=== PATIENT | male | born 1965 ===

== ENCOUNTER → 2020-06-21 09:56 | Outpatient (BNVA) | payer MEDICAID, SELFPAY | PROVIDERS: PCP Internal Medicine; Visit Provider Internal Medicine ==

== ENCOUNTER 2020-12-31 16:45 | Emergency (ER) | payer MEDICAID, SELFPAY ==
--- NOTE | ~2020-12-31 | XR_ITS ---
EXAMINATION: XR CHEST CLINICAL INFORMATION: Left-sided chest pain COMPARISON: Chest x-ray July 06, 2017 TECHNIQUE: Frontal view of the chest was obtained. FINDINGS: Cardiac silhouette is normal in size. The lungs are adequately aerated. There is no lobar consolidation. Similar diffuse coarsening of the interstitial markings consistent with chronic changes. No pleural effusion or pneumothorax. Degenerative changes of the spine. XR/XR chest 1V IMPRESSION: No acute pulmonary pathology.
[2020-12-31 16:54] VITALS: BP 131/86; PULSE 80; RESP 18; TEMP 36.9; O2SAT 96; BMI 42.5
--- NOTE | 2020-12-31 16:55 | ECG_ITS ---
Test Reason : CHEST PAIN Blood Pressure : / mmHG Vent. Rate : 080 BPM Atrial Rate : 080 BPM P-R Int : 156 ms QRS Dur : 078 ms QT Int : 380 ms P-R-T Axes : 016 032 037 degrees QTc Int : 438 ms Normal sinus rhythm Nonspecific ST and T wave abnormality Abnormal ECG When compared with ECG of 04-OCT-2015 15:17, No significant change was found Referred By: Yon José Electronically Signed By:MEGHAN ENRIQUE MD
--- NOTE | 2020-12-31 16:56 | ED.CHESTPAIN ---
HPI - Chest Pain General Chief Complaint: Chest Pain Stated Complaint: chest pain Time Seen by Provider: 12/31/20 16:55 Related Data Home Medications Medication Instructions Recorded Confirmed acetaminophen 650 mg 650 mg PO Q12H 06/21/20 tablet,extended release (Mapap Arthritis Pain) albuterol sulfate 90 mcg/actuation 2 puff INHALATION Q4-6H PRN 06/21/20 aerosol inhaler (ProAir HFA) albuterol sulfate 90 mcg/actuation 2 puff INHALATION Q4-6H PRN 06/21/20 aerosol inhaler (Ventolin HFA) atorvastatin 40 mg tablet 40 mg PO DAILY 06/21/20 blood sugar diagnostic (FreeStyle #10 ea 06/21/20 Lite Strips) blood-glucose meter (FreeStyle #1 ea 06/21/20 Lite Meter) cholecalciferol (vitamin D3) 1,250 1,250 mcg PO QWEEK 06/21/20 mcg (50,000 unit) capsule diclofenac sodium 1.5 % topical pkg TOPICAL PRN 06/21/20 drops-menthol 10 % roll-on combo pack doxycycline monohydrate 100 mg 100 mg PO DAILY 06/21/20 capsule furosemide 20 mg tablet 20 mg PO DAILY 06/21/20 gabapentin 100 mg capsule 100 mg PO TID 06/21/20 glipizide 10 mg tablet 10 mg PO DAILY 06/21/20 hydralazine 25 mg tablet 25 mg PO TID 06/21/20 lisinopril 20 mg tablet 20 mg PO DAILY 06/21/20 pioglitazone 30 mg tablet 30 mg PO DAILY 06/21/20 quetiapine 50 mg tablet 50 mg PO DAILY 06/21/20 sertraline 100 mg tablet 100 mg PO DAILY 06/21/20 sitagliptin 50 mg-metformin 1,000 1 tab PO BID 06/21/20 mg tablet (Janumet) tramadol 50 mg tablet 50 mg PO DAILY 06/21/20 Allergies Allergy/AdvReac Type Severity Reaction Status Date / Time lactose [LACTOSE] Allergy Intermediate GI UPSET Verified 06/21/20 10:15 Vicodin Allergy Unknown GI upset Uncoded 06/21/20 10:15 vicodin Allergy Unknown hives, SOB Uncoded 02/09/19 00:00 From VICODIN AdvReac Intermediate HIVES, SOB Uncoded 02/09/20 17:51 PMFSH Past Medical History Medical History Diabetes HTN (hypertension) Surgical History Hx of colonoscopy S/P arthroscopic surgery of right knee S/P hernia surgery Status post right knee replacement Family History Family History Father Prostate cancer Throat cancer Mother Arthritis Dementia Hypertension Hyperlipidemia Social History Social History Alcohol intake: unknown Patient Tobacco Use Status: Tobacco use Unknown Use of substances other than those prescribed or required for medical reasons: Unknown Advance Directives: No Advance Directives Information Provided: No Physical Exam Vital Signs: Vital Signs: Last Vital Signs Temp 97.7 F 12/31/20 22:00 Pulse 78 01/01/21 00:00 Resp 15 01/01/21 02:06 BP 142/97 H 01/01/21 02:06 Pulse Ox 97 01/01/21 02:06 Body Mass Index 42.5 Course Course Course Narrative: Patient presents to the ED for left sided chest pain for 3 days. Patient vaccinated against covid virus. EKG, labs, and chest xray ordered. This is a rapid medical Screening. MDM - Chest Pain Lab Data Result diagrams: 12/31/20 17:48 12/31/20 17:48 Labs: Lab Results 12/31/20 12/31/20 12/31/20 Range/Units 17:48 17:48 17:48 WBC 5.0 (4.8-10.8) X10*3/uL RBC 4.91 (4.60-5.80) X10*6/uL Hgb 14.3 (14.0-18.0) g/dl Hct 43.7 (42-52) % MCV 89.0 (80-98) fL MCH 29.1 (27.0-33.0) pg MCHC 32.7 (31.0-36.0) g/dl RDW 13.4 (11.0-16.0) % Plt Count 175 (160-400) X10*3/uL MPV 10.8 (9.4-12.4) fL Immature Gran % (Auto) 0.4 (0.0-0.4) % Neut % (Auto) 61.5 (45-73) % Lymph % (Auto) 25.7 (20-40) % [place] % (Auto) 7.0 (2-11) % Eos % (Auto) 4.4 H (0-4) % Baso % (Auto) 1.0 (0-2) % Lymph # (Auto) 1.3 (1.2-4.9) X10*3/uL [place] # (Auto) 0.4 (0.1-1.2) X10*3/uL Eos # (Auto) 0.2 (0.0-0.4) X10*3/uL Baso # (Auto) 0.1 (0.0-0.2) X10*3/uL Abs Immat Gran (auto) 0.02 (0.00-0.03) X10*3/uL Absolute Neuts (auto) 3.1 (2.0-8.3) X10*3/uL Absolute Nucleated RBC 0.000 (0.0-0.012) X10*3/uL Nucleated RBC % (auto) 0.0 (0.0-0.2) /100WBC PT (9.9-13.0) SEC INR (0.9-1.1) APTT (24.1-38.0) SEC Sodium 134 L (135-145) mmol/L Potassium 4.1 (3.3-5.1) mmol/L Chloride 99 (96-108) mmol/L Carbon Dioxide 24 (22-29) mmol/L Anion Gap 15 (12-20) BUN 16 (9-16) mg/dL Creatinine 1.25 (0.5-1.4) mg/dL Estim Creat Clear Calc 85.0 Estimated GFR > 60 POC Glucose (60-115) mg/dL Random Glucose 372 H* (60-115) mg/dL Calcium 9.4 (8.4-10.2) mg/dL Total Bilirubin 0.5 (0.0-1.0) mg/dL AST 24 (5-37) U/L ALT 34 (0-40) U/L Alkaline Phosphatase 117 (39-117) U/L Troponin I High Sens < 3.5 (<3.5-35.0) ng/L B-Natriuretic Peptide (<100) pg/mL Total Protein 7.4 (6.5-8.0) g/dL Albumin 4.4 (3.5-5.0) g/dL 12/31/20 01/01/21 01/01/21 Range/Units 17:48 00:10 01:17 WBC (4.8-10.8) X10*3/uL RBC (4.60-5.80) X10*6/uL Hgb (14.0-18.0) g/dl Hct (42-52) % MCV (80-98) fL MCH (27.0-33.0) pg MCHC (31.0-36.0) g/dl RDW (11.0-16.0) % Plt Count (160-400) X10*3/uL MPV (9.4-12.4) fL Immature Gran % (Auto) (0.0-0.4) % Neut % (Auto) (45-73) % Lymph % (Auto) (20-40) % [place] % (Auto) (2-11) % Eos % (Auto) (0-4) % Baso % (Auto) (0-2) % Lymph # (Auto) (1.2-4.9) X10*3/uL [place] # (Auto) (0.1-1.2) X10*3/uL Eos # (Auto) (0.0-0.4) X10*3/uL Baso # (Auto) (0.0-0.2) X10*3/uL Abs Immat Gran (auto) (0.00-0.03) X10*3/uL Absolute Neuts (auto) (2.0-8.3) X10*3/uL Absolute Nucleated RBC (0.0-0.012) X10*3/uL Nucleated RBC % (auto) (0.0-0.2) /100WBC PT 11.1 (9.9-13.0) SEC INR 1.0 (0.9-1.1) APTT 33.4 (24.1-38.0) SEC Sodium (135-145) mmol/L Potassium (3.3-5.1) mmol/L Chloride (96-108) mmol/L Carbon Dioxide (22-29) mmol/L Anion Gap (12-20) BUN (9-16) mg/dL Creatinine (0.5-1.4) mg/dL Estim Creat Clear Calc Estimated GFR POC Glucose 394 H* (60-115) mg/dL Random Glucose (60-115) mg/dL Calcium (8.4-10.2) mg/dL Total Bilirubin (0.0-1.0) mg/dL AST (5-37) U/L ALT (0-40) U/L Alkaline Phosphatase (39-117) U/L Troponin I High Sens (<3.5-35.0) ng/L B-Natriuretic Peptide 24 (<100) pg/mL Total Protein (6.5-8.0) g/dL Albumin (3.5-5.0) g/dL 01/01/21 Range/Units 02:39 WBC (4.8-10.8) X10*3/uL RBC (4.60-5.80) X10*6/uL Hgb (14.0-18.0) g/dl Hct (42-52) % MCV (80-98) fL MCH (27.0-33.0) pg MCHC (31.0-36.0) g/dl RDW (11.0-16.0) % Plt Count (160-400) X10*3/uL MPV (9.4-12.4) fL Immature Gran % (Auto) (0.0-0.4) % Neut % (Auto) (45-73) % Lymph % (Auto) (20-40) % [place] % (Auto) (2-11) % Eos % (Auto) (0-4) % Baso % (Auto) (0-2) % Lymph # (Auto) (1.2-4.9) X10*3/uL [place] # (Auto) (0.1-1.2) X10*3/uL Eos # (Auto) (0.0-0.4) X10*3/uL Baso # (Auto) (0.0-0.2) X10*3/uL Abs Immat Gran (auto) (0.00-0.03) X10*3/uL Absolute Neuts (auto) (2.0-8.3) X10*3/uL Absolute Nucleated RBC (0.0-0.012) X10*3/uL Nucleated RBC % (auto) (0.0-0.2) /100WBC PT (9.9-13.0) SEC INR (0.9-1.1) APTT (24.1-38.0) SEC Sodium (135-145) mmol/L Potassium (3.3-5.1) mmol/L Chloride (96-108) mmol/L Carbon Dioxide (22-29) mmol/L Anion Gap (12-20) BUN (9-16) mg/dL Creatinine (0.5-1.4) mg/dL Estim Creat Clear Calc Estimated GFR POC Glucose 321 H (60-115) mg/dL Random Glucose (60-115) mg/dL Calcium (8.4-10.2) mg/dL Total Bilirubin (0.0-1.0) mg/dL AST (5-37) U/L ALT (0-40) U/L Alkaline Phosphatase (39-117) U/L Troponin I High Sens (<3.5-35.0) ng/L B-Natriuretic Peptide (<100) pg/mL Total Protein (6.5-8.0) g/dL Albumin (3.5-5.0) g/dL Discharge Plan Discharge Clinical Impression: Atypical chest pain, Acute hyperglycemia Patient Disposition: Home, Self-Care Instructions: Chest Pain (ED), Diabetic Hyperglycemia (ED) Additional Instructions: Increase fluids, rest Your diabetes is not well controlled. You need to follow-up with primary care doctor to manage this further We are providing referral to follow up with Cardiology due to her complaints of chest pain I was going to refill you other diabetic medication but you have not filled this since June. You should discuss this with your doctor and continue your glipizide daily. Prescriptions: No Action diclofenac sodium-menthol 1.5-10 % combo pack topical PRNRF: 0 Referrals: Capo Stafford MD [Physician] - 2 days Interventions: ED Discharge Assessment Last Done: 01/01/21 03:25 Discharge Date/Time: 01/01/21 03:27
[2020-12-31 17:55] LABS: MANUAL DIFF FLAG NO
[2020-12-31 17:57] LABS: Basophils Absolute Auto 0.1 X10*3/uL (0.0-0.2); Eosinophils Absolute Auto 0.2 X10*3/uL (0.0-0.4); Eosinophils Percent Auto 4.4 % (0-4); Hematocrit 43.7 % (42-52); Hemoglobin 14.3 g/dl (14.0-18.0); Imm Gran Abs Auto 0.02 X10*3/uL (0.00-0.03); Imm Gran Pct Auto 0.4 % (0.0-0.4); Lymphocytes Absolute Auto 1.3 X10*3/uL (1.2-4.9); Lymphocytes Percent Auto 25.7 % (20-40); Mean Corpuscular HGB Conc 32.7 g/dl (31.0-36.0); Mean Corpuscular Hemoglobin 29.1 pg (27.0-33.0); Mean Platelet Volume 10.8 fL (9.4-12.4); Monocytes Absolute Auto 0.4 X10*3/uL (0.1-1.2); Neutrophils Absolute Auto 3.1 X10*3/uL (2.0-8.3); Neutrophils Percent Auto 61.5 % (45-73); Platelet Count 175 X10*3/uL (160-400); Red Blood Count 4.91 X10*6/uL (4.60-5.80); Red Cell Distribution Width 13.4 % (11.0-16.0)
[2020-12-31 18:20] LABS: B Type Natriuretic Peptide 24 pg/mL (<100); Troponin-I High Sensitivity < 3.5 ng/L (<3.5-35.0)
[2020-12-31 18:22] LABS: Alanine Aminotransferase 34 U/L (0-40); Albumin Level 4.4 g/dL (3.5-5.0); Alkaline Phosphatase 117 U/L (39-117); Anion Gap 15 (12-20); Aspartate Amino Transferase 24 U/L (5-37); Bilirubin Total 0.5 mg/dL (0.0-1.0); Blood Urea Nitrogen 16 mg/dL (9-16); Calcium 9.4 mg/dL (8.4-10.2); Carbon Dioxide 24 mmol/L (22-29); Chloride 99 mmol/L (96-108); Estimated Glomerular Filt Rate > 60; Glucose Random 372 mg/dL (60-115); Potassium 4.1 mmol/L (3.3-5.1); Sodium 134 mmol/L (135-145); Total Protein 7.4 g/dL (6.5-8.0)
[2020-12-31 22:00] VITALS: BP 153/87; PULSE 82; RESP 16; TEMP 36.5; O2SAT 96
[2021-01-01] VITALS: BP 152/91; PULSE 78; O2SAT 97
[2021-01-01 00:23] LABS: Prothrombin Time 11.1 SEC (9.9-13.0)
[2021-01-01 00:25] LABS: Partial Thromboplastin Time 33.4 SEC (24.1-38.0)
--- NOTE | 2021-01-01 00:31 | ED.CHESTPAIN ---
HPI - Chest Pain General Chief Complaint: Chest Pain Stated Complaint: chest pain Time Seen by Provider: 12/31/20 16:55 Source: patient Mode of arrival: ambulatory Limitations: no limitations History of Present Illness HPI narrative: 55-year-old male with a past medical history of [id number] diabetes, hypertension, anxiety, depression, diabetic neuropathy here with complaints of intermittent left-sided chest pain with numbness in the left arm for 3 days. No associated diaphoresis, nausea, vomiting, dizziness, headache. Patient tells me these episodes occur at rest and are more frequent nighttime.. Also complaining of high sugars 400 to 500s with intermittent blurry vision, increased thirst, increased urination. Patient tells me that he ran out of 1 of his oral diabetic medications but does not know the name. He did call his primary care doctor for refill but he has not received this yet. Related Data Home Medications Medication Instructions Recorded Confirmed acetaminophen 650 mg 650 mg PO Q12H 06/21/20 tablet,extended release (Mapap Arthritis Pain) albuterol sulfate 90 mcg/actuation 2 puff INHALATION Q4-6H PRN 06/21/20 aerosol inhaler (ProAir HFA) albuterol sulfate 90 mcg/actuation 2 puff INHALATION Q4-6H PRN 06/21/20 aerosol inhaler (Ventolin HFA) atorvastatin 40 mg tablet 40 mg PO DAILY 06/21/20 blood sugar diagnostic (FreeStyle #10 ea 06/21/20 Lite Strips) blood-glucose meter (FreeStyle #1 ea 06/21/20 Lite Meter) cholecalciferol (vitamin D3) 1,250 1,250 mcg PO QWEEK 06/21/20 mcg (50,000 unit) capsule diclofenac sodium 1.5 % topical pkg TOPICAL PRN 06/21/20 drops-menthol 10 % roll-on combo pack doxycycline monohydrate 100 mg 100 mg PO DAILY 06/21/20 capsule furosemide 20 mg tablet 20 mg PO DAILY 06/21/20 gabapentin 100 mg capsule 100 mg PO TID 06/21/20 glipizide 10 mg tablet 10 mg PO DAILY 06/21/20 hydralazine 25 mg tablet 25 mg PO TID 06/21/20 lisinopril 20 mg tablet 20 mg PO DAILY 06/21/20 pioglitazone 30 mg tablet 30 mg PO DAILY 06/21/20 quetiapine 50 mg tablet 50 mg PO DAILY 06/21/20 sertraline 100 mg tablet 100 mg PO DAILY 06/21/20 sitagliptin 50 mg-metformin 1,000 1 tab PO BID 06/21/20 mg tablet (Janumet) tramadol 50 mg tablet 50 mg PO DAILY 06/21/20 Allergies Allergy/AdvReac Type Severity Reaction Status Date / Time lactose [LACTOSE] Allergy Intermediate GI UPSET Verified 06/21/20 10:15 Vicodin Allergy Unknown GI upset Uncoded 06/21/20 10:15 vicodin Allergy Unknown hives, SOB Uncoded 02/09/19 00:00 From VICODIN AdvReac Intermediate HIVES, SOB Uncoded 02/09/20 17:51 Review of Systems Review of Systems: Increased thirst, increased urination Yes all other systems are reviewed and are negative Constitutional: Constitutional: Reports no additional constitutional complaints, Denies body ache(s), Denies chills, Denies fever(s), Denies headache(s) and Denies weakness Eyes: Eyes: Reports no additional eye complaints, Reports blurry vision and Denies change in vision ENT: Reports system reviewed and no additional complaints, except as documented, Denies dizziness, Denies headache(s), Denies nasal congestion, Denies nasal discharge and Denies neck pain Cardiovascular: Cardiovascular: Reports no additional cardiovascular complaints, Reports chest pain, Denies leg edema and Denies dyspnea Respiratory: Respiratory: Reports no additional respiratory complaints, Denies cough and Denies dyspnea Gastrointestinal: Gastrointestinal: Reports no additional gastrointestinal complaints, Denies abdominal pain, Denies diarrhea, Denies nausea and Denies vomiting Genitourinary: Genitourinary: Denies urinary incontinence Musculoskeletal: Musculoskeletal: Reports no additional musculoskeletal complaints, Denies back pain, Denies arthralgias, Denies joint swelling, Denies neck pain, Reports numbness and Denies tingling Integumentary/Breasts: Skin/Breast: Reports system reviewed and no additional complaints, except as docu and Denies rash Neurologic: Reports system reviewed and no additional complaints, except as documented, Denies Abnormal speech present, Denies dizziness, Denies headache(s), Reports numbness, Denies tingling and Denies weakness PMF Past Medical History Attestation statement: The following information was validated with the patient. Source: old records reviewed and nursing notes reviewed Medical History Diabetes HTN (hypertension) Surgical History Hx of colonoscopy S/P arthroscopic surgery of right knee S/P hernia surgery Status post right knee replacement Family History Family History Father Prostate cancer Throat cancer Mother Arthritis Dementia Hypertension Hyperlipidemia Social History Social History Alcohol intake: unknown Patient Tobacco Use Status: Tobacco use Unknown Use of substances other than those prescribed or required for medical reasons: Unknown Advance Directives: No Advance Directives Information Provided: No Physical Exam Vital Signs: Vital Signs: Last Vital Signs Temp 97.7 F 12/31/20 22:00 Pulse 78 01/01/21 00:00 Resp 16 12/31/20 22:00 BP 152/91 H 01/01/21 00:00 Pulse Ox 97 01/01/21 00:00 Body Mass Index 42.5 Const: General: cooperative, healthy appearing, comfortable and no acute distress Orientation/consciousness: patient oriented x3 Limitations: no limitations HENMT: Head: Yes normal to inspection Ears: hearing grossly normal bilaterally General nose exam: Normal external nose present Face and sinus: Yes normal facial exam Mouth: Normal oral and palatal mucosa present Throat: Yes posterior oropharynx normal Eyes: General: appearance normal, both eyes and all related structures Pupils: Equal, round and reactive pupils present Neck: Neck: Yes normal visual inspection Chest: Other: No chest pain during exam Chest palpation & inspection: normal inspection of the chest Resp: Effort & Inspection: normal respiratory effort Auscultation: clear to auscultation bilaterally Cardio: Rate: regular rate Rhythm: regular rhythm Peripheral pulses: Peripheral pulses 2+ throughout GI: Inspection: Yes normal to inspection Palpation (GI): Soft to palpation and nontender Auscultation: normal bowel sounds Back/Spine/Pelvis: Thoracic/Lumbar Spine: thoracic and lumbar spine normal to inspection Skin: General skin exam: no rashes or lesions noted Neuro: General: patient oriented x3, no focal motor deficits and normal sensation to monofilament Cranial nerves: Yes CN's II-XII intact bilaterally, Yes Equal, round and reactive pupils present, Yes Bilaterally intact EOM present, Yes Nystagmus not present, Yes Normal facial strength present and Yes Midline tongue present Cognition (Neuro): normal cognition Speech: No Abnormal speech present Gait exam (Neuro): Normal gait present Motor exam (neuro): 5/5 motor strength present throughout Sensory Exam: Normal double simultaneous stimulation for sensation Coordination: [id number] test normal, [id number] test normal and tandem gait normal Extrem: General: Yes normal to inspection Course Course Course Narrative: 55-year-old male with a past medical history of [id number] diabetes, diabetic neuropathy, hypertension, anxiety and depression with intermittent left-sided chest pain with numbness in the fingers on the left side for 3 days. Worsened at night time when trying to sleep. No other associated symptoms such as diaphoresis, nausea, vomiting, dizziness. Patient also complaining of high blood sugars over the last several months with associated intermittent blurry vision, increased thirst and increased urination. Patient ran out of 1 of his diabetic medications which he thinks is contributing to this. He has a follow-up appointment next week with his primary care doctor. On exam no chest pain or complaints of numbness. Hemodynamically stable. Will check labs, EKG, chest x-ray. 0040-chest x-ray shows no acute finding. EKG and troponin negative. All other labs are unremarkable with the exception of mildly elevated glucose. Patient will receive 1 L of normal saline and then will check a POC. Symptoms atypical for ACS with symptoms greater than 3 days. No symptoms during my assessment. Patient can follow-up outpatient with his primary care doctor. Will provide referral for Cardiology due to multiple risk factors. We discussed better control of his diabetes may improve his multiple symptoms and complaints.. He has a follow-up next week with PCP. MDM - Chest Pain MDM Narrative Medical decision making narrative: ACS-less likely with symptoms greater than 2 days, atypical in nature with a negative troponin and EKG Differential Diagnosis Differential diagnosis: Likely atypical chest pain Medical Records Data Attestation: I reviewed the patient's medical records. Lab Data Attestation: I reviewed the patient's lab results. Result diagrams: 12/31/20 17:48 12/31/20 17:48 Labs: Lab Results 12/31/20 12/31/20 12/31/20 Range/Units 17:48 17:48 17:48 WBC 5.0 (4.8-10.8) X10*3/uL RBC 4.91 (4.60-5.80) X10*6/uL Hgb 14.3 (14.0-18.0) g/dl Hct 43.7 (42-52) % MCV 89.0 (80-98) fL MCH 29.1 (27.0-33.0) pg MCHC 32.7 (31.0-36.0) g/dl RDW 13.4 (11.0-16.0) % Plt Count 175 (160-400) X10*3/uL MPV 10.8 (9.4-12.4) fL Immature Gran % (Auto) 0.4 (0.0-0.4) % Neut % (Auto) 61.5 (45-73) % Lymph % (Auto) 25.7 (20-40) % [place] % (Auto) 7.0 (2-11) % Eos % (Auto) 4.4 H (0-4) % Baso % (Auto) 1.0 (0-2) % Lymph # (Auto) 1.3 (1.2-4.9) X10*3/uL [place] # (Auto) 0.4 (0.1-1.2) X10*3/uL Eos # (Auto) 0.2 (0.0-0.4) X10*3/uL Baso # (Auto) 0.1 (0.0-0.2) X10*3/uL Abs Immat Gran (auto) 0.02 (0.00-0.03) X10*3/uL Absolute Neuts (auto) 3.1 (2.0-8.3) X10*3/uL Absolute Nucleated RBC 0.000 (0.0-0.012) X10*3/uL Nucleated RBC % (auto) 0.0 (0.0-0.2) /100WBC PT (9.9-13.0) SEC INR (0.9-1.1) APTT (24.1-38.0) SEC Sodium 134 L (135-145) mmol/L Potassium 4.1 (3.3-5.1) mmol/L Chloride 99 (96-108) mmol/L Carbon Dioxide 24 (22-29) mmol/L Anion Gap 15 (12-20) BUN 16 (9-16) mg/dL Creatinine 1.25 (0.5-1.4) mg/dL Estim Creat Clear Calc 85.0 Estimated GFR > 60 POC Glucose (60-115) mg/dL Random Glucose 372 H* (60-115) mg/dL Calcium 9.4 (8.4-10.2) mg/dL Total Bilirubin 0.5 (0.0-1.0) mg/dL AST 24 (5-37) U/L ALT 34 (0-40) U/L Alkaline Phosphatase 117 (39-117) U/L Troponin I High Sens < 3.5 (<3.5-35.0) ng/L B-Natriuretic Peptide (<100) pg/mL Total Protein 7.4 (6.5-8.0) g/dL Albumin 4.4 (3.5-5.0) g/dL 12/31/20 01/01/21 01/01/21 Range/Units 17:48 00:10 01:17 WBC (4.8-10.8) X10*3/uL RBC (4.60-5.80) X10*6/uL Hgb (14.0-18.0) g/dl Hct (42-52) % MCV (80-98) fL MCH (27.0-33.0) pg MCHC (31.0-36.0) g/dl RDW (11.0-16.0) % Plt Count (160-400) X10*3/uL MPV (9.4-12.4) fL Immature Gran % (Auto) (0.0-0.4) % Neut % (Auto) (45-73) % Lymph % (Auto) (20-40) % [place] % (Auto) (2-11) % Eos % (Auto) (0-4) % Baso % (Auto) (0-2) % Lymph # (Auto) (1.2-4.9) X10*3/uL [place] # (Auto) (0.1-1.2) X10*3/uL Eos # (Auto) (0.0-0.4) X10*3/uL Baso # (Auto) (0.0-0.2) X10*3/uL Abs Immat Gran (auto) (0.00-0.03) X10*3/uL Absolute Neuts (auto) (2.0-8.3) X10*3/uL Absolute Nucleated RBC (0.0-0.012) X10*3/uL Nucleated RBC % (auto) (0.0-0.2) /100WBC PT 11.1 (9.9-13.0) SEC INR 1.0 (0.9-1.1) APTT 33.4 (24.1-38.0) SEC Sodium (135-145) mmol/L Potassium (3.3-5.1) mmol/L Chloride (96-108) mmol/L Carbon Dioxide (22-29) mmol/L Anion Gap (12-20) BUN (9-16) mg/dL Creatinine (0.5-1.4) mg/dL Estim Creat Clear Calc Estimated GFR POC Glucose 394 H* (60-115) mg/dL Random Glucose (60-115) mg/dL Calcium (8.4-10.2) mg/dL Total Bilirubin (0.0-1.0) mg/dL AST (5-37) U/L ALT (0-40) U/L Alkaline Phosphatase (39-117) U/L Troponin I High Sens (<3.5-35.0) ng/L B-Natriuretic Peptide 24 (<100) pg/mL Total Protein (6.5-8.0) g/dL Albumin (3.5-5.0) g/dL ECG Data ECG #1: Attestation: I personally reviewed and interpreted this ECG as follows: ECG interpretation date: 01/01/21 ECG interpretation time: 17:39 Interpretation: Normal sinus rhythm with a rate of 80, normal ID, normal QRS, normal QT Discharge Plan Discharge Clinical Impression: Atypical chest pain, Acute hyperglycemia Patient Disposition: Home, Self-Care Instructions: Chest Pain (ED), Diabetic Hyperglycemia (ED) Additional Instructions: Increase fluids, rest Your diabetes is not well controlled. You need to follow-up with primary care doctor to manage this further We are providing referral to follow up with Cardiology due to her complaints of chest pain I was going to refill you other diabetic medication but you have not filled this since June. You should discuss this with your doctor and continue your glipizide daily. Prescriptions: No Action diclofenac sodium-menthol 1.5-10 % combo pack topical PRNRF: 0 Referrals: Capo Stafford MD [Physician] - 2 days
[2021-01-01] MEDS: 0.9 % Sodium Chloride 1,000 ML 999 ML IV (00:39)
[2021-01-01 01:21] LABS: Glucose, Whole Blood 394 mg/dL (60-115)
[2021-01-01] MEDS: glipiZIDE 5 MG TABLET PO ×2 (02:05→03:28)
[2021-01-01 02:06] VITALS: BP 142/97; RESP 15; O2SAT 97
[2021-01-01 02:44] LABS: Glucose, Whole Blood 321 mg/dL (60-115)
== END 2021-01-01 03:27 | disposition home or self-care (01) ==
PROVIDERS: Physician Assistant; Emergency Provider Internal Medicine; PCP Internal Medicine
DX: R07.89 Other chest pain (principal); E11.65 Type 2 diabetes mellitus with hyperglycemia; I10 Essential (primary) hypertension
CPT/HCPCS: 36415; 71045; 80053; 82947; 83880; 84484; 85025; 85610; 85730; 93005; 96360; 99284; 99285

== ENCOUNTER → 2021-05-28 13:28 | Outpatient (BNVA) | payer MEDICAID, SELFPAY | PROVIDERS: PCP Internal Medicine; Referring Provider Internal Medicine; Visit Provider Internal Medicine | DX: R07.2 Precordial pain (principal); R94.31 Abnormal electrocardiogram [ECG] [EKG]; I10 Essential (primary) hypertension; E11.8 Type 2 diabetes mellitus with unspecified complications; E78.5 Hyperlipidemia, unspecified; F17.200 Nicotine dependence, unspecified, uncomplicated | CPT/HCPCS: 93005; 99202 ==

== ENCOUNTER 2021-09-05 15:55 | Outpatient (REF) | payer MEDICAID, SELFPAY ==
--- NOTE | ~2021-09-05 | US_ITS ---
EXAMINATION: ULTRASOUND EXTREMITY NONVASCULAR CLINICAL INFORMATION: Soft tissue and lung COMPARISON: None TECHNIQUE: Grayscale and color imaging of the soft tissues of the left upper arm FINDINGS: Palpable abnormality corresponds to an oval-shaped 2.5 x 2 x 0.9 cm solid isoechoic mass with minimal vascularity just deep to the skin. Ultrasound appearance is suggestive of a lipoma. US/US extremity nonvascular IMPRESSION: Oval-shaped 2.5 x 2 x 0.9 cm isoechoic mass probably representing a lipoma.
== END 2021-09-05 15:56 | disposition home or self-care (01) ==
LOC: HO.US 15:55
PROVIDERS: Visit Provider Internal Medicine
DX: R59.0 Localized enlarged lymph nodes (principal)
CPT/HCPCS: 76882

== ENCOUNTER → 2021-12-03 08:55 | Outpatient (BNVA) | payer MEDICAID, SELFPAY | PROVIDERS: PCP Internal Medicine; Visit Provider Surgery | DX: D17.22 Benign lipomatous neoplasm of skin and subcutaneous tissue of left arm (principal); E66.01 Morbid (severe) obesity due to excess calories; Z68.41 Body mass index [BMI] 40.0-44.9, adult; I10 Essential (primary) hypertension; E11.65 Type 2 diabetes mellitus with hyperglycemia | CPT/HCPCS: 99202 ==

== ENCOUNTER 2022-05-09 15:52 | Emergency (ER) | payer MEDICAID, SELFPAY ==
--- NOTE | ~2022-05-09 | CT_ITS ---
EXAMINATION: CT ABDOMEN AND PELVIS WITHOUT CONTRAST CLINICAL INFORMATION: Abdominal pain. COMPARISON: CT scan abdomen pelvis 08/12/2015 TECHNIQUE: Multidetector volumetric imaging was performed from the superior aspect of the liver through the pubic symphysis. Sagittal and coronal reformatted images were obtained on the technologist's workstation. This CT examination was performed using dose optimization techniques as appropriate, variously including the following: *Automated exposure control *Adjustment of mA and/or kV according to patient size (this includes techniques or standardized protocols for targeted exams where dose is matched to indication/reason for exam; i.e. extremities or head) *Use of iterative reconstruction technique DLP: 1092 mGy-cm FINDINGS: LUNG BASES: The visualized lung bases are unremarkable. Calcification of mitral valve annulus. LIVER, GALLBLADDER, AND BILIARY TREE: The liver is normal in size, shape, and attenuation. No focal hepatic lesion or biliary ductal dilatation is present. The gallbladder is unremarkable with no evidence of radiopaque gallstones, gallbladder wall thickening, or obvious pericholecystic inflammatory changes. PANCREAS: Unremarkable. SPLEEN: Unremarkable. ADRENAL GLANDS: Unremarkable. KIDNEYS AND URETERS: The kidneys are normal in size, shape, and attenuation. No hydronephrosis, hydroureter, or calculi seen. No perinephric stranding. BLADDER: Unremarkable. GASTROINTESTINAL TRACT: There are scattered diverticula throughout the colon. There is no diverticulitis. There is no bowel wall thickening /edema. There is no bowel obstruction. There is a moderate volume of stool in the colon. The appendix is normal . The small bowel loops are unremarkable. The stomach is normal. There is no hiatal hernia. ABDOMINAL WALL: Small fat-containing umbilical hernia. LYMPH NODES: Normal. VASCULAR: Unremarkable. PELVIC VISCERA: Unremarkable. OSSEOUS STRUCTURES: Multilevel degenerative spondylosis spine. CT/CT abdomen pelvis wo IV con IMPRESSION: No acute abnormality CT scan abdomen pelvis. Fleischner guidelines were followed.
[2022-05-09 15:59] VITALS: BP 140/90; PULSE 80
[2022-05-09 16:31] VITALS: BP 144/88; PULSE 82; RESP 16; TEMP 36.8; O2SAT 98; BMI 41.6
--- NOTE | 2022-05-09 16:32 | ED_ITS ---
HPI - Abdominal Pain General Chief Complaint: Abdominal Pain <CLAUDINE Win Last Filed: 05/09/22 16:34> Stated Complaint: abdominal pain <CLAUDINE Win Last Filed: 05/09/22 16:34> Time Seen by Provider: 05/09/22 19:33 <CLAUDINE Win - Last Filed: 05/09/22 16:34> Source: patient and EMS <CLAUDINE Madrigal Last Filed: 05/09/22 21:50> Mode of arrival: EMS <CLAUDINE Madrigal Last Filed: 05/09/22 21:50> Limitations: no limitations <CLAUDINE Madrigal Last Filed: 05/09/22 21:50> History of Present Illness HPI narrative: Patient is a 57 year old assigned male at with a history of HTN, DM, and alcohol use presenting to the emergency department today with left sided abdominal pain. Patient states that over the last few days he has had abdominal pain that radiates to the left side. Patient states that it is intermittent and never stays long. Patient denies any dizziness, lightheadedness, nausea, vomiting, fever, chills, blurry vision, double vision, loss of vision, chest pain, difficulty breathing, shortness of breath, back pain, night sweats, pain with urination, increased urinary frequency, increased urinary urgency, blood in his urine or stool, syncope or a near syncopal episode, recent trauma or falls, bowel incontinence, bladder incontinence, bowel retention, bladder retention, or any other complaints at this time. <CLAUDINE Madrigal - Last Filed: 05/09/22 21:50> MD elicited complaint: abdominal pain <CLAUDINE Madrigal - Last Filed: 05/09/22 21:50> Pertinent past history: none <CLAUDINE Madrigal Last Filed: 05/09/22 21:50> Onset (ago): day(s) <CLAUDINE Madrigal Last Filed: 05/09/22 21:50> Pain Consistency: intermittent <CLAUDINE Madrigal Last Filed: 05/09/22 21:50> Location: periumbilical <CLAUDINE Madrigal Last Filed: 05/09/22 21:50> Severity: mild <CLAUDINE Madrigal - Last Filed: 05/09/22 21:50> Pain scale (0-10): 4 <CLAUDINE Madrigal - Last Filed: 05/09/22 21:50> Quality: aching <CLAUDINE Madrigal - Last Filed: 05/09/22 21:50> Radiation: LUQ and LLQ <CLAUDINE Madrigal - Last Filed: 05/09/22 21:50> Exacerbating factors: nothing <CLAUDINE Madrigal - Last Filed: 05/09/22 21:50> Relieving factors: nothing <CLAUDINE Madrigal - Last Filed: 05/09/22 21:50> Associated symptoms: denies other symptoms <CLAUDINE Madrigal - Last Filed: 05/09/22 21:50> Related Data Home Medications: Home Medications Medication Instructions Recorded Confirmed acetaminophen 650 mg 650 mg PO Q12H 06/21/20 12/03/21 tablet,extended release (Mapap Arthritis Pain) albuterol sulfate 90 mcg/actuation 2 puff inhalation Q4-6H PRN 06/21/20 12/03/21 aerosol inhaler (Ventolin HFA) atorvastatin 40 mg tablet 40 mg PO DAILY 06/21/20 12/03/21 blood sugar diagnostic (SheilaStyle #10 ea 06/21/20 12/03/21 Lite Strips) blood-glucose meter (SheilaStyle #1 ea 06/21/20 12/03/21 Lite Meter kit) cholecalciferol (vitamin D3) 1,250 1,250 mcg PO QWEEK 06/21/20 12/03/21 mcg (50,000 unit) capsule diclofenac sodium 1.5 % topical pkg topical PRN 06/21/20 12/03/21 drops-menthol 10 % roll-on combo pack furosemide 20 mg tablet 20 mg PO DAILY 06/21/20 12/03/21 gabapentin 100 mg capsule 100 mg PO TID 06/21/20 12/03/21 glipizide 10 mg tablet 10 mg PO DAILY 06/21/20 12/03/21 hydralazine 25 mg tablet 25 mg PO TID 06/21/20 12/03/21 lisinopril 20 mg tablet 20 mg PO DAILY 06/21/20 12/03/21 pioglitazone 30 mg tablet 30 mg PO DAILY 06/21/20 12/03/21 quetiapine 50 mg tablet 50 mg PO DAILY 06/21/20 12/03/21 sertraline 100 mg tablet 100 mg PO DAILY 06/21/20 12/03/21 sitagliptin phosphate 50 1 tab PO BID 06/21/20 12/03/21 mg-metformin 1,000 mg tablet (Janumet) tramadol 50 mg tablet 50 mg PO DAILY 06/21/20 12/03/21 <CLAUDINE Win Last Filed: 05/09/22 16:34> Allergies/Adverse Reactions: Allergies Allergy/AdvReac Type Severity Reaction Status Date / Time lactose [LACTOSE] Allergy Intermediate GI UPSET Verified 12/03/21 09:11 From VICODIN AdvReac Intermediate HIVES, Uncoded 12/03/21 09:11 SOB, GI UPSET <CALUDINE Win Last Filed: 05/09/22 16:34> Review of Systems Constitutional: Reports no additional constitutional complaints, Denies chills, Denies fever(s) and Denies night sweats <CLAUDINE Madrigal Last Filed: 05/09/22 21:50> Eyes: Reports no additional eye complaints, Denies blurry vision, Denies change in vision, Denies diplopia, Denies eye discharge, Denies loss of vision and Denies eye pain <CLAUDINE Madrigal Last Filed: 05/09/22 21:50> Denies dizziness <CLAUDINE Madrigal Last Filed: 05/09/22 21:50> Cardiovascular: Reports no additional cardiovascular complaints, Denies chest pain, Denies lightheadedness, Denies Loss of Consciousness and Denies dyspnea <CLAUDINE Madrigal Last Filed: 05/09/22 21:50> Respiratory: Reports no additional respiratory complaints and Denies dyspnea <CLAUDINE Madrigal Last Filed: 05/09/22 21:50> Gastrointestinal: Reports no additional gastrointestinal complaints, Reports abdominal pain, Denies melena, Denies hematochezia, Denies change in bowel habits and Denies change in stool character <CLAUDINE Madrigal Last Filed: 05/09/22 21:50> Genitourinary: Reports no additional male genitourinary complaints, Denies hematuria, Denies oliguria, Denies difficulty urinating, Denies dysuria, Denies urinary frequency, Denies urinary hesitancy, Denies urinary incontinence and Denies urin jhony urgency <CLAUDINE Madrigal - Last Filed: 05/09/22 21:50> Musculoskeletal: Reports no additional musculoskeletal complaints, Denies numbness and Denies tingling <CLAUDINE Madrigal - Last Filed: 05/09/22 21:50> Denies dizziness, Denies loss of vision, Denies numbness and Denies ti ngling <CLAUDINE Madrigal - Last Filed: 05/09/22 21:50> Psychiatric: Reports no additional psychiatric complaints <CLAUDINE Madrigal - Last Filed: 05/09/22 21:50> Endocrine: Reports no additional endocrine complaints <CLAUDINE Madrigal - Last Filed: 05/09/22 21:50> Hematologic/Lymphatic: Reports no additional hematologic/lymphatic complaints <CLAUDINE Madrigal - Last Filed: 05/09/22 21:50> Allergic/Immunologic: Reports no additional allergic/immunologic complaints <CLAUDINE Madrigal - Last Filed: 05/09/22 21:50> PMFSH Past Medical History Attestation statement: The following information was validated with the patient. <CLAUDINE Madrigal - Last Filed: 05/09/22 21:50> Source: old records reviewed and nursing notes reviewed <CLAUDINE Madrigal - Last Filed: 05/09/22 21:50> Medical History: Medical History Diabetes HTN (hypertension) <CLAUDINE Win - Last Filed: 05/09/22 16:34> Surgical History: Surgical History Hx of colonoscopy S/P arthroscopic surgery of right knee S/P hernia surgery Status post right knee replacement <CLAUDINE Win - Last Filed: 05/09/22 16:34> Family History Family History: Family History Father Prostate cancer Throat cancer Mother Arthritis Dementia Hypertension Hyperlipidemia <CLAUDINE Win - Last Filed: 05/09/22 16:34> Social History Social History: Social History Alcohol intake: unknown Patient Tobacco Use Status: Current someday Tobacco user Advance Directives: No Advance Directives Information Provided: No <CLAUDINE Win - Last Filed: 05/09/22 16:34> Physical Exam ED Vital Signs: Vital Signs - 24 hr 05/09/22 16:31 Temperature 98.2 F Pulse Rate 82 Respiratory Rate 16 Blood Pressure 144/88 H Pulse Oximetry 98 Oxygen Delivery Method Room Air BMI result Body Mass Index 41.6 <CLAUDINE Win - Last Filed: 05/09/22 16:34> Vital Signs - 24 hr 05/09/22 16:31 Temperature 98.2 F Pulse Rate 82 Respiratory Rate 16 Blood Pressure 144/88 H Pulse Oximetry 98 Oxygen Delivery Method Room Air BMI result Body Mass Index 41.6 <CLAUDINE Madrigal - Last Filed: 05/09/22 21:50> Const General: cooperative, no acute distress, alert and awake <CLAUDINE Madrigal - Last Filed: 05/09/22 21:50> Nutritional Appearance: well nourished <CLAUDINE Madrigal - Last Filed: 05/09/22 21:50> Orientation/consciousness: patient oriented x3 <CLAUDINE Madrigal - Last Filed: 05/09/22 21:50> Limitations: no limitations <CLAUDINE Madrigal - Last Filed: 05/09/22 21:50> HENMT Head: Yes normal to inspection and Yes atraumatic <CLAUDINE Madrigal - Last Filed: 05/09/22 21:50> Ears: hearing grossly normal bilaterally and external ears normal <CLAUDINE Madrigal - Last Filed: 05/09/22 21:50> General nose exam: Normal external nose present, no nasal discharge noted and no epistaxis <CLAUDINE Madrigal - Last Filed: 05/09/22 21:50> Face and sinus: Yes normal facial exam, No abrasion and No laceration <CLAUDINE Madrigal - Last Filed: 05/09/22 21:50> Mouth: Normal oral and palatal mucosa present, no drooling and no muffled voice <Britney Eagle ID - Last Filed: 05/09/22 21:50> Eyes General: appearance normal, both eyes and all related structures <Britney Eagle ID - Last Filed: 05/09/22 21:50> Periorbital: periorbital findings normal <Britney Eagle [facility] Last Filed: 05/09/22 21:50> Eyelids: Yes eyelids normal <Britney Eagle ID - Last Filed: 05/09/22 21:50> Conjunctivae: conjunctivae normal <Britney Eagle ID - Last Filed: 05/09/22 21:50> Pupils: Equal, round and reactive pupils present <Britney Eagle ID - Last Filed: 05/09/22 21:50> EOM: EOMs intact bilaterally <Britney Eagle ID - Last Filed: 05/09/22 21:50> Neck Neck: Yes normal visual inspection, Yes full ROM and Yes no lymphadenopathy <Britney Eagle ID - Last Filed: 05/09/22 21:50> Chest Chest palpation & inspection: normal inspection of the chest <Britney Eagle [facility] Last Filed: 05/09/22 21:50> Resp Effort & Inspection: normal respiratory effort and able to speak in complete sentences <Britney Eagle ID - Last Filed: 05/09/22 21:50> Auscultation: clear to auscultation bilaterally <Britney Eagle [facility] Last Filed: 05/09/22 21:50> Cardio Rate: regular rate <Britney Eagle ID - Last Filed: 05/09/22 21:50> Rhythm: regular rhythm <Britney Eagle [facility] Last Filed: 05/09/22 21:50> GI Inspection: Yes normal to inspection <Britney Eagle [facility] Last Filed: 05/09/22 21:50> Palpation (GI): Soft to palpation, not firm, nontender, no guarding and not rigid <Britney Eagle ID - Last Filed: 05/09/22 21:50> Neuro General: patient oriented x3 and moves all extremities <Britney Wheatestrellita ID - Last Filed: 05/09/22 21:50> Cranial nerves: Yes Equal, round and reactive pupils present <Britney WheatCLAUDINE haro - Last Filed: 05/09/22 21:50> Cognition (Neuro): normal cognition <Britneymaximilian WheatCLAUDINE haro - Last Filed: 05/09/22 21:50> Motor exam (neuro): 5/5 motor strength present throughout <Britney WheatCLAUDINE haro - Last Filed: 05/09/22 21:50> Sensory Exam: Normal double simultaneous stimulation for sensation <CLAUDINE Madrigal - Last Filed: 05/09/22 21:50> Coordination: [id number] test normal <Britney EagleCLAUDINE haro - Last Filed: 05/09/22 21:50> Extrem General: Yes normal to inspection, Yes full ROM and Yes capillary refill normal <CLAUDINE Madrigal - Last Filed: 05/09/22 21:50> Psych Appearance: grossly normal <CLAUDINE Madrigal - Last Filed: 05/09/22 21:50> Mental Status: mental status grossly normal <CLAUDINE Madrigal - Last Filed: 05/09/22 21:50> Affect: normal affect <CLAUDINE Madrigal - Last Filed: 05/09/22 21:50> Attitude: cooperative <CLAUDINE Madrigal - Last Filed: 05/09/22 21:50> Thought process: Normal thought process present <CLAUDINE Madrigal - Last Filed: 05/09/22 21:50> Thought content: Normal thought content present <CLAUDINE Madrigal - Last Filed: 05/09/22 21:50> Insight: Good insight present (Psych) <CLAUDINE Madrigal - Last Filed: 05/09/22 21:50> Course Course Course Narrative: RME-16:35PM 57-year-old male presenting with abdominal pain that started in the umbilical area is now radiating to the left upper quadrant for the past 2 weeks it was initially intermittent now it is constant. Denies any other symptoms related to this. Plan: Labs, UA, CT scan abdomen pelvis without IV contrast. Patient is stable and will be sent back to the waiting room for further evaluation treatment to the main ER. <CLAUDINE Win - Last Filed: 05/09/22 16:34> Medical Decision Making Medical Decision Making MDM Narrative: Patient is a 57 year old assigned male at with a history of HTN, DM, and alcohol use presenting to the emergency department today with abdominal pain. Patient's physical exam was unremarkable. Patient's blood work was unremarkable. Patient's urine showed no acute process. Patient's abdominal CT showed no acute process. I explained my physical exam findings as well as all test results to the patient. I answered all questions asked by the patient. Patient received PO Omeprazole and Maalox which he stated helped his pain significantly. I stressed the importance of the patient taking his medication as prescribed. I stressed the importance of the patient following up with his primary care provider and a GI specialist. I stressed the importance of the patient returning to the emergency department immediately if his symptoms were to worsen or if he were to develop any dizziness, shortness of breath, difficulty breathing, chest pain, blurry vision, loss of vision, nausea, vomiting, abdominal pain, fever, chills, back pain, or any other complaints. Patient verbalized agreement and understanding with this treatment plan and discharge. <CLAUDINE Madrigal - Last Filed: 05/09/22 21:50> Differential Diagnosis Differential Diagnoses: The differential diagnosis associated with the presentation includes <CLAUDINE Madrigal - Last Filed: 05/09/22 21:50> abdominal pain, GERD <CLAUDINE Madrigal - Last Filed: 05/09/22 21:50> Lab Data MDM Lab Attestation statement: I reviewed the patient's lab results. <CLAUDINE Madrigal - Last Filed: 05/09/22 21:50> Result Diagrams: : 05/09/22 17:51 05/09/22 17:51 <CLAUDINE Win - Last Filed: 05/09/22 16:34> Labs: Lab Results 05/09/22 05/09/22 05/09/22 Range/Units 17:51 17:51 17:51 WBC 5.9 (4.8-10.8) X10*3/uL RBC 5.72 (4.60-5.80) X10*6/uL Hgb 16.4 (14.0-18.0) g/dl Hct 51.0 (42.0-52.0) % MCV 89.2 (80.0-98.0) fL MCH 28.7 (27.0-33.0) pg MCHC 32.2 (31.0-36.0) g/dl RDW 14.3 (11.0-16.0) % Plt Count 210 (160-400) X10*3/uL MPV 9.7 (9.4-12.4) fL Immature Gran % (Auto) 0.2 (0.0-0.4) % Neut % (Auto) 60.8 (45-73) % Lymph % (Auto) 28.4 (20-40) % [place] % (Auto) 6.5 (2-11) % Eos % (Auto) 3.6 (0-4) % Baso % (Auto) 0.5 (0-2) % Lymph # (Auto) 1.7 (1.2-4.9) X10*3/uL [place] # (Auto) 0.4 (0.1-1.2) X10*3/uL Eos # (Auto) 0.2 (0.0-0.4) X10*3/uL Baso # (Auto) 0.0 (0.0-0.2) X10*3/uL Abs Immat Gran (auto) 0.01 (0.00-0.03) X10*3/uL Absolute Neuts (auto) 3.6 (2.0-8.3) x10*3/uL Absolute Nucleated RBC 0.000 (0.0-0.012) X10*3/uL Nucleated RBC % (auto) 0.0 (0.0-0.2) /100WBC PT 10.9 (10.0-13.1) SEC INR 1.0 (0.9-1.1) Sodium 137 (135-145) mmol/L Potassium 4.1 (3.3-5.1) mmol/L Chloride 101 (96-108) mmol/L Carbon Dioxide 25 (22-29) mmol/L Anion Gap 15 (12-20) BUN 11 (9-16) mg/dL Creatinine 0.95 (0.5-1.4) mg/dL Estim Creat Clear Calc 107.9 Estimated GFR > 60 Random Glucose 137 H (60-115) mg/dL Calcium 9.8 (8.4-10.2) mg/dL Magnesium 2.2 (1.6-2.6) mg/dL Total Bilirubin 0.6 (0.0-1.0) mg/dL AST 30 (5-37) U/L ALT 30 (0-40) U/L Alkaline Phosphatase 129 H (39-117) U/L Total Protein 7.5 (6.5-8.0) g/dL Albumin 4.4 (3.5-5.0) g/dL Lipase 30 (8-78) U/L Urine Color Urine Appearance Urine pH (5.0-9.0) Ur Specific Fischer (1.005-1.025) Urine Protein (Neg-Trace) mg/dL Urine Glucose (UA) (Negative) mg/dL Urine Ketones (Negative) mg/dL Urine Blood (Negative) Urine Nitrite (Negative) Ur Leukocyte Esterase (Negative) Urine RBC (0-2) /HPF Urine WBC (0-5) /HPF Ur Squamous Epith Cells (0-2) /HPF Urine Bacteria (None Seen) Hyaline Casts (0-2) /LPF Ethyl Alcohol mg/dL Influenza Type A (PCR) (Negative) Influenza Type B (PCR) (Negative) RSV RNA Qual (PCR) (Negative) SARS-CoV-2 RNA (RT-PCR) (Negative) 05/09/22 05/09/22 05/09/22 Range/Units 17:51 17:51 17:59 WBC (4.8-10.8) X10*3/uL RBC (4.60-5.80) X10*6/uL Hgb (14.0-18.0) g/dl Hct (42.0-52.0) % MCV (80.0-98.0) fL MCH (27.0-33.0) pg MCHC (31.0-36.0) g/dl RDW (11.0-16.0) % Plt Count (160-400) X10*3/uL MPV (9.4-12.4) fL Immature Gran % (Auto) (0.0-0.4) % Neut % (Auto) (45-73) % Lymph % (Auto) (20-40) % [place] % (Auto) (2-11) % Eos % (Auto) (0-4) % Baso % (Auto) (0-2) % Lymph # (Auto) (1.2-4.9) X10*3/uL [place] # (Auto) (0.1-1.2) X10*3/uL Eos # (Auto) (0.0-0.4) X10*3/uL Baso # (Auto) (0.0-0.2) X10*3/uL Abs Immat Gran (auto) (0.00-0.03) X10*3/uL Absolute Neuts (auto) (2.0-8.3) x10*3/uL Absolute Nucleated RBC (0.0-0.012) X10*3/uL Nucleated RBC % (auto) (0.0-0.2) /100WBC PT (10.0-13.1) SEC INR (0.9-1.1) Sodium (135-145) mmol/L Potassium (3.3-5.1) mmol/L Chloride (96-108) mmol/L Carbon Dioxide (22-29) mmol/L Anion Gap (12-20) BUN (9-16) mg/dL Creatinine (0.5-1.4) mg/dL Estim Creat Clear Calc Estimated GFR Random Glucose (60-115) mg/dL Calcium (8.4-10.2) mg/dL Magnesium (1.6-2.6) mg/dL Total Bilirubin (0.0-1.0) mg/dL AST (5-37) U/L ALT (0-40) U/L Alkaline Phosphatase (39-117) U/L Total Protein (6.5-8.0) g/dL Albumin (3.5-5.0) g/dL Lipase (8-78) U/L Urine Color Yellow Urine Appearance Clear Urine pH 7.0 (5.0-9.0) Ur Specific Fischer >= 1.030 H (1.005-1.025) Urine Protein Negative (Neg-Trace) mg/dL Urine Glucose (UA) >=1000 H (Negative) mg/dL Urine Ketones Negative (Negative) mg/dL Urine Blood Negative (Negative) Urine Nitrite Negative (Negative) Ur Leukocyte Esterase Negative (Negative) Urine RBC 0-2 (0-2) /HPF Urine WBC 0-5 (0-5) /HPF Ur Squamous Epith Cells 0-2 (0-2) /HPF Urine Bacteria None Seen (None Seen) Hyaline Casts 0-2 (0-2) /LPF Ethyl Alcohol < 10 mg/dL Influenza Type A (PCR) NEGATIVE (Negative) Influenza Type B (PCR) NEGATIVE (Negative) RSV RNA Qual (PCR) NEGATIVE (Negative) SARS-CoV-2 RNA (RT-PCR) NEGATIVE (Negative) <CLAUDINE Win - Last Filed: 05/09/22 16:34> Lab Results 05/09/22 05/09/22 05/09/22 Range/Units 17:51 17:51 17:51 WBC 5.9 (4.8-10.8) X10*3/uL RBC 5.72 (4.60-5.80) X10*6/uL Hgb 16.4 (14.0-18.0) g/dl Hct 51.0 (42.0-52.0) % MCV 89.2 (80.0-98.0) fL MCH 28.7 (27.0-33.0) pg MCHC 32.2 (31.0-36.0) g/dl RDW 14.3 (11.0-16.0) % Plt Count 210 (160-400) X10*3/uL MPV 9.7 (9.4-12.4) fL Immature Gran % (Auto) 0.2 (0.0-0.4) % Neut % (Auto) 60.8 (45-73) % Lymph % (Auto) 28.4 (20-40) % [place] % (Auto) 6.5 (2-11) % Eos % (Auto) 3.6 (0-4) % Baso % (Auto) 0.5 (0-2) % Lymph # (Auto) 1.7 (1.2-4.9) X10*3/uL [place] # (Auto) 0.4 (0.1-1.2) X10*3/uL Eos # (Auto) 0.2 (0.0-0.4) X10*3/uL Baso # (Auto) 0.0 (0.0-0.2) X10*3/uL Abs Immat Gran (auto) 0.01 (0.00-0.03) X10*3/uL Absolute Neuts (auto) 3.6 (2.0-8.3) x10*3/uL Absolute Nucleated RBC 0.000 (0.0-0.012) X10*3/uL Nucleated RBC % (auto) 0.0 (0.0-0.2) /100WBC PT 10.9 (10.0-13.1) SEC INR 1.0 (0.9-1.1) Sodium 137 (135-145) mmol/L Potassium 4.1 (3.3-5.1) mmol/L Chloride 101 (96-108) mmol/L Carbon Dioxide 25 (22-29) mmol/L Anion Gap 15 (12-20) BUN 11 (9-16) mg/dL Creatinine 0.95 (0.5-1.4) mg/dL Estim Creat Clear Calc 107.9 Estimated GFR > 60 Random Glucose 137 H (60-115) mg/dL Calcium 9.8 (8.4-10.2) mg/dL Magnesium 2.2 (1.6-2.6) mg/dL Total Bilirubin 0.6 (0.0-1.0) mg/dL AST 30 (5-37) U/L ALT 30 (0-40) U/L Alkaline Phosphatase 129 H (39-117) U/L Total Protein 7.5 (6.5-8.0) g/dL Albumin 4.4 (3.5-5.0) g/dL Lipase 30 (8-78) U/L Urine Color Urine Appearance Urine pH (5.0-9.0) Ur Specific Fischer (1.005-1.025) Urine Protein (Neg-Trace) mg/dL Urine Glucose (UA) (Negative) mg/dL Urine Ketones (Negative) mg/dL Urine Blood (Negative) Urine Nitrite (Negative) Ur Leukocyte Esterase (Negative) Urine RBC (0-2) /HPF Urine WBC (0-5) /HPF Ur Squamous Epith Cells (0-2) /HPF Urine Bacteria (None Seen) Hyaline Casts (0-2) /LPF Ethyl Alcohol mg/dL Influenza Type A (PCR) (Negative) Influenza Type B (PCR) (Negative) RSV RNA Qual (PCR) (Negative) SARS-CoV-2 RNA (RT-PCR) (Negative) 05/09/22 05/09/22 05/09/22 Range/Units 17:51 17:51 17:59 WBC (4.8-10.8) X10*3/uL RBC (4.60-5.80) X10*6/uL Hgb (14.0-18.0) g/dl Hct (42.0-52.0) % MCV (80.0-98.0) fL MCH (27.0-33.0) pg MCHC (31.0-36.0) g/dl RDW (11.0-16.0) % Plt Count (160-400) X10*3/uL MPV (9.4-12.4) fL Immature Gran % (Auto) (0.0-0.4) % Neut % (Auto) (45-73) % Lymph % (Auto) (20-40) % [place] % (Auto) (2-11) % Eos % (Auto) (0-4) % Baso % (Auto) (0-2) % Lymph # (Auto) (1.2-4.9) X10*3/uL [place] # (Auto) (0.1-1.2) X10*3/uL Eos # (Auto) (0.0-0.4) X10*3/uL Baso # (Auto) (0.0-0.2) X10*3/uL Abs Immat Gran (auto) (0.00-0.03) X10*3/uL Absolute Neuts (auto) (2.0-8.3) x10*3/uL Absolute Nucleated RBC (0.0-0.012) X10*3/uL Nucleated RBC % (auto) (0.0-0.2) /100WBC PT (10.0-13.1) SEC INR (0.9-1.1) Sodium (135-145) mmol/L Potassium (3.3-5.1) mmol/L Chloride (96-108) mmol/L Carbon Dioxide (22-29) mmol/L Anion Gap (12-20) BUN (9-16) mg/dL Creatinine (0.5-1.4) mg/dL Estim Creat Clear Calc Estimated GFR Random Glucose (60-115) mg/dL Calcium (8.4-10.2) mg/dL Magnesium (1.6-2.6) mg/dL Total Bilirubin (0.0-1.0) mg/dL AST (5-37) U/L ALT (0-40) U/L Alkaline Phosphatase (39-117) U/L Total Protein (6.5-8.0) g/dL Albumin (3.5-5.0) g/dL Lipase (8-78) U/L Urine Color Yellow Urine Appearance Clear Urine pH 7.0 (5.0-9.0) Ur Specific Fischer >= 1.030 H (1.005-1.025) Urine Protein Negative (Neg-Trace) mg/dL Urine Glucose (UA) >=1000 H (Negative) mg/dL Urine Ketones Negative (Negative) mg/dL Urine Blood Negative (Negative) Urine Nitrite Negative (Negative) Ur Leukocyte Esterase Negative (Negative) Urine RBC 0-2 (0-2) /HPF Urine WBC 0-5 (0-5) /HPF Ur Squamous Epith Cells 0-2 (0-2) /HPF Urine Bacteria None Seen (None Seen) Hyaline Casts 0-2 (0-2) /LPF Ethyl Alcohol < 10 mg/dL Influenza Type A (PCR) NEGATIVE (Negative) Influenza Type B (PCR) NEGATIVE (Negative) RSV RNA Qual (PCR) NEGATIVE (Negative) SARS-CoV-2 RNA (RT-PCR) NEGATIVE (Negative) <CLAUDINE Madrigal - Last Filed: 05/09/22 21:50> Radiology Impression Discussion of test interpretation with radiology: I have reviewed the radiologist's reading. <CLAUDINE Madrigal - Last Filed: 05/09/22 21:50> Radiologist Impression: EXAMINATION: CT ABDOMEN AND PELVIS WITHOUT CONTRAST? CLINICAL INFORMATION: Abdominal pain.? COMPARISON: CT scan abdomen pelvis 08/12/2015? TECHNIQUE: Multidetector volumetric imaging was performed from the superior aspect of the liver through the pubic symphysis. Sagittal and coronal reformatted images were obtained on the technologist's workstation.? This CT examination was performed using dose optimization techniques as appropriate, variously including the following: *Automated exposure control *Adjustment of mA and/or kV according to patient size (this includes techniques or standardized protocols for targeted exams where dose is matched to indication/reason for exam; i.e. extremities or head) *Use of iterative reconstruction technique DLP: 1092 mGy-cm FINDINGS: LUNG BASES: The visualized lung bases are unremarkable. Calcification of mitral valve annulus. LIVER, GALLBLADDER, AND BILIARY TREE: The liver is normal in size, shape, and attenuation. No focal hepatic lesion or biliary ductal dilatation is present. The gallbladder is unremarkable with no evidence of radiopaque gallstones, gallbladder wall thickening, or obvious pericholecystic inflammatory changes.? PANCREAS: Unremarkable.? SPLEEN: Unremarkable.? ADRENAL GLANDS: Unremarkable.? KIDNEYS AND URETERS: The kidneys are normal in size, shape, and attenuation. No hydronephrosis, hydroureter, or calculi seen. No perinephric stranding. ? BLADDER: Unremarkable.? GASTROINTESTINAL TRACT: There are scattered diverticula throughout the colon. There is no diverticulitis. There is no bowel wall thickening /edema. There is no bowel obstruction. There is a moderate volume of stool in the colon. The appendix is normal . The small bowel loops are unremarkable. The stomach is normal. There is no hiatal hernia.? ABDOMINAL WALL: Small fat-containing umbilical hernia.? LYMPH NODES: Normal. VASCULAR: Unremarkable. PELVIC VISCERA: Unremarkable.? OSSEOUS STRUCTURES: Multilevel degenerative spondylosis spine.? CT/CT abdomen pelvis wo IV con IMPRESSION: No acute abnormality CT scan abdomen pelvis. ? Yessi guidelines were followed. Dictated By: Gonsalo Hamilton MD Signed By: Electronically signed by Gonsalo Hamilton MD 05/09/22 [id number] <CLAUDINE Madrigal - Last Filed: 05/09/22 21:50> Medications Administered Discontinued Medications Generic Name Dose Route Start Last Admin Trade Name Freq PRN Reason Stop Dose Admin Al Hydroxide/Mg Hydroxide 15 ml 05/09/22 20:21 05/09/22 20:59 Magnesium Hydrox/Alum Hydrox 30 Ml Oral.Susp PO 05/09/22 20:22 15 ml ONCE ONE Administration Omeprazole 20 mg 05/09/22 20:21 05/09/22 20:59 Omeprazole 20 Mg Capsule.Dr PO 05/09/22 20:22 20 mg ONCE ONE Administration <CLAUDINE Win - Last Filed: 05/09/22 16:34> Medications Administered Discontinued Medications Generic Name Dose Route Start Last Admin Trade Name Freq PRN Reason Stop Dose Admin Al Hydroxide/Mg Hydroxide 15 ml 05/09/22 20:21 05/09/22 20:59 Magnesium Hydrox/Alum Hydrox 30 Ml Oral.Susp PO 05/09/22 20:22 15 ml ONCE ONE Administration Omeprazole 20 mg 05/09/22 20:21 05/09/22 20:59 Omeprazole 20 Mg Capsule.Dr PO 05/09/22 20:22 20 mg ONCE ONE Administration <LCAUDINE Madrigal - Last Filed: 05/09/22 21:50> Discharge Plan Discharge Clinical Impression: Abdominal pain <CLAUDINE Win - Last Filed: 05/09/22 16:34> Patient Disposition: Home, Self-Care <CLAUDINE Win - Last Filed: 05/09/22 16:34> Instructions: Abdominal Pain (ED) <CLAUDINE Win - Last Filed: 05/09/22 16:34> Additional Instructions: Follow up with your primary care provider and a GI specialist. Return to the emergency department immediately if your symptoms worsen or if you develop any dizziness, shortness of breath, difficulty breathing, chest pain, blurry vision, loss of vision, nausea, vomiting, abdominal pain, fever, chills, back pain, or any other complaints. <CLAUDINE Win - Last Filed: 05/09/22 16:34> Prescriptions: No Action furosemide 20 mg tablet 20 mg PO DAILY diclofenac sodium-menthol 1.5-10 % combo pack topical PRN lisinopril 20 mg tablet 20 mg PO DAILY hydralazine 25 mg tablet 25 mg PO TID glipizide 10 mg tablet 10 mg PO DAILY Janumet 50-1,000 mg tablet 1 tab PO BID tramadol 50 mg tablet 50 mg PO DAILY acetaminophen [Mapap Arthritis Pain] 650 mg tablet extended release 650 mg PO Q12H gabapentin 100 mg capsule 100 mg PO TID sertraline 100 mg tablet 100 mg PO DAILY pioglitazone 30 mg tablet 30 mg PO DAILY atorvastatin 40 mg tablet 40 mg PO DAILY (DME) FreeStyle Lite Strips Strip See Rx Instructions .ROUTE .MEDSUPPLY Qty: 10 Rx Instructions: As directed (DME) blood-glucose meter [FreeStyle Lite Meter] Kit See Rx Instructions .ROUTE .MEDSUPPLY Qty: 1 Rx Instructions: As directed albuterol sulfate [Ventolin HFA] 90 mcg/actuation HFA aerosol inhaler 2 puff inhalation Q4-6H PRN quetiapine 50 mg tablet 50 mg PO DAILY cholecalciferol (vitamin D3) 1,250 mcg (50,000 unit) capsule 1,250 mcg PO QWEEK <CLAUDINE Win - Last Filed: 05/09/22 16:34> Referrals: [facility] [Provider Group] (Call to establish and follow up with a GI specialist. ) Laury Washington MD [Primary Care Provider] - <CLAUDINE Win - Last Filed: 05/09/22 16:34> Interventions: ED Discharge Assessment Last Done: 05/09/22 20:59 <CLAUDINE Win - Last Filed: 05/09/22 16:34> Discharge Date/Time: 05/09/22 21:00 <CLAUDINE Win - Last Filed: 05/09/22 16:34> Print Language: Kenyan <CLAUDINE Win - Last Filed: 05/09/22 16:34>
[2022-05-09 17:58] LABS: MANUAL DIFF FLAG NO
[2022-05-09 18:00] LABS: Basophils Percent Auto 0.5 % (0-2); Eosinophils Absolute Auto 0.2 X10*3/uL (0.0-0.4); Eosinophils Percent Auto 3.6 % (0-4); Hemoglobin 16.4 g/dl (14.0-18.0); Imm Gran Abs Auto 0.01 X10*3/uL (0.00-0.03); Imm Gran Pct Auto 0.2 % (0.0-0.4); Lymphocytes Absolute Auto 1.7 X10*3/uL (1.2-4.9); Lymphocytes Percent Auto 28.4 % (20-40); Mean Corpuscular HGB Conc 32.2 g/dl (31.0-36.0); Mean Corpuscular Hemoglobin 28.7 pg (27.0-33.0); Mean Corpuscular Volume 89.2 fL (80.0-98.0); Mean Platelet Volume 9.7 fL (9.4-12.4); Monocytes Absolute Auto 0.4 X10*3/uL (0.1-1.2); Monocytes Percent Auto 6.5 % (2-11); Neutrophils Absolute Auto 3.6 x10*3/uL (2.0-8.3); Neutrophils Percent Auto 60.8 % (45-73); Platelet Count 210 X10*3/uL (160-400); Red Blood Count 5.72 X10*6/uL (4.60-5.80); Red Cell Distribution Width 14.3 % (11.0-16.0); White Blood Count 5.9 X10*3/uL (4.8-10.8)
[2022-05-09 18:11] LABS: Appearance Urine Clear; Color Urine Yellow; Glucose Urine UA >=1000 mg/dL (Negative); Leukocyte Esterase Urine Negative (Negative); Nitrite Urine Negative (Negative); Specific Gravity - Urine >= 1.030 (1.005-1.025); UMIC TRIGGER UACC YES; Urine Blood Negative (Negative); Urine Ketones Negative (Negative); Urine Protein Negative (Neg-Trace)
[2022-05-09 18:11] LABS: Prothrombin Time 10.9 SEC (10.0-13.1)
[2022-05-09 18:34] LABS: Bacteria Urine None Seen (None Seen); RBC Urine 0-2 /HPF (0-2); Squamous Epithelial Cell Urine 0-2 /HPF (0-2); WBC Urine 0-5 /HPF (0-5)
[2022-05-09 18:35] LABS: Hyaline Casts Urine 0-2 /LPF (0-2)
[2022-05-09 18:38] LABS: Alanine Aminotransferase 30 U/L (0-40); Albumin Level 4.4 g/dL (3.5-5.0); Alkaline Phosphatase 129 U/L (39-117); Anion Gap 15 (12-20); Aspartate Amino Transferase 30 U/L (5-37); Bilirubin Total 0.6 mg/dL (0.0-1.0); Blood Urea Nitrogen 11 mg/dL (9-16); Calcium 9.8 mg/dL (8.4-10.2); Carbon Dioxide 25 mmol/L (22-29); Chloride 101 mmol/L (96-108); Creatinine Clr Calc Pharmacy 107.9; Estimated Glomerular Filt Rate > 60; Glucose Random 137 mg/dL (60-115); Lipase 30 U/L (8-78); Magnesium 2.2 mg/dL (1.6-2.6); Potassium 4.1 mmol/L (3.3-5.1); Sodium 137 mmol/L (135-145); Total Protein 7.5 g/dL (6.5-8.0)
[2022-05-09 18:43] LABS: Ethanol < 10 mg/dL
[2022-05-09 18:50] LABS: Influenza A PCR NEGATIVE (Negative); Influenza B PCR NEGATIVE (Negative); Resp Syncy Virus RNA Qual PCR NEGATIVE (Negative); SARS COV2 PCR INHOUSE NEGATIVE (Negative)
[2022-05-09] MEDS: Magnesium Hydrox/Alum Hydrox 30 ML ORAL.SUSP 15 ML PO (20:59)
[2022-05-09] MEDS: Omeprazole 20 MG CAPSULE.DR PO (20:59)
== END 2022-05-09 21:00 | disposition home or self-care (01) ==
PROVIDERS: Physician Assistant Medical; Emergency Provider Student in an Organized Health Care Education/Training Program; PCP Internal Medicine
DX: R10.9 Unspecified abdominal pain (principal); Z20.822 Contact with and (suspected) exposure to COVID-19; E11.9 Type 2 diabetes mellitus without complications; I10 Essential (primary) hypertension; E78.5 Hyperlipidemia, unspecified; F17.200 Nicotine dependence, unspecified, uncomplicated; E66.01 Morbid (severe) obesity due to excess calories; Z68.41 Body mass index [BMI] 40.0-44.9, adult; Z79.02 Long term (current) use of antithrombotics/antiplatelets; Z79.899 Other long term (current) drug therapy
CPT/HCPCS: 0241U; 36415; 74176; 80053; 81001; 82077; 83690; 83735; 85025; 85610; 99282; 99284

== ENCOUNTER 2022-08-18 12:46 | Outpatient (REF) | payer MEDICAID, SELFPAY ==
[2022-08-18 13:58] LABS: MANUAL DIFF FLAG NO
[2022-08-18 14:15] LABS: Basophils Absolute Auto 0.1 X10*3/uL (0.0-0.2); Basophils Percent Auto 0.8 % (0-2); Eosinophils Absolute Auto 0.3 X10*3/uL (0.0-0.4); Eosinophils Percent Auto 3.8 % (0-4); Hematocrit 48.5 % (42.0-52.0); Imm Gran Abs Auto 0.02 X10*3/uL (0.00-0.03); Imm Gran Pct Auto 0.3 % (0.0-0.4); Lymphocytes Absolute Auto 2.2 X10*3/uL (1.2-4.9); Lymphocytes Percent Auto 32.5 % (20-40); Mean Corpuscular Hemoglobin 29.5 pg (27.0-33.0); Mean Corpuscular Volume 89.3 fL (80.0-98.0); Mean Platelet Volume 10.5 fL (9.4-12.4); Monocytes Absolute Auto 0.5 X10*3/uL (0.1-1.2); Monocytes Percent Auto 7.4 % (2-11); Neutrophils Absolute Auto 3.7 x10*3/uL (2.0-8.3); Neutrophils Percent Auto 55.2 % (45-73); Platelet Count 242 X10*3/uL (160-400); Red Blood Count 5.43 X10*6/uL (4.60-5.80); Red Cell Distribution Width 13.8 % (11.0-16.0); White Blood Count 6.6 X10*3/uL (4.8-10.8)
== END 2022-08-18 12:47 | disposition home or self-care (01) ==
LOC: HO.LAB 12:46
PROVIDERS: PCP Internal Medicine; Referring Provider Internal Medicine; Visit Provider Physician Assistant
DX: K59.09 Other constipation (principal); K52.9 Noninfective gastroenteritis and colitis, unspecified; K57.30 Diverticulosis of large intestine without perforation or abscess without bleeding; Z79.899 Other long term (current) drug therapy
CPT/HCPCS: 36415; 85025; 99202

== ENCOUNTER 2022-12-11 09:58 | Outpatient (REF) | payer MEDICAID, SELFPAY ==
[2022-12-11 11:26] LABS: MANUAL DIFF FLAG NO
[2022-12-11 12:27] LABS: Basophils Percent Auto 0.4 % (0-2); Eosinophils Absolute Auto 0.2 X10*3/uL (0.0-0.4); Eosinophils Percent Auto 4.4 % (0-4); Hematocrit 45.7 % (42.0-52.0); Hemoglobin 14.7 g/dl (14.0-18.0); Imm Gran Abs Auto 0.02 X10*3/uL (0.00-0.03); Imm Gran Pct Auto 0.4 % (0.0-0.4); Lymphocytes Absolute Auto 1.5 X10*3/uL (1.2-4.9); Lymphocytes Percent Auto 32.4 % (20-40); Mean Corpuscular HGB Conc 32.2 g/dl (31.0-36.0); Mean Corpuscular Hemoglobin 29.2 pg (27.0-33.0); Mean Corpuscular Volume 90.7 fL (80.0-98.0); Mean Platelet Volume 11.1 fL (9.4-12.4); Monocytes Absolute Auto 0.3 X10*3/uL (0.1-1.2); Neutrophils Absolute Auto 2.6 x10*3/uL (2.0-8.3); Neutrophils Percent Auto 55.4 % (45-73); Platelet Count 215 X10*3/uL (160-400); Red Blood Count 5.04 X10*6/uL (4.60-5.80); Red Cell Distribution Width 14.3 % (11.0-16.0); White Blood Count 4.7 X10*3/uL (4.8-10.8)
[2022-12-11 14:16] LABS: Alanine Aminotransferase 31 U/L (0-40); Alkaline Phosphatase 107 U/L (39-117); Anion Gap 15 (12-20); Aspartate Amino Transferase 25 U/L (5-37); Bilirubin Total 0.5 mg/dL (0.0-1.0); Blood Urea Nitrogen 10 mg/dL (9-16); Calcium 9.5 mg/dL (8.4-10.2); Carbon Dioxide 26 mmol/L (22-29); Chloride 99 mmol/L (96-108); Estimated Glomerular Filt Rate > 60; Glucose Random 224 mg/dL (60-115); Potassium 4.2 mmol/L (3.3-5.1); Sodium 136 mmol/L (135-145); Total Protein 7.3 g/dL (6.5-8.0)
== END 2022-12-11 09:59 | disposition home or self-care (01) ==
LOC: HO.LAB 09:58
PROVIDERS: PCP Internal Medicine; Visit Provider Physician Assistant
DX: R10.9 Unspecified abdominal pain (principal); K57.30 Diverticulosis of large intestine without perforation or abscess without bleeding; G89.29 Other chronic pain
CPT/HCPCS: 36415; 80053; 85025; 99213

== ENCOUNTER 2022-12-11 09:58 | Outpatient (AMB) | payer MEDICAID, SELFPAY ==
[2022-12-11 10:24] VITALS: BP 157/81; PULSE 79; BMI 43.8
--- NOTE | 2022-12-11 10:24 | A.OFFVIS_ITS ---
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 Accompanied by: Self / Same As Patient Allergies lactose [LACTOSE] Allergy (Intermediate, Verified 12/11/22 10:25) GI UPSET From VICODIN Adverse Reaction (Intermediate, Uncoded 12/11/22 10:25) HIVES, SOB, GI UPSET Medication List - Last Reconciled 12/11/22 by Mary Kate Macias PA-C acetaminophen ER (Mapap Arthritis Pain) 650 mg PO Q12H albuterol sulfate 90 mcg/actuation (Ventolin HFA) 2 puffs inhalation Q4-6H PRN bisacodyl (Dulcolax (bisacodyl)) 10 mg [place] DAILY PRN blood sugar diagnostic (FreeStyle Lite Strips) As directed blood-glucose meter (FreeStyle Lite Meter kit) As directed bupropion HCl 150 mg PO QAM canagliflozin (Invokana) 100 mg PO QAM cholecalciferol (vitamin D3) 1,250 mcg PO QWEEK docusate sodium (Colace) 200 mg (2 x 100 mg) PO BEDTIME dulaglutide (Trulicity) mg subcut QWEEK ergocalciferol (vitamin D2) 1,250 mcg PO QWEEK furosemide 20 mg PO DAILY glipizide 10 mg PO DAILY lisinopril 20 mg PO DAILY lorazepam 0.5 mg PO BID PRN methylcellulose (laxative) (Citrucel) 500 mg PO TID pioglitazone 30 mg PO DAILY polyethylene glycol 3350 (Miralax) 17 grams PO DAILY quetiapine 50 mg PO DAILY sennosides (senna) 8.6 mg PO BEDTIME PRN sertraline 100 mg PO DAILY tramadol 50 mg PO DAILY PFSH Medical History Diabetes HTN (hypertension) Surgical History Hx of colonoscopy S/P arthroscopic surgery of right knee S/P hernia surgery Status post right knee replacement Family History Father Prostate cancer Throat cancer Mother Arthritis Dementia Hypertension Hyperlipidemia Maternal Grandmother Colon cancer Social History Household Members Other:: single-foster 3 nephews Alcohol intake: unknown Patient Tobacco Use Status: Current someday Tobacco user Physical Exam Vital Signs: Last Vital Signs Pulse 79 12/11/22 10:24 BP 157/81 H 12/11/22 10:24 BMI result Body Mass Index 43.8 Assessment & Plan Assessment & Plan (1) Chronic abdominal pain: Comment: CBC CMP ultrasound Code(s): R10.9 - Unspecified abdominal pain; G89.29 - Other chronic pain Orders: Orders US abdomen comp w elastography Today G89.29 - Other chronic pain, R10.9 - Unspecified abdominal pain Comprehensive Met. Panel Today G89.29 - Other chronic pain, R10.9 - Unspecified abdominal pain Complete Blood Count Auto Diff Today G89.29 - Other chronic pain, R10.9 - Unspecified abdominal pain Coding Diagnoses Chronic abdominal pain R10.9; G89.29
--- NOTE | 2022-12-11 10:54 | MHC.OFFVIS ---
Intake Vital Signs 12/11/22 10:24 12/11/22 10:59 Height 5 ft 7 in Weight 279 lb 8.738 oz BMI 43.8 43.8 BP 157/81 H Blood Pressure Location Lt brachial Position Sitting Pulse 79 Intake Visit Reasons: Follow up LUQ abd pain Allergies lactose [LACTOSE] Allergy (Intermediate, Verified 12/11/22 10:25) GI UPSET From VICODIN Adverse Reaction (Intermediate, Uncoded 12/11/22 10:25) HIVES, SOB, GI UPSET Medication List - Last Reconciled 12/11/22 by Mary Kate Macias PA-C acetaminophen ER (Mapap Arthritis Pain) 650 mg PO Q12H albuterol sulfate 90 mcg/actuation (Ventolin HFA) 2 puffs inhalation Q4-6H PRN bisacodyl (Dulcolax (bisacodyl)) 10 mg [place] DAILY PRN blood sugar diagnostic (FreeStyle Lite Strips) As directed blood-glucose meter (FreeStyle Lite Meter kit) As directed bupropion HCl 150 mg PO QAM canagliflozin (Invokana) 100 mg PO QAM cholecalciferol (vitamin D3) 1,250 mcg PO QWEEK docusate sodium (Colace) 200 mg (2 x 100 mg) PO BEDTIME dulaglutide (Trulicity) mg subcut QWEEK ergocalciferol (vitamin D2) 1,250 mcg PO QWEEK furosemide 20 mg PO DAILY glipizide 10 mg PO DAILY lisinopril 20 mg PO DAILY lorazepam 0.5 mg PO BID PRN methylcellulose (laxative) (Citrucel) 500 mg PO TID pioglitazone 30 mg PO DAILY polyethylene glycol 3350 (Miralax) 17 grams PO DAILY quetiapine 50 mg PO DAILY sennosides (senna) 8.6 mg PO BEDTIME PRN sertraline 100 mg PO DAILY tramadol 50 mg PO DAILY HPI HPI Comments History of Present Illness Details A 57 y/o follows up with same wandering abdominal pain- started to be worse 3-4 weeks ago- same pain I have for years but changes place comes and goes,- no known aggravating factors- bowels are normal with bowel regimen-has not had constipation since taking fiber He does not work, not much excercise- smokes- etoh sometimes Appetite is regular he has gained weight- He has not had nausea, vomiting, hematemesis, hematochezia, fever or chills PFSH Medical History (Updated 12/11/22 @ 11:35 by Mary Kate Macias PA-C) Diabetes HTN (hypertension) Surgical History Hx of colonoscopy S/P arthroscopic surgery of right knee S/P hernia surgery Status post right knee replacement Family History Father Prostate cancer Throat cancer Mother Arthritis Dementia Hypertension Hyperlipidemia Maternal Grandmother Colon cancer Social History Household Members Other:: single-foster 3 nephews Alcohol intake: unknown Patient Tobacco Use Status: Current someday Tobacco user Review of Systems Const All systems reviewed & are unremarkable except as noted in HPI and below Card Denies chest pain and Denies dyspnea Resp Denies dyspnea GI Reports abdominal pain, Denies hematochezia, Denies change in bowel habits, Denies nausea and Denies vomiting Psych Reports depression, Denies homicidal ideation and Denies suicidal ideation Physical Exam Vital Signs: Last Vital Signs Pulse 79 12/11/22 10:24 BP 157/81 H 12/11/22 10:24 BMI result Body Mass Index 43.8 Const General: cooperative, comfortable and no acute distress Orientation/consciousness: patient oriented x3 Limitations: no limitations Eyes Sclerae: sclerae normal Resp Effort & Inspection: normal respiratory effort and able to speak in complete sentences Auscultation: rhonchi Cardio Rate: regular rate Rhythm: regular rhythm Heart sounds: S1 normal heart sound present and S2 normal heart sound present GI Inspection: Yes obesity and Yes scar Palpation (GI): Soft to palpation and nontender Percussion: Yes normal to percussion Auscultation: normal bowel sounds Skin General skin exam: no rashes or lesions noted Neuro General: patient oriented x3 Extrem General: Yes full ROM Psych Speech and movement: Clear speech present Affect: Labile affect present Attitude: cooperative Thought content: Normal thought content present Results Reviewed Results Reviewed: Colonoscopy 11/2018 Dr. Huitron-lymphoid aggregate-no dysplasia repeat colonoscopy 10 yr 05/09/22-CT GASTROINTESTINAL TRACT: There are scattered diverticula throughout the colon. There is no diverticulitis. There is no bowel wall thickening /edema. There is no bowel obstruction. There is a moderate volume of stool in the colon. The appendix is normal . The small bowel loops are unremarkable. The stomach is normal. There is no hiatal hernia.? ABDOMINAL WALL: Small fat-containing umbilical hernia.? CT/CT abdomen pelvis wo IV con IMPRESSION: No acute abnormality CT scan abdomen pelvis. ? Fleischner guidelines were followed. 07/2022- labs ok Assessment & Plan Assessment & Plan (1) Chronic abdominal pain: Comment: CBC CMP ultrasound Code(s): R10.9 - Unspecified abdominal pain; G89.29 - Other chronic pain (2) Diverticulosis of colon: Code(s): K57.30 - Diverticulosis of large intestine without perforation or abscess without bleeding Plan: Reviewed diverticulosis/diverticulitis ER protocol Plan CBC, CMP Ultrasound r/o gallbladder Orders: Orders US abdomen comp w elastography Today G89.29 - Other chronic pain, R10.9 - Unspecified abdominal pain Comprehensive Met. Panel Today G89.29 - Other chronic pain, R10.9 - Unspecified abdominal pain Complete Blood Count Auto Diff Today G89.29 - Other chronic pain, R10.9 - Unspecified abdominal pain Patient Instructions: labs today CBC, CMP Ultrasound r/o gallbladder Continue usual meds U/S - call for F/u for resulyts Diverticulosis/diverticulitis ER protocol review Coding Level of Care Code Est Pt Level 3 (04361) Diagnoses Chronic abdominal pain R10.9; G89.29 Diverticulosis of colon K57.30 Time Spent (min) 30
[2022-12-11 10:59] VITALS: BMI 43.8
== END 2022-12-11 11:39 | disposition home or self-care (01) ==
PROVIDERS: PCP Internal Medicine; Visit Provider Physician Assistant
DX: R10.9 Unspecified abdominal pain (principal); G89.29 Other chronic pain; K57.30 Diverticulosis of large intestine without perforation or abscess without bleeding
CPT/HCPCS: 99213

== ENCOUNTER 2023-01-08 09:53 | Outpatient (REF) | payer MEDICAID, SELFPAY ==
--- NOTE | ~2023-01-08 | US_ITS ---
EXAMINATION: US COMPLETE ABDOMEN WITH LIVER ELASTOGRAPHY CLINICAL INFORMATION: Abdominal pain. COMPARISON: CT abdomen and pelvis dated 05/09/2022. TECHNIQUE: Real-time imaging of the abdominal viscera. Noninvasive ultrasound liver fibrosis assessment is performed using Agustin ElastPQ point quantification shear wave elastography (2D-SWE) with a C5-2 MHz transducer. Multiple elastography samples are obtained. FINDINGS: PANCREAS: Largely obscured by overlapping bowel gas. ABDOMINAL AORTA: Limited. The proximal, middle, and distal aortic segments are normal in caliber. INFERIOR VENA CAVA: Limited. Visualized portions are normal. LIVER: There is borderline hepatomegaly. The liver demonstrates a nodular contour and increased echogenicity. No focal lesion or intrahepatic biliary duct dilatation. The right lobe measures 17.1 cm in length. The left lobe measures 13.7 cm in length. Portal flow is towards the liver (hepatopetal). Shear wave liver elastography median stiffness is 1.30 m/s (reference: normal median stiffness is 1.3 m/s or less). IQR/median stiffness to assess sampling precision is 0.06 (reference: good quality data set is IQR/median stiffness of 0.15 or less). GALLBLADDER: Normal. The gallbladder is physiologically distended without evidence of stones, sludge, polyps, wall thickening or pericholecystic fluid. COMMON BILE DUCT: Normal in caliber measuring 0.3 cm in diameter. RIGHT KIDNEY: Normal. No hydronephrosis. No renal calculi or focal parenchymal lesions. The kidney measures 11.0 cm in maximum dimension. LEFT KIDNEY: Normal. No hydronephrosis. No renal calculi or focal parenchymal lesions. The kidney measures 11.0 cm in maximum dimension. SPLEEN: Normal. The spleen measures 10.1 cm in maximum dimension. FREE FLUID: None. US/US abdomen comp w elastography IMPRESSION: 1. There is generalized increase in hepatic echotexture, consistent with fatty infiltration or hepatocellular disease. Please correlate clinically. No focal hepatic mass or intrahepatic biliary dilatation is seen. 2. There is borderline hepatomegaly. 3. Liver elastography: Measurements are consistent with a high probability of normal liver stiffness. 4. Imaging limited by overlapping bowel gas, and particular of the pancreas and abdominal great vessels. REFERENCE: Society of Radiologists in Ultrasound Liver Stiffness Thresholds (2020): LIVER STIFFNESS THRESHOLDS: *Liver Stiffness equal or less than 1.3 m/s: High probability of being normal. *Liver Stiffness less than 1.7 m/s: In the absence of other known clinical signs, rules out compensated advanced chronic liver disease. *Liver Stiffness 1.7-2.1 m/s: Suggestive of compensated advanced chronic liver disease but need further test for confirmation. *Liver Stiffness over 2.1 m/s: Rules in compensated advanced chronic liver disease. *Liver Stiffness over 2.4 m/s: Suggestive of clinically significant portal hypertension. QUALITY OF DATA SET: *IQR/Median value equal or less than 0.15 implies a quality data set. *IQR/Median value over 0.15 implies a poor quality data set. SIGNIFICANT CHANGE FROM PRIOR EXAM: Significant change if liver stiffness measurement is 10% or greater from prior exam. OTHER CONSIDERATIONS: The stage of liver fibrosis may be overestimated in the setting of acute hepatitis, liver inflammation, elevated liver function tests, hepatic vascular congestion, obstructive cholestasis, non-fasting state, and infiltrative diseases such as amyloidosis and lymphoma. In some patients with NAFLD, the liver stiffness thresholds for compensated advanced chronic liver disease may be lower. In causes other than viral hepatitis and NAFLD, liver stiffness thresholds are not well established.
== END 2023-01-08 09:54 | disposition home or self-care (01) ==
LOC: HO.US 09:53
PROVIDERS: PCP Internal Medicine; Visit Provider Physician Assistant
DX: R10.9 Unspecified abdominal pain (principal); G89.29 Other chronic pain
CPT/HCPCS: 76705; 76981

== ENCOUNTER 2023-05-04 12:12 | Outpatient (REF) | payer MEDICAID, SELFPAY | END 2023-05-04 12:13 | disposition home or self-care (01) | LOC: HO.HOSX 12:12 | PROVIDERS: Visit Provider Orthopaedic Surgery | DX: Z13.89 Encounter for screening for other disorder (principal) ==

== ENCOUNTER 2023-06-05 12:10 | Outpatient (AMB) | payer MEDICAID, SELFPAY ==
--- NOTE | 2023-06-05 12:15 | MHC.OFFVIS ---
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 DOI-04/17/23 Intake Note: Edgar is a 58 year old right hand dominant male who presents today as a new patient with complaints of right shoulder injury. While in [place] on 04/18/23 his left knee locked causing him to fall. He landed on outstretched arms causing his shoulder to dislocate, he was seen at the ED in [place] where the shoulder was reduced. He states still having pain and his ROM is very limited. Allergies lactose [LACTOSE] Allergy (Intermediate, Verified 06/05/23 12:19) GI UPSET From VICODIN Adverse Reaction (Intermediate, Uncoded 12/11/22 10:25) HIVES, SOB, GI UPSET HPI FIELD CASE MANAGER-right shoulder pain-dislocation? DOI-04/17/23 HPI Details Edgar is a 58 year old man who presents with complaints of right shoulder pain. He complains of pain with daily activity, and severely limited ROM which affect his ADLs. He says while vacationing in [place] on 04/18/23, his left knee locked and caused him to fall. He fell onto his outstretched right arm and dislocated his shoulder. This was reduced in the ED before he returned home. He cannot lift his right arm [facility] Medical History Diabetes HTN (hypertension) Surgical History Hx of colonoscopy S/P arthroscopic surgery of right knee S/P hernia surgery Status post right knee replacement Family History Father Prostate cancer Throat cancer Mother Arthritis Dementia Hypertension Hyperlipidemia Maternal Grandmother Colon cancer Social History Household Members Other:: single-foster 3 nephews Alcohol intake: unknown Patient Tobacco Use Status: Current someday Tobacco user Review of Systems Const All systems reviewed & are unremarkable except as noted in HPI and below Physical Exam Vital Signs: BMI result Body Mass Index 43.7 Const General: no acute distress, alert and awake Orientation/consciousness: patient oriented x3 HEENT Head: Yes normocephalic and Yes atraumatic Eyes EOM: EOMs intact bilaterally Resp Effort & Inspection: normal respiratory effort and able to speak in complete sentences Cardio Jugular venous distension: no JVD Skin General skin exam: turgor normal Rashes: no rashes Neuro General: patient oriented x3 Extrem Other: SILT lateral deltoid right +drop arm 3/5 empty can + lag ER to 40 deg Passive ROM intact Psych Appearance: grossly normal Affect: normal affect Attitude: cooperative Assessment & Plan Assessment & Plan (1) Dislocation of right shoulder joint: Code(s): S43.004A - Unspecified dislocation of right shoulder joint, initial encounter Plan: ~one month s/p right shoulder dislocation with inability to abduct arm and + drop arm test. MRI to assess cuff PT (2) Dysfunction of right rotator cuff: Code(s): M67.911 - Unspecified disorder of synovium and tendon, right shoulder Plan Scribed for Jono Barker MD by Marvel Pollard, medical education specialist, on 06/05/23 at 12:25 PM, EST. Orders: Orders PT Evaluation and Treatment Today M67.911 - Unspecified disorder of synovium and tendon, right shoulder, S43.004A - Unspecified dislocation of right shoulder joint, initial encounter MR shoulder RT wo con 06/05/23 S43.004A - Unspecified dislocation of right shoulder joint, initial encounter XR shoulder RT min 2V 06/08/23 M25.519 - Pain in unspecified shoulder Coding Level of Care Code New Pt Level 4 (17701) Diagnoses Dislocation of right shoulder joint S43.004A Dysfunction of right rotator cuff M67.911
[2023-06-05 12:19] VITALS: BMI 43.7
== END 2023-06-05 12:48 | disposition home or self-care (01) ==
PROVIDERS: PCP Internal Medicine; Visit Provider Orthopaedic Surgery
DX: S43.004A Unspecified dislocation of right shoulder joint, initial encounter (principal); M67.911 Unspecified disorder of synovium and tendon, right shoulder
CPT/HCPCS: 99204

== ENCOUNTER → 2023-06-05 12:10 | Outpatient (BNVA) | payer MEDICAID, SELFPAY | PROVIDERS: PCP Internal Medicine; Visit Provider Orthopaedic Surgery | DX: S43.004D Unspecified dislocation of right shoulder joint, subsequent encounter (principal); M67.911 Unspecified disorder of synovium and tendon, right shoulder | CPT/HCPCS: 99202 ==

== ENCOUNTER 2023-06-08 09:35 | Outpatient (REF) | payer MEDICAID, SELFPAY | END 2023-06-08 09:36 | disposition home or self-care (01) | LOC: HO.HOSX 09:35 | PROVIDERS: Visit Provider Orthopaedic Surgery | DX: Z13.89 Encounter for screening for other disorder (principal) ==

== ENCOUNTER 2023-07-14 15:00 | Outpatient (RCR) | payer MEDICAID, SELFPAY ==
--- NOTE | 2023-06-25 13:01 | MHC.PT.PR ---
[facility] [place] Office [place] Office [place] Office [address] Merary Magallanes [address] [phone] F: [phone] F: [phone] F: [phone] F: [phone] Physical Therapy Progress Note Diagnosis: RIGHT shoulder dislocation RIGHT shoulder RTC dysfunction. Date of Surgery: Date of Evaluation: 06/24/23 Treatments to Date: 1 Cancellations to Date: No Shows to Date: Subjective: Please see initial evaluation on 06/24/23 for details. Pain Score and Location: 9 RIGHT shoulder Objective Measures: Please see initial evaluation on 06/24/23 for details. Assessment: Patient is a pleasant 58 y.o. male who is referred to PT by Dr. Jono Barker MD with Dx of RIGHT shoulder dislocation and RIGHT shoulder RTC dysfunction. With testing, I concur with MD suspicions of probably RTC tear, most suspicious is supraspinatus. Further imaging is indicated to confirm or refute RTC injury. Patient impairments include pain, poor posture, limited ROM, weakness. Patient current functional limitations are using R shoulder to lift arm, reaching back pocket, shower, cook, clean, care for elderly mother. Patient will benefit from skilled PT to address aforementioned impairments and functional limitations to meet established goals. Prognosis is fair due to likelihood of RTC tear and patient possibly being a good sirigical candidate. PT Plan: Frequency and Duration: The patient will be seen 2x/week for 4 weeks Treatment Plan: Therapeutic Exercise Dynamic Therapeutic Activities Neuromuscular Re-ed Manual Therapies Joint Mobilization Taping Gait Home Exercise Program Patient Education Electrical Stimulation Iontophoresis Ultrasound Mechanical Traction Hot or Cold Pack Reviewed/ Agreed with Student Documentation: Therapist: Thank you once again for your referral.
--- NOTE | 2023-08-24 10:39 | MHC.PT.DC ---
[facility] [place] Office [place] Office [place] Office [address] Merary Magallanes [address] [phone] F: [phone] F: [phone] F: [phone] F: [phone] Physical Therapy Discharge Report Diagnosis: RIGHT shoulder dislocation RIGHT shoulder RTC dysfunction. Date of Surgery: Date of Evaluation: 06/24/23 Date of Discharge: 08/24/23 Treatments to Date: 3 Cancellations to Date: 3 No Shows to Date: 3 Discharge Status: Visit Non-compliance Discharge Summary: Edgar ceased attending PT on his own accord, he canceled or did not show to his last scheduled visits. His PT evaluation reads, With testing, I concur with MD suspicions of probably RTC tear, most suspicious is supraspinatus. Further imaging is indicated to confirm or refute RTC injury. Prognosis is fair due to likelihood of RTC tear and patient possibly being a good sirigical candidate. He is discharged from PT at this time. Electronically signed by: Alfa Robles, PT, DPT Please sign and return to therapist. Thank you for your referral.
== END 2023-08-24 10:39 | disposition home or self-care (01) ==
LOC: HO.PT 15:00
PROVIDERS: PCP Internal Medicine; Visit Provider Orthopaedic Surgery
DX: S43.004A Unspecified dislocation of right shoulder joint, initial encounter (principal); M67.911 Unspecified disorder of synovium and tendon, right shoulder
CPT/HCPCS: 97110; 97161

== ENCOUNTER 2023-07-22 11:37 | Outpatient (REF) | payer MEDICAID, SELFPAY ==
[2023-07-22 13:42] LABS: MANUAL DIFF FLAG NO
[2023-07-22 13:55] LABS: Basophils Percent Auto 0.7 % (0-2); Eosinophils Absolute Auto 0.2 X10*3/uL (0.0-0.4); Eosinophils Percent Auto 2.8 % (0-4); Hematocrit 48.4 % (42.0-52.0); Hemoglobin 15.7 g/dl (14.0-18.0); Imm Gran Abs Auto 0.02 X10*3/uL (0.00-0.03); Imm Gran Pct Auto 0.3 % (0.0-0.4); Lymphocytes Absolute Auto 1.5 X10*3/uL (1.2-4.9); Lymphocytes Percent Auto 26.6 % (20-40); Mean Corpuscular HGB Conc 32.4 g/dl (31.0-36.0); Mean Corpuscular Hemoglobin 29.5 pg (27.0-33.0); Mean Platelet Volume 11.2 fL (9.4-12.4); Monocytes Absolute Auto 0.4 X10*3/uL (0.1-1.2); Monocytes Percent Auto 7.2 % (2-11); Neutrophils Absolute Auto 3.6 x10*3/uL (2.0-8.3); Neutrophils Percent Auto 62.4 % (45-73); Platelet Count 195 X10*3/uL (160-400); Red Blood Count 5.32 X10*6/uL (4.60-5.80); Red Cell Distribution Width 13.6 % (11.0-16.0); White Blood Count 5.7 X10*3/uL (4.8-10.8)
[2023-07-22 14:17] LABS: Alanine Aminotransferase 29 U/L (0-40); Albumin Level 4.4 g/dL (3.5-5.0); Alkaline Phosphatase 134 U/L (39-117); Anion Gap 12 (12-20); Aspartate Amino Transferase 33 U/L (5-37); Bilirubin Direct 0.3 mg/dL (0.0-0.5); Bilirubin Total 0.8 mg/dL (0.0-1.0); Blood Urea Nitrogen 14 mg/dL (9-16); Calcium 9.7 mg/dL (8.4-10.2); Carbon Dioxide 26 mmol/L (22-29); Chloride 102 mmol/L (96-108); Estimated Glomerular Filt Rate > 60; Glucose Random 153 mg/dL (60-115); Potassium 3.9 mmol/L (3.3-5.1); Sodium 136 mmol/L (135-145); Total Protein 7.8 g/dL (6.5-8.0)
[2023-07-22 14:32] LABS: TSH reflex Free T4 4.35 uIU/mL (0.32-4.0)
[2023-07-22 17:03] LABS: Free T4 (Free Thyroxine) 1.09 ng/dL (0.71-1.85)
== END 2023-07-22 11:38 | disposition home or self-care (01) ==
LOC: HO.HHCL 11:37
PROVIDERS: Visit Provider Internal Medicine
DX: I10 Essential (primary) hypertension (principal); E11.65 Type 2 diabetes mellitus with hyperglycemia
CPT/HCPCS: 36415; 80048; 80076; 84439; 84443; 85025

== ENCOUNTER 2023-08-05 13:11 | Outpatient (REF) | payer MEDICAID, SELFPAY ==
[2023-08-05 16:44] LABS: Cholesterol 161 mg/dL (<200); HDL Cholesterol 42 mg/dL (>40); LDL Cholesterol Calculated 85 mg/dL (<100); Triglycerides 172 mg/dL (<150)
== END 2023-08-05 13:12 | disposition home or self-care (01) ==
LOC: HO.HHCL 13:11
PROVIDERS: Visit Provider Internal Medicine
DX: I10 Essential (primary) hypertension (principal)
CPT/HCPCS: 36415; 80061

== ENCOUNTER 2023-10-01 16:17 | Outpatient (REF) | payer MEDICAID, SELFPAY | END 2023-10-01 16:18 | disposition home or self-care (01) | LOC: HO.HHCLNP 16:17 | PROVIDERS: Visit Provider Internal Medicine | DX: M25.561 Pain in right knee (principal); G89.29 Other chronic pain; Z96.651 Presence of right artificial knee joint | CPT/HCPCS: 36415; 80353 ==

== ENCOUNTER → 2024-05-03 09:02 | Outpatient (BNVA) | payer MEDICAID, SELFPAY | PROVIDERS: PCP Internal Medicine; Visit Provider Surgery ==

== ENCOUNTER 2024-05-11 08:38 | Outpatient (AMB) | payer MEDICAID, SELFPAY ==
--- NOTE | 2024-05-11 14:06 | A.OFFVIS_ITS ---
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 Allergies lactose [LACTOSE] Allergy (Intermediate, Verified 05/11/24 14:06) GI UPSET From VICODIN Adverse Reaction (Intermediate, Uncoded 05/11/24 14:06) HIVES, SOB, GI UPSET Medication List - Last Reconciled 05/11/24 by Rolando Schwab MD acetaminophen ER (Mapap Arthritis Pain) 650 mg PO Q12H albuterol sulfate 90 mcg/actuation (Ventolin HFA) 2 puffs inhalation Q4-6H PRN bisacodyl 10 mg IA DAILY PRN blood sugar diagnostic (FreeStyle Lite Strips) As directed blood-glucose meter (FreeStyle Lite Meter kit) As directed bupropion HCl XL 150 mg PO QAM canagliflozin (Invokana) 100 mg PO QAM cholecalciferol (vitamin D3) 1,250 mcg PO QWEEK docusate sodium 200 mg (2 x 100 mg) PO BEDTIME dulaglutide (Trulicity) mg subcut QWEEK ergocalciferol (vitamin D2) 1,250 mcg PO QWEEK glipizide 10 mg PO DAILY ibuprofen 800 mg PO Q8H lisinopril 20 mg PO DAILY lorazepam 0.5 mg PO BID PRN methylcellulose (laxative) (Citrucel) 500 mg PO TID pioglitazone 30 mg PO DAILY polyethylene glycol 3350 (Gavilax) 17 grams PO DAILY quetiapine 50 mg PO DAILY sennosides (senna) 8.6 mg PO BEDTIME PRN sertraline 100 mg PO DAILY HPI HPI 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: Details: Start time: 1.55pm, End time: 2.51pm I spent 51 minutes speaking with the patient on the phone plus an additional 5 minutes reviewing and updating records for a total of 56 minutes HPI Comments Details: Previous weight loss efforts: self diets Wakes up: 11am, Sleeps: 3am Breakfast: skips Lunch: 3pm (soups, rice) Dinner: 9pm (rice, beans, chicken) Snacks: 4-5pm (chips), 12am (chips, cookies) Exercise: none Fluids: Coffee: none, tea: none, soda: Coke zero, juice: none, ETOH: 1/month PFSH Medical History (Updated 05/11/24 @ 14:16 by Rolando Schwab MD) DJD (degenerative joint disease) Asthma Bipolar 1 disorder Anxiety Depression Sleep apnea treated with continuous positive airway pressure (CPAP) HTN (hypertension) Diabetes Surgical History S/P hernia surgery Hx of colonoscopy Status post right knee replacement S/P arthroscopic surgery of right knee Family History (Updated 05/03/24 @ 09:25 by Karina Sargent CMA) Father Prostate cancer Throat cancer Mother Arthritis Dementia Hypertension Hyperlipidemia Maternal Grandmother Colon cancer Social History (Updated 05/03/24 @ 09:26 by Karina Sargent CMA) Household Members Other:: single-foster 3 nephews Alcohol intake: current Alcohol intake frequency: holidays/special occasions only Patient Tobacco Use Status: Current someday Tobacco user Telehealth Telehealth Telehealth Platform: Telephone Location of provider rendering services: practice address Location of patient: address on file Patient Identification confirmed using: Name, : Yes Telehealth method: voice only Patient verbally consented to treatment: Yes Patient verbally consented to billing insurance company: Yes Patient informed of any privacy concerns related to visit: Yes Minutes spent on Phone/Video with Pt.: 56 Assessment & Plan Assessment & Plan (1) Morbid (severe) obesity due to excess calories: Code(s): E66.01 - Morbid (severe) obesity due to excess calories Category: Medical Plan: 1. Plan for lap sleeve gastrectomy. If diaphragmatic or ventral hernias are present at time of surgery, these will be repaired laparoscopically as well. Risks and complications were discussed in detail including possible conversion to an open procedure, anastomotic leak, bleeding requiring transfusion, small bowel obstruction, , DVT and pulmonary embolism, cardiac, or pulmonary complications, as [facility] complications such as anastomotic ulcer, in sufficient weight loss and vitamin deficiencies. I emphasized the importance of close follow-up, adherence to instructions and good communication. 2. Nutritional counseling. Start with 2 CELEBRATE REBUILD protein (buy at [facility]) shakes (TWO scoops EACH in 8oz low fat unsweetened almond milk each) at 12pm-2pm and 3pm-5pm, dinner at 6pm (10 forks of protein and 10 forks of salad/vegetables) and 2 protein bars after dinner (CELEBRATE protein bars, buy at [facility]) at 8pm-10pm and 11pm-1am after midnight. If hungry, you may have another HALF protein bar at 2am-3am. So you do 2 protein shakes, 2-2.5 protein bars and one meal per day. Meal to include lean meat (beef, fish, pork, turkey, chicken), or martiniquais yogurt, or egg whites, or beans with a salad with olive oil and fruits (berries, pears, apples, kiwi). Avoid salt, breads, potatoes, rice, pasta, desserts. 3. You will receive a link of our software hamida to generate an individualized nutritional and exercise plan specific for you. Please send me a screenshot of the plans you will generate 3. Each shake would be drunk slowly, like coffee in a period of 2 hours. 4. Cut each bar in 4 pieces and eat each piece in 30min to make each bar last 2 hours. 5. I emphasized the importance of measuring accurately the food portion and measure it when serving the food in plate 6. The meal portions include 10 full-size forks of meat and 10 full-size forks of salad. You always eat the meat portion but you can replace up to 5 forks for salad/vegetables with rice, potatoes or pasta, or a fruit if you like. The less you do it the better weight loss will be. 7. One full-size fork is what it can be scooped on the fork without falling aside and not what can be bit with the fork. Use regular forks like those you find in a typical restaurant. 8. Please send me weight measurements as soon as possible and then once a week. Always include your diet and exercise plan. 9. Start walking outside daily, tracking calories with a goal of 300 calories per day, daily. Goal is to burn 2000 calories per week on exercise, which means either 300 calories daily, or 400 calories 5 days per week, or 500 calories 4 days per week, or 650 calories 3 days per week. 10. The best choice would be to purchase a stationary bike, elliptical or treadmill at home that can track calories. Let me know if you do so I can give you an exercise plan. 11.Emphasized the importance of checking his blood glucose levels frequently and daily and to report to me any blood glucose below 100, so I can adjust his insulin and prevent hypoglycemic episodes 12. Goal is to lose at least 1.5-2lbs per week 13. Goal to lose 10% of your weight before surgery, which is about 28lbs. Ultimate weight goal: 252lbs before surgery 14. Please follow the diet plan exactly without any change. If you don't like something about the plan or you feel hungry you need to communicate with me so I can help you revise the plan. You should not change the plan yourself. 15. To be scheduled for EGD to assess your stomach's anatomy. The possibility of biopsies was discussed. Patient needs to avoid use of NSAIDs and aspirin for 1 week prior to EGD. Risks of perforation and bleeding was discussed with the patient. This will be an outpatient procedure with IV sedation. 16. Emphasized the importance of monitoring the blood pressure daily in am when wakes up and two more times throughout the day. If systolic blood pressure is 110 mmHg, or less I explained to the patient that needs to notify me. Also I explained the symptoms of orthostatic hypotension (dizziness and lightheadedness) for which the patient also needs to notify me. Orders: Orders Comprehensive Met. Panel Today E11.8 - Type 2 diabetes mellitus with unspecified complications, E66.01 - Morbid (severe) obesity due to excess calories, G47.30 - Sleep apnea, unspecified, I10 - Essential (primary) hypertension, J45.909 - Unspecified asthma, uncomplicated Vitamin B12 and Folate Today E11.8 - Type 2 diabetes mellitus with unspecified complications, E66.01 - Morbid (severe) obesity due to excess calories, G47.30 - Sleep apnea, unspecified, I10 - Essential (primary) hypertension, J45.909 - Unspecified asthma, uncomplicated Vitamin A Today E11.8 - Type 2 diabetes mellitus with unspecified complications, E66.01 - Morbid (severe) obesity due to excess calories, G47.30 - Sleep apnea, unspecified, I10 - Essential (primary) hypertension, J45.909 - Unspecified asthma, uncomplicated TSH reflex Free T4 Today E11.8 - Type 2 diabetes mellitus with unspecified complications, E66.01 - Morbid (severe) obesity due to excess calories, G47.30 - Sleep apnea, unspecified, I10 - Essential (primary) hypertension, J45.909 - Unspecified asthma, uncomplicated Vitamin D 25-OH Total Today E11.8 - Type 2 diabetes mellitus with unspecified complications, E66.01 - Morbid (severe) obesity due to excess calories, G47.30 - Sleep apnea, unspecified, I10 - Essential (primary) hypertension, J45.909 - Unspecified asthma, uncomplicated XR chest 2V Today E11.8 - Type 2 diabetes mellitus with unspecified complications, E66.01 - Morbid (severe) obesity due to excess calories, G47.30 - Sleep apnea, unspecified, I10 - Essential (primary) hypertension, J45.909 - Unspecified asthma, uncomplicated ECG 12 lead EKG Today E11.8 - Type 2 diabetes mellitus with unspecified complications, E66.01 - Morbid (severe) obesity due to excess calories, G47.30 - Sleep apnea, unspecified, I10 - Essential (primary) hypertension, J45.909 - Unspecified asthma, uncomplicated FL upper GI w air Today E11.8 - Type 2 diabetes mellitus with unspecified complications, E66.01 - Morbid (severe) obesity due to excess calories, G47.30 - Sleep apnea, unspecified, I10 - Essential (primary) hypertension, J45.909 - Unspecified asthma, uncomplicated Insulin Today E11.8 - Type 2 diabetes mellitus with unspecified complications, E66.01 - Morbid (severe) obesity due to excess calories, G47.30 - Sleep apnea, unspecified, I10 - Essential (primary) hypertension, J45.909 - Unspecified asthma, uncomplicated Hemoglobin A1c Today E11.8 - Type 2 diabetes mellitus with unspecified complications, E66.01 - Morbid (severe) obesity due to excess calories, G47.30 - Sleep apnea, unspecified, I10 - Essential (primary) hypertension, J45.909 - Unspecified asthma, uncomplicated H Pylori Breath Test Today E11.8 - Type 2 diabetes mellitus with unspecified complications, E66.01 - Morbid (severe) obesity due to excess calories, G47.30 - Sleep apnea, unspecified, I10 - Essential (primary) hypertension, J45.909 - Unspecified asthma, uncomplicated Complete Blood Count Auto Diff Today E11.8 - Type 2 diabetes mellitus with unspecified complications, E66.01 - Morbid (severe) obesity due to excess calories, G47.30 - Sleep apnea, unspecified, I10 - Essential (primary) hypertension, J45.909 - Unspecified asthma, uncomplicated Lipid Panel Today E11.8 - Type 2 diabetes mellitus with unspecified complications, E66.01 - Morbid (severe) obesity due to excess calories, G47.30 - Sleep apnea, unspecified, I10 - Essential (primary) hypertension, J45.909 - Unspecified asthma, uncomplicated IRON PROFILE Today E11.8 - Type 2 diabetes mellitus with unspecified complications, E66.01 - Morbid (severe) obesity due to excess calories, G47.30 - Sleep apnea, unspecified, I10 - Essential (primary) hypertension, J45.909 - Unspecified asthma, uncomplicated Zinc Today E11.8 - Type 2 diabetes mellitus with unspecified complications, E66.01 - Morbid (severe) obesity due to excess calories, G47.30 - Sleep apnea, unspecified, I10 - Essential (primary) hypertension, J45.909 - Unspecified asthma, uncomplicated C Reactive Protein Today E11.8 - Type 2 diabetes mellitus with unspecified complications, E66.01 - Morbid (severe) obesity due to excess calories, G47.30 - Sleep apnea, unspecified, I10 - Essential (primary) hypertension, J45.909 - Unspecified asthma, uncomplicated Vitamin B1 Today E11.8 - Type 2 diabetes mellitus with unspecified complications, E66.01 - Morbid (severe) obesity due to excess calories, G47.30 - Sleep apnea, unspecified, I10 - Essential (primary) hypertension, J45.909 - Unspecified asthma, uncomplicated Ferritin Today E11.8 - Type 2 diabetes mellitus with unspecified complications, E66.01 - Morbid (severe) obesity due to excess calories, G47.30 - Sleep apnea, unspecified, I10 - Essential (primary) hypertension, J45.909 - Unspecified asthma, uncomplicated US abdomen comp w elastography Today E11.8 - Type 2 diabetes mellitus with unspecified complications, E66.01 - Morbid (severe) obesity due to excess calories, G47.30 - Sleep apnea, unspecified, I10 - Essential (primary) hypertension, J45.909 - Unspecified asthma, uncomplicated Referrals Nutrition/Dietitian Referral E11.8 - Type 2 diabetes mellitus with unspecified complications, E66.01 - Morbid (severe) obesity due to excess calories, G47.30 - Sleep apnea, unspecified, I10 - Essential (primary) hypertension, J45.909 - Unspecified asthma, uncomplicated Behavioral Health Referral E11.8 - Type 2 diabetes mellitus with unspecified complications, E66.01 - Morbid (severe) obesity due to excess calories, G47.30 - Sleep apnea, unspecified, I10 - Essential (primary) hypertension, J45.909 - Unspecified asthma, uncomplicated
[2024-05-11 14:22] VITALS: BMI 45.2
== END 2024-05-11 14:53 | disposition home or self-care (01) ==
LOC: HO.HBS 08:38
PROVIDERS: PCP Internal Medicine; Visit Provider Surgery
DX: E66.813 Obesity, class 3 (principal); Z68.42 Body mass index [BMI] 45.0-49.9, adult
CPT/HCPCS: 99204

== ENCOUNTER → 2024-05-11 08:38 | Outpatient (BNVA) | payer MEDICAID, SELFPAY | PROVIDERS: PCP Internal Medicine; Visit Provider Surgery ==

== ENCOUNTER 2024-10-13 08:22 | Outpatient (REF) | payer MEDICAID, SELFPAY ==
--- NOTE | ~2024-10-13 | XR_ITS ---
CLINICAL HISTORY: pain AP Bilateral Knees, 2 View Left Knee, 2 View Right Knee Comparison: None Findings: No fractures or dislocations. Components of the right knee prosthesis are intact and well aligned. There are changes of osteoarthritis in the left knee joint. No joint effusion. No radiopaque foreign body. IMPRESSION: 1. No acute findings. This document has been electronically signed by: Enrique Duong MD on 10/14/2024 14:42:51
--- OUTSIDE RECORDS SUMMARY | 2024-10-13 08:31 | XMS_ITS | Encounter Summary ---
Author Organization [employer] Address [address] [facility] 7t [place] [address] Care Team Providers Care Manufacturing Plant Manager Name Role Phone Laury [place] MD Primary Care Provide r Reason for Visit * Reason Onset Date Comments Referral 10/30/2023 Encounter Details Date Type Department Care Team ([facility] st Contact Info) Description 10/30/2023 Telephone [facility] [address] [place], [place] [phone] Laury [place] MD [address] [place] [address] Referral Social History Tobacco Use Types Packs/Day Years Used Date Smoking Tobacco: Some Days Cigarettes Passive Smoke Exposure: Current Smokeless Tobacco: Never Alcohol Use Standard Drinks/Week Comments Yes 0 (1 standard drink = 0.6 oz pur e alcohol) Socially Depression Answer Date Recorded Patient Health Questionnaire-9 Score 0 07/24/2023 Patient Health Questionnaire-9 Score 0 07/24/2023 Last PHQ-9: Questionnaire Data Not on file 0 07/24/2023 Housing Stability Answer Date Recorded What is your housing situation today? I have lucas martinez 06/02/[address] you li ve. Do you have problems with any of the following? I am not sure 06/02/2023 Food Insecurity Answer Date Recorded Within the past 12 months, y ou worried that your food would run out before you got money to buy more: Never True 06/02/2023 Within the past 12 months,th e food you bought just didn't last and you didn't have enough money to get more: Never True 01/2024 Transportation Answer Date Recorded In the past 12 months, has l ack of transportation kept you from medical appts, meetings, work or from getting things needed for daily living? No 06/02/2023 Utilities Answer Date Recorded In the past 12 months, has t he electric, gas, oil or water company threatened to shut off services in your home? No 06/02/2023 Depression Answer Date Recorded Patient Health Questionnaire-2 Score 0 07/24/2023 Sex and Gender Information Value Date Recorded Sex Assigned at Male 03/24/2022 10:20 AM EDT Legal Sex Male 10:20 AM EDT Gender Identity Male 03/24/2022 10:20 AM EDT Sexual Orientation Straight 03/24/2022 10 :20 AM EDT documented as of this encounter Miscellaneous Notes * Telephone Encounter - Keyur Adames - 10/30/2023 12:01 PM EDT Tc from pt requesting status on Derm referral discussed during last visit with pcp. Please contact pt at [phone]. documented in this encounter Plan of Treatment Upcoming Encounters Date Type Department Care Team (Late st Contact Info) Description 10/24/2024 2:45 PM EDT Office Visit [facility] [address] [place] [phone] Laury [place] MD [address] [place] [address] documented as of this encounter Visit Diagnoses Not on filedocumented in this encounter Additional Health Concerns Assessment Noted Time PHQ-9 Depression Total Score: 0 07/24/19 24 2:08 PM EST documented as of this encounter Care Teams Manufacturing Plant Manager Relationship Specialty Start Date End Date Laury [place] MD [address] [place] [phone] PCP - General Family Medicine 04/07/19 documented as of this encounter
--- OUTSIDE RECORDS SUMMARY | 2024-10-13 08:32 | XMS_ITS | Encounter Summary ---
Author Organization [employer] Address [address] [facility] 7t [place] [address] Care Team Providers Care Ham Facer Name Role Phone Laury [place] MD Primary Care Provide r Reason for Visit * Reason Comments Med Refill Encounter Details Date Type Department Care Team ([facility] st Contact Info) Description 08/11/2024 Refill [facility] [address] [place], [place] [phone] Laury [place] MD [address] [place] [address] Pain Social History Tobacco Use Types Packs/Day Years [...] AM EDT documented as of this encounter Plan of Treatment Upcoming Encounters Date Type Department Care Team (Late st Contact Info) Description 10/24/2024 2:45 PM EDT Office Visit [facility] [address] [place] [phone] Laury [place] MD [address] [place] [address] documented as of this encounter Visit Diagnoses Diagnosis Pain Generalized pain documented in this encounter Additional Health Concerns Assessment Noted Time PHQ-9 Depression Total Score: 0 07/24/19 24 2:08 PM EST documented as of this encounter Care Teams Ham Facer Relationship Specialty Start Date End Date Laury [place] MD [address] [place] [address] PCP - General Family Medicine 04/07/19 documented as of this encounter
--- OUTSIDE RECORDS SUMMARY | 2024-10-13 08:32 | XMS_ITS | Encounter Summary ---
Author Organization [employer] Address [address] [place] [address] 7 [place] [address] Care Team Providers Care Technical Writer And Editor Name Role Phone Laury [place] MD Primary Care Provide r Reason for Visit * Reason Comments Med Refill Encounter Details Date Type Department Care Team ([facility] st Contact Info) Description 07/27/2023 Refill [facility] [address] [place], [place] [phone] Laury Sanchez MD [address] [place] [address] Type 2 diabetes mellitus with hyperglycemia, without long-term current use of insulin ([facility]) Social History Tobacco Use Types Packs/Day Years [...] Description 10/24/2024 2:45 PM EDT Office Visit [facility] [address] [place] [phone] Laury [place] MD [address] [place] [address] documented as of this encounter Visit Diagnoses Diagnosis Type 2 diabetes mellitus with hyperglycemia, without long-term current use of insulin ([facility]) documented in this encounter Additional Health Concerns Assessment Noted Time PHQ-9 Depression Total Score: 0 07/24/19 24 2:08 PM EST documented as of this encounter Care Teams Technical Writer And Editor Relationship Specialty Start Date End Date Laury [place] MD [address] [place] [phone] PCP - General Family Medicine 04/07/19 documented as of this encounter
--- OUTSIDE RECORDS SUMMARY | 2024-10-13 08:32 | XMS_ITS | Encounter Summary ---
Author Organization [employer] Address [address] [place] [address] 7 [place] [address] Care Team Providers Care Injury/Safety Hazard Assessment Name Role Phone Laury [place] MD Primary Care Provide r Reason for Visit * Reason Comments Med Refill Encounter Details Date Type Department Care Team (Late st Contact Info) Description 12/16/2022 Refill [facility] [address] [place] [address] [phone] Laury [place] MD [address] [place] [address] [phone] Social History Tobacco Use Types Packs/Day Years Used Date Smoking Tobacco: Some Days Cigarettes Smokeless Tobacco: Never Alcohol Use Standard Drinks/Week Comments Yes 0 (1 standard drink = 0.6 oz pur e alcohol) Socially Depression Answer Date Recorded Patient Health Questionnaire-2 Score 2 05/14/2022 Sex and Gender Information Value Date Recorded Sex Assigned at Male 03/24/2022 10:20 AM EDT Legal Sex Male 10:20 AM EDT Gender Identity Male 03/24/2022 10:20 AM EDT Sexual Orientation Straight 03/24/2022 10 :20 AM EDT documented as of this encounter Plan of Treatment Upcoming Encounters Date Type Department Care Team (Late st Contact Info) Description 10/24/2024 2:45 PM EDT Office Visit [facility] [address] [place] [phone] Laury [place] MD [address] [place] [address] [phone] documented as of this encounter Visit Diagnoses Not on filedocumented in this encounter Care Teams Injury/Safety Hazard Assessment Relationship Specialty Start Date End Date Laury [place] MD [address] [place] [address] PCP - General Family Medicine 04/07/19 documented as of this encounter
--- OUTSIDE RECORDS SUMMARY | 2024-10-13 08:32 | XMS_ITS | Encounter Summary ---
Author Organization [employer] Address [address] [place] [address] [address]t [place] [address] Care Team Providers Care Fixing Machine Operator Name Role Phone Laury [place] MD Primary Care Provide r Encounter Details Date Type Department Care Team (Latest Contact Info) Description 12/25/2021 Abstract [facility] Dental, Provider, DDS Social History Tobacco Use Types Packs/Day Years Used Date Smoking Tobacco: Never Assessed Sex and Gender Information Value Date Recorded Sex Assigned at Male 03/24/2022 10:20 AM EDT Legal Sex Male 10:20 AM EDT Gender Identity Male 03/24/2022 10:20 AM EDT Sexual Orientation Straight 03/24/2022 10 :20 AM EDT documented as of this encounter Plan of Treatment Upcoming Encounters Date Type Department Care Team (Late st Contact Info) Description 10/24/2024 2:45 PM EDT Office Visit [facility] [address] [place] [address] Laury [place] MD [address] [place] [address] documented as of this encounter Visit Diagnoses Not on filedocumented in this encounter Care Teams Fixing Machine Operator Relationship Specialty Start Date End Date Laury [place] MD [address] [place] [phone] PCP - General Family Medicine 04/07/19 documented as of this encounter
--- OUTSIDE RECORDS SUMMARY | 2024-10-13 08:32 | XMS_ITS | Encounter Summary ---
Author Organization [employer] Address [address] [place] [address] 7 [place] [address] Care Team Providers Care Dog Track Kennel Manager Name Role Phone Laury [place] MD Primary Care Provide r Reason for Visit * Reason Comments Med Refill Encounter Details Date Type Department Care Team (Late st Contact Info) Description 08/01/2022 Refill [facility] [address] [place] [address] [phone] Caryl Strickland MD [address] [place] [address] [phone] Other chronic pain Social History Tobacco Use Types Packs/Day Years [...] Description 10/24/2024 2:45 PM EDT Office Visit [facility] [address] [place] [address] [phone] Laury [place] MD [address] [place], [place] [phone] documented as of this encounter Visit Diagnoses Diagnosis Other chronic pain documented in this encounter Care Teams Dog Track Kennel Manager Relationship Specialty Start Date End Date Laury [place] MD [address] [place] [address] PCP - General Family Medicine 04/07/19 documented as of this encounter
--- OUTSIDE RECORDS SUMMARY | 2024-10-13 08:32 | XMS_ITS | Encounter Summary ---
Author Organization [employer] Address [address] [facility] 7t [place] [address] Care Team Providers Care Leaf Conditioner Name Role Phone Laury Washington MD Primary Care Provide r Reason for Visit * Reason Comments Med Refill Encounter Details Date Type Department Care Team ([facility] st Contact Info) Description 08/18/2024 Refill [facility] MEDICINE [address] [place], [place] [phone] Yunier Rodriguez MD [address] [place] [address] Prurigo nodularis Social History Tobacco Use Types Packs/Day Years [...] Description 10/24/2024 2:45 PM EDT Office Visit [facility] MEDICINE [address] [place] [phone] Laury Washington MD [address] [place] [phone] documented as of this encounter Visit Diagnoses Diagnosis 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
--- OUTSIDE RECORDS SUMMARY | 2024-10-13 08:32 | XMS_ITS | Encounter Summary ---
Author Organization [employer] Address [address] [facility] 7t [place] [address] Care Team Providers Care Mechanical Lead Name Role Phone Laury Washington MD Primary Care Provide r Reason for Visit * Reason Comments Med Refill Encounter Details Date Type Department Care Team ([facility] st Contact Info) Description 09/05/2024 Refill [facility] MEDICINE [address] [place], [place] [phone] Yunier Rodriguez MD [address] [place] [address] Prurigo nodularis Social History Tobacco Use Types [...] Description 10/24/2024 2:45 PM EDT Office Visit [facility] MEDICINE [address] [place] [phone] Laury Washington MD [address] [place] [phone] documented as of this encounter Visit Diagnoses Diagnosis Prurigo nodularis Lichenification and lichen simplex chronicus documented in this encounter Additional Health Concerns Assessment Noted Time PHQ-9 Depression Total Score: 0 07/24/19 24 2:08 PM EST documented as of this encounter Care Teams Mechanical Lead Relationship Specialty Start Date End Date Laury Washington MD [address] [place] [phone] PCP - General Family Medicine 04/07/19 documented as of this encounter
--- OUTSIDE RECORDS SUMMARY | 2024-10-13 08:32 | XMS_ITS | Encounter Summary ---
Author Organization [employer] Address [address] [facility] 7t [place] [address] Care Team Providers Care Rate Reviewer Name Role Phone Laury Washington MD Primary Care Provide r Reason for Visit * Reason Comments Med Change Request Encounter Details Date Type Department Care Team ([facility] Contact Info) Description 06/03/2023 Refill [facility] MEDICINE [address] [place], [place] [phone] Laury Washington MD [address] [place] [address] Social History Tobacco Use Types Packs/Day Years Used Date Smoking Tobacco: Some Days Cigarettes Smokeless Tobacco: Never Alcohol Use Standard Drinks/Week Comments Yes 0 (1 standard drink = 0.6 oz pur e alcohol) Socially Housing Stability Answer Date Recorded What is [...] Description 10/24/2024 2:45 PM EDT Office Visit [facility] MEDICINE [address] [place], [place] [phone] Laury Washington MD [address] [place] [phone] documented as of this encounter Visit Diagnoses Not on filedocumented in this encounter Care Teams Rate Reviewer Relationship Specialty Start Date End Date Laury Washington MD [address] [place] [address] [phone] PCP - General Family Medicine 04/07/19 documented as of this encounter
--- OUTSIDE RECORDS SUMMARY | 2024-10-13 08:32 | XMS_ITS | Encounter Summary ---
Author Organization [employer] Address [address] [place] [address] 7t [place] [address] Care Team Providers Care Lining Maker Hand Name Role Phone Laury Washington MD Primary Care Provide r Encounter Details Date Type Department Care Team ([facility] Contact Info) Description 02/02/[address] [facility] MEDICINE [address] [place] [address] [phone] ProviderCari MD Social History Tobacco Use Types Packs/Day Years [...] Encounters Date Type Department Care Team (Late Contact Info) Description 10/24/2024 2:45 PM EDT Office Visit [facility] MEDICINE [address] [place] [address] [phone] Laury Washington MD [address] [place] [address] [phone] documented as of this encounter Procedures Procedure Name Priority Date/Time Associated Diagnosis Comments T4, FREE Routine 07/22/2023 11:39 AM EST [facility] COLONOSCOPY Routine 02/09/2019 documented in this encounter Results * T4, Free (07/22/2023 11:39 AM EST) Free T4 (Free Thyroxine) 1.09 0.71 - 1.85 ng/dL [facility] 07/22/2023 11:3 9 AM EST 07/22/2023 1:36 PM EST us Laury Banks MD LAB BLOOD ORDERABLES Final Result [facility] [address] [place] [phone] * Colonoscopy (02/09/2019) us Historical Provider HEALTH MAINTENANCE Final Result documented in this encounter Visit Diagnoses Not on filedocumented in this encounter Care Teams Lining Maker Hand Relationship Specialty Start Date End Date Laury Washington MD [address] [place] [phone] PCP - General Family Medicine 04/07/19 documented as of this encounter
--- OUTSIDE RECORDS SUMMARY | 2024-10-13 08:32 | XMS_ITS | Encounter Summary ---
Author Organization [employer] Address [address] [place] [address] 7t [place] [address] Care Team Providers Care Mail Processing Clerk Name Role Phone Laury Washington MD Primary Care Provide r Reason for Visit * Reason Comments Med Refill Encounter Details Date Type Department Care Team ([facility] st Contact Info) Description 06/21/2022 Refill [facility] [address] [place] [address] Vicki Caban DDS [address] [place] [address] Pain Social History Tobacco Use Types Packs/Day [...] Orientation Straight 03/24/2022 10 :20 AM EDT COVID-19 Exposure Response Date Recorded In the last 10 days, have yo u been in contact with someone who was confirmed or suspected to have Coronavirus/COVID-19? No / Unsure 06/24/2022 10:37 AM EST documented as of this encounter Miscellaneous Notes * Telephone Encounter - Vicki Caban DDS - 06/23/2022 11:05 AM EST Approving, but needs appt for additional refills. documented in this encounter Plan of Treatment Upcoming Encounters Date Type Department Care Team (Late st Contact Info) Description 10/24/2024 2:45 PM EDT Office Visit [facility] MEDICINE [address] [place], [place] [phone] Laury Washington MD 230 [place], [place] [phone] documented as of this encounter Visit Diagnoses Diagnosis Pain Generalized pain documented in this encounter Care Teams Mail Processing Clerk Relationship Specialty Start Date End Date Laury Washington MD [address] [place] [phone] PCP - General Family Medicine 04/07/19 documented as of this encounter
--- OUTSIDE RECORDS SUMMARY | 2024-10-13 08:32 | XMS_ITS | Encounter Summary ---
Author Organization [employer] Address [address] [place] [address] 7t [place] [address] Care Team Providers Care Rotary Cutter Operator Name Role Phone Laury Washington MD Primary Care Provide r Reason for Visit * Reason Comments Med Refill Encounter Details Date Type Department Care Team (Late st Contact Info) Description 09/26/[address] [facility] MEDICINE [address] [place] [address] [phone] Laury Washington MD [address] [place] [address] [phone] Other chronic pain Social History Tobacco Use [...] Description 10/24/2024 2:45 PM EDT Office Visit [facility] MEDICINE [address] [place] [address] [phone] Laury Washington MD [address] [place] [address] [phone] documented as of this encounter Visit Diagnoses Diagnosis Other chronic pain documented in this encounter Care Teams Rotary Cutter Operator Relationship Specialty Start Date End Date Laury Washington MD [address] [place] [phone] PCP - General Family Medicine 04/07/19 documented as of this encounter
--- OUTSIDE RECORDS SUMMARY | 2024-10-13 08:32 | XMS_ITS | Clinical Summary ---
Author Organization [employer] Address [address] [facility] 7t [place] [address] Care Team Providers Care Foundry Supervisor Name Role Phone Laury Washington MD Primary Care Provide r Allergies Active Allergy Reactions Criticality Noted Date Comments Acetaminophen 01/05/2019 Hydrocodone 01/05/2019 Medications cholecalciferol (Vitamin D-3) 25 MCG (1000 UT) capsule Take 1 capsule by mouth 1 (one) time each day. 022 Active gabapentin (Neurontin) 100 MG capsule Take 1 capsule by mouth every 12 (twelve) hours. 021 Active Senna-Time 8.6 MG tabletIndicatio ns:Constipation , unspecified constipation type TAKE 1 TABLET (8.6 MG) BY MOUTH IF NEEDED AT BEDTIME FOR CONSTIPATION. 90 tablet 1 023 Active buPROPion XL (Wellbutrin XL) 150 MG 24 hr tablet Take 150 mg by mouth in the morning. 023 Active LORazepam (Ativan) 0.5 MG tablet Take 0.5 mg by mouth if needed in the morning and at bedtime. 023 Active QUEtiapine (SEROquel) 50 MG tablet Take 50 mg by mouth at bedtime. 023 Active sertraline (Zoloft) 100 MG tablet Take 100 mg by mouth in the morning. 023 Active albuterol (2.5 MG/3ML) 0.083% nebulizer solution USE 1 VIAL VIA NEBULIZER 3 TIMES A DAY 75 mL 024 Active naloxone (Narcan) 4 mg/0.1 mL nasal sprayIndication s:Chronic knee pain after total replacement of right knee joint Administer 1 spray (4 mg) into affected nostril(s) if needed for opioid reversal. 2 each 2 024 Active FREESTYLE LITE test stripIndication s:Type 2 diabetes mellitus with hyperglycemia, without long-term current use of insulin (CMS/[facility]) USE DIRECTED TO CHECK BLOOD SUGAR 3 TIMES A DAY 100 strip 11 024 Active canagliflozin (Invokana) 100 MG TAKE 1 TABLET BY MOUTH EVERY DAY BEFORE THE FIRST MEAL OF THE DAY 90 tablet 1 024 Active semaglutide (Ozempic) 2 MG/1.5ML solution pen-injectorInd ications:Type 2 diabetes mellitus with hyperglycemia, without long-term current use of insulin (CMS/[facility]) Inject 0.25 mg under the skin 1 (one) time per week. 1 each 024 Active pioglitazone (Actos) 30 MG tabletIndicatio ns:Type 2 diabetes mellitus with other specified complication, unspecified whether chcf insulin use (CMS/HCC) TAKE 1 TABLET BY MOUTH EVERY DAY 90 tablet 1 024 Active hydrOXYzine pamoate (Vistaril) 25 MG capsuleIndicati ons:Prurigo nodularis Take 1 capsule (25 mg) by mouth every 6 (six) hours if needed for itching for up to 10 days. 30 capsule 025 Active pravastatin (Pravachol) 40 MG tabletIndicatio ns:Primary hypertension TAKE 1 TABLET BY MOUTH EVERY DAY IN THE MORNING 90 tablet 3 025 Active hydroCHLOROthia zide 12.5 MG tabletIndicatio ns:Primary hypertension TAKE 1 TABLET BY MOUTH EVERY DAY IN THE MORNING (12.5 MG) 90 tablet 3 025 Active lisinopril 40 MG tabletIndicatio ns:Primary hypertension TAKE 1 TABLET BY MOUTH EVERY DAY IN THE MORNING 90 tablet 3 025 Active Dulaglutide (Trulicity) 3 MG/0.5ML solution auto-injectorIn dications:Type 2 diabetes mellitus with hyperglycemia, without long-term current use of insulin (CMS/[facility]) INJECT 3 MG SUBCUTANEOUSLY WEEKLY 2 mL 025 Active clobetasol (Temovate) 0.05 % ointmentIndicat ions:Prurigo nodularis Apply topically 2 times daily. 30 g 025 Active ibuprofen 800 MG tabletIndicatio ns:Pain TAKE 1 TABLET BY MOUTH 3 TIMES A DAY WITH FOOD 90 tablet 025 Active Diclofenac Sodium 1 % gelIndications: Chronic pain of left knee APPLY 1 APPLICATION TOPICALLY AT NOON AND 1 APPLICATION IN THE EVENING. 100 g 1 025 Active glipiZIDE (Glucotrol) 10 MG tablet TAKE 1 TABLET BY MOUTH TWICE A DAY BEFORE MEALS 180 tablet 1 025 Active meloxicam (Mobic) 15 MG tabletIndicatio ns:Chronic pain of left knee TAKE 1 TABLET BY MOUTH EVERY DAY 30 tablet 025 Active lidocaine (Lidoderm) 5 % patchIndication s:Chronic pain of left knee APPLY 1 PATCH TOPICALLY ONCE PER DAY. REMOVE & DISCARD PATCH WITHIN 12 HOURS OR DIRECTED BY MD. 30 patch 025 Active glipiZIDE (Glucotrol) 10 MG tablet TAKE 1 TABLET BY MOUTH TWICE A DAY BEFORE MEALS 180 tablet 1 024 2024 Discontinued meloxicam (Mobic) 15 MG tabletIndicatio ns:Chronic pain of left knee Take 1 tablet (15 mg) by mouth Once per day. 30 tablet 025 2024 Discontinued lidocaine (Lidoderm) 5 % patchIndication s:Chronic pain of left knee Apply 1 patch topically Once per day. Remove & discard patch within 12 hours or as directed by MD. 30 patch 025 2024 Discontinued Active Problems Problem Noted Date Diagnosed Date Bipolar affective 06/02/2023 Right shoulder pain 06/02/2023 Assessment & Plan (06/02/2023 5:38 PM EST): Pt states fell while in [place] ,his left knee locked and fell put his arms to protect his face and hit right shoulder ,he went to ER there and XR was done per pt showing his shoulder to be dislocated,states maneuvers where done to place shoulder in placed ,since then has swelling and pain , denies fever ,nor chills ,describes tingling in elbow -advised pt to use sling that has at home -px today diclofenac cream and continue lidoderm patch -tylenol and NSAIDS oral prn for more intense pain and has tramadol as well that takes chronically -wants to hold on XR offered today because states will have image done w orthopedic at upcoming up [place] [address] Barker -did referral for orthopedic today Bilateral hand pain 10/15/2022 Trigger middle finger of left hand 10/15/2022 Axillary lymphadenopathy 04/29/2022 Chronic knee pain after tota l replacement of right knee joint 04/29/2022 Hypertensive disorder 04/29/2022 Assessment & Plan (07/24/2023 2:46 PM EST): I decided to discontinue his furosemide I will increase lisinopril to 40mg daily C/w hydrochlorothiazide 12.5mg daily RTC 2 weeks with nurse if BP is not at goal I will add carvedilol 6.25mg BID Assessment & Plan (06/02/2023 5:35 PM EST): Possible mild elevated BP and HR area maybe reactive to pain,denies any SOB, nor CP ,normal Osat -will f w PCP in 4 weeks -advised to be compliant w BP meds Lipoma of axilla 04/29/2022 Moderate persistent asthma without complication 04/29/2022 Type 2 diabetes mellitus 04/29/2022 Assessment & Plan (07/24/2023 2:51 PM EST): Diabetes is: not controlled - Lab Results Component Value Date HGBA1C 11.5 (A) 07/24/2023 HGBA1C 11.0 (A) 06/02/2023 HGBA1C 8.7 (A) 10/15/2022 - Lab Results Component Value Date MICROALBUR 0.3 01/09/2022 CREATININE 0.90 07/22/2023 -Changes: I will increase his Trulicity to 3mg weekly - Diabetic eye exam: pending - Diabetic foot exam: pending - Continue lifestyle modifications - Continue current medications - Follow up: 3 months Assessment & Plan (06/02/2023 5:36 PM EST): Today CBG 291 and hb1AC 11 -not using trulicity for > 4 weeks -states having issue w his pharmacy to get med ---I call his pharmacy today ,explained medicine is currently out of stock--- sent today med to our px to resume medication and explained to continue rest of DM meds -advised tot bring home CBGs readings in fasting and 2 h after biggest meal to her PCP to eval if need to increase GLP1 dose -states also not taking statins -refilled today -pt has apt schedule to see his PCP for next month Assessment & Plan (10/15/2022 4:42 PM EDT): Maintenance: BMP: ordered today Lipid Panel: ordered today ASCVD Risk: Calculate pending updated labs - Aerobic exercise to reduce BP. Initial goal of 30 min walk 3-5x/week. Increase as tolerated. - low-sodium diet (goal: <2g/day) and heart healthy diet such as DASH to reduce BP and prevent ASCVD. - Home BP monitoring 1-2 x day with goal of <140/90. - Seek immediate medical attention for chest pain, palpitations, SOB, syncope, or sudden changes in mental status. - I increase his josh;icity to 1.5mg weekly - Do not change or discontinue current prescriptions without first consulting health care provider Assessment & Plan (04/30/2022 8:53 AM EST): - Resolved Problems Problem Noted Date Diagnosed Date Resolved Date Foot pain 04/29/2022 06/24/2022 Mild intermittent asthma 04/29/2022 Encounters Date Type Department Care Team Description 10/12/2024 Patient Outreach [facility] [address] [place] [address] Laury Washington MD Pre-visit Planning ((Unable to reach for PVP screening or LVM)) 09/30/2024 Refill [facility] [address] [place], [place] [phone] Stephani [place] CNP Chronic pain of left knee 09/26/2024 Refill [facility] [address] [place] [address] Laury Washington MD 09/05/2024 Refill [facility] [address] [place] [address] Yunier Rodriguez MD Prurigo nodularis 09/02/2024 3:45 PM EDT Office Visit [facility] [address] [place] [address] Stephani [place] CNP Chronic pain of left knee (Primary Dx) 09/02/2024 Travel 09/01/2024 Telephone [facility] [address] [place] [address] Laury Washington MD Chart Prep 09/01/2024 Telephone [facility] [address] [place] [address] Laury Washington MD Referral 09/01/2024 Telephone [facility] [address] [place] [address] Laury Washington MD Nurse Triage 08/18/2024 Refill [facility] [address] [place] [address] Yunier Rodriguez MD Prurigo nodularis 08/11/2024 Refill [facility] [address] [place] [address] Laury Washington MD Pain 08/10/2024 Refill [facility] [address] [place] [address] Laury Washington MD Primary hypertension; Type 2 diabetes mellitus with hyperglycemia, without long-term current use of insulin ([facility]); Prurigo nodularis; Pain 08/10/2024 Refill [facility] [address] [place] [address] Yunier Rodriguez MD Prurigo nodularis 08/10/2024 Refill [facility] [address] [place] [address] Caryl Strickland MD Pain 08/05/2024 Population Health Risk Score [facility] () Department [address] [place] [phone] Provider, Population Health Generic 08/02/2024 Refill [facility] [address] [place] [address] Yunier Rodriguez MD Prurigo nodularis 07/21/2024 Refill [facility] [address] [place] [address] Laury Washington MD Primary hypertension from Last 3 Months Immunizations Immunization Administration Dates Next Due Influenza Injectable Quadriv alant Preservative Free IIV4 MDCK 02/24/2023,05/02/2021 Influenza, seasonal, injectable, preservative fr ee 04/29/2022 Pfizer Covid-19 Vaccine 12+ 07/21/2020 Pneumococcal Conjugate PCV 13 04/06/2020 Tdap 04/06/2020 Zoster, Recombinant 04/06/2020 Social History Tobacco Use Types Packs/Day Years Used Date Smoking Tobacco: Some Days Cigarettes Passive Smoke Exposure: Current Smokeless Tobacco: Never Tobacco Cessation:Ready to Q uit: Not Asked; Counseling Given: Not Answered Alcohol Use Standard Drinks/Week Comments Yes 0 [...] Orientation Straight 03/24/2022 10 :20 AM EDT Last Filed Vital Signs Vital Sign Reading Time Taken Comments Blood Pressure 136/84 09/02/2024 3:33 PM EDT Pulse 96 09/02/2024 3:33 PM EDT Temperature 36.7 ??C (98.1 ??F) 09/02/2024 3:33 PM ED T Respiratory Rate 20 09/02/2024 3:33 PM EDT Oxygen Saturation 98% 09/02/2024 3:33 PM EDT Inhaled Oxygen Concentration - - Weight 125 kg (275 lb 3.2 oz) 09/02/2024 3:33 PM EDT Height 170.2 cm (5' 7 ) 07/24/2023 2:07 PM EST Body Mass Index 43.1 07/24/2023 2:07 PM EST Plan of Treatment Upcoming Encounters Date Type Department Care Team (Late st Contact Info) Description 10/24/2024 2:45 PM EDT Office Visit [facility] [address] [place] [address] Laury Washington MD [address] [place] [address] Health Maintenance Due Date Last Done Comments CT Colonography 1966 FIT DNA/Cologuard 1966 FIT 1966 FOBT 1966 HIV Screening 1966 Sigmoidoscopy 1966 Disability Screening 1966 Diabetes: Foot Exam 01/22/1976 Alcohol/Substance Use Screening 1978 Hepatitis C Screening 01/22/1984 Diabetes: Urine Protein Screening 01/09/2023 01/09/2022 Diabetes: Hemoglobin A1C 10/24/2023 024, 06/02/2023, 10/15/2022, Additional history exists SDOH Screening 06/02/2024 06/02/2023 Depression Screening 07/23/2024 07/24/2023, 03/01/20 24 Lipid Panel 08/04/2024 08/05/2023, 12/23, 03/07/2020 Hepatitis B Vaccines (3 of 3 - Hep B Twinrix 3-dose series) 09/02/2024 04/04/2024, 02/19/2024 Pneumococcal Vaccine: 50+ Years (3 of 3 - PCV20 or PCV21) 04/06/2025 04/06/2020, 10/06/2013 Tobacco Screening 07/01/2025 07/01/2024 Eye Exam 11/19/2025 11/20/2023, 10/24, 11/20/2023, Additional history exists Colonoscopy 02/09/2029 02/09/2019 Colorectal Cancer Screening 02/09/2029 DTaP/Tdap/Td Vaccines (2 - Td or Tdap) 04/06/2030 04/06/2020, 09/19/2013 RSV Patients and Patients Aged 60 years or older (1 - 1-dose 75+ series) 2041 Zoster Vaccines Completed 04/06/2020, 02/06/2020 COVID-19 Vaccine Completed 01/26/2024, 05/2022, 10/03/2022, Additional history exists Influenza Vaccine Completed 01/26/2024, , 04/29/2022, Additional history exists Hepatitis A Vaccines Aged Out 04/04/2024, 02/19/20 24 No longer eligible based on patient's age to complete this topic HIB Vaccines Aged Out No longer eligi ble based on patient's age to complete this topic HPV Vaccines Aged Out No longer eligi ble based on patient's age to complete this topic IPV Vaccines Aged Out No longer eligi ble based on patient's age to complete this topic Meningococcal B Vaccine Aged Out No l onger eligible based on patient's age to complete this topic Meningococcal Vaccine Aged Out No alfonso janessa eligible based on patient's age to complete this topic RSV under 20 months Aged Out No longe r eligible based on patient's age to complete this topic Rotavirus Vaccines Aged Out No longer eligible based on patient's age to complete this topic Procedures Procedure Name Priority Date/Time Associated Diagnosis Comments LIPID PANEL, STANDARD Routine 08/05/2023 1:16 PM EDT Primary hypertension POCT GLYCATED HEMOGLOBIN, TOTAL Routine 07/24/2023 2:10 PM EST Type 2 diabetes mellitus with hyperglycemia, without long-term current use of insulin ([facility]) ALBUMIN, RANDOM URINE W/CREATININE Routine 01/09/2022 11:14 AM EDT HM COLONOSCOPY Routine 02/09/2019 from Last 3 Months or Most Recently Relevant to Health Maintenance Results * (ABNORMAL) Lipid Panel, Standard (08/05/2023 1:16 PM EDT) Triglycerides 172(H) <150 mg/dL [facility] Comment:Desirable Triglyceri de: less than 150 mg/dLBorderline High Triglyceride 150-199 mg/dLHigh Triglyceride: 200-499 mg/dLVery High Triglyceride: greater than or equal to 5OO mg/dL Cholesterol 161 <200 mg/dL [facility] Comment:Desirable Cholestero l: less than 200 mg/dLBorderline High Cholesterol: 200-239 mg/dLHigh Cholesterol: greater than 239 mg/dL LDL Cholesterol Calculated 85 <100 mg/dL [facility] Comment:Desirable LDL: less than 100 mg/dLNear Optimal/Above Optimal LDL: 110- 129 mg/dLBorderline High LDL: 130-159 mg/dLHigh LDL: 160-189 mg/dLVery High LDL: greater than or equal to 190 mg/dL HDL Cholesterol 42 >40 mg/dL [facility] Comment:Desirable HDL: great er than 40 mg/dL Note: This HDL assay may give artificially low results in patients with liver disease. Blood Venous blood specimen / Unknown 08/05/2023 1:16 PM EDT 08/05/2023 4:17 PM EDT us Laury Banks MD LAB BLOOD ORDERABLES Final Result [facility] [address] [place] [phone] * (ABNORMAL) POCT HGB A1C (07/24/2023 2:10 PM EST) Hemoglobin A1C 11.5(A) 4.0 - 6.0 % QC Media Lot # [id number] Lot# Expiration Date Blood 07/24/2023 2:10 PM EST Laury Banks MD POINT OF CARE TEST EN TER/EDIT ORDERABLES Final Result * ALBUMIN, RANDOM URINE W/CREATININE (01/09/2022 11:14 AM EDT) Pathologist [facility] Microalbumin Urine 0.3 See Note: mg/dL [facility] Comment: Reference Range: ?? Reference Range Not established Microalb/Creat Ratio 2 <30 mcg/mg creat [facility] Comment: ?? The ADA defines abnormalities in albumin excretion as follows: ?? Albuminuria Category ?Result (mcg/mg creatinine) ?? Normal to Mildly increased ?? <30 Moderately increased ? 30-299 ?? Severely increased ? > OR = 300 ?? The ADA recommends that at least two of three specimens collected within a 3-6 month period be abnormal before considering a patient to be within a diagnostic category. Creatinine, Urine 156 20 - 320 mg/dL [facility] 01/09/2022 11:1 4 AM EDT Laury Banks MD LAB URINE ORDERABLES Final Result [facility] [address] * Colonoscopy (02/09/2019) Historical Provider HEALTH MAINTENANCE Final Result from Last 3 Months or Most Recently Relevant to Health Maintenance Insurance [facility] C3 Care Teams Foundry Supervisor Relationship Specialty Start Date End Date Luary Washington MD [address] [place] [address] PCP - General Family Medicine 04/07/19
--- OUTSIDE RECORDS SUMMARY | 2024-10-13 08:32 | XMS_ITS | Encounter Summary ---
Author Organization [employer] Address [address] [facility] 7[address] [place] [address] Care Team Providers Care Diesel Truck Driver Name Role Phone Laury Washington MD Primary Care Provide r Reason for Visit * Reason Comments Med Refill Encounter Details Date Type Department Care Team ([facility] st Contact Info) Description 08/02/2024 Refill [facility] MEDICINE [address] [place], [place] [phone] Yunier Rodriguez MD [address] [place] [address] Prurigo nodularis Social History Tobacco Use Types [...] Description 10/24/2024 2:45 PM EDT Office Visit [facility] MED[facility]INE [address] [place] [phone] Laury Washington MD [address] [place] [phone] documented as of this encounter Visit Diagnoses Diagnosis Prurigo nodularis Lichenification and lichen simplex chronicus documented in this encounter Additional Health Concerns Assessment Noted Time PHQ-9 Depression Total Score: 0 07/24/19 24 2:08 PM EST documented as of this encounter Care Teams Diesel Truck Driver Relationship Specialty Start Date End Date Laury Washington MD [address] [place] [phone] PCP - General Family Medicine 04/07/19 documented as of this encounter
--- OUTSIDE RECORDS SUMMARY | 2024-10-13 08:32 | XMS_ITS | Encounter Summary ---
Author Organization [employer] Address [address] [facility] 7 [place] [address] Care Team Providers Care Business Continuity Manager Name Role Phone Laury Washington MD Primary Care Provide r Reason for Visit * Reason Comments Pre-visit Planning (Unable to reach for PVP screening or LVM) Encounter Details Date Type Department Care Team ([facility] Contact Info) Description 10/12/2024 Patient Outreach [facility]INE [address] [place] [address] Laury Washington MD [address] [place] [address] Pre-visit Planning ((Unable to reach for PVP screening or LVM)) Social History Tobacco Use Types Packs/Day Years [...] AM EDT documented as of this encounter Progress Notes * Mylene Arias - 10/12/2024 9:16 AM EDT CC Mylene placed outbound call to patient to complete pre-visit planning. No answer at this time. Patient name and were not confirmed. CC unable to leave a voice message. documented in this encounter Plan of Treatment Upcoming Encounters Date Type Department Care Team (Late st Contact Info) Description 10/24/2024 2:45 PM EDT Office Visit [facility] MEDICINE [address] [place] [phone] Laury Washington MD [address] [place] [phone] documented as of this encounter Visit Diagnoses Not on filedocumented in this encounter Additional Health Concerns Assessment Noted Time PHQ-9 Depression Total Score: 0 07/24/19 24 2:08 PM EST documented as of this encounter Care Teams Business Continuity Manager Relationship Specialty Start Date End Date Laury Washington MD [address] [place] [phone] PCP - General Family Medicine 04/07/19 documented as of this encounter
--- OUTSIDE RECORDS SUMMARY | 2024-10-13 08:32 | XMS_ITS | Encounter Summary ---
Author Organization [employer] Address [address] [place] [address] [address] [place] [address] Care Team Providers Care Talent Development Consultant Name Role Phone Laury Washington MD Primary Care Provide r Reason for Visit * Reason Comments Med Refill Encounter Details Date Type Department Care Team ([facility] st Contact Info) Description 06/18/2022 Refill [facility] [address] [place] [address] Vicki Caban DDS [address] [place] [address] Pain Social History Tobacco Use Types Packs/Day [...] Telephone Encounter - Vicki Caban DDS - 06/19/2022 8:05 AM EST Approving, but needs appt for additional refills. documented in this encounter Plan of Treatment Upcoming Encounters Date Type Department Care Team (Late st Contact Info) Description 10/24/2024 2:45 PM EDT Office Visit [facility] [address] [place] [address] Laury Washington MD [address] [place], [place] [phone] documented as of this encounter Visit Diagnoses Diagnosis Pain Generalized pain documented in this encounter Care Teams Talent Development Consultant Relationship Specialty Start Date End Date Laury Washington MD [address] [place] [address] [phone] PCP - General Family Medicine 04/07/19 documented as of this encounter
--- OUTSIDE RECORDS SUMMARY | 2024-10-13 08:32 | XMS_ITS | Encounter Summary ---
Author Organization [employer] Address [address] [facility] 7t [place] [address] Care Team Providers Care Checker Dump Grounds Name Role Phone Laury Washington MD Primary Care Provide r Reason for Visit * Reason Comments Med Refill Encounter Details Date Type Department Care Team ([facility] st Contact Info) Description 06/02/2023 Refill [facility] MEDICINE [address] [place], [place] [phone] Laury Washington MD [address] [place] [address] Social History Tobacco Use Types Packs/Day Years [...] Description 10/24/2024 2:45 PM EDT Office Visit [facility] MED[facility]INE [address] [place], [place] [phone] Laury Washington MD [address] [place] [phone] documented as of this encounter Visit Diagnoses Not on filedocumented in this encounter Care Teams Checker Dump Grounds Relationship Specialty Start Date End Date Laury Washington MD [address] [place] [address] [phone] PCP - General Family Medicine 04/07/19 documented as of this encounter
--- OUTSIDE RECORDS SUMMARY | 2024-10-13 08:32 | XMS_ITS | Encounter Summary ---
Author Organization [employer] Address [address] [facility] 7t [place] [address] Care Team Providers Care Flue Gas Analyst Name Role Phone Laury Washington MD Primary Care Provide r Reason for Visit * Reason Comments Med Refill Encounter Details Date Type Department Care Team (Late st Contact Info) Description 05/28/2022 Refill [facility] [address] [place] [address] Saman Doty, DMD [address] [place] [address] Pain (Primary Dx) Social History Tobacco Use Types Packs/Day Years [...] suspected to have Coronavirus/COVID-19? No / Unsure 05/14/2022 2:52 PM EST documented as of this encounter Miscellaneous Notes * Telephone Encounter - Vicki Caban DDS - 05/29/2022 11:04 AM EST Approving, but needs appt for additional refills. documented in this encounter Plan of Treatment Upcoming Encounters Date Type Department Care Team (Late st Contact Info) Description 10/24/2024 2:45 PM EDT Office Visit [facility] [address] [place], [place] [phone] Laury Washington MD [address] [place] [address] documented as of this encounter Visit Diagnoses Diagnosis Pain- Primary Generalized pain documented in this encounter Care Teams Flue Gas Analyst Relationship Specialty Start Date End Date Laury Washington MD [address] [place] [phone] PCP - General Family Medicine 04/07/19 documented as of this encounter
--- OUTSIDE RECORDS SUMMARY | 2024-10-13 08:32 | XMS_ITS | Encounter Summary ---
Author Organization [employer] Address [address] [facility] 7 [place] [address] Care Team Providers Care E Commerce Developer Name Role Phone Laury Washington MD Primary Care Provide r Reason for Visit * Reason Onset Date Comments Med Refill 03/23/2024 Prior Authorization 03/23/2024 Encounter Details Date Type Department Care Team ([facility] st Contact Info) Description 03/23/2024 Telephone [facility] [address] [place] [address] Laury Washington MD [address] [place] [address] Med Refill; Prior Authorization Social History Tobacco Use Types Packs/Day Years [...] encounter Miscellaneous Notes * Telephone Encounter - Monet Sargent - 03/23/2024 11:03 AM EDT TC from pt requesting medication refill. Medications needing refill : semaglutide (Ozempic) 2 MG/1.5ML solution pen-injector To be sent to: [facility]/pharmacy #[id number] documented in this encounter Plan of Treatment Upcoming Encounters Date Type Department Care Team (Late st Contact Info) Description 10/24/2024 2:45 PM EDT Office Visit [facility] [address] [place] [phone] Laury Washington MD [address] [place] [address] documented as of this encounter Visit Diagnoses Not on filedocumented in this encounter Additional Health Concerns Assessment Noted Time PHQ-9 Depression Total Score: 0 07/24/19 24 2:08 PM EST documented as of this encounter Care Teams E Commerce Developer Relationship Specialty Start Date End Date Laury Washington MD [address] [place] [address] [phone] PCP - General Family Medicine 04/07/19 documented as of this encounter
--- OUTSIDE RECORDS SUMMARY | 2024-10-13 08:32 | XMS_ITS | Encounter Summary ---
Author Organization [employer] Address [address] [facility] 7t [place] [address] Care Team Providers Care Chemistry Intern Name Role Phone Laury Washington MD Primary Care Provide r Reason for Visit * Reason Comments Med Change Request Encounter Details Date Type Department Care Team (Late Contact Info) Description 05/01/2022 Refill [facility] [address] [place] [address] Phoebe Yost, LING [address] [place] [address] Type 2 diabetes mellitus with hyperglycemia, without long-term current use of insulin ([facility]) Social History Tobacco Use Types Packs/Day Years Used Date Smoking Tobacco: Every Day Cigarettes Smokeless Tobacco: Never Alcohol Use Standard Drinks/Week Comments Yes 0 (1 standard drink = 0.6 oz pur e alcohol) Socially Sex and Gender Information Value Date Recorded [...] suspected to have Coronavirus/COVID-19? No / Unsure 04/29/2022 1:04 PM EST documented as of this encounter Plan of Treatment Upcoming Encounters Date Type Department Care Team ([facility] Contact Info) Description 10/24/2024 2:45 PM EDT Office Visit [facility] [address] [place] [address] Laury Washington MD [address] [place], [place] [phone] documented as of this encounter Visit Diagnoses Diagnosis Type 2 diabetes mellitus with hyperglycemia, without long-term current use of insulin ([facility]) documented in this encounter Care Teams Chemistry Intern Relationship Specialty Start Date End Date Laury Washington MD [address] [place] [address] PCP - General Family Medicine 04/07/19 documented as of this encounter
== END 2024-10-13 08:23 | disposition home or self-care (01) ==
LOC: HO.HOSX 08:22
PROVIDERS: Visit Provider Orthopaedic Surgery
DX: M25.562 Pain in left knee (principal); M17.12 Unilateral primary osteoarthritis, left knee; M19.90 Unspecified osteoarthritis, unspecified site; E11.65 Type 2 diabetes mellitus with hyperglycemia; E66.01 Morbid (severe) obesity due to excess calories; Z96.651 Presence of right artificial knee joint
CPT/HCPCS: 73562; 99212

== ENCOUNTER 2024-10-13 14:01 | Outpatient (AMB) | payer MEDICAID, SELFPAY ==
--- NOTE | 2024-10-13 14:14 | A.OFFVIS_ITS ---
Intake Visit Reasons: New prob- L knee pain Intake Note: Edgar is a 59 year old male who presents today for a new problem visit with complaints of Left Knee Pain. Patient reports that he has had history of left knee pain for quite some time now. He has not done cortisone injections on the left knee as they effect his sugars. He takes Tylenol and Meloxicam for his pain and this does help him mildly. Allergies lactose [LACTOSE] Allergy (Intermediate, Verified 05/11/24 14:06) GI UPSET From VICODIN Adverse Reaction (Intermediate, Uncoded 05/11/24 14:06) HIVES, SOB, GI UPSET HPI HPI New prob- L knee pain: Details: Edgar is a 59 yo M with left knee OA. He underwent a right TKA with me in 2013 followed by a revision to a TKA in 2016 for adjacent compartment disease. He has done well post operatively but has been struggling with his sugar control and his weight. He has been taking a GLP-1 agonist and is losing weight but feeling that he cannot walk foe even short distances without a bad limp and pain. He states his knee gives way and he has been falling or almost falling because of this. [facility] Medical History (Updated 10/15/24 @ 08:49 by Jono Barker MD) DJD (degenerative joint disease) Asthma Bipolar 1 disorder Anxiety Depression Sleep apnea treated with continuous positive airway pressure (CPAP) HTN (hypertension) Diabetes Surgical History S/P hernia surgery Hx of colonoscopy Status post right knee replacement S/P arthroscopic surgery of right knee Family History (Updated 05/03/24 @ 09:25 by Karina Sargent CMA) Father Prostate cancer Throat cancer Mother Arthritis Dementia Hypertension Hyperlipidemia Maternal Grandmother Colon cancer Social History (Updated 05/03/24 @ 09:26 by Karina Sargent CMA) Household Members Other:: single-foster 3 nephews Alcohol intake: current Alcohol intake frequency: holidays/special occasions only Patient Tobacco Use Status: Current someday Tobacco user Physical Exam Const Other: NAD truncal obesity present Extrem Other: inc c/d/i right knee. Left knee with varus mal-alignement 5-120 deg of motion with + gait antalgia 1+ varus instability and 1+ effusion Results Reviewed Results Reviewed: I personally reviewed relevant radiographs. There is severe , varus p[attern, OA of the left knee. Right total knee arthroplasty in expected post operative position with no hardware complications or evidence of loosening Assessment & Plan Assessment & Plan (1) DJD (degenerative joint disease): Code(s): M19.90 - Unspecified osteoarthritis, unspecified site Category: Medical Plan: This is a 59-year-old gentleman with left knee osteoarthritis that is severe. He limps everywhere and feels like he is going to fall. He had a right total knee replacement proximally 9 years ago and this has been successful for him. I do not think it steroid injections would be helpful given his diabetes and he has severe gait antalgia. I recommend left knee replacement. This disease is severe and his dysfunction is also severe. I discussed this with him. He expressed understanding. I explained the procedure to him. I do think there are some variables that need to be resolved prior to surgery. One is his weight to his his diabetes. In addition during examination of his chart he appears to have a remote use of cocaine. I will discuss this with him and we may modify the plan accordingly. I introduced him to our nurse navigator to begin the preoperative clearance process. (2) Morbid (severe) obesity due to excess calories: Code(s): E66.01 - Morbid (severe) obesity due to excess calories Category: Medical Plan: He has been taking and GLP 1 agonist. Maximal weight loss is usually in the region of 6 BMI. I do think it would be beneficial for him to get under 40 so we will shoot for this as a goal. (3) Poorly controlled type 2 diabetes mellitus: Code(s): E11.65 - Type 2 diabetes mellitus with hyperglycemia Category: Medical Plan: He has a history of poorly controlled diabetes and unfortunately I see no hemoglobin A1c in the chart. We will obtain this information before proceeding forward. (4) Unknown substance dependence, episodic abuse: Code(s): F19.20 - Other psychoactive substance dependence, uncomplicated Category: Medical Plan: There may be remote history of cocaine abuse. This is substantiated only by 1 lab result testing positive for cocaine metabolites. I will discuss this with him at his next visit. Orders: Orders XR Knee Kurt 3V 10/13/24 M25.569 - Pain in unspecified knee Coding Level of Care Code Est Pt Level 4 (02818) Complex EM visit Add On G2211 Diagnoses DJD (degenerative joint disease) M19.90 Morbid (severe) obesity due to excess calories E66.01 Poorly controlled type 2 diabetes mellitus E11.65 Unknown substance dependence, episodic abuse F19.20
== END 2024-10-13 15:32 | disposition home or self-care (01) ==
LOC: HO.HOS 14:02
PROVIDERS: PCP Internal Medicine; Visit Provider Orthopaedic Surgery
DX: M19.90 Unspecified osteoarthritis, unspecified site (principal); E66.01 Morbid (severe) obesity due to excess calories; E11.65 Type 2 diabetes mellitus with hyperglycemia; F19.20 Other psychoactive substance dependence, uncomplicated
CPT/HCPCS: 99214

== ENCOUNTER → 2024-10-13 14:03 | Outpatient (BNV) | payer MEDICAID, SELFPAY | PROVIDERS: Visit Provider Specialist | DX: M17.12 Unilateral primary osteoarthritis, left knee (principal) | CPT/HCPCS: 73562 ==

== ENCOUNTER 2024-10-24 15:47 | Outpatient (REF) | payer MEDICAID, SELFPAY ==
[2024-10-24 17:36] LABS: MANUAL DIFF FLAG NO
[2024-10-24 18:01] LABS: Alanine Aminotransferase 28 U/L (0-40); Albumin Level 4.7 g/dL (3.5-5.0); Alkaline Phosphatase 121 U/L (39-117); Anion Gap 14 (12-20); Aspartate Amino Transferase 25 U/L (5-37); Bilirubin Total 0.5 mg/dL (0.0-1.0); Blood Urea Nitrogen 13 mg/dL (9-16); Calcium 9.9 mg/dL (8.4-10.2); Carbon Dioxide 26 mmol/L (22-29); Chloride 103 mmol/L (96-108); Cholesterol 205 mg/dL (<200); Estimated Glomerular Filt Rate > 60; Glucose Random 154 mg/dL (60-115); HDL Cholesterol 41 mg/dL (>40); LDL Cholesterol Calculated 136 mg/dL (<100); Potassium 3.6 mmol/L (3.3-5.1); Sodium 139 mmol/L (135-145); Triglycerides 142 mg/dL (<150)
[2024-10-24 18:09] LABS: Microalbumin Urine < 5.0 mg/L
[2024-10-24 18:19] LABS: TSH reflex Free T4 3.11 uIU/mL (0.32-4.0); Vitamin D 25-OH Total 20.7 ng/mL (>30)
[2024-10-24 18:39] LABS: Basophils Percent Auto 0.7 % (0-2); Eosinophils Absolute Auto 0.1 X10*3/uL (0.0-0.4); Eosinophils Percent Auto 2.4 % (0-4); Hematocrit 48.6 % (42.0-52.0); Hemoglobin 15.9 g/dl (14.0-18.0); Imm Gran Abs Auto 0.03 X10*3/uL (0.00-0.03); Imm Gran Pct Auto 0.5 % (0.0-0.4); Lymphocytes Absolute Auto 1.4 X10*3/uL (1.2-4.9); Lymphocytes Percent Auto 23.8 % (20-40); Mean Corpuscular HGB Conc 32.7 g/dl (31.0-36.0); Mean Corpuscular Hemoglobin 29.1 pg (27.0-33.0); Mean Platelet Volume 11.6 fL (9.4-12.4); Monocytes Absolute Auto 0.4 X10*3/uL (0.1-1.2); Monocytes Percent Auto 7.4 % (2-11); Neutrophils Absolute Auto 3.8 x10*3/uL (2.0-8.3); Neutrophils Percent Auto 65.2 % (45-73); Platelet Count 223 X10*3/uL (160-400); Red Blood Count 5.46 X10*6/uL (4.60-5.80); Red Cell Distribution Width 13.2 % (11.0-16.0); White Blood Count 5.8 X10*3/uL (4.8-10.8)
[2024-10-25 08:25] LABS: HIV AB/AG Nonreactive (Nonreactive); HIV Num 1 0.06 S/CO (0.00-0.99); ~HepC Num1 0.16 S/CO (0.00-0.79); ~Hepatitis C Antibody Nonreactive (Nonreactive)
== END 2024-10-24 15:48 | disposition home or self-care (01) ==
LOC: HO.HHCL 15:47
PROVIDERS: Visit Provider Internal Medicine
DX: E11.65 Type 2 diabetes mellitus with hyperglycemia (principal)
CPT/HCPCS: 36415; 80053; 80061; 82306; 82570; 84443; 85025; 86803; 87389

== ENCOUNTER 2024-12-16 10:22 | Outpatient (REF) | payer MEDICAID, SELFPAY ==
[2024-12-16 10:32] LABS: MANUAL DIFF FLAG NO
--- OUTSIDE RECORDS SUMMARY | 2024-12-16 10:37 | XMS_ITS | Encounter Summary ---
Author Organization [employer] Address [address] [facility] 7t [place] [address] Care Team Providers Care Pier Master Name Role Phone Laury Washington MD Primary Care Provide r Reason for Visit * Reason Onset Date Comments Referral 10/30/2023 Encounter Details Date Type Department Care Team ([facility] st Contact Info) Description 10/30/2023 Telephone [facility] [address] [place], [place] [phone] Laury Washington MD [address] [place] [address] Referral Social History Tobacco Use Types Packs/Day [...] visit with pcp. Please contact pt at [phone]. documented in this encounter Plan of Treatment Upcoming Encounters Date Type Department Care Team (Late st Contact Info) Description 12/29/2024 3:30 PM EDT Office Visit [facility] [address] [place] [phone] Laury Washington MD [address] [place] [phone] 01/04/2025 2:30 PM EDT Medication Management [facility] [address] [place] [phone] Navneet Bender, PharmD [address] [place] [phone] documented as of this encounter Visit Diagnoses Not on filedocumented in this encounter Additional Health Concerns Assessment Noted Time PHQ-9 Depression Total Score: 0 07/24/19 24 2:08 PM EST documented as of this encounter Care Teams Pier Master Relationship Specialty Start Date End Date Laury Washington MD [address] [place] [address] PCP - General Family Medicine 04/07/19 documented as of this encounter
[2024-12-16 10:42] LABS: Hematocrit 45.2 % (42.0-52.0); Hemoglobin 14.8 g/dl (14.0-18.0); Imm Gran Abs Auto 0.01 X10*3/uL (0.00-0.03); Imm Gran Pct Auto 0.2 % (0.0-0.4); Lymphocytes Absolute Auto 1.5 X10*3/uL (1.2-4.9); Mean Corpuscular HGB Conc 32.7 g/dl (31.0-36.0); Mean Corpuscular Hemoglobin 28.7 pg (27.0-33.0); Mean Corpuscular Volume 87.8 fL (80.0-98.0); NRBC Abs Auto 0.000 X10*3/uL (0.0-0.012); NRBC Pct Auto 0.0 /100WBC (0.0-0.2); Platelet Count 194 X10*3/uL (160-400); Red Blood Count 5.15 X10*6/uL (4.60-5.80); White Blood Count 5.6 X10*3/uL (4.8-10.8)
[2024-12-16 11:17] LABS: Alanine Aminotransferase 21 U/L (0-40); Albumin Level 4.4 g/dL (3.5-5.0); Alkaline Phosphatase 98 U/L (39-117); Amylase 49 U/L (28-100); Aspartate Amino Transferase 18 U/L (5-37); Lipase 31 U/L (8-78); Total Protein 7.3 g/dL (6.5-8.0)
== END 2024-12-16 10:23 | disposition home or self-care (01) ==
LOC: HO.LAB 10:22
PROVIDERS: PCP Internal Medicine; Visit Provider Nurse Practitioner
DX: R10.11 Right upper quadrant pain (principal)
CPT/HCPCS: 36415; 80076; 82150; 83690; 85025

== ENCOUNTER 2024-12-23 17:19 | Emergency (ER) | payer MEDICAID, SELFPAY ==
--- NOTE | ~2024-12-23 | US_ITS ---
CLINICAL HISTORY: RUQ pain US abdomen limited. COMPARISON: None provided. Technique: Real time sonographic imaging, including color-flow imaging, was performed by the bridge manager. Multiple pharmaceutical specialty representative static images were saved for review. FINDINGS: The gallbladder is contracted. No cholelithiasis or sludge identified. There is a negative sonographic Angel's sign. Gallbladder wall: 2-3 mm, normal. Common bile duct: 3 mm, normal. No free intraperitoneal fluid identified. IMPRESSION: 1. No evidence of cholecystitis. This document has been electronically signed by: Anson Cooney MD on 12/23/2024 20:02:54
[2024-12-23 17:43] VITALS: BP 112/54; PULSE 81; RESP 16; TEMP 37.2; O2SAT 96; BMI 44.6
--- NOTE | 2024-12-23 17:43 | ED.ABDPAIN ---
HPI - Abdominal Pain General Chief Complaint: Abdominal Pain Stated Complaint: abd pain Time Seen by Provider: 12/23/24 18:06 Source: patient, RN notes reviewed and old records reviewed Mode of arrival: ambulatory Limitations: no limitations History of Present Illness ED Provider: Maddie HPI narrative: 59-year-old male with past medical history significant for obesity, asthma, bipolar disorder, anxiety, depression, chronic abdominal pain, hypertension, constipation presents for evaluation of abdominal pain. Patient reports ongoing right upper abdominal pain for a few months pain His pain is worse after eating. He has associated nausea without vomiting. Denies any history abdominal surgeries Denies any black or bloody stool Denies any fevers, chills. His pain is a 11/01 Related Data Home Medications ?Medication ?Instructions ?Recorded ?Confirmed acetaminophen 650 mg 650 mg PO Q12H 06/21/20 05/11/24 tablet,extended release (Mapap Arthritis Pain) albuterol sulfate 90 mcg/actuation 2 puff inhalation Q4-6H PRN 06/21/20 05/11/24 aerosol inhaler (Ventolin HFA) blood sugar diagnostic (FreeStyle #10 ea 06/21/20 05/11/24 Lite Strips) blood-glucose meter (FreeStyle #1 ea 06/21/20 05/11/24 Lite Meter kit) cholecalciferol (vitamin D3) 1,250 1,250 mcg PO QWEEK 06/21/20 05/11/24 mcg (50,000 unit) capsule glipizide 10 mg tablet 10 mg PO DAILY 06/21/20 05/11/24 lisinopril 20 mg tablet 20 mg PO DAILY 06/21/20 05/11/24 pioglitazone 30 mg tablet 30 mg PO DAILY 06/21/20 05/11/24 quetiapine 50 mg tablet 50 mg PO DAILY 06/21/20 05/11/24 sertraline 100 mg tablet 100 mg PO DAILY 06/21/20 05/11/24 bupropion HCl 150 mg 24 hr tablet, 150 mg PO QAM 08/18/22 05/11/24 extended release canagliflozin 100 mg tablet 100 mg PO QAM 08/18/22 05/11/24 (Invokana) dulaglutide 0.75 mg/0.5 mL mg subcut QWEEK 03/27/23 12/18/24 subcutaneous pen injector (Trulicity) ergocalciferol (vitamin D2) 1,250 1,250 mcg PO QWEEK 08/18/22 05/11/24 mcg (50,000 unit) capsule lorazepam 0.5 mg tablet 0.5 mg PO BID PRN 08/18/22 05/11/24 sennosides 8.6 mg tablet (senna) 8.6 mg PO BEDTIME PRN constipation 08/18/22 05/11/24 ibuprofen 800 mg tablet 800 mg PO Q8H 05/11/24 05/11/24 Previous Rx's ?Medication ?Instructions ?Recorded methylcellulose (laxative) 500 mg 500 mg PO TID #90 tabs 08/18/22 tablet (Citrucel) docusate sodium 100 mg capsule 200 mg (2 x 100 mg) PO BEDTIME 03/05/23 #180 caps bisacodyl 10 mg rectal suppository 10 mg GA DAILY PRN for 06/03/23 constipation #30 supp polyethylene glycol 3350 17 17 g PO DAILY #510 grams 06/03/23 gram/dose oral powder (Gavilax) omeprazole 20 mg capsule,delayed 20 mg PO DAILY #14 caps 12/23/24 release Allergies Allergy/AdvReac Type Severity Reaction Status Date / Time lactose (LACTOSE) Allergy Intermediate GI UPSET Verified 12/23/24 17:48 From VICODIN AdvReac Intermediate HIVES, Uncoded 05/11/24 14:06 SOB, GI UPSET Review of Systems Constitutional: Denies body ache(s), Denies chills and Denies fever(s) Denies vertigo and Denies dizziness Cardiovascular: Denies chest pain and Denies dyspnea on exertion Respiratory: Denies cough and Denies dyspnea on exertion Gastrointestinal: Reports abdominal pain, Denies nausea and Denies vomiting Musculoskeletal: Denies back pain Skin/Breast: Denies rash Denies vertigo and Denies dizziness Psychiatric: Denies anxiety PMFSH Past Medical History Medical History (Updated 12/23/24 @ 20:29 by Gildardo Perkins) DJD (degenerative joint disease) Asthma Bipolar 1 disorder Anxiety Depression Sleep apnea treated with continuous positive airway pressure (CPAP) HTN (hypertension) Diabetes Surgical History S/P hernia surgery Hx of colonoscopy Status post right knee replacement S/P arthroscopic surgery of right knee Family History Family History (Updated 05/03/24 @ 09:25 by Karina Sargent CMA) Father Prostate cancer Throat cancer Mother Arthritis Dementia Hypertension Hyperlipidemia Maternal Grandmother Colon cancer Social History Social History (Updated 05/03/24 @ 09:26 by Karina Sargent CMA) Household Members Other:: single-foster 3 nephews Alcohol intake: current Alcohol intake frequency: holidays/special occasions only Patient Tobacco Use Status: Current someday Tobacco user Smoked in Last 30 Days: No Use of substances other than those prescribed or required for medical reasons: No Advance Directives: No Advance Directives Information Provided: No Do you have a plan to hurt others: No Plan Physical Exam ED Vital Signs: Vital Signs - 24 hr 12/23/24 17:43 12/23/24 20:56 Temperature 98.9 F 98.9 F Pulse Rate 81 81 Respiratory Rate 16 16 Blood Pressure 112/54 L 112/54 L Pulse Oximetry 96 96 Oxygen Delivery Method Room Air Room Air BMI result Body Mass Index 44.6 Const General: healthy appearing, comfortable, no acute distress, alert and awake Nutritional Appearance: well nourished Orientation/consciousness: patient oriented x3 HENMT Head: Yes normocephalic and Yes atraumatic Eyes Eyelids: Yes eyelids normal Conjunctivae: conjunctivae normal Sclerae: sclerae normal Corneas: corneas normal Pupils: Equal, round and reactive pupils present EOM: EOMs intact bilaterally Neck Neck: Yes full ROM Resp Effort & Inspection: normal respiratory effort, able to speak in complete sentences and not labored GI Inspection: No distended Palpation (GI): Soft to palpation, not firm, Tenderness to palpation present (GI) in the epigastrum and in the RUQ; Angel's sign negative, no guarding and not rigid Skin General skin exam: elasticity normal Neuro General: patient oriented x3 Cranial nerves: Yes Equal, round and reactive pupils present and Yes Bilaterally intact EOM present Cognition (Neuro): normal cognition Extrem Other: Moving all extremities well without any obvious deformities Course Course Course Narrative: This is an RME performed by Margarita Franklin CNP: Additional HPI, ROS, PE not included below will be deferred to primary provider. Patient is a 51-year-old male presents emergency department for evaluation. He admits to having pain localized to the right upper quadrant of his abdomen/lower ribs, initially intermittent. Recently has become more frequent, in addition to epigastric pain now. Has associated nausea but no vomiting. Has been taking ibuprofen 800 mg for this, initially helping the pain but no longer is. Does exacerbate with the eating. Admits to having a recent cough as well, denies shortness of breath Plan: Serum labs, ECG Medical Decision Making Medical Decision Making [facility] Narrative: 59-year-old male presents for evaluation of right upper abdominal pain. Has a history of chronic abdominal pain. He is tender in the right upper quadrant. Labs are really unremarkable. He has no leukocytosis, no abnormality in his LFTs. He is not anemic. He does have a history of chronic constipation that is the likely cause of his abdominal pain. However given his right upper quadrant tenderness on exam an ultrasound was ordered. This shows no evidence of gallstones or gallbladder wall thickening. The patient be discharged with pantoprazole and recommendations for stool softeners. Differential Diagnosis Differential Diagnoses: The differential diagnosis associated with the presentation includes Cholelithiasis Biliary colic Constipation Peptic ulcer disease Gastritis Gastroenteritis Lab Data MDM Lab Attestation statement: I reviewed the patient's lab results. No leukocytosis or anemia. Normal platelet count. No electrolyte abnormalities. LFTs within normal limits 12/23/24 17:55 12/23/24 17:55 Labs: Lab Results 12/23/24 Range/Units 17:55 WBC 6.5 (4.8-10.8) X10*3/uL RBC 5.17 (4.60-5.80) X10*6/uL Hgb 15.0 (14.0-18.0) g/dl Hct 44.4 (42.0-52.0) % MCV 85.9 (80.0-98.0) fL MCH 29.0 (27.0-33.0) pg MCHC 33.8 (31.0-36.0) g/dl RDW 13.9 (11.0-16.0) % Plt Count 203 (160-400) X10*3/uL MPV 10.2 (9.4-12.4) fL Immature Gran % (Auto) 0.2 (0.0-0.4) % Neut % (Auto) 58.0 (45-73) % Lymph % (Auto) 31.6 (20-40) % Zapata % (Auto) 7.2 (2-11) % Eos % (Auto) 2.5 (0-4) % Baso % (Auto) 0.5 (0-2) % Lymph # (Auto) 2.1 (1.2-4.9) X10*3/uL Zapata # (Auto) 0.5 (0.1-1.2) X10*3/uL Eos # (Auto) 0.2 (0.0-0.4) X10*3/uL Baso # (Auto) 0.0 (0.0-0.2) X10*3/uL Abs Immat Gran (auto) 0.01 (0.00-0.03) X10*3/uL Absolute Neuts (auto) 3.8 (2.0-8.3) x10*3/uL Absolute Nucleated RBC 0.000 (0.0-0.012) X10*3/uL Nucleated RBC % (auto) 0.0 (0.0-0.2) /100WBC Sodium 138 (135-145) mmol/L Potassium 3.8 (3.3-5.1) mmol/L Chloride 104 (96-108) mmol/L Carbon Dioxide 26 (22-29) mmol/L Anion Gap 12 (12-20) BUN 13 (9-16) mg/dL Creatinine 0.95 (0.5-1.4) mg/dL Estim Creat Clear Calc 109.5 Estimated GFR > 60 Random Glucose 97 (60-115) mg/dL Calcium 9.4 (8.4-10.2) mg/dL Magnesium 2.0 (1.6-2.6) mg/dL Total Bilirubin 0.6 (0.0-1.0) mg/dL Direct Bilirubin 0.2 (0.0-0.5) mg/dL AST 28 (5-37) U/L ALT 28 (0-40) U/L Alkaline Phosphatase 98 (39-117) U/L Troponin I High Sens < 2.7 (<3.5-35.0) ng/L Total Protein 7.7 (6.5-8.0) g/dL Albumin 4.6 (3.5-5.0) g/dL Lipase 29 (8-78) U/L Independent Interpretation I performed an independent interpretation of an: EKG Interpretation: Normal sinus rhythm with a rate of [address] segment elevation NE. Nondiagnostic EKG Discharge Plan Discharge Clinical Impression: Abdominal pain Patient Disposition: Home, Self-Care Instructions: Abdominal Pain (ED) Additional Instructions: Your workup in the ER today was reassuring. This includes your blood work, your ultrasound of your gallbladder. Your symptoms may be related to gastritis or peptic ulcer disease versus constipation. I recommend taking omeprazole daily for the next 2 weeks. You may also use [id number] MiraLax Follow-up with your GI doctor, if your symptoms do not improve you may benefit from an outpatient endoscopy Prescriptions: New omeprazole 20 mg capsule,delayed release(DR/EC) 20 mg PO DAILY Qty: 14 0RF No Action docusate sodium 100 mg capsule 200 mg PO BEDTIME Qty: 180 1RF bisacodyl 10 mg suppository 10 mg GA DAILY PRN (Reason: for constipation) Qty: 30 0RF polyethylene glycol 3350 [Gavilax] 17 gram/dose powder 17 g PO DAILY Qty: 510 6RF lisinopril 20 mg tablet 20 mg PO DAILY glipizide 10 mg tablet 10 mg PO DAILY acetaminophen [Mapap Arthritis Pain] 650 mg tablet extended release 650 mg PO Q12H sertraline 100 mg tablet 100 mg PO DAILY pioglitazone 30 mg tablet 30 mg PO DAILY (DME) FreeStyle Lite Strips Strip See Rx Instructions .ROUTE .MEDSUPPLY Qty: 10 Rx Instructions: As directed (DME) blood-glucose meter [FreeStyle Lite Meter] Kit See Rx Instructions .ROUTE .MEDSUPPLY Qty: 1 Rx Instructions: As directed albuterol sulfate [Ventolin HFA] 90 mcg/actuation HFA aerosol inhaler 2 puff inhalation Q4-6H PRN quetiapine 50 mg tablet 50 mg PO DAILY cholecalciferol (vitamin D3) 1,250 mcg (50,000 unit) capsule 1,250 mcg PO QWEEK Invokana 100 mg tablet 100 mg PO QAM Trulicity 0.75 mg/0.5 mL pen injector subcut QWEEK sennosides [senna] 8.6 mg tablet 8.6 mg PO BEDTIME PRN (Reason: constipation) bupropion HCl 150 mg tablet extended release 24 hr 150 mg PO QAM lorazepam 0.5 mg tablet 0.5 mg PO BID PRN ergocalciferol (vitamin D2) 1,250 mcg (50,000 unit) capsule 1,250 mcg PO QWEEK Citrucel 500 mg tablet 500 mg PO TID Qty: 90 5RF ibuprofen 800 mg tablet 800 mg PO Q8H Interventions: ED Discharge Assessment Last Done: 12/23/24 20:56 Discharge Date/Time: 12/23/24 20:57 Print Language: Pashto
--- NOTE | 2024-12-23 17:46 | ECG_ITS ---
Test Reason : epigastric pain Blood Pressure : */* mmHG Vent. Rate : 80 BPM Atrial Rate : 80 BPM P-R Int : 188 ms QRS Dur : 80 ms QT Int : 384 ms P-R-T Axes : 32 23 27 degrees QTcB Int : 442 ms Normal sinus rhythm Nonspecific ST and T wave abnormality Abnormal ECG When compared with ECG of 31-Dec-2020 17:39, No significant change was found Referred By: Lauren Franklin Electronically Signed By: MEGHAN ENRIQUE MD
[2024-12-23 18:00] LABS: Hematocrit 44.4 % (42.0-52.0); Hemoglobin 15.0 g/dl (14.0-18.0); Imm Gran Abs Auto 0.01 X10*3/uL (0.00-0.03); Imm Gran Pct Auto 0.2 % (0.0-0.4); Lymphocytes Absolute Auto 2.1 X10*3/uL (1.2-4.9); MANUAL DIFF FLAG NO; Mean Corpuscular HGB Conc 33.8 g/dl (31.0-36.0); Mean Corpuscular Hemoglobin 29.0 pg (27.0-33.0); Mean Corpuscular Volume 85.9 fL (80.0-98.0); NRBC Abs Auto 0.000 X10*3/uL (0.0-0.012); NRBC Pct Auto 0.0 /100WBC (0.0-0.2); Platelet Count 203 X10*3/uL (160-400); Red Blood Count 5.17 X10*6/uL (4.60-5.80); White Blood Count 6.5 X10*3/uL (4.8-10.8)
--- OUTSIDE RECORDS SUMMARY | 2024-12-23 18:07 | XMS_ITS | Encounter Summary ---
Author Organization [employer] Address [address] [facility] 7t [place] [address] Care Team Providers Care Resident Care Coordinator Name Role Phone Laury Washington MD Primary Care Provide r Reason for Visit * Reason Onset Date Comments Referral 10/30/2023 Encounter Details Date Type Department Care Team ([facility] st Contact Info) Description 10/30/2023 Telephone [facility] [address] [place], [place] [phone] Laury Washington MD [address] [place] [address] Referral Social History Tobacco Use Types Packs/Day [...] visit with pcp. Please contact pt at [phone]. documented in this encounter Plan of Treatment Upcoming Encounters Date Type Department Care Team (Late st Contact Info) Description 12/29/2024 3:30 PM EDT Office Visit [facility] [address] [place] [address] Laury Washington MD [address] [place] [phone] 01/04/2025 2:30 PM EDT Medication Management [facility] [address] [place] [phone] Navneet Bender, PharmD [address] [place] [address] documented as of this encounter Visit Diagnoses Not on filedocumented in this encounter Additional Health Concerns Assessment Noted Time PHQ-9 Depression Total Score: 0 07/24/19 24 2:08 PM EST documented as of this encounter Care Teams Resident Care Coordinator Relationship Specialty Start Date End Date Laury Washington MD [address] [place] [address] PCP - General Family Medicine 04/07/19 documented as of this encounter
[2024-12-23 18:15] LABS: Alanine Aminotransferase 28 U/L (0-40); Albumin Level 4.6 g/dL (3.5-5.0); Alkaline Phosphatase 98 U/L (39-117); Anion Gap 12 (12-20); Aspartate Amino Transferase 28 U/L (5-37); Blood Urea Nitrogen 13 mg/dL (9-16); Calcium 9.4 mg/dL (8.4-10.2); Carbon Dioxide 26 mmol/L (22-29); Chloride 104 mmol/L (96-108); Creatinine Clr Calc Pharmacy 109.5; Estimated Glomerular Filt Rate > 60; Lipase 29 U/L (8-78); Magnesium 2.0 mg/dL (1.6-2.6); Potassium 3.8 mmol/L (3.3-5.1); Sodium 138 mmol/L (135-145); Total Protein 7.7 g/dL (6.5-8.0)
[2024-12-23 18:24] LABS: Troponin-I High Sensitivity < 2.7 ng/L (<3.5-35.0)
--- NOTE | 2024-12-23 20:54 | PC.NURSE ---
reviewed discharge instructions with pt. pt verbalized understanding, no sign of distress.
[2024-12-23 20:56] VITALS: BP 112/54; PULSE 81; RESP 16; TEMP 37.2; O2SAT 96
== END 2024-12-23 20:57 | disposition home or self-care (01) ==
PROVIDERS: Nurse Practitioner Family; Emergency Provider Emergency Medicine; PCP Internal Medicine
DX: R10.9 Unspecified abdominal pain (principal); J45.909 Unspecified asthma, uncomplicated; F31.9 Bipolar disorder, unspecified; I10 Essential (primary) hypertension; Z79.899 Other long term (current) drug therapy
CPT/HCPCS: 36415; 76705; 80048; 80076; 83690; 83735; 84484; 85025; 93005; 99284

== ENCOUNTER → 2024-12-23 17:46 | Outpatient (BNV) | payer MEDICAID, SELFPAY | PROVIDERS: Emergency Provider Emergency Medicine; PCP Internal Medicine; Visit Provider Internal Medicine Cardiovascular Disease | DX: R94.31 Abnormal electrocardiogram [ECG] [EKG] (principal); R10.13 Epigastric pain | CPT/HCPCS: 93010 ==

== ENCOUNTER → 2024-12-23 18:22 | Outpatient (BNV) | payer MEDICAID, SELFPAY | PROVIDERS: Emergency Provider Emergency Medicine; PCP Internal Medicine; Visit Provider Radiology Diagnostic Radiology | DX: R10.11 Right upper quadrant pain (principal) | CPT/HCPCS: 76705 ==

== ENCOUNTER 2025-01-06 10:44 | Outpatient (AMB) | payer MEDICAID, SELFPAY ==
--- NOTE | 2025-01-06 10:45 | A.OFFVIS_ITS ---
Vital Signs 01/06/25 10:48 Height 5 ft 7 in Weight 277 lb BMI 43.4 BP 146/90 H Blood Pressure Location Lt brachial Position Sitting Pulse 82 Pulse Source Pulse Oximeter Pulse Oximetry (%) 96 Oxygen Delivery Method Room Air Intake Visit Reasons: Seen in ER Abd pain was LAUREL patient Intake Note: Est pt for initial visit with new provider. ED FUV. Mgmt of chronic abd pain. CC: C.O. RUQ pain, GERD, and hx of diverticulitis. Pt states via [facility], US didn't show any acute findings. ED is concerned for possible ulcer. Federal Java Developer Required: No Accompanied by: Self / Same As Patient Allergies lactose (LACTOSE) Allergy (Intermediate, Verified 01/06/25 10:45) GI UPSET From VICODIN Adverse Reaction (Intermediate, Uncoded 01/06/25 10:45) HIVES, SOB, GI UPSET HPI HPI Seen in ER Abd pain was LAUREL patient: Details: LAST VISIT WITH JAYA CHOW 12/11/2022 A 57 y/o follows up with same wandering abdominal pain- started to be worse 3- 4 weeks ago- same pain I have for years but changes place comes and goes,- no known aggravating factors- bowels are normal with bowel regimen-has not had constipation since taking fiber He does not work, not much excercise- smokes- etoh sometimes Appetite is regular he has gained weight- He has not had nausea, vomiting, hematemesis, hematochezia, fever or chills ED VISIT 12/23/2024 Course Course Course Narrative: This is an RME performed by Margarita Franklin CNP: Additional HPI, ROS, PE not included below will be deferred to primary provider. Patient is a 51-year-old male presents emergency department for evaluation. He admits to having pain localized to the right upper quadrant of his abdomen/lower ribs, initially intermittent. Recently has become more frequent, in addition to epigastric pain now. Has associated nausea but no vomiting. Has been taking ibuprofen 800 mg for this, initially helping the pain but no longer is. Does exacerbate with the eating. Admits to having a recent cough as well, denies shortness of breath Plan: Serum labs, ECG Medical Decision Making Medical Decision Making MDM Narrative: 59-year-old male presents for evaluation of right upper abdominal pain. Has a history of chronic abdominal pain. He is tender in the right upper quadrant. Labs are really unremarkable. He has no leukocytosis, no abnormality in his LFTs. He is not anemic. He does have a history of chronic constipation that is the likely cause of his abdominal pain. However given his right upper quadrant tenderness on exam an ultrasound was ordered. This shows no evidence of gallstones or gallbladder wall thickening. The patient be discharged with pantoprazole and recommendations for stool softeners. Differential Diagnosis Differential Diagnoses: The differential diagnosis associated with the presentation includes Cholelithiasis Biliary colic Constipation Peptic ulcer disease Gastritis Gastroenteritis Lab Data MDM Lab Attestation statement: I reviewed the patient's lab results. No leukocytosis or anemia. Normal platelet count. No electrolyte abnormalities. LFTs within normal limits TODAY'S VISIT Patient is here today for requested visit. Seen in the ED 2 weeks ago for abdominal pain benign workup that included normal LFTs, negative for leukocytosis, normal ultrasound. Patient reports epigastric pain and right upper quadrant pain postprandially and sometimes right upper quadrant pain not related to meals. Patient reports postprandial diarrhea. Patient denies melena, hematochezia, unintentional weight loss or ribbon like stools. Occasional dyspepsia without dysphagia or odynophagia. Patient reports that he is taking omeprazole, however feels like this is not helping. Patient had colonoscopy in 2019 showed 1 tubular adenoma. Patient has a family history of CRC, maternal grandmother of colorectal cancer. Patient denies any nausea or vomiting. [facility] Medical History (Updated 01/06/25 @ 16:49 by ADLEITA Echeverria) GERD (gastroesophageal reflux disease) DJD (degenerative joint disease) Asthma Bipolar 1 disorder Anxiety Depression Sleep apnea treated with continuous positive airway pressure (CPAP) HTN (hypertension) Diabetes Surgical History S/P hernia surgery Hx of colonoscopy Status post right knee replacement S/P arthroscopic surgery of right knee Family History Father Prostate cancer Throat cancer Mother Arthritis Dementia Hypertension Hyperlipidemia Maternal Grandmother Colon cancer Social History Household Members Other:: single-foster 3 nephews Alcohol intake: current Alcohol intake frequency: holidays/special occasions only Patient Tobacco Use Status: Current someday Tobacco user Review of Systems Const Denies weight gain and Denies weight loss ENT Reports no additional complaints, Denies dysphagia and Denies odynophagia Card Reports no additional complaints Resp Reports no additional complaints GI Reports abdominal pain (Right upper quadrant), Reports belching, Denies melena, Reports bloating, Denies change in bowel habits, Reports constipation, Denies dysphagia, Denies excessive flatus, Reports dyspepsia, Reports heartburn (Occasional), Denies diarrhea, Reports loose stools, Reports nausea, Denies odynophagia and Denies vomiting Reports no additional complaints Musc Reports no additional complaints Neuro Reports no additional complaints Psych Reports no additional complaints Endo Reports no additional complaints Physical Exam Vital Signs: Last Vital Signs Pulse 82 01/06/25 10:48 BP 146/90 H 01/06/25 10:48 Pulse Ox 96 01/06/25 10:48 Oxygen Delivery Method Room Air 01/06/25 10:48 BMI result Body Mass Index 43.4 Const General: healthy appearing and no acute distress Nutritional Appearance: well nourished and obese Orientation/consciousness: patient oriented x3 Resp Effort & Inspection: normal respiratory effort, able to speak in complete sentences, no tracheal deviation and symmetric chest movement Auscultation: clear to auscultation bilaterally Cardio Rate: regular rate GI Inspection: Yes normal to inspection, No distended and Yes obesity Palpation (GI): Soft to palpation, not firm, nontender and No hepatosplenomegaly present Auscultation: normal bowel sounds General: Yes no CVA tenderness Back/Spine/Pelvis Back: no CVA tenderness Skin General skin exam: elasticity normal, turgor normal and dry skin Neuro General: patient oriented x3 Psych Appearance: grossly normal Mental Status: mental status grossly normal Results Reviewed Results Reviewed: ABDOMINAL ULTRASOUND FINDINGS: The gallbladder is contracted. No cholelithiasis or sludge identified. There is a negative sonographic Angel's sign. Gallbladder wall: 2-3 mm, normal. Common bile duct: 3 mm, normal. No free intraperitoneal fluid identified. IMPRESSION: 1. No evidence of cholecystitis. Assessment & Plan Assessment & Plan (1) Chronic constipation: Code(s): K59.09 - Other constipation Category: Medical (2) Diverticulosis of colon: Code(s): K57.30 - Diverticulosis of large intestine without perforation or abscess without bleeding Category: Medical (3) Chronic abdominal pain: Comment: CBC CMP ultrasound Code(s): R10.9 - Unspecified abdominal pain; G89.29 - Other chronic pain Category: Medical (4) GERD (gastroesophageal reflux disease): Code(s): K21.9 - Gastro-esophageal reflux disease without esophagitis Category: Medical Qualifiers: Esophagitis presence: esophagitis presence not specified Qualified Code(s): K21.9 - Gastro-esophageal reflux disease without esophagitis (5) Postprandial epigastric pain: Code(s): R10.13 - Epigastric pain (6) RUQ abdominal pain: Code(s): R10.11 - Right upper quadrant pain Plan Will check H pylori breath test. Patient will start taking Nexium. In the meantime he will take famotidine twice a day and will stop 24 hours before coming back for H pylori breath test. Will check transglutaminase, hemoglobin A1c, lipase, vitamin-D, B12, folate, transglutaminase. He will go for upper GI with barium swallow. Discussed with patient avoiding dietary triggers late night snacking. Staying upright for minimum 3 hours after meals discussed with patient. Long discussion with patient about diet. Low FODMAP diet discussed with him. List of food recommended as was list of food to avoid given to patient. Patient will follow-up in the office in 2 months we will discuss going for colonoscopy and upper endoscopy. Patient is agreeable to this plan and verbalizes understanding of instructions. She was given the opportunity to ask questions and all questions answered. Thank you for allowing me to participate in his care Orders: Orders H Pylori Breath Test Today K21.9 - Gastro-esophageal reflux disease without esophagitis Hemoglobin A1c Today Z83.3 - Family history of diabetes mellitus Transglutaminase Ab IgG Today R10.9 - Unspecified abdominal pain Lipase Today R10.9 - Unspecified abdominal pain Vitamin D 25-OH (D2 and D3) Today E55.9 - Vitamin D deficiency, unspecified Transglutaminase IgA Today R10.9 - Unspecified abdominal pain Vitamin B12 and Folate Today R19.7 - Diarrhea, unspecified FL upper GI w Ba Swallow Today K21.9 - Gastro-esophageal reflux disease without esophagitis Medications: New esomeprazole magnesium (Nexium) 40 mg PO DAILY 90 caps 5RF K21.9 - Gastro- esophageal reflux disease without esophagitis linaclotide (Linzess) 145 mcg PO DAILY 30 caps 4RF K59.04 - Chronic idiopathic constipation famotidine (Pepcid) 20 mg PO BID 30 tabs 0RF K29.70 - Gastritis, unspecified, without bleeding Discontinued omeprazole Discontinued Reason: Doctor's Order 20 mg PO DAILY 14 caps 0RF polyethylene glycol 3350 (Gavilax) Discontinued Reason: Doctor's Order 17 grams PO DAILY 510 grams 6RF Coding Level of Care Code Est Pt Level 4 (65228) Complex EM visit Add On G2211 Diagnoses Chronic constipation K59.09 Diverticulosis of colon K57.30 Chronic abdominal pain R10.9; G89.29 Gastroesophageal reflux disease, unspecified whether esophagitis present K21.9 Esophagitis presence: esophagitis presence not specified Postprandial epigastric pain R10.13 RUQ abdominal pain R10.11 Time Spent (min) 45 Comment 30 minutes spent with patient and additional 15 minutes spent reviewing his record
[2025-01-06 10:48] VITALS: BP 146/90; PULSE 82; O2SAT 96; BMI 43.4
--- OUTSIDE RECORDS SUMMARY | 2025-01-06 10:51 | XMS_ITS | Encounter Summary ---
Author Organization [employer] Address [address] [place] [address] Care Team Providers Care Import Customer Service Manager Name Role Phone Laury Washington MD Primary Care Provide r Navneet Bender PharmD Unavailable [phone] Reason for Visit * Reason Onset Date Comments Referral 10/30/2023 Encounter Details Date Type Department Care Team (Late st Contact Info) Description 10/30/2023 Telephone [facility] [address] [place] [address] Laury Washington MD [address] [place], [place] [phone] Referral Social History Tobacco Use Types Packs/Day [...] visit with pcp. Please contact pt at [phone]. documented in this encounter Plan of Treatment Upcoming Encounters Date Type Department Care Team (Late st Contact Info) Description 02/15/2025 9:15 AM EDT Telemedicine [facility] [address] [place] [address] Laury Washington MD [address] [place] [address] 02/22/2025 2:30 PM EDT Medication Management [facility] [address] [place] [address] Navneet Bender, PharmD [address] [place] [address] 05/01/2025 3:30 PM EST Office Visit [facility] [address] [place] [address] Tereza Paredes, OD [address] [place] [address] documented as of this encounter Visit Diagnoses Not on filedocumented in this encounter Additional Health Concerns Assessment Noted Time PHQ-9 Depression Total Score: 0 07/24/19 24 2:08 PM EST documented as of this encounter Care Teams Import Customer Service Manager Relationship Specialty Start Date End Date Laury Washington MD [address] [place], [place] [phone] PCP - General Family Medicine 04/07/19 Navneet Bender, EvelinD [address] [place], [place] [phone] Pharmacist Pharmacy 01/05/25 documented as of this encounter
== END 2025-01-06 11:21 | disposition home or self-care (01) ==
LOC: HO.HGI 10:45
PROVIDERS: PCP Internal Medicine; Visit Provider Nurse Practitioner Family
DX: K59.09 Other constipation (principal); K57.30 Diverticulosis of large intestine without perforation or abscess without bleeding; R10.9 Unspecified abdominal pain; G89.29 Other chronic pain; K21.9 Gastro-esophageal reflux disease without esophagitis; R10.13 Epigastric pain; R10.11 Right upper quadrant pain
CPT/HCPCS: 99214

== ENCOUNTER 2025-01-06 11:39 | Outpatient (REF) | payer MEDICAID, SELFPAY ==
[2025-01-06 13:51] LABS: Hemoglobin A1C 237.4037 umol/L; Total Hemoglobin (HGBA1C) 4011.1486 umol/L
[2025-01-06 14:27] LABS: Lipase 31 U/L (8-78)
[2025-01-06 14:56] LABS: Folate 10.2 ng/mL (> or = 4.0); Vitamin B12 417 pg/mL (200-900)
[2025-01-09 20:54] LABS: Transglutaminase Ab IgG <1.0 U/mL
[2025-01-10 16:04] LABS: Vitamin D 25-OH, D2 10 ng/mL; Vitamin D 25-OH, D3 11 ng/mL; Vitamin D 25-OH, Total 21 ng/mL (30-100)
== END 2025-01-06 11:40 | disposition home or self-care (01) ==
LOC: HO.US 11:39
PROVIDERS: Absent Provider Nurse Practitioner Family; PCP Internal Medicine; Visit Provider Nurse Practitioner
DX: K59.04 Chronic idiopathic constipation (principal); E55.9 Vitamin D deficiency, unspecified; K57.30 Diverticulosis of large intestine without perforation or abscess without bleeding; K29.70 Gastritis, unspecified, without bleeding; K21.9 Gastro-esophageal reflux disease without esophagitis; R10.13 Epigastric pain; R10.11 Right upper quadrant pain; G89.29 Other chronic pain; R19.7 Diarrhea, unspecified; Z83.3 Family history of diabetes mellitus
CPT/HCPCS: 36415; 82306; 82607; 82746; 83036; 83690; 86364; 99212

== ENCOUNTER 2025-01-24 | Outpatient (REF) | payer MEDICAID, SELFPAY ==
--- OUTSIDE RECORDS SUMMARY | 2025-01-26 13:25 | XMS_ITS | Encounter Summary ---
Author Organization [employer] Address [address] [facility] 7t [place] [address] Care Team Providers Care Physician Interventional Cardiologist Name Role Phone Laury [place] MD Primary Care Provide r Navneet Bender PharmD Unavailable [phone] Reason for Visit * Reason Comments Med Refill Encounter Details Date Type Department Care Team ([facility] st Contact Info) Description 08/11/2024 Refill [facility] [address] [place] [address] Laury [place] MD 230 [place] [address] Pain Social History Tobacco Use Types Packs/Day [...] Info) Description 02/15/2025 9:15 AM EDT Telemedicine [facility] [address] [place] [address] Laury [place] MD 230 [place] [address] 02/22/2025 2:30 PM EDT Medication Management [facility] [address] [place] [address] Navneet Bender, PharmD 230 [place] [address] 05/01/2025 3:30 PM EST Office Visit [facility] 267 [place] [address] Reggie, Tereza, OD 230 [place] [address] documented as of this encounter Visit Diagnoses Diagnosis Pain Generalized pain documented in this encounter Additional Health Concerns Assessment Noted Time PHQ-9 Depression Total Score: 0 07/24/19 2:08 PM EST documented as of this encounter Care Teams Physician Interventional Cardiologist Relationship Specialty Start Date End Date Laury [place] MD [address] [place] [address] [place] [address] PCP - General Family Medicine 04/07/19 Navneet Bender, PharmD [address] [place] [address] Pharmacist Pharmacy 01/05/25 documented as of this encounter
--- OUTSIDE RECORDS SUMMARY | 2025-01-26 13:25 | XMS_ITS | Encounter Summary ---
Author Organization [employer] Address [address] [facility] 7t [place] [address] Care Team Providers Care Hepatology Physician Name Role Phone Laury [place] MD Primary Care Provide r Navneet Bender PharmD Unavailable Reason for Visit * Reason Onset Date Comments Medication Question 10/31/2024 Encounter Details Date Type Department Care Team ([facility] st Contact Info) Description 10/31/2024 Telephone [facility] 230 [place] [address] Laury [place] MD 230 [place], [place] [phone] Medication Question Social History Tobacco Use Types [...] Info) Description 02/15/2025 9:15 AM EDT Telemedicine [facility] MED[facility] [address] [place] [address] Laury [place] MD [address] [place] [address] 02/22/2025 2:30 PM EDT Medication Management [facility] [address] [place] [address] Navneet Bender, PharmD [address] [place] [address] 05/01/2025 3:30 PM EST Office Visit [facility] [address] [place], [place] [phone] Tereza Paredes, OD 230 [place] [address] documented as of this encounter Visit Diagnoses Not on filedocumented in this encounter Additional Health Concerns Assessment Noted Time PHQ-9 Depression Total Score: 0 07/24/19 24 2:08 PM EST documented as of this encounter Care Teams Hepatology Physician Relationship Specialty Start Date End Date Laury [place] MD [address] [place], [place] [phone] PCP - General Family Medicine 04/07/19 Navneet Bender, PharmD 230 [place], [place] [phone] Pharmacist Pharmacy 01/05/25 documented as of this encounter
--- OUTSIDE RECORDS SUMMARY | 2025-01-26 13:25 | XMS_ITS | Encounter Summary ---
Author Organization [employer] Address [address] [facility] 7t [place] [address] Care Team Providers Care Form Drafter Name Role Phone Laury [place] MD Primary Care Provide r Navneet Bender PharmD Unavailable [phone] Reason for Visit * Reason Comments Med Refill Encounter Details Date Type Department Care Team (Late st Contact Info) Description 05/28/2022 Refill [facility] 230 [place] [address] Saman Doty, DMD [address] [place] [address] Pain (Primary Dx) Social History Tobacco Use [...] Info) Description 02/15/2025 9:15 AM EDT Telemedicine [facility] 230 [place] [address] Laury [place] MD [address] [place] [address] 02/22/2025 2:30 PM EDT Medication Management [facility] 230 [place] [address] Navneet Bender, Marva [address] [place] [address] 05/01/2025 3:30 PM EST Office Visit [facility] OPTOMET[facility] [address] [place] [address] Reggie, Tereza, OD 230 [place] [address] documented as of this encounter Visit Diagnoses Diagnosis Pain- Primary Generalized pain documented in this encounter Care Teams Form Drafter Relationship Specialty Start Date End Date Laury [place] MD [address] [place] [address] PCP - General Family Medicine 04/07/19 Navneet Bender, PharmD [address] [place] [address] Pharmacist Pharmacy 01/05/25 documented as of this encounter
--- OUTSIDE RECORDS SUMMARY | 2025-01-26 13:25 | XMS_ITS | Encounter Summary ---
Author Organization [employer] Address [address] [facility] 7t [place] [address] Care Team Providers Care Allergist/Pediatric Pulmonologist Name Role Phone Laury [place] MD Primary Care Provide r Navneet Bender PharmD Unavailable [phone] Reason for Visit * Reason Onset Date Comments Referral 10/30/2023 Encounter Details Date Type Department Care Team (Late st Contact Info) Description 10/30/2023 Telephone [facility] [address] [place] [address] Laury [place] MD 230 [place], [place] [phone] Referral Social History Tobacco Use Types Packs/Day [...] visit with pcp. Please contact pt at [phone]. documented in this encounter Plan of Treatment Upcoming Encounters Date Type Department Care Team (Late st Contact Info) Description 02/15/2025 9:15 AM EDT Telemedicine [facility] [address] [place] [address] Laury [place] MD 230 [place] [address] 02/22/2025 2:30 PM EDT Medication Management [facility] [address] [place] [address] Navneet Bender, PharmD 230 [place] [address] 05/01/2025 3:30 PM EST Office Visit [facility] [address] [place] [address] Tereza Praedes, OD 230 [place] [address] documented as of this encounter Visit Diagnoses Not on filedocumented in this encounter Additional Health Concerns Assessment Noted Time PHQ-9 Depression Total Score: 0 07/24/19 24 2:08 PM EST documented as of this encounter Care Teams Allergist/Pediatric Pulmonologist Relationship Specialty Start Date End Date Laury [place] MD 230 [place], [place] [phone] PCP - General Family Medicine 04/07/19 Navneet Bender, EvelinD 230 [place], [place] [phone] Pharmacist Pharmacy 01/05/25 documented as of this encounter
--- OUTSIDE RECORDS SUMMARY | 2025-01-26 13:25 | XMS_ITS | Encounter Summary ---
Author Organization [employer] Address [address] [place] [address] 7 [place] [address] Care Team Providers Care Pest Control Chemical Technician Name Role Phone Laury [place] MD Primary Care Provide r Navneet Bender PharmD Unavailable Reason for Visit * Reason Comments Med Refill Encounter Details Date Type Department Care Team (Late Contact Info) Description 12/16/2022 Refill [facility] [address] [place] [address] [phone] Laury [place] MD [address] [place] [address] [phone] Social History Tobacco Use Types Packs/Day Years [...] Info) Description 02/15/2025 9:15 AM EDT Telemedicine [facility] [address] [place] [address] [phone] Laury [place] MD [address] [place] [address] 02/22/2025 2:30 PM EDT Medication Management [facility] 230 [place] [address] Navneet Bender, PharmD 230 [place] [address] 05/01/2025 3:30 PM EST Office Visit [facility] [address] [place] [address] Reggie, Tereza, OD 230 [place] [address] documented as of this encounter Visit Diagnoses Not on filedocumented in this encounter Care Teams Pest Control Chemical Technician Relationship Specialty Start Date End Date Laury [place] MD [address] [place] [address] [phone] PCP - General Family Medicine 04/07/19 Navneet Bender, PharmD [address] [place] [address] [phone] Pharmacist Pharmacy 01/05/25 documented as of this encounter
--- OUTSIDE RECORDS SUMMARY | 2025-01-26 13:25 | XMS_ITS | Encounter Summary ---
Author Organization [employer] Address [address] [place] [address] 7t [place] [address] Care Team Providers Care Construction Trades Teacher Name Role Phone Laury [place] MD Primary Care Provide r Navneet Bender PharmD Unavailable [phone] Encounter Details Date Type Department Care Team (Late Contact Info) Description 02/02/2023 Orders Only [facility] MED[facility]INE [address] [place] [address] Provider, MD Cari Social History Tobacco Use [...] Info) Description 02/15/2025 9:15 AM EDT Telemedicine [address] [phone] Laury [place]ah[place] MD [address] [place] [address] 02/22/2025 2:30 PM EDT Medication Management [address] [address] Navneet Bender, PharmD [address] [place] [address] 05/01/2025 3:30 PM EST Office Visit [facility] OPTOMETRY [address] [place] [address] Reggie, Tereza, OD 230 [place] [address] documented as of this encounter Procedures Procedure Name Priority Date/Time Associated Diagnosis Comments T4, FREE Routine 07/22/2023 11:39 AM EST COLONOSCOPY Routine 02/09/2019 documented in this encounter Results * T4, Free (07/22/2023 11:39 AM EST) Free T4 (Free Thyroxine) 1.09 0.71 - 1.85 ng/dL [facility] 07/22/2023 11:3 9 AM EST 07/22/2023 1:36 PM EST us Laury Banks MD LAB BLOOD ORDERABLES Final Result [facility] [address] [place] [address] [phone] * Colonoscopy (02/09/2019) us Historical Provider HEALTH MAINTENANCE Final Result documented in this encounter Visit Diagnoses Not on filedocumented in this encounter Care Teams Construction Trades Teacher Relationship Specialty Start Date End Date Laury [place] MD [address] [place] [address] PCP - General Family Medicine 04/07/19 Navneet Bender, PharmD [address] [place] [address] Pharmacist Pharmacy 01/05/25 documented as of this encounter
--- OUTSIDE RECORDS SUMMARY | 2025-01-26 13:25 | XMS_ITS | Encounter Summary ---
Author Organization [employer] Address 75 [facility] 7t [place] [address] Care Team Providers Care Director Correctional Agency Name Role Phone Laury [place] MD Primary Care Provide r Navneet Bender PharmD Unavailable [phone] Reason for Visit * Reason Comments Med Change Request Encounter Details Date Type Department Care Team ([facility] st Contact Info) Description 06/03/2023 Refill [facility] [address] [place] [address] Laury [place] MD 230 [place], [place] [phone] Social History Tobacco Use Types Packs/Day Years [...] 02/15/2025 9:15 AM EDT Telemedicine [facility] MED[facility] [address] [place] [address] Laury [place] MD [address] [place] [address] 02/22/2025 2:30 PM EDT Medication Management [facility] [address] [place] [address] Navneet Bender, PharmD 230 [place] [address] 05/01/2025 3:30 PM EST Office Visit [facility] OPTOM[facility]RY [address] [place] [address] Reggie, Tereza, OD 230 [place] [address] documented as of this encounter Visit Diagnoses Not on filedocumented in this encounter Care Teams Director Correctional Agency Relationship Specialty Start Date End Date Laury [place] MD [address] [place] [address] PCP - General Family Medicine 04/07/19 Navneet Bender, PharmD [address] [place] [address] Pharmacist Pharmacy 01/05/25 documented as of this encounter
--- OUTSIDE RECORDS SUMMARY | 2025-01-26 13:25 | XMS_ITS | Encounter Summary ---
Author Organization [employer] Address [address] [facility] 7t [place] [address] Care Team Providers Care Hot Die Press Operator Name Role Phone Laury [place] MD Primary Care Provide r Navneet Bender PharmD Unavailable [phone] Reason for Visit * Reason Comments Med Refill Encounter Details Date Type Department Care Team ([facility] st Contact Info) Description 09/05/2024 Refill [facility] [address] [place] [address] Yunier Rodriguez MD [address] [place] [address] Prurigo nodularis Social History Tobacco Use Types [...] EDT Telemedicine [facility] MED[facility]INE [address] [place] [address] Laury [place] MD [address] [place] [address] 02/22/2025 2:30 PM EDT Medication Management [facility] [address] [place] [address] Navneet Bender, PharmD [address] [place] [address] 05/01/2025 3:30 PM EST Office Visit [facility] OPTOMETRY [address] [place] [address] Reggie, Tereza, OD 230 [place] [address] documented as of this encounter Visit Diagnoses Diagnosis 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
--- OUTSIDE RECORDS SUMMARY | 2025-01-26 13:25 | XMS_ITS | Encounter Summary ---
Author Organization [employer] Address [address] [facility] 7t [place] [address] Care Team Providers Care Critical Care Educator Name Role Phone Laury Washington MD Primary Care Provide r Navneet Bender PharmD Unavailable [phone] Reason for Visit * Reason Onset Date Comments Med Refill 12/11/2024 Encounter Details Date Type Department Care Team (Late st Contact Info) Description 12/11/2024 Refill [facility] [address] [place] [address] Laury Washington MD [address] [place], [place] [phone] Type 2 diabetes mellitus with hyperglycemia, without long-term current use of insulin ([facility]) Social History Tobacco Use Types [...] Info) Description 02/15/2025 9:15 AM EDT Telemedicine [facility] [address] [place] [address] Laury Washington MD [address] [place] [address] 02/22/2025 2:30 PM EDT Medication Management [facility] [address] [place] [address] Navneet Bender, PharmD [address] [place] [address] 05/01/2025 3:30 PM EST Office Visit [facility] [address] [place] [address] Tereza Paredes, MARIANNE 230 [place] [address] documented as of this encounter Visit Diagnoses Diagnosis Type 2 diabetes mellitus with hyperglycemia, without long-term current use of insulin ([facility]) documented in this encounter Additional Health Concerns Assessment Noted Time PHQ-9 Depression Total Score: 0 03/01/20 24 2:08 PM EST documented as of this encounter Care Teams Critical Care Educator Relationship Specialty Start Date End Date Laury Washington MD [address] [place], [place] [phone] PCP - General Family Medicine 04/07/19 Navneet Bender, EvelinD [address] [place] [address] Pharmacist Pharmacy 01/05/25 documented as of this encounter
--- OUTSIDE RECORDS SUMMARY | 2025-01-26 13:25 | XMS_ITS | Encounter Summary ---
Author Organization [email or web address] Address [address] [place] [address] 7t [place] [address] Care Team Providers Care Mortgage Coordinator Name Role Phone Laury Washington MD Primary Care Provide r Navneet Bender PharmD Unavailable [phone] Encounter Details Date Type Department Care Team (Latest Contact Info) Description 12/25/2021 Abstract [facility] CONVERSIONS Dental, Provider, DDS Social History [...] Description 02/15/2025 9:15 AM EDT Telemedicine [facility] MEDICINE [address] [place] [address] Laury Washington MD [address] [place] [address] 02/22/2025 2:30 PM EDT Medication Management [facility] [address] [place] [address] Navneet Bender, PharmD 230 [place] [address] 05/01/2025 3:30 PM EST Office Visit [facility] [address] [place], [place] [phone] Tereza Paredes, OD [address] [place] [address] documented as of this encounter Visit Diagnoses Not on filedocumented in this encounter Care Teams Mortgage Coordinator Relationship Specialty Start Date End Date Laury Washington MD [address] [place] [address] PCP - General Family Medicine 04/07/19 Navneet Bender, EvelinD [address] [place] [address] Pharmacist Pharmacy 01/05/25 documented as of this encounter
--- OUTSIDE RECORDS SUMMARY | 2025-01-26 13:25 | XMS_ITS | Encounter Summary ---
Author Organization [employer] Address [address] [place] [address] 7t [place] [address] Care Team Providers Care Cemetery Warden Name Role Phone Laury Washington MD Primary Care Provide r Navneet Bender PharmD Unavailable [phone] Reason for Visit * Reason Comments Med Refill Encounter Details Date Type Department Care Team (Late Contact Info) Description 08/01/2022 Refill [facility] [address] [place] [address] Caryl Strickland MD [address] [place] [address] [phone] Other chronic pain Social History Tobacco Use [...] Info) Description 02/15/2025 9:15 AM EDT Telemedicine [facility] [address] [place] [address] [phone] Laury Washington MD [address] [place] [address] 02/22/2025 2:30 PM EDT Medication Management [facility] [address] [place] [address] Navneet Bender, PharmD [address] [place] [address] 05/01/2025 3:30 PM EST Office Visit [facility] [address] [place] [address] Reggie, Tereza, OD 230 [place] [address] documented as of this encounter Visit Diagnoses Diagnosis Other chronic pain documented in this encounter Care Teams Cemetery Warden Relationship Specialty Start Date End Date Laury Washington MD [address] [place] [address] [phone] PCP - General Family Medicine 04/07/19 Navneet Bender, PharmD [address] [place] [address] [phone] Pharmacist Pharmacy 01/05/25 documented as of this encounter
--- OUTSIDE RECORDS SUMMARY | 2025-01-26 13:25 | XMS_ITS | Encounter Summary ---
Author Organization [employer] Address [address] [facility] 7t [place] [address] Care Team Providers Care Comparison Shopper Name Role Phone Laury Washington MD Primary Care Provide r Navneet Bender PharmD Unavailable [phone] Reason for Visit * Reason Comments Med Change Request Encounter Details Date Type Department Care Team ([facility] Contact Info) Description 05/01/2022 Refill [facility] [address] [place] [address] Phoebe Yost, LING [address] [place] [address] Type 2 diabetes mellitus with hyperglycemia, without long-term current use of insulin ([facility]) Social History Tobacco Use Types Packs/Day [...] Upcoming Encounters Date Type Department Care Team ([facility] Contact Info) Description 02/15/2025 9:15 AM EDT Telemedicine [facility] [address] [place] [address] Laury Washington MD [address] [place] [address] 02/22/2025 2:30 PM EDT Medication Management [facility] [address] [place] [address] Navneet Bender, PharmD [address] [place] [address] 05/01/2025 3:30 PM EST Office Visit [facility] [address] [place], [place] [phone] Tereza Paredes, OD [address] [place] [address] documented as of this encounter Visit Diagnoses Diagnosis Type 2 diabetes mellitus with hyperglycemia, without long-term current use of insulin ([facility]) documented in this encounter Care Teams Comparison Shopper Relationship Specialty Start Date End Date Laury Washington MD [address] [place] [address] PCP - General Family Medicine 04/07/19 Navneet Bender, PharmNeda [address] [place] [address] Pharmacist Pharmacy 01/05/25 documented as of this encounter
--- OUTSIDE RECORDS SUMMARY | 2025-01-26 13:25 | XMS_ITS | Encounter Summary ---
Author Organization [employer] Address [address] [place] [address] 7t [place] [address] Care Team Providers Care Web Ui Developer Name Role Phone Laury Washington MD Primary Care Provide r Navneet Bender PharmD Unavailable [phone] Reason for Visit * Reason Comments Med Refill Encounter Details Date Type Department Care Team ([facility] st Contact Info) Description 06/21/2022 Refill [facility] 230 [place] [address] Vicki Caban DDS 230 [place] [address] Pain Social History Tobacco Use Types Packs/Day [...] Info) Description 02/15/2025 9:15 AM EDT Telemedicine [facility] 230 [place] [address] Laury Washington MD [address] [place] [address] 02/22/2025 2:30 PM EDT Medication Management [facility] [address] [place] [address] Navneet Bender, Marva [address] [place] [address] 05/01/2025 3:30 PM EST Office Visit [facility] [address] [place] [address] Tereza Paredes, OD 230 [place] [address] documented as of this encounter Visit Diagnoses Diagnosis Pain Generalized pain documented in this encounter Care Teams Web Ui Developer Relationship Specialty Start Date End Date Laury Washington MD [address] [place] [address] PCP - General Family Medicine 04/07/19 Navneet Bender, PharmD [address] [place] [address] Pharmacist Pharmacy 01/05/25 documented as of this encounter
--- OUTSIDE RECORDS SUMMARY | 2025-01-26 13:25 | XMS_ITS | Encounter Summary ---
Author Organization [employer] Address [address] [place] [address] 7 [place] [address] Care Team Providers Care Slusher Operator Name Role Phone Laury Washington MD Primary Care Provide r Navneet Bender PharmD Unavailable [phone] Reason for Visit * Reason Comments Med Refill Encounter Details Date Type Department Care Team ([facility] st Contact Info) Description 06/18/2022 Refill [facility] [address] [place] [address] Vicki Caban DDS 230 [place] [address] Pain Social History Tobacco Use Types Packs/Day [...] 02/15/2025 9:15 AM EDT Telemedicine [facility] [address] [place] [address] Laury Washington MD [address] [place] [address] 02/22/2025 2:30 PM EDT Medication Management [facility] [address] [place] [address] Navneet Bender, Marva [address] [place] [address] 05/01/2025 3:30 PM EST Office Visit [facility] [address] [place] [address] Tereza Paredes, OD [address] [place] [address] documented as of this encounter Visit Diagnoses Diagnosis Pain Generalized pain documented in this encounter Care Teams Slusher Operator Relationship Specialty Start Date End Date Laury Washington MD [address] [place] [address] PCP - General Family Medicine 04/07/19 Navneet Bender, PharmD [address] [place] [address] Pharmacist Pharmacy 01/05/25 documented as of this encounter
--- OUTSIDE RECORDS SUMMARY | 2025-01-26 13:25 | XMS_ITS | Encounter Summary ---
Author Organization [employer] Address [address] [facility] 7 [place] [address] Care Team Providers Care Furnace Firer Name Role Phone Laury Washington MD Primary Care Provide r Navneet Bender PharmD Unavailable [phone] Reason for Visit * Reason Comments Med Refill Encounter Details Date Type Department Care Team ([facility] st Contact Info) Description 07/27/2023 Refill [facility] [address] [place] [address] Laury Sanchez MD 230 [place], [place] [phone] Type 2 diabetes mellitus with hyperglycemia, without long-term current use of insulin ([facility]) Social History Tobacco Use Types Packs/Day [...] Info) Description 02/15/2025 9:15 AM EDT Telemedicine [facility] [address] [place] [address] Laury Washington MD [address] [place] [address] 02/22/2025 2:30 PM EDT Medication Management [facility] [address] [place] [address] Navneet Bender, PharmD [address] [place] [address] 05/01/2025 3:30 PM EST Office Visit [facility] [address] [place] [address] Tereza Paredes, OD [address] [place] [address] documented as of this encounter Visit Diagnoses Diagnosis Type 2 diabetes mellitus with hyperglycemia, without long-term current use of insulin ([facility]) documented in this encounter Additional Health Concerns Assessment Noted Time PHQ-9 Depression Total Score: 0 07/24/19 2:08 PM EST documented as of this encounter Care Teams Furnace Firer Relationship Specialty Start Date End Date Laury Washington MD [address] [place] [address] PCP - General Family Medicine 04/07/19 Navneet Bender, PharmD [address] [place] [address] Pharmacist Pharmacy 01/05/25 documented as of this encounter
--- OUTSIDE RECORDS SUMMARY | 2025-01-26 13:25 | XMS_ITS | Encounter Summary ---
Author Organization [employer] Address [address] [facility] 7t [place] [address] Care Team Providers Care Cinder Crew Worker Name Role Phone Laury Washington MD Primary Care Provide r Navneet Bender PharmD Unavailable [phone] Reason for Visit * Reason Comments Med Refill Encounter Details Date Type Department Care Team ([facility] st Contact Info) Description 08/18/2024 Refill [facility] [address] [place] [address] Yunier Rodriguez MD [address] [place] [address] Prurigo nodularis Social History Tobacco Use Types [...] Info) Description 02/15/2025 9:15 AM EDT Telemedicine [facility] [address] [place] [address] Laury Washington MD [address] [place] [address] 02/22/2025 2:30 PM EDT Medication Management [facility] [address] [place] [address] Navneet Bender, PharmD [address] [place] [address] 05/01/2025 3:30 PM EST Office Visit [facility] [address] [place] [address] Reggie, Tereza, OD [address] [place] [address] documented as of this encounter Visit Diagnoses Diagnosis 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
--- OUTSIDE RECORDS SUMMARY | 2025-01-26 13:25 | XMS_ITS | Encounter Summary ---
Author Organization [email or web address] Address [address] [place] [address] 7 [place] [address] Care Team Providers Care Machine Finisher Name Role Phone Laury Washington MD Primary Care Provide r Navneet Bender PharmD Unavailable [phone] Reason for Visit * Reason Comments Med Refill Encounter Details Date Type Department Care Team (Late Contact Info) Description 09/26/2022 Refill [facility] [address] [place] [address] Laury Washington MD [address] [place] [address] [phone] Other chronic pain Social History Tobacco Use [...] [facility] [address] [place], [place] [phone] Laury Washington MD [address] [place] [address] 02/22/2025 2:30 PM EDT Medication Management [facility] [address] [place] [address] Navneet Bender, PharmD [address] [place] [address] 05/01/2025 3:30 PM EST Office Visit [facility] [address] [place], [place] [phone] Reggie, Tereza, OD [address] [place] [address] documented as of this encounter Visit Diagnoses Diagnosis Other chronic pain documented in this encounter Care Teams Machine Finisher Relationship Specialty Start Date End Date Laury Washington MD [address] [place] [address] [phone] PCP - General Family Medicine 04/07/19 Navneet Bender, PharmD [address] [place] [address] [phone] Pharmacist Pharmacy 01/05/25 documented as of this encounter
--- OUTSIDE RECORDS SUMMARY | 2025-01-26 13:25 | XMS_ITS | Clinical Summary ---
Author Organization [employer] Address [address] [facility] [address] [place] [address] Care Team Providers Care Stereo Plotter Operator Name Role Phone Laury Washington MD Primary Care Provide r Navneet Bender PharmD Unavailable [phone] Allergies Active Allergy Reactions Criticality Noted Date [...] 3 mL 025 2025 Active Continuous Glucose Food Consultant (FreeStyle Chato 3 Busy) deviceIndicatio ns:Type 2 diabetes mellitus with hyperglycemia, [...] mellitus with other specified complication, unspecified whether local intermodal truck driver insulin use (CMS/HCC) TAKE 1 TABLET BY [...] hyperglycemia, without long-term current use of insulin (CMS/[facility]) Inject 2.5 mg under the skin 1 (one) time per week. For 4 weeks 2 mL 025 Active empagliflozin (Jardiance) 10 MGIndications:T ype 2 diabetes mellitus with hyperglycemia, without long-term current use of insulin (CMS/[facility]) Take 1 tablet (10 mg) by mouth Once per day. 30 tablet 11 025 Active rosuvastatin (Crestor) 20 MG tabletIndicatio ns:Type 2 diabetes mellitus with hyperglycemia, without long-term current use of insulin (CMS/[facility]) Take 1 tablet (20 mg) by mouth [...] hyperglycemia, without long-term current use of insulin ([facility]) USE DIRECTED TO CHECK BLOOD SUGAR 3 [...] hyperglycemia, without long-term current use of insulin ([facility]) Inject 0.25 mg under the skin 1 [...] hyperglycemia, without long-term current use of insulin ([facility]) INJECT 3 MG SUBCUTANEOUSLY WEEKLY 2 mL [...] PM EST): Pt states fell while in [place] ,his left knee locked and fell put [...] Type Department Care Team Description 01/09/2025 Refill [facility] [address] [place] [address] Laury Washington MD Chronic pain of left knee 01/06/2025 Orders Only GENERIC EXTERNAL DATA DEPARTMENT Provider, Generic External Data 01/06/2025 Refill [facility] [address] [place] [address] Laury Washington MD 01/04/2025 Travel 01/04/2025 Refill [facility] [address] [place] [address] Laury Washington MD 01/03/2025 Travel 01/02/2025 Telephone [facility] [address], [place] [phone] Laury Washington MD Medication Question 01/02/2025 Refill [facility] [address] [place] [phone] Laury Washington MD 12/29/2024 Telephone [facility] [address] [place] [phone] Laury Washington MD No Show 12/28/2024 Telephone [facility] [address] [place] [phone] Laury Washington MD chart prep 12/26/2024 Results Follow-Up [facility] [address] [place] [phone] Brandy Steiner NP Amylase, Lipase, Hepatic Function Panel, CBC auto differential 12/23/2024 Orders Only GENERIC EXTERNAL DATA DEPARTMENT Provider, Generic External Data 12/14/2024 5:20 PM EDT Office Visit [facility] [address] [place] [phone] Brandy Steiner NP Right upper quadrant pain (Primary Dx); Elevated blood pressure reading in office with diagnosis of hypertension 12/14/2024 Travel 12/14/2024 Telephone [facility] [address] [place] [phone] Laury Washington MD Nurse Triage 12/11/2024 Refill [facility] [address] [place] [phone] Isa, [place], [facility] Constipation, unspecified constipation type; Prurigo nodularis 12/11/2024 Refill [facility] [address] [place] [phone] Laury Washington MD Type 2 diabetes mellitus with hyperglycemia, without long-term current use of insulin (CMS/[facility]) 12/11/2024 Refill [facility] [address] [place] [phone] Laury Washington MD Type 2 diabetes mellitus with hyperglycemia, without long-term current use of insulin (CMS/HCC) 12/10/2024 Refill [facility] [address] [place] [phone] Laury Washington MD Prurigo nodularis 12/04/2024 Refill [facility] [address] [place] [address] Isa, Alejandrina, CIS COORDINATOR Chronic pain of left knee 11/23/2024 Refill [facility] [address] [place] [address] Stephani Greenwood, WATER RESOURCES TECHNICAL OFFICER Chronic pain of left knee 11/15/2024 Telephone [facility] [address] [place] [address] Laury Washington MD Nurse Triage 11/11/2024 Telephone [facility] [address] [place] [address] Laury Washington MD Prior Authorization 11/05/2024 Refill [facility] [address], [place] [phone] Laury Washington MD Type 2 diabetes mellitus with other specified complication, unspecified whether prison insulin use ([facility]) 11/04/2024 Orders Only [facility] [address] [place] [address] Laury Washington MD Type 2 diabetes mellitus with hyperglycemia, without long-term current use of insulin ([facility]) (Primary Dx) 10/31/2024 Telephone [facility] [address] [place] [address] Laury Washington MD Medication Question 10/30/2024 Refill [facility] [address] [place] [address] Laury Washington MD Chronic pain of left knee from Last 3 Months Immunizations Immunization Administration [...] the past 12 months, has t he [employer], gas, oil or water company threatened to [...] Info) Description 02/15/2025 9:15 AM EDT Telemedicine [facility] [address] [place] [address] Laury Washington MD [address] [place] [address] 02/22/2025 2:30 PM EDT Medication Management [facility] [address] [place] [address] Navneet Bender, PharmD [address] [place] [address] 05/01/2025 3:30 PM EST Office Visit [facility] [address] [place] [address] Tereza Paredes, MARIANNE [address] [place] [address] Health Maintenance Due Date Last Done Comments [...] 10:31 AM EDT Right upper quadrant pain HEPATITIS C AB W/REFL TO HCV RNA, QN, PCR Routine 10/24/2024 3:51 PM EDT Type 2 diabetes mellitus with hyperglycemia, without long-term current use of insulin (CMS/HCC) HIV 1/2 ANTIGEN/ANTIBODY, FOURTH GENERATION W/RFL Routine 10/24/2024 3:51 PM EDT Type 2 diabetes mellitus with hyperglycemia, without long-term current use of insulin (CMS/HCC) ALBUMIN, RANDOM URINE W/CREATININE Routine 10/24/2024 3:51 [...] EDT) Vitamin D, 25-OH, D2 10 ng/mL [facility] Comment:This test was develo ped and its analytical performancecharacteristics have been determined by [employer] [place], [place]. It hasnot been cleared or approved by the U.S. Food and DrugAdministration. This assay has been validated pursuantto the CLIA regulations and is used for clinicalpurposes.THIS TEST WAS PERFORMED AT:[employer]/[facility] [place] [id number] PHILLIPS MD,PHD Vitamin D, 25-OH, D3 11 ng/mL [facility] Comment:This test was develo ped and its analytical performancecharacteristics have been determined by [employer] [place], [place]. It hasnot been cleared or approved by the U.S. Food and DrugAdministration. This assay has been validated pursuantto the CLIA regulations and is used for clinicalpurposes. Vitamin D, 25-OH, Total 21(A) 30 - 100 ng/mL [facility] Comment:Vitamin D, 25-Hydrox y reports concentrations [...] = 30 ng/mL.For additional information, please refer tohttp://education.Compressus/faq/POF575(This link is being provided for informational/educational purposes only.) 01/06/2025 12:0 7 PM EDT 01/06/2025 12:07 PM EDT us Generic External Data Provider LAB BLOOD ORDERAB LES Final Result [facility] [address] [place] [phone] * Vitamin B12 (Cobalamin) and Folate Panel, Serum (01/06/2025 12:07 PM EDT) Vitamin B12 417 200 - 900 pg/mL [facility] Comment:NORMAL 200-900 PG/M L INDETERMINATE 160-199 PG/ML DEFICIENT < 160 PG/ML Folate 10.2 > or = 4.0 ng/mL [facility] Comment:Reference Values:> o r = 4.0 ng/mL< 4.0 ng/mL suggests folate deficiency Methotrexate, aminopterin and folinic acid(leucovorin) are chemotherapeutic agents whose molecularstructures are similar to folate; therefore, the Architectfolate assay cannot be used for patients using these drugs. 01/06/2025 12:0 7 PM EDT 01/06/2025 12:07 PM EDT Generic External Data Provider LAB BLOOD ORDERAB LES Final Result Performing Organization Address [facility] de Phone Number [facility] [address] [place] [phone] * Tissue Transglutaminase (tTG) Antibody (IgG) (01/06/2025 12:07 PM EDT) Tissue Transglutaminase Antibody IgG <1.0 U/mL [facility] Comment:Value Interpretation ----- <15.0 Antibody not detected> or = 15.0 Antibody detectedTHIS TEST WAS PERFORMED AT:[employer] [address] KEDAR DOE MD 01/06/2025 12:0 7 PM EDT 01/06/2025 12:07 PM EDT Generic External Data Provider LAB BLOOD ORDERAB LES Final Result Performing Organization Address [facility] Phone Number [facility] [address] [place] [phone] * Tissue Transglutaminase Antibody, IgA (01/06/2025 12:07 PM EDT) Transglutaminase IgA <1.0 U/mL [facility] Comment:Value Interpretation ----- <15.0 Antibody not detected> or = 15.0 Antibody detectedTHIS TEST WAS PERFORMED AT:[employer] [address] [id number] DOE MD 01/06/2025 12:0 7 PM EDT 01/06/2025 12:07 PM EDT us Generic External Data Provider LAB BLOOD ORDERAB LES Final Result Performing Organization Address City/[facility]/ZIP Co de Phone Number [facility] [address] [place] [phone] * Lipase (01/06/2025 12:07 PM EDT) Only the most recent of3 resultswithin the time period is included. Lipase 31 8 - 78 U/L [facility] 01/06/2025 12:0 7 PM EDT 01/06/2025 12:07 PM EDT Generic External Data Provider LAB BLOOD ORDERAB LES Final Result Performing Organization Address [facility] de Phone Number [facility] [address] [place] [phone] * (ABNORMAL) Hemoglobin A1c (01/06/2025 12:07 PM EDT) Hemoglobin A1c 7.6(H) <6.0 % [facility] Comment:Hemoglobin A1C Refer ence Range Adults: 4.8 - 6.0 % Non diabetic: < 6.0 % Goal: < 7.0 %Additional Action Suggested: > 8.0 %Note: Hemoglobin A1c results are invalid for patients with abnormal amounts of HbF. Blood transfusions may impact the HbA1c concentration in the patient sample. Estimated Average Glucose 171 mg/dL [facility] Comment:eAG = Estimated ave rage glucose which is %A1C expressed asaverage glucose, using the formula of the J3K-VcursvqZaqlacu Glucose study (ADAG), Diabetes Care, Vol.31,#8,Dec. 2007 01/06/2025 12:0 7 PM EDT 01/06/2025 12:07 PM EDT Generic External Data Provider LAB BLOOD ORDERAB LES Final Result Performing Organization Address [facility]/ZIP Co de Phone Number [facility] [address] [place] [phone] * US Abdomen Limited (12/23/2024 8:02 PM EDT) Anatomical Region Laterality Modality Abdomen Ultrasound 12/23/2024 8:02 PM EDT Narrative 12/23/2024 8:04 PM EDT [address] [address] Ultrasound Report Signed Patient: Edgar Weston MR#: [id number] : 1965 Acct:[id number] Age/Sex: 59 / M ADM Date: 12/23/24 Loc: HO.ED Attending Dr: Ordering Physician: Gildardo Perkins Date of Service: 12/23/24 Procedure(s): US abdomen limited Accession Number(s): [id number] cc: Laury Washington MD; Gildardo Perkins CLINICAL HISTORY: RUQ pain US abdomen limited. COMPARISON: None provided. Technique: Real time sonographic imaging, including color-flow imaging, was performed by the ingredient scaler. Multiple apparel trimmings sales representative static images were saved for review. [...] in OV> 12/23/242002 DD/ 01 TD/TT: 12/23/242001 Clinical Associate: Procedure Note Donotuseinterpreter, Image - 12/23/[address] [address] Ultrasound Report Signed Patient: Edgar Weston RMR#: [id number] : 1965Acct:[id number] Age/Sex: 59 / MADM Date: 12/23/24 Loc: HO.ED Attending Dr: Ordering Physician: Gildardo Perkins Date of Service: 12/23/24 Procedure(s): US abdomen limited Accession Number(s): [id number] cc: Laury Washington MD; Gildardo Perkins CLINICAL HISTORY: RUQ pain US abdomen limited. COMPARISON: None provided. Technique: Real time sonographic imaging, including color-flow imaging, was performed by the ingredient scaler. Multiple apparel trimmings sales representative static images were saved for review. [...] in OV> 12/23/242002 DD/ 01 TD/TT: 12/23/242001 Clinical Associate: us [facility] External Provider IMG US PROCEDURES Final Result * High Sensitivity Troponin I (12/23/2024 5:55 PM EDT) TROPONIN I HIGH SENSITIVITY <2.7 <3.5 - 35.0 ng/L [facility] Comment:The Quintana high sens itivity Troponin-I results should beused in conjunction with other diagnostic information suchas ECG, clinical observations and information, and patientsymptoms to aid in the diagnosis of MO. 12/23/2024 5:55 PM EDT 12/23/2024 5:58 PM EDT Generic External Data Provider LAB BLOOD ORDERAB LES Final Result [facility] [address] [place] [phone] * CBC auto differential (12/23/2024 5:55 PM EDT) Only the most recent of2 resultswithin the time period is included. White Blood Count 6.5 4.8 - 10.8 X10*3/uL [facility] Red Blood Count 5.17 4.60 - 5.80 X10*6/uL [facility] Hemoglobin 15.0 14.0 - 18.0 g/dl [facility] Hematocrit 44.4 42.0 - 52.0 % [facility] Mean Corpuscular Volume 85.9 80.0 - 98.0 fL [facility] Mean Corpuscular Hemoglobin 29.0 27.0 - 33.0 pg [facility] Mean Corpuscular HGB Conc 33.8 31.0 - 36.0 g/dl [facility] Red Cell Distribution Width 13.9 11.0 - 16.0 % [facility] Platelet Count 203 160 - 400 X10*3/uL [facility] Mean Platelet Volume 10.2 9.4 - 12.4 fL [facility] Neutrophils Percent Auto 58.0 45 - 73 % [facility] Imm Gran Pct Auto 0.2 0.0 - 0.4 % [facility] Lymphocytes Percent Auto 31.6 20 - 40 % [facility] Monocytes Percent Auto 7.2 2 - 11 % [facility] Eosinophils Percent Auto 2.5 0 - 4 % [facility] Basophils Percent Auto 0.5 0 - 2 % [facility] NRBC Pct Auto 0.0 0.0 - 0.2 /100WBC [facility] Neutrophils Absolute Auto 3.8 2.0 - 8.3 x10*3/uL [facility] Imm Gran Abs Auto 0.01 0.00 - 0.03 X10*3/uL [facility] Lymphocytes Absolute Auto 2.1 1.2 - 4.9 X10*3/uL [facility] Monocytes Absolute Auto 0.5 0.1 - 1.2 X10*3/uL [facility] Eosinophils Absolute Auto 0.2 0.0 - 0.4 X10*3/uL [facility] Basophils Absolute Auto 0.0 0.0 - 0.2 X10*3/uL [facility] NRBC Abs Auto 0.000 0.0 - 0.012 X10*3/uL [facility] 12/23/2024 5:55 PM EDT 12/23/2024 5:58 PM EDT Generic External Data Provider LAB BLOOD ORDERAB LES Final Result Performing Organization Address [facility]/ZIP Co de Phone Number [facility] [address] [place] [phone] * Magnesium (12/23/2024 5:55 PM EDT) Magnesium 2.0 1.6 - 2.6 mg/dL [facility] 12/23/2024 5:55 PM EDT 12/23/2024 5:58 PM EDT Generic External Data Provider LAB BLOOD ORDERAB LES Final Result Performing Organization Address [facility] Co de Phone Number [facility] [address] [place] [phone] * Hepatic Function Panel (12/23/2024 5:55 PM EDT) Only the most recent of2 resultswithin the time period is included. Bilirubin, Total 0.6 0.0 - 1.0 mg/dL [facility] Bilirubin, Direct 0.2 0.0 - 0.5 mg/dL [facility] Aspartate Amino Transferase 28 5 - 37 U/L [facility] Alanine Aminotransferase 28 0 - 40 U/L [facility] Total Protein 7.7 6.5 - 8.0 g/dL [facility] Albumin Level 4.6 3.5 - 5.0 g/dL [facility] Alkaline Phosphatase 98 39 - 117 U/L [facility] 12/23/2024 5:55 PM EDT 12/23/2024 5:58 PM EDT us Generic External Data Provider LAB BLOOD ORDERAB LES Final Result [facility] [address] [place] [phone] * Basic Metabolic Panel (12/23/2024 5:55 PM EDT) Sodium 138 135 - 145 mmol/L [facility] Potassium 3.8 3.3 - 5.1 mmol/L [facility] Chloride 104 96 - 108 mmol/L [facility] Carbon Dioxide 26 22 - 29 mmol/L [facility] Anion Gap 12 12 - 20 [facility] Urea Nitrogen (BUN) 13 9 - 16 mg/dL [facility] Creatinine, Serum 0.95 0.5 - 1.4 mg/dL [facility] Creatinine Clr Calc Pharmacy 109.5 [facility] Comment:eGFR (calculated fro m the MDRD study equation) and eCrCl(calculated from the Cockcroft-Gault equation) are based ondifferent parameters and may not yield comparable results.If eCrCl result is absurd, please check patient'sheight/weight. Estimated Glomerular Filt Rate >60 [facility] Comment:Chronic Kidney Disea se: Estimated GFR < 60 mL/min/1.38b1Vkuzox Kidney Disease: Estimated GFR < 15 mL/min/1.73m2 Glucose 97 60 - 115 mg/dL [facility] Calcium 9.4 8.4 - 10.2 mg/dL [facility] 12/23/2024 5:55 PM EDT 12/23/2024 5:58 PM EDT us Generic External Data Provider LAB BLOOD ORDERAB LES Final Result Performing Organization Address City/[facility]/ZIP Co de Phone Number [facility] [address] [place] [phone] * Amylase (12/16/2024 10:31 AM EDT) Amylase 49 28 - 100 U/L [facility] Blood Venous blood specimen / Unknown 12/16/2024 10:31 AM EDT 12/16/2024 10:31 AM EDT Brandy Obdulia THOMASON LAB BLOOD ORDERABLES Final Resu lt Performing Organization Address [facility] Co de Phone Number [facility] [address] [place] [phone] * Albumin, Random Urine W/Creatinine (10/24/2024 3:51 PM EDT) Creatinine, Urine 77.90 mg/dL [facility] Microalbumin Urine <5.0 mg/L [facility] Microalbum Creatinine Ratio Ur TNP <30 ug/mg cr [facility] Comment:Unable to calculate albumin/creatinine ratio due to lowmicroalbumin or creatinine result. Urine (Urine, Random) 10/24/2024 3:51 PM EDT 10/24/2024 5:36 PM EDT Laury Banks MD LAB URINE ORDERABLES Final Result Performing Organization Address [facility] Co de Phone Number [facility] [address] [place] [phone] * Hepatitis C Antibody with Reflex to HCV, RNA, Quantitative, Real-Time PCR (10/24/2024 3:51 PM EDT) Hepatitis C Antibody Nonreactive Nonreactive [facility] Comment:Antibodies to HCV no t detected; does not exclude early acuteHCV infection. Blood Venous blood specimen / Unknown 10/24/2024 3:51 PM EDT 10/24/2024 5:33 PM EDT Laury Banks MD LAB BLOOD ORDERABLES Final Result Performing Organization Address City/[facility]/ZIP Co de Phone Number [facility] [address] [place] [phone] * HIV-1/2 Antigen and Antibodies, Fourth Generation, with Reflexes (10/24/2024 3:51 PM EDT) HIV AB/AG Nonreactive Nonreactive [facility] Comment:HIV-1 p24 Ag and/or HIV-1/HIV-2 Ab not detected.A test result that is nonreactive does not exclude thepossibility of exposure to or infection with HIV-1 and/orHIV-2. Nonreactive results in this assay for individualswith prior exposure to HIV-1 and/or HIV-2 may be due toantigen and antibody levels that are below the limit ofdetection of this assay.The [employer] HIV Ag/Ab Combo assay result andsupplemental assay results should be interpreted inconjunction with the patient's clinical presentation,history and other laboratory results. If the results areinconsistent with clinical evidence, additional testing issuggested to confirm the result. Blood Venous blood specimen / Unknown 10/24/2024 3:51 PM EDT 10/24/2024 5:33 PM EDT us Laury Banks MD LAB BLOOD ORDERABLES Final Result [facility] [address] [place] [phone] * (ABNORMAL) Lipid Panel, Standard (10/24/2024 3:51 PM EDT) Triglycerides 142 <150 mg/dL [facility] Comment:Desirable Triglyceri de: less than 150 mg/dLBorderline High Triglyceride 150-199 mg/dLHigh Triglyceride: 200-499 mg/dLVery High Triglyceride: greater than or equal to 5OO mg/dL Cholesterol 205(H) <200 mg/dL [facility] Comment:Desirable Cholestero l: less than 200 mg/dLBorderline High Cholesterol: 200-239 mg/dLHigh Cholesterol: greater than 239 mg/dL LDL Cholesterol Calculated 136(H) <100 mg/dL [facility] Comment:Desirable LDL: less than 100 mg/dLNear Optimal/Above Optimal LDL: 110- 129 mg/dLBorderline High LDL: 130-159 mg/dLHigh LDL: 160-189 mg/dLVery High LDL: greater than or equal to 190 mg/dL HDL Cholesterol 41 >40 mg/dL [facility] Comment:Desirable HDL: great er than 40 mg/dL Note: This HDL assay may give artificially low results in patients with liver disease. Blood Venous blood specimen / Unknown 10/24/2024 3:51 PM EDT 10/24/2024 5:33 PM EDT us Laury Banks MD LAB BLOOD ORDERABLES Final Result [facility] [address] [place] [address] [phone] * Colonoscopy (02/09/2019) us Historical Provider HEALTH MAINTENANCE Final Result from Last 3 Months or Most Recently Relevant to Health Maintenance Insurance [facility] C3 Care Teams Stereo Plotter Operator Relationship Specialty Start Date End Date Laury Washington MD [address] [place] [address] PCP - General Family Medicine 04/07/19 Navneet Bender, PharmD [address] [place] [address] Pharmacist Pharmacy 01/05/25
--- OUTSIDE RECORDS SUMMARY | 2025-01-26 13:25 | XMS_ITS | Encounter Summary ---
Author Organization [employer] Address 75 [facility] 7t [place] [address] Care Team Providers Care Camera Tuning Engineer Name Role Phone Laury Washington MD Primary Care Provide r Navneet Bender PharmD Unavailable [phone] Reason for Visit * Reason Comments Med Refill Encounter Details Date Type Department Care Team ([facility] st Contact Info) Description 06/02/2023 Refill [facility] [address] [place] [address] Laury Washington MD [address] [place] [address] Social History Tobacco Use Types Packs/Day Years [...] Info) Description 02/15/2025 9:15 AM EDT Telemedicine [facility] [address] [place] [address] Laury Washington MD [address] [place] [address] 02/22/2025 2:30 PM EDT Medication Management [facility] [address] [place] [address] Navneet Bender, PharmD [address] [place] [address] 05/01/2025 3:30 PM EST Office Visit [facility] OPTOMETRY [address] [place] [address] Reggie, Tereza, OD [address] [place] [address] documented as of this encounter Visit Diagnoses Not on filedocumented in this encounter Care Teams Camera Tuning Engineer Relationship Specialty Start Date End Date Laury Washington MD [address] [place] [address] PCP - General Family Medicine 04/07/19 Navneet Bender, PharmD [address] [place] [address] Pharmacist Pharmacy 01/05/25 documented as of this encounter
--- OUTSIDE RECORDS SUMMARY | 2025-01-26 13:25 | XMS_ITS | Encounter Summary ---
Author Organization [employer] Address 75 [facility] 7t [place] [address] Care Team Providers Care Spout Worker Name Role Phone Laury Washington MD Primary Care Provide r Navneet Bender PharmD Unavailable [phone] Reason for Visit * Reason Onset Date Comments Med Refill 03/23/2024 Prior Authorization 03/23/2024 Encounter Details Date Type Department Care Team (Late st Contact Info) Description 03/23/2024 Telephone [facility] [address] [place], [place] [phone] Laury Washington MD [address] [place], [place] [phone] Med Refill; Prior Authorization Social History Tobacco [...] MG/1.5ML solution pen-injector To be sent to: [facility]/pharmacy #[id number] documented in this encounter Plan of Treatment Upcoming Encounters Date Type Department Care Team (Late st Contact Info) Description 02/15/2025 9:15 AM EDT Telemedicine [facility] [address] [place] [address] Laury Washington MD [address] [place] [address] 02/22/2025 2:30 PM EDT Medication Management [facility] [address] [place] [address] Navneet Bender, PharmD [address] [place] [address] 05/01/2025 3:30 PM EST Office Visit [facility] OPTOMETRY [address] [place] [address], [place] [phone] Reggie, Tereza, OD [address] [place] [address] documented as of this encounter Visit Diagnoses Not on filedocumented in this encounter Additional Health Concerns Assessment Noted Time PHQ-9 Depression Total Score: 0 07/24/19 24 2:08 PM EST documented as of this encounter Care Teams Spout Worker Relationship Specialty Start Date End Date Laury Washington MD [address] [place], [place] [phone] PCP - General Family Medicine 04/07/19 Navneet Bender, PharmD [address] [place] [address] [phone] Pharmacist Pharmacy 01/05/25 documented as of this encounter
--- OUTSIDE RECORDS SUMMARY | 2025-01-26 13:25 | XMS_ITS | Encounter Summary ---
Author Organization [employer] Address 75 [facility] 7t [place] [address] Care Team Providers Care Truck Unloader Name Role Phone Laury Washington MD Primary Care Provide r Navneet Bender PharmD Unavailable [phone] Reason for Visit * Reason Comments Med Refill Encounter Details Date Type Department Care Team ([facility] st Contact Info) Description 08/02/2024 Refill [facility] [address] [place] [address] Yunier Rodriguez MD [address] [place] [address] Prurigo nodularis Social History Tobacco Use Types [...] Info) Description 02/15/2025 9:15 AM EDT Telemedicine [facility] [address] [place] [address] Laury Washington MD [address] [place] [address] 02/22/2025 2:30 PM EDT Medication Management [facility] [address] [place] [address] Navneet Bender, PharmD [address] [place] [address] 05/01/2025 3:30 PM EST Office Visit [facility] [address] [place] [address] Reggie, Tereza, OD [address] [place] [address] documented as of this encounter Visit Diagnoses Diagnosis 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
--- OUTSIDE RECORDS SUMMARY | 2025-01-26 13:25 | XMS_ITS | Encounter Summary ---
Author Organization [employer] Address 75 [facility] 7t [place] [address] Care Team Providers Care Caser Name Role Phone Laury Washington MD Primary Care Provide r Navneet Bender PharmD Unavailable [phone] Reason for Visit * Reason Onset Date Comments Med Refill 12/11/2024 Encounter Details Date Type Department Care Team (Late st Contact Info) Description 12/11/2024 Refill [facility] [address] [place], [place] [phone] Laury Washington MD [address] [place], [place] [phone] Type 2 diabetes mellitus with hyperglycemia, without long-term current use of insulin ([facility]) Social History Tobacco Use Types Packs/Day [...] Info) Description 02/15/2025 9:15 AM EDT Telemedicine [facility] [address] [place] [address] Laury Washington MD [address] [place] [address] 02/22/2025 2:30 PM EDT Medication Management [facility] [address] [place] [address] Navneet Bender, PharmD [address] [place] [address] 05/01/2025 3:30 PM EST Office Visit [facility] OPTOMETRY [address] [place] [address] Tereza Paredes, MARIANNE [address] [place] [address] documented as of this encounter Visit Diagnoses Diagnosis Type 2 diabetes mellitus with hyperglycemia, without long-term current use of insulin ([facility]) documented in this encounter Additional Health Concerns Assessment Noted Time PHQ-9 Depression Total Score: 0 07/24/19 24 2:08 PM EST documented as of this encounter Care Teams Caser Relationship Specialty Start Date End Date Laury Washington MD [address] [place] [address] PCP - General Family Medicine 04/07/19 Navneet Bender, EvelinD [address] [place] [address] Pharmacist Pharmacy 01/05/25 documented as of this encounter
== END 2025-01-24 00:01 | disposition home or self-care (01) ==
LOC: HO.LNP
PROVIDERS: Visit Provider Nurse Practitioner Family
DX: K21.9 Gastro-esophageal reflux disease without esophagitis (principal)
CPT/HCPCS: 83013

== ENCOUNTER 2025-01-24 10:21 | Outpatient (AMB) | payer MEDICAID, SELFPAY ==
--- NOTE | 2025-01-24 10:31 | AM.OFFVISNUR ---
Intake Visit Reasons: h pylori Intake Note: Patient presents for collection of?H Pylori?breath test. Patient has been fasting for 1 hour (nothing to eat, drink, no chewing gum or smoking) has not taken any antacid medication for at least 2 weeks and has no allergies to artificial sweeteners.?? Allergies lactose (LACTOSE) Allergy (Intermediate, Verified 01/06/25 10:45) GI UPSET From VICODIN Adverse Reaction (Intermediate, Uncoded 01/06/25 10:45) HIVES, SOB, GI UPSET Assessment & Plan Assessment & Plan (1) GERD (gastroesophageal reflux disease): Code(s): K21.9 - Gastro-esophageal reflux disease without esophagitis Category: Medical Qualifiers: Esophagitis presence: esophagitis presence not specified Qualified Code(s): K21.9 - Gastro-esophageal reflux disease without esophagitis (2) Chronic abdominal pain: Comment: CBC CMP ultrasound Code(s): R10.9 - Unspecified abdominal pain; G89.29 - Other chronic pain Category: Medical Plan Patient presents for collection of?H Pylori?breath test. Patient has been fasting for 1 hour (nothing to eat, drink, no chewing gum or smoking) has not taken any antacid medication for at least 2 weeks and has no allergies to artificial sweeteners.???This test checks for an overgrowth of bacteria in your stomach. We all have bacteria but some may have more than others. It is treatable. if the test comes back negative there is nothing else to do. If the test result is positive we will treat you with 2 antibiotics and a medication to decrease the acid in your stomach (PPI) for 2 weeks. Two weeks after you have completed the treatment we will retest you to make sure the overgrowth has resolved. Patient Instructions: Process for specimen collection and reason for testing was explained to the patient. Specimen collection. Patient instructed to take a deep breath and then exhale into the blue bag, filling it up as much as possible. Patient instructed to drink a mixture of water and the artificial sweetener with a straw. A 15 minute wait period was observed. Patient instructed to take a deep breath and then exhale into the pink bag, filling it up as much as possible.?? Coding Level of Care Code Established Pt Est Pt Level 1 (94043) Patient Type Established Medical Decision Making Straight Forward Diagnoses Gastroesophageal reflux disease, unspecified whether esophagitis present K21.9 Esophagitis presence: esophagitis presence not specified Chronic abdominal pain R10.9; G89.29
--- OUTSIDE RECORDS SUMMARY | 2025-01-24 11:52 | XMS_ITS | Encounter Summary ---
Author Organization [employer] Address [address] [place] [address] 7 [place] [address] Care Team Providers Care Deliverer Outside Name Role Phone Laury Washington MD Primary Care Provide r Navneet Bender PharmD Unavailable [phone] Reason for Visit * Reason Comments Med Refill Encounter Details Date Type Department Care Team (Late Contact Info) Description 12/16/2022 Refill [facility] [address] [place] [phone] Laury Washington MD [address] [place] [address] [phone] Social History Tobacco Use Types Packs/Day Years [...] Department Care Team (Late Contact Info) Description 02/15/2025 9:15 AM EDT Telemedicine [facility] [address] [place] [address] [phone] Laury Washington MD [address] [place] [phone] 02/22/2025 2:30 PM EDT Medication Management [facility] [address] [place] [address] Navneet Bender, PharmD [address] [place] [address] 05/01/2025 3:30 PM EST Office Visit [facility]OMETRY [address] [place] [address] Reggie, Tereza, OD [address] [place] [address] documented as of this encounter Visit Diagnoses Not on filedocumented in this encounter Care Teams Deliverer Outside Relationship Specialty Start Date End Date Laury Washington MD [address] [place] [address] [phone] PCP - General Family Medicine 04/07/19 Navneet Bender, PharmD [address] [place] [address] [phone] Pharmacist Pharmacy 01/05/25 documented as of this encounter
--- OUTSIDE RECORDS SUMMARY | 2025-01-24 11:52 | XMS_ITS | Encounter Summary ---
Author Organization [employer] Address [address] [place] [address] Care Team Providers Care Slate Cutter Name Role Phone Laury Washington MD Primary Care Provide r Navneet Bender PharmD Unavailable [phone] Reason for Visit * Reason Onset Date Comments Medication Question 10/31/2024 Encounter Details Date Type Department Care Team ([facility] st Contact Info) Description 10/31/[address] [facility] [address] [place] [address] Laury Washington MD [address] [place], [place] [phone] Medication Question Social History Tobacco Use Types Packs/Day Years [...] your housing situation today? I have lucas mratinez 06/02/[address] you li [...] encounter Miscellaneous Notes * Telephone Encounter - Aditi Santiago - 10/31/2024 1:43 PM EDT Tc from pt stating insurance denied coverage for Ozempic. Pt requesting alternative medication. Electronic PA message received 10/28/2024 documented in this encounter Plan of Treatment Upcoming Encounters Date Type Department Care Team (Late st Contact Info) Description 02/15/2025 9:15 AM EDT Telemedicine [facility] MED[facility]INE [address] [place] [phone] Laury Washington MD [address] [place] [phone] 02/22/2025 2:30 PM EDT Medication Management [facility] [address] [place] [phone] Navneet Bender, PharmD [address] [place] [address] 05/01/2025 3:30 PM EST Office Visit [facility] OPTOMETRY [address] [place], [place] [phone] Tereza Paredes, OD [address] [place] [address] documented as of this encounter Visit Diagnoses Not on filedocumented in this encounter Additional Health Concerns Assessment Noted Time PHQ-9 Depression Total Score: 0 07/24/19 24 2:08 PM EST documented as of this encounter Care Teams Slate Cutter Relationship Specialty Start Date End Date Laury Washington MD [address] [place], [place] [phone] PCP - General Family Medicine 04/07/19 Navneet Bender, PharmD [address] [place], [place] [phone] Pharmacist Pharmacy 01/05/25 documented as of this encounter
--- OUTSIDE RECORDS SUMMARY | 2025-01-24 11:52 | XMS_ITS | Encounter Summary ---
Author Organization [employer] Address [address] [place] [address] [address] [place] [address] Care Team Providers Care Stoker Installation Mechanic Name Role Phone Laury Washington MD Primary Care Provide r Navneet Bender PharmD Unavailable [phone] Encounter Details Date Type Department Care Team (Late Contact Info) Description 02/02/2023 Orders Only [facility] MED[facility] [address] [place] [phone] Provider, MD Cari Social History Tobacco Use Types Packs/Day Years [...] Info) Description 02/15/2025 9:15 AM EDT Telemedicine [address] [phone] Laury Washington MD [address] [place] [address] 02/22/2025 2:30 PM EDT Medication Management [address] [address] Navneet Bender, PharmD [address] [place] [address] 05/01/2025 3:30 PM EST Office Visit [facility] OPTOMETRY [address] [place] [address] Reggie, Tereza, OD [address] [place] [address] documented as of this encounter Procedures Procedure Name Priority Date/Time Associated Diagnosis Comments T4, FREE Routine 07/22/2023 11:39 AM EST COLONOSCOPY Routine 02/09/2019 documented in this encounter Results * T4, Free (07/22/2023 11:39 AM EST) Free T4 (Free Thyroxine) 1.09 0.71 - 1.85 ng/dL [facility] 07/22/2023 11:3 9 AM EST 07/22/2023 1:36 PM EST us Laury Banks MD LAB BLOOD ORDERABLES Final Result [facility] [address] [place] [address] [phone] * Colonoscopy (02/09/2019) us Historical Provider HEALTH MAINTENANCE Final Result documented in this encounter Visit Diagnoses Not on filedocumented in this encounter Care Teams Stoker Installation Mechanic Relationship Specialty Start Date End Date Laury Washington MD [address] [place] [address] PCP - General Family Medicine 04/07/19 Navneet Bender, PharmD [address] [place] [address] Pharmacist Pharmacy 01/05/25 documented as of this encounter
--- OUTSIDE RECORDS SUMMARY | 2025-01-24 11:52 | XMS_ITS | Encounter Summary ---
Author Organization [employer] Address [address] [place] [address] Care Team Providers Care Painter Plate Name Role Phone Laury Washington MD Primary Care Provide r Navneet Bender PharmD Unavailable [phone] Reason for Visit * Reason Comments Med Refill Encounter Details Date Type Department Care Team ([facility] st Contact Info) Description 08/02/[address] [facility] [address] [place] [address] Yunier Rodriguez MD [address] [place] [address] Prurigo nodularis Social History Tobacco Use Types [...] 9:15 AM EDT Telemedicine [facility] [address] [place] [address] Laury Washington MD [address] [place] [address] 02/22/2025 2:30 PM EDT Medication Management [facility] [address] [place] [address] Navneet Bender, PharmD [address] [place] [address] 05/01/2025 3:30 PM EST Office Visit 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
--- OUTSIDE RECORDS SUMMARY | 2025-01-24 11:52 | XMS_ITS | Encounter Summary ---
Author Organization [employer] Address [address] [facility] 7t [place] [address] Care Team Providers Care Patient Services Technician Name Role Phone Laury Washington MD Primary Care Provide r Navneet Bender PharmD Unavailable [phone] Reason for Visit * Reason Onset Date Comments Referral 10/30/2023 Encounter Details Date Type Department Care Team (Late st Contact Info) Description 10/30/2023 Telephone [facility] [address] [place] [address] Laury Washington MD [address] [place], [place] [phone] Referral Social History Tobacco Use Types Packs/Day [...] visit with pcp. Please contact pt at [phone]. documented in this encounter Plan of Treatment Upcoming Encounters Date Type Department Care Team (Late st Contact Info) Description 02/15/2025 9:15 AM EDT Telemedicine [facility] [address] [place] [address] Laury Washington MD [address] [place] [address] 02/22/2025 2:30 PM EDT Medication Management [facility] [address] [place] [address] Navneet Bender, PharmD [address] [place] [address] 05/01/2025 3:30 PM EST Office Visit [facility] [address] [place] [address] Tereza Paredes, OD 230 [place] [address] documented as of this encounter Visit Diagnoses Not on filedocumented in this encounter Additional Health Concerns Assessment Noted Time PHQ-9 Depression Total Score: 0 07/24/19 24 2:08 PM EST documented as of this encounter Care Teams Patient Services Technician Relationship Specialty Start Date End Date Laury Washington MD [address] [place], [place] [phone] PCP - General Family Medicine 04/07/19 Navneet Bender, EvelinD [address] [place], [place] [phone] Pharmacist Pharmacy 01/05/25 documented as of this encounter
--- OUTSIDE RECORDS SUMMARY | 2025-01-24 11:52 | XMS_ITS | Encounter Summary ---
Author Organization [employer] Address [address] [place] [address] 7 [place] [address] Care Team Providers Care Kettle Girl Name Role Phone Laury Washington MD Primary Care Provide r Navneet Bender PharmD Unavailable [phone] Reason for Visit * Reason Comments Med Refill Encounter Details Date Type Department Care Team (Late Contact Info) Description 09/26/2022 Refill [facility] [address] [place] [address] Laury Washington MD [address] [place] [address] [phone] Other chronic pain Social History Tobacco Use [...] Info) Description 02/15/2025 9:15 AM EDT Telemedicine [facility] [address] [place], [place] [phone] Laury Washington MD [address] [place] [address] 02/22/2025 2:30 PM EDT Medication Management [facility] [address] [place] [address] Navneet Bender, PharmD 230 [place] [address] 05/01/2025 3:30 PM EST Office Visit [facility] OPT[facility] [address] [place], [place] [phone] Reggie, Tereza, OD 230 [place] [address] documented as of this encounter Visit Diagnoses Diagnosis Other chronic pain documented in this encounter Care Teams Kettle Girl Relationship Specialty Start Date End Date Laury Washington MD [address] [place] [address] [phone] PCP - General Family Medicine 04/07/19 Navneet Bender, PharmD [address] [place] [address] [phone] Pharmacist Pharmacy 01/05/25 documented as of this encounter
--- OUTSIDE RECORDS SUMMARY | 2025-01-24 11:52 | XMS_ITS | Encounter Summary ---
Author Organization [employer] Address [address] [place] [address] 7 [place] [address] Care Team Providers Care Towel Distributor Name Role Phone Laury Washington MD Primary Care Provide r Navneet Bender PharmD Unavailable Reason for Visit * Reason Comments Med Refill Encounter Details Date Type Department Care Team ([facility] st Contact Info) Description 06/18/2022 Refill [facility] [address] [place] [address] Vicki Caban DDS [address] [place] [address] Pain Social History Tobacco Use Types Packs/Day [...] Info) Description 02/15/2025 9:15 AM EDT Telemedicine [facility] [address] [place] [address] Laury Washington MD [address] [place] [address] 02/22/2025 2:30 PM EDT Medication Management [facility] [address] [place] [address] Navneet Bender, Marva [address] [place] [address] 05/01/2025 3:30 PM EST Office Visit [facility] [address] [place] [address] Tereza Paredes, OD 230 [place] [address] documented as of this encounter Visit Diagnoses Diagnosis Pain Generalized pain documented in this encounter Care Teams Towel Distributor Relationship Specialty Start Date End Date Laury Washington MD [address] [place] [address] PCP - General Family Medicine 04/07/19 Navneet Bender, PharmD [address] [place] [phone] Pharmacist Pharmacy 01/05/25 documented as of this encounter
--- OUTSIDE RECORDS SUMMARY | 2025-01-24 11:52 | XMS_ITS | Encounter Summary ---
Author Organization [employer] Address [address] [facility] 7t [place] [address] Care Team Providers Care Hot Stone Setter Name Role Phone Laury Washington MD Primary Care Provide r Navneet Bender PharmD Unavailable [phone] Reason for Visit * Reason Comments Med Refill Encounter Details Date Type Department Care Team (Late st Contact Info) Description 05/28/2022 Refill [facility] [address] [place] [address] Saman Doty, DMD [address] [place] [address] Pain (Primary Dx) Social History Tobacco Use [...] Miscellaneous Notes * Telephone Encounter - Vicki Caban, DDS - 05/29/2022 11:04 AM EST Approving, but needs appt for additional refills. documented in this encounter Plan of Treatment Upcoming Encounters Date Type Department Care Team (Late st Contact Info) Description 02/15/2025 9:15 AM EDT Telemedicine [facility] MEDICINE [address] [place] [address] Laury Washington MD 230 [place] [address] 02/22/2025 2:30 PM EDT Medication Management [facility] MED[facility] [address] [place] [address] Navneet Bender, Marva [address] [place] [address] 05/01/2025 3:30 PM EST Office Visit [facility] OPTOMETRY [address] [place] [address] Reggie, Tereza, OD 230 [place] [address] documented as of this encounter Visit Diagnoses Diagnosis Pain- Primary Generalized pain documented in this encounter Care Teams Hot Stone Setter Relationship Specialty Start Date End Date Laury Washington MD [address] [place] [address] PCP - General Family Medicine 04/07/19 Navneet Bender, PharmD [address] [place] [address] Pharmacist Pharmacy 01/05/25 documented as of this encounter
--- OUTSIDE RECORDS SUMMARY | 2025-01-24 11:52 | XMS_ITS | Encounter Summary ---
Author Organization [employer] Address 75 [facility] 7t [place] [address] Care Team Providers Care Laserist Name Role Phone Laury Washington MD Primary Care Provide r Navneet Bender PharmD Unavailable [phone] Reason for Visit * Reason Onset Date Comments Med Refill 12/11/2024 Encounter Details Date Type Department Care Team (Late st Contact Info) Description 12/11/2024 Refill [facility] [address] [place], [place] [phone] Laury Washington MD 230 [place], [place] [phone] Type 2 diabetes mellitus with hyperglycemia, without long-term current use of insulin ([facility]) Social History Tobacco Use Types [...] Info) Description 02/15/2025 9:15 AM EDT Telemedicine [facility] [address] [place] [address] Laury Washington MD [address] [place] [address] 02/22/2025 2:30 PM EDT Medication Management [facility] [address] [place] [address] Navneet Bender, PharmD [address] [place] [address] 05/01/2025 3:30 PM EST Office Visit [facility] OPTOM[facility] [address] [place] [address] Tereza Paredes, MARIANNE 230 [place] [address] documented as of this encounter Visit Diagnoses Diagnosis Type 2 diabetes mellitus with hyperglycemia, without long-term current use of insulin ([facility]) documented in this encounter Additional Health Concerns Assessment Noted Time PHQ-9 Depression Total Score: 0 03/01/20 24 2:08 PM EST documented as of this encounter Care Teams Laserist Relationship Specialty Start Date End Date Laury Washington MD [address] [place], [place] [phone] PCP - General Family Medicine 04/07/19 Navneet Bender, EvelinD [address] [place] [address] Pharmacist Pharmacy 01/05/25 documented as of this encounter
--- OUTSIDE RECORDS SUMMARY | 2025-01-24 11:52 | XMS_ITS | Encounter Summary ---
Author Organization [employer] Address [address] [facility] 7 [place] [address] Care Team Providers Care Revenue Inspector Name Role Phone Laury Washington MD Primary Care Provide r Navneet Bender PharmD Unavailable [phone] Reason for Visit * Reason Comments Med Refill Encounter Details Date Type Department Care Team ([facility] st Contact Info) Description 07/27/2023 Refill [facility] [address] [place] [address] Laury Sanchez MD 230 [place], [place] [phone] Type 2 diabetes mellitus with hyperglycemia, without long-term current use of insulin ([facility]) Social History Tobacco Use Types Packs/Day Years [...] Info) Description 02/15/2025 9:15 AM EDT Telemedicine [facility] MED[facility] [address] [place] [address] Laury Washington MD [address] [place] [address] 02/22/2025 2:30 PM EDT Medication Management [facility] MED[facility]INE [address] [place] [address] Navneet Bender, PharmD 230 [place] [address] 05/01/2025 3:30 PM EST Office Visit [facility] OPTOMETRY [address] [place] [address] Tereza Paredes, OD 230 [place] [address] documented as of this encounter Visit Diagnoses Diagnosis Type 2 diabetes mellitus with hyperglycemia, without long-term current use of insulin ([facility]) documented in this encounter Additional Health Concerns Assessment Noted Time PHQ-9 Depression Total Score: 0 07/24/19 2:08 PM EST documented as of this encounter Care Teams Revenue Inspector Relationship Specialty Start Date End Date Laury Washington MD [address] [place] [address] PCP - General Family Medicine 04/07/19 Navneet Bender, PharmD [address] [place] [address] Pharmacist Pharmacy 01/05/25 documented as of this encounter
--- OUTSIDE RECORDS SUMMARY | 2025-01-24 11:52 | XMS_ITS | Encounter Summary ---
Author Organization [employer] Address [address] [facility] 7t [place] [address] Care Team Providers Care Pizza Delivery Driver Name Role Phone Laury Washington MD Primary Care Provide r Navneet Bender PharmD Unavailable [phone] Reason for Visit * Reason Comments Med Refill Encounter Details Date Type Department Care Team ([facility] st Contact Info) Description 08/11/2024 Refill [facility] [address] [place] [address] Laury Washington MD [address] [place] [address] Pain Social History Tobacco Use Types Packs/Day [...] your housing situation today? I have lucas juan 06/02/[address] you li [...] EDT Telemedicine [facility]INE [address] [place] [address] Laury Washington MD [address] [place] [address] 02/22/2025 2:30 PM EDT Medication Management [facility] [address] [place] [address] Navneet Bender, PharmD [address] [place] [address] 05/01/2025 3:30 PM EST Office Visit [facility] OPT[facility] [address] [place] [address] Reggie, Tereza, OD [address] [place] [address] documented as of this encounter Visit Diagnoses Diagnosis Pain Generalized pain documented in this encounter Additional Health Concerns Assessment Noted Time PHQ-9 Depression Total Score: 0 07/24/19 2:08 PM EST documented as of this encounter Care Teams Pizza Delivery Driver Relationship Specialty Start Date End Date Laury Washington MD [address] [place] [address] [place] [address] PCP - General Family Medicine 04/07/19 Navneet Bender, PharmD [address] [place] [address] Pharmacist Pharmacy 01/05/25 documented as of this encounter
--- OUTSIDE RECORDS SUMMARY | 2025-01-24 11:52 | XMS_ITS | Encounter Summary ---
Author Organization [employer] Address [address] [facility] 7t [place] [address] Care Team Providers Care Water Superintendent Name Role Phone Laury Washington MD Primary Care Provide r Navneet Bender PharmD Unavailable [phone] Reason for Visit * Reason Comments Med Change Request Encounter Details Date Type Department Care Team ([facility] st Contact Info) Description 06/03/2023 Refill [facility] [address] [place] [address] Laury Washington MD [address] [place], [place] [phone] Social History Tobacco Use Types Packs/Day Years [...] Description 02/15/2025 9:15 AM EDT Telemedicine [facility] [address] [place] [address] Laury Washington MD [address] [place] [address] 02/22/2025 2:30 PM EDT Medication Management [facility] [address] [place] [address] Navneet Bender, PharmD [address] [place] [address] 05/01/2025 3:30 PM EST Office Visit [facility] OPT[facility] [address] [place] [address] Reggie, Tereza, OD [address] [place] [address] documented as of this encounter Visit Diagnoses Not on filedocumented in this encounter Care Teams Water Superintendent Relationship Specialty Start Date End Date Laury Washington MD [address] [place] [address] PCP - General Family Medicine 04/07/19 Navneet Bender, PharmD [address] [place] [address] Pharmacist Pharmacy 01/05/25 documented as of this encounter
--- OUTSIDE RECORDS SUMMARY | 2025-01-24 11:52 | XMS_ITS | Encounter Summary ---
Author Organization [employer] Address [address] [place] [address] 7t [place] [address] Care Team Providers Care Vascular Ultrasound Technician Name Role Phone Laury Washington MD Primary Care Provide r Navneet Bender PharmD Unavailable [phone] Encounter Details Date Type Department Care Team (Latest Contact Info) Description 12/25/2021 Abstract [facility] CONVERSIONS Dental, Provider, DDS Social History [...] Upcoming Encounters Date Type Department Care Team ( st Contact Info) Description 02/15/2025 9:15 AM EDT Telemedicine [facility] MEDICINE [address] [place] [address] Laury Washington MD [address] [place] [address] 02/22/2025 2:30 PM EDT Medication Management [facility] [address] [place] [address] Navneet Bender, PharmD [address] [place] [address] 05/01/2025 3:30 PM EST Office Visit [facility] OPTOM[facility] [address] [place], [place] [phone] Tereza Paredes, OD 230 [place] [address] documented as of this encounter Visit Diagnoses Not on filedocumented in this encounter Care Teams Vascular Ultrasound Technician Relationship Specialty Start Date End Date Laury Washington MD 230 [place] [address] PCP - General Family Medicine 04/07/19 Navneet Bender, EvelinD [address] [place] [address] Pharmacist Pharmacy 01/05/25 documented as of this encounter
--- OUTSIDE RECORDS SUMMARY | 2025-01-24 11:52 | XMS_ITS | Clinical Summary ---
Author Organization [employer] Address [address] [facility] [address] [place] [address] Care Team Providers Care Ip/Mosaic Technician Name Role Phone Laury Washington MD Primary Care Provide r Navneet Bender PharmD Unavailable [phone] Allergies Active Allergy Reactions Criticality Noted Date Comments Acetaminophen 01/05/2019 Hydrocodone 01/05/2019 Medications buPROPion XL (Wellbutrin XL) 150 MG 24 hr tablet Take 150 mg by mouth in the morning. 023 Active LORazepam (Ativan) 0.5 MG tablet Take 0.5 mg by mouth if needed in the morning and at bedtime. 023 Active sertraline (Zoloft) 100 MG tablet Take 100 mg by mouth Once per day. 023 Active albuterol (2.5 MG/3ML) 0.083% nebulizer solution USE 1 VIAL VIA NEBULIZER 3 TIMES A DAY 75 mL 024 Active naloxone (Narcan) 4 mg/0.1 mL nasal sprayIndication s:Chronic knee pain after total replacement of right knee joint Administer 1 spray (4 mg) into affected nostril(s) if needed for opioid reversal. 2 each 2 024 Active hydroCHLOROthia zide 12.5 MG tabletIndicatio ns:Primary hypertension TAKE 1 TABLET BY MOUTH EVERY DAY IN THE MORNING (12.5 MG) 90 tablet 3 025 Active lisinopril 40 MG tabletIndicatio ns:Primary hypertension TAKE 1 TABLET BY MOUTH EVERY DAY IN THE MORNING 90 tablet 3 025 Active glipiZIDE (Glucotrol) 10 MG tablet TAKE 1 TABLET BY MOUTH TWICE A DAY BEFORE MEALS 180 tablet 1 025 Active insulin glargine (Lantus SoloStar) 100 UNIT/ML penIndications: Type 2 diabetes mellitus with hyperglycemia, without long-term current use of insulin (CMS/HCC) Inject 18 Units under the skin at bedtime. 3 mL 025 2025 Active Continuous Glucose Math And Science Instructor (FreeStyle Chato 3 [place]) deviceIndicatio ns:Type 2 diabetes mellitus with hyperglycemia, without long-term current use of insulin (CMS/HCC) 1 each Once per day. Use as directed for CGM 1 each 025 Active Continuous Glucose Sensor (FreeStyle Chato 3 Plus Sensor) miscIndications :Type 2 diabetes mellitus with hyperglycemia, without long-term current use of insulin (CMS/HCC) 1 each every 15 days. Apply 1 every 15 days as directed for CGM 2 each 025 Active glucose blood (FreeStyle Precision Jeffry Test) test stripIndication s:Type 2 diabetes mellitus with hyperglycemia, without long-term current use of insulin (CMS/HCC) Use to test blood sugar 3 times daily in case of CGM failure or extremes of BG 100 each 025 2025 Active insulin pen needle (BD Pen Needle Mini Ultrafine) 31G x 5 mm miscIndications :Type 2 diabetes mellitus with hyperglycemia, without long-term current use of insulin (CMS/HCC) Use once a day 100 each 3 025 Active pioglitazone (Actos) 30 MG tabletIndicatio ns:Type 2 diabetes mellitus with other specified complication, unspecified whether bed bug exterminator insulin use (CMS/HCC) TAKE 1 TABLET BY MOUTH EVERY DAY 90 tablet 1 025 Active Diclofenac Sodium 1 % gelIndications: Chronic pain of left knee APPLY 1 APPLICATION TOPICALLY AT NOON AND 1 APPLICATION IN THE EVENING. 100 g 1 025 Active sennosides (Senna-Time) 8.6 MG tabletIndicatio ns:Constipation , unspecified constipation type TAKE 1 TABLET (8.6 MG) BY MOUTH IF NEEDED AT BEDTIME FOR CONSTIPATION. 90 tablet 1 025 Active clobetasol (Temovate) 0.05 % ointmentIndicat ions:Prurigo nodularis APPLY TO AFFECTED AREA TWICE A DAY 30 g 025 Active chlorhexidine (Peridex) 0.12 % solution PLEASE SEE ATTACHED FOR DETAILED DIRECTIONS Active Tirzepatide (Mounjaro) 2.5 MG/0.5ML solution auto-injectorIn dications:Type 2 diabetes mellitus with hyperglycemia, without long-term current use of insulin (CMS/[facility]) Inject 2.5 mg under the skin 1 (one) time per week. For 4 weeks 2 mL 025 Active empagliflozin (Jardiance) 10 MGIndications:T ype 2 diabetes mellitus with hyperglycemia, without long-term current use of insulin (CMS/[facility]) Take 1 tablet (10 mg) by mouth Once per day. 30 tablet 11 025 Active rosuvastatin (Crestor) 20 MG tabletIndicatio ns:Type 2 diabetes mellitus with hyperglycemia, without long-term current use of insulin (CMS/[facility]) Take 1 tablet (20 mg) by mouth Once per day. 30 tablet 5 025 Active omeprazole (PriLOSEC) [address] capsule TAKE 1 CAPSULE BY MOUTH BEFORE BREAKFAST. DO NOT CRUSH OR CHEW. 90 capsule 025 Active meloxicam (Mobic) 15 MG tabletIndicatio ns:Chronic pain of left knee TAKE 1 TABLET BY MOUTH EVERY DAY 30 tablet 025 Active lidocaine (Lidoderm) 5 % patchIndication s:Chronic pain of left knee APPLY 1 PATCH TOPICALLY ONCE PER DAY. REMOVE & DISCARD PATCH WITHIN 12 HOURS OR DIRECTED BY . 30 patch 025 Active cholecalciferol (Vitamin D-3) 25 MCG (1000 UT) capsule Take 1 capsule by mouth 1 (one) time each day. 022 2024 Discontinued(M ed list cleanup (will not trigger notification to Pharmacy)) gabapentin (Neurontin) 100 MG capsule Take 1 capsule by mouth every 12 (twelve) hours. 021 2024 Discontinued(M ed list cleanup (will not trigger notification to Pharmacy)) QUEtiapine (SEROquel) 50 MG tablet Take 50 mg by mouth at bedtime. 023 2024 Discontinued(M ed list cleanup (will not trigger notification to Pharmacy)) FREESTYLE LITE test stripIndication s:Type 2 diabetes mellitus with hyperglycemia, without long-term current use of insulin ([facility]) USE DIRECTED TO CHECK BLOOD SUGAR 3 TIMES A DAY 100 strip 11 024 2024 Discontinued(M ed list cleanup (will not trigger notification to Pharmacy)) canagliflozin (Invokana) 100 MG TAKE 1 TABLET BY MOUTH EVERY DAY BEFORE THE FIRST MEAL OF THE DAY 90 tablet 1 024 2024 Discontinued(A lternate therapy) semaglutide (Ozempic) 2 MG/1.5ML solution pen-injectorInd ications:Type 2 diabetes mellitus with hyperglycemia, without long-term current use of insulin ([facility]) Inject 0.25 mg under the skin 1 (one) time per week. 1 each 024 2024 Discontinued(M ed list cleanup (will not trigger notification to Pharmacy)) hydrOXYzine pamoate (Vistaril) 25 MG capsuleIndicati ons:Prurigo nodularis Take 1 capsule (25 mg) by mouth every 6 (six) hours if needed for itching for up to 10 days. 30 capsule 025 2024 Discontinued(M ed list cleanup (will not trigger notification to Pharmacy)) pravastatin (Pravachol) 40 MG tabletIndicatio ns:Primary hypertension TAKE 1 TABLET BY MOUTH EVERY DAY IN THE MORNING 90 tablet 3 025 2024 Discontinued(A lternate therapy) Dulaglutide (Trulicity) 3 MG/0.5ML solution auto-injectorIn dications:Type 2 diabetes mellitus with hyperglycemia, without long-term current use of insulin ([facility]) INJECT 3 MG SUBCUTANEOUSLY WEEKLY 2 mL 11 025 2024 Discontinued(M ed list cleanup (will not trigger notification to Pharmacy)) ibuprofen 800 MG tabletIndicatio ns:Pain TAKE 1 TABLET BY MOUTH 3 TIMES A DAY WITH FOOD 90 tablet 025 2024 Discontinued(M ed list cleanup (will not trigger notification to Pharmacy)) semaglutide (Ozempic) 2 MG/1.5ML solution pen-injectorInd ications:Type 2 diabetes mellitus with hyperglycemia, without long-term current use of insulin (CMS/HCC) Inject 1 mg under the skin 1 (one) time per week. 2 each 3 025 2024 Discontinued(M ed list cleanup (will not trigger notification to Pharmacy)) Dulaglutide (Trulicity) 4.5 MG/0.5ML solution auto-injectorIn dications:Type 2 diabetes mellitus with hyperglycemia, without long-term current use of insulin (CMS/HCC) Inject 4.5 mg under the skin 1 (one) time per week. 2 mL 2 025 2024 Discontinued(A lternate therapy) lidocaine (Lidoderm) 5 % patchIndication s:Chronic pain of left knee APPLY 1 PATCH TOPICALLY ONCE PER DAY. REMOVE & DISCARD PATCH WITHIN 12 HOURS OR DIRECTED BY MD. 30 patch 025 2024 Discontinued meloxicam (Mobic) 15 MG tabletIndicatio ns:Chronic pain of left knee TAKE 1 TABLET BY MOUTH EVERY DAY 30 tablet 025 2024 Discontinued omeprazole (PriLOSEC) [address] capsule Take 1 capsule (20 mg) by mouth before breakfast. Do not crush or chew. 30 capsule 1 025 2024 Discontinued omeprazole (PriLOSEC) [address] capsule TAKE 1 CAPSULE BY MOUTH BEFORE BREAKFAST. DO NOT CRUSH OR CHEW. 90 capsule 025 2024 Discontinued(R eorder (will not trigger notification to Pharmacy)) Active Problems Problem Noted Date Diagnosed Date Bipolar affective 06/02/2023 Assessment & Plan (10/24/2024 3:46 PM EDT): Patient reports he is stable and he has been follow-up by therapist and psychiatrist Right shoulder pain 06/02/2023 Assessment & Plan (06/02/2023 5:38 PM EST): Pt states fell while in [place] ,his left knee locked and fell put [...] 04/29/2022 Hypertensive disorder 04/29/2022 Assessment & Plan (10/24/2024 3:47 PM EDT): I advise: - Aerobic exercise to reduce BP. Initial goal of 30 min walk 3-5x/week. Increase as tolerated. - low-sodium diet (goal: <2g/day) and heart healthy diet such as DASH to reduce BP and prevent ASCVD. - Home BP monitoring 1-2 x day with goal of <140/90. - Seek immediate medical attention for chest pain, palpitations, SOB, syncope, or sudden changes in mental status. - Do not change or discontinue current prescriptions without first consulting health care provider Assessment & Plan (07/24/2023 2:46 PM EST): [...] 04/29/2022 Moderate persistent asthma without complication 04/29/2022 Assessment & Plan (10/24/2024 3:46 PM EDT): Patient is stable continue with current interventions Type 2 diabetes mellitus 04/29/2022 Assessment & Plan (10/24/2024 3:46 PM EDT): Diabetes is: not controlled - Lab Results Component Value Date HGBA1C 12.7 (A) 10/24/2024 HGBA1C 11.5 (A) 07/24/2023 HGBA1C 11.0 (A) 06/02/2023 - Lab Results Component Value Date MICROALBUR 0.3 01/09/2022 CREATININE 0.90 07/22/2023 -Changes: Extensive counseling about diabetic diet done today, I will discontinue the Trulicity and instead put him on Ozempic 1 mg weekly, I also prescribed for him CGM, I also initiated him on insulin Lantus 18 units at bedtime as per calculation, I also refer him to pharmacy CDTM - Diabetic eye exam: Up-to-date - Diabetic foot exam: Pending - Continue lifestyle modifications - Continue current medications -f/u 6 weeks Assessment & Plan (07/24/2023 2:51 PM EST): [...] Encounters Date Type Department Care Team Description 01/09/2025 Refill [facility] MEDICINE [address] [place] [address] Laury Washington MD Chronic pain of left knee 01/06/2025 Orders Only GENERIC EXTERNAL DATA DEPARTMENT Provider, Generic External Data 01/06/2025 Refill [facility] CHC MED & PEDS [address] [place] [address] Laury Washington MD 01/04/2025 Travel 01/04/2025 Refill [facility] MEDICINE [address] [place] [address] Laury Washington MD 01/03/2025 Travel 01/02/2025 Telephone [facility] MEDICINE [address], [place] [phone] Laury Washington MD Medication Question 01/02/2025 Refill [facility] MEDICINE [address] [place] [phone] Laury Washington MD 12/29/2024 Telephone [facility] MEDICINE [address] [place] [phone] Laury Washington MD No Show 12/28/2024 Telephone [facility] MEDICINE [address] [place] [phone] Laury Washington MD chart prep 12/26/2024 Results Follow-Up [facility] MEDICINE [address] [place] [phone] Brandy Steiner NP Amylase, Lipase, Hepatic Function Panel, CBC auto differential 12/23/2024 Orders Only GENERIC EXTERNAL DATA DEPARTMENT Provider, Generic External Data 12/14/2024 5:20 PM EDT Office Visit [facility] WALK-IN CENTER [address] [place] [phone] Brandy Steiner NP Right upper quadrant pain (Primary Dx); Elevated blood pressure reading in office with diagnosis of hypertension 12/14/2024 Travel 12/14/2024 Telephone [facility] MEDICINE [address] [place] [phone] Laury Washington MD Nurse Triage 12/11/2024 Refill [facility] MEDICINE [address] [place] [phone] Isa, Alden, [facility] Constipation, unspecified constipation type; Prurigo nodularis 12/11/2024 Refill [facility] WALK[facility]IN CENTER [address] [place] [phone] Laury Washington MD Type 2 diabetes mellitus with hyperglycemia, without long-term current use of insulin (CMS/[facility]) 12/11/2024 Refill [facility] MEDICINE [address] [place] [phone] Laury Washington MD Type 2 diabetes mellitus with hyperglycemia, without long-term current use of insulin (CMS/HCC) 12/10/2024 Refill [facility] MEDICINE [address] [place] [phone] Laury Washington MD Prurigo nodularis 12/04/2024 Refill [facility] MEDICINE [address] [place] [phone] IsaAlejandrina ovalles, BRONZER Chronic pain of left knee 11/23/2024 Refill [facility] MEDICINE [address] [place] [address] Stephani Greenwood, EXECUTIVE VICE PRESIDENT Chronic pain of left knee 11/15/2024 Telephone [facility] MEDICINE [address] [place] [address] Laury Washington MD Nurse Triage 11/11/2024 Telephone [facility] MEDICINE [address] [place] [address] Laury Washington MD Prior Authorization 11/05/2024 Refill [facility] MED & PEDS [address] [place] [address] Laury Washington MD Type 2 diabetes mellitus with other specified complication, unspecified whether mcc insulin use ([facility]) 11/04/2024 Orders Only [facility] MEDICINE [address] [place] [phone] Laury Washington MD Type 2 diabetes mellitus with hyperglycemia, without long-term current use of insulin ([facility]) (Primary Dx) 10/31/2024 Telephone [facility] MEDICINE [address] [place] [phone] Laury Washington MD Medication Question 10/30/2024 Refill [facility] MEDICINE [address] [place] [phone] Laury Washington MD Chronic pain of left knee 10/25/2024 Telephone [facility] MEDICINE [address] [place] [phone] Laury Washington MD CGM PA 10/25/2024 Telephone [facility] MEDICINE [address] [place] [phone] Laury Washington MD 10/24/2024 2:45 PM EDT Office Visit [facility] MEDICINE [address] [place] [phone] Laury Washington MD Primary hypertension (Primary Dx); Type 2 diabetes mellitus with hyperglycemia, without long-term current use of insulin ([facility]); Moderate persistent asthma without complication; Bipolar affective disorder, current episode mixed, current episode severity unspecified ([facility]) 10/24/2024 Telephone [facility] MEDICINE [address], [place] [phone] Laury Washington MD Prior Authorization ( PA: Cristina) 10/24/2024 Refill [facility] MEDICINE [address], [place] [phone] Laury Washington MD Type 2 diabetes mellitus with hyperglycemia, without long-term current use of insulin ([facility]) 10/24/2024 Travel from Last 3 Months Immunizations Immunization Administration Dates Next Due Hep A / Hep B 12/13/2024,04/04/2024,02/19/2024 Influenza Injectable Quadriv alant Preservative Free IIV4 MDCK 02/24/2023,05/02/2021,03/08/2018 Influenza injectable quadriv alent preservative free 02/06/2020,01/11/2019 Influenza, Injectable, MDCK, preservative free 01/26/2024 Influenza, seasonal, injecta ble, preservative free 04/29/2022 Pfizer Covid-19 Vaccine 12+ 07/21/2020 Pneumococcal Conjugate PCV 13 04/06/2020 Pneumococcal Polysaccharide PPSV23 10/06/2013 RSV Bivalent 12/13/2024 Td (adult), 5 Lf tetanus tox oid, preservative free, adsorbed 09/19/2013 Tdap 04/06/2020 Zoster, Recombinant 04/06/2020,02/06/2020 Social History Tobacco Use Types Packs/Day Years [...] Sign Reading Time Taken Comments Blood Pressure 138/92 01/04/2025 3:18 PM EDT Pulse 80 01/04/2025 3:18 PM EDT Temperature 36.8 C (98.3 F) 12/14/2024 5:07 PM EDT Respiratory Rate 18 12/14/2024 5:07 PM EDT Oxygen Saturation 98% 12/14/2024 5:07 PM EDT Inhaled Oxygen Concentration - - Weight 127 kg (281 lb) 12/14/2024 5:07 PM EDT Height 170.2 cm (5' 7 ) 10/24/2024 2:51 PM EDT Body Mass Index 44.01 10/24/2024 2:51 PM EDT Plan of Treatment Upcoming Encounters Date Type Department Care Team (Late st Contact Info) Description 02/15/2025 9:15 AM EDT Telemedicine [facility] MEDICINE [address] [place] [address] Laury Washington MD [address] [place], [place] [phone] 02/22/2025 2:30 PM EDT Medication Management [facility] MEDICINE [address] [place] [address] Navneet Bender, PharmD [address] [place] [address] 05/01/2025 3:30 PM EST Office Visit [facility] OPTOMETRY [address], [place] [phone] Reggie, Tereza, OD [address] [place], [place] [phone] Health Maintenance Due Date Last Done Comments CT Colonography 1966 FIT DNA/Cologuard 1966 FIT 1966 FOBT 1966 Sigmoidoscopy 1966 Diabetes: Foot Exam 01/22/1976 Alcohol/Substance Use Screening 1978 SDOH Screening 06/02/2024 06/02/2023 Depression Screening 07/23/2024 07/24/2023, 07/24/19 24 Influenza Vaccine (#1) 2025 , 02/24/2023, 04/29/2022, Additional history exists Pneumococcal Vaccine: 50+ Years (3 of 3 - PCV20 or PCV21) 04/06/2025 04/06/2020, 10/06/2013 Diabetes: Hemoglobin A1C 04/08/2025 025, 10/24/2024, 07/24/2023, Additional history exists Tobacco Screening 07/01/2025 07/01/2024 Diabetes: Urine Protein Screening 10/24/2025 10/24/2024, 01/09/2022 Lipid Panel 10/24/2025 10/24/2024, 07/23, 01/09/2022, Additional history exists Eye Exam 11/19/2025 11/20/2023, 10/24, 11/20/2023, Additional history exists Disability Screening 01/03/2026 01/03/2025 Colonoscopy 02/09/2029 02/09/2019 Colorectal Cancer Screening 02/09/2029 DTaP/Tdap/Td Vaccines (2 - Td or Tdap) 04/06/2030 04/06/2020, 09/19/2013 Zoster Vaccines Completed 04/06/2020, 02/06/2020 COVID-19 Vaccine Completed 01/26/2024, 05/2022, 10/03/2022, Additional history exists HIV Screening Completed 10/24/2024 Hepatitis C Screening Completed 10/24/2024 Hepatitis A Vaccines Aged Out 12/13/2024, 04/04/2024, 02/19/2024 No longer eligible based on patient's age to complete this topic Hepatitis B Vaccines Completed 12/13/2024, 04/04/2024, 02/19/2024 RSV Patients and Patients Aged 60 years or older Completed 12/13/2024 HIB Vaccines Aged Out No longer eligi [...] Procedure Name Priority Date/Time Associated Diagnosis Comments VITAMIN D 25-OH (D2 AND D3) Routine 01/06/2025 12:07 PM EDT TISSUE TRANSGLUTAMINASE AB, IGA Routine 01/06/2025 12:07 PM EDT TISSUE TRANSGLUTAMINASE AB, IGG Routine 01/06/2025 12:07 PM EDT VITAMIN B12/FOLATE, SERUM PANEL Routine 01/06/2025 12:07 PM EDT LIPASE Routine 01/06/2025 12:07 PM EDT HEMOGLOBIN A1C Routine 01/06/2025 12:07 PM EDT US ABDOMEN LIMITED Routine 12/23/2024 8: 02 PM EDT HIGH SENSITIVITY TROPONIN I Routine 12/23/2024 5:55 PM EDT LIPASE Routine 12/23/2024 5:55 PM EDT MAGNESIUM Routine 12/23/2024 5:55 PM EDT BASIC METABOLIC PANEL Routine 12/23/2024 5:55 PM EDT HEPATIC FUNCTION PANEL Routine 5:55 PM EDT CBC WITH AUTO DIFFERENTIAL Routine 12/23/2024 5:55 PM EDT CBC WITH AUTO DIFFERENTIAL Routine 12/16/2024 10:31 AM EDT Right upper quadrant pain HEPATIC FUNCTION PANEL Routine 10:31 AM EDT Right upper quadrant pain LIPASE Routine 12/16/2024 10:31 AM EDT Right upper quadrant pain AMYLASE Routine 12/16/2024 10:31 AM EDT Right upper quadrant pain ALBUMIN, RANDOM URINE W/CREATININE Routine 10/24/2024 3:51 PM EDT Type 2 diabetes mellitus with hyperglycemia, without long-term current use of insulin (CMS/HCC) TSH W/REFLEX TO FT4 Routine 10/24/2024 3 :51 PM EDT Type 2 diabetes mellitus with hyperglycemia, without long-term current use of insulin (CMS/HCC) VITAMIN D,25-OH,TOTAL,IA Routine 025 3:51 PM EDT Type 2 diabetes mellitus with hyperglycemia, without long-term current use of insulin (CMS/HCC) LIPID PANEL, STANDARD Routine 10/24/2024 3:51 PM EDT Type 2 diabetes mellitus with hyperglycemia, without long-term current use of insulin (CMS/HCC) HEPATITIS C AB W/REFL TO HCV RNA, QN, PCR Routine 10/24/2024 3:51 PM EDT Type 2 diabetes mellitus with hyperglycemia, without long-term current use of insulin (CMS/HCC) HIV 1/2 ANTIGEN/ANTIBODY, FOURTH GENERATION W/RFL Routine 10/24/2024 3:51 PM EDT Type 2 diabetes mellitus with hyperglycemia, without long-term current use of insulin (CMS/HCC) COMPREHENSIVE METABOLIC PANEL Routine 10/24/2024 3:51 PM EDT Type 2 diabetes mellitus with hyperglycemia, without long-term current use of insulin (CMS/HCC) CBC WITH AUTO DIFFERENTIAL Routine 10/24/2024 3:51 PM EDT Type 2 diabetes mellitus with hyperglycemia, without long-term current use of insulin (CMS/HCC) POCT GLYCATED HEMOGLOBIN, TOTAL Routine 10/24/2024 2:57 PM EDT Type 2 diabetes mellitus with hyperglycemia, without long-term current use of insulin (CMS/HCC) POCT GLUCOSE Routine 10/24/2024 2:57 PM EDT Type 2 diabetes mellitus with hyperglycemia, without long-term current use of insulin (CMS/HCC) HM COLONOSCOPY Routine 02/09/2019 from Last 3 Months or Most Recently Relevant to Health Maintenance Results * (ABNORMAL) VITAMIN D 25-OH (D2 AND D3) (01/06/2025 12:07 PM EDT) Vitamin D, 25-OH, D2 10 ng/mL [facility] Comment:This test was benito calderon and its analytical performancecharacteristics have been determined by [employer] [place], [place]. It hasnot been cleared or approved by the U.S. Food and DrugAdministration. This assay has been validated pursuantto the CLIA regulations and is used for clinicalpurposes.THIS TEST WAS PERFORMED AT:[employer] [place] [id number] PHILLIPS MD,PHD Vitamin D, 25-OH, D3 11 ng/mL [facility] Comment:This test was develo ped and its analytical performancecharacteristics have been determined by [employer] [place], [place]. It hasnot been cleared or approved by the U.S. Food and DrugAdministration. This assay has been validated pursuantto the CLIA regulations and is used for clinicalpurposes. Vitamin D, 25-OH, Total 21(A) 30 - 100 ng/mL [facility] Comment:Vitamin D, 25-Hydrox y reports concentrations of twocommon forms, 25-OHD2 and 25-OHD3. 25-OHD3 indicatesboth endogenous production and supplementation.25-OHD2 is an indicator of exogenous sources such asdiet or supplementation. Therapy is based onmeasurement of Total 25-OHD, with levels <20 ng/mLindicative of Vitamin D deficiency, while levelsbetween 20 ng/mL and 30 ng/mL suggest insufficiency.Optimal levels are > or = 30 ng/mL.For additional information, please refer tohttp://education.Atr[employer]ch/faq/IRG196(This link is being provided for informational/educational purposes only.) 01/06/2025 12:0 7 PM EDT 01/06/2025 12:07 PM EDT us Generic External Data Provider LAB BLOOD ORDERAB LES Final Result [facility] [address] [place] [phone] * Vitamin B12 (Cobalamin) and Folate Panel, Serum (01/06/2025 12:07 PM EDT) Vitamin B12 417 200 - 900 pg/mL [facility] Comment:NORMAL 200-900 PG/ML INDETERMINATE 160-199 PG/ML DEFICIENT < 160 PG/ML Folate 10.2 > or = 4.0 ng/mL [facility] Comment:Reference Values:> o r = 4.0 ng/mL< 4.0 ng/mL suggests folate deficiency Methotrexate, aminopterin and folinic acid(leucovorin) are chemotherapeutic agents whose molecularstructures are similar to folate; therefore, the Architectfolate assay cannot be used for patients using these drugs. 01/06/2025 12:0 7 PM EDT 01/06/2025 12:07 PM EDT Generic External Data Provider LAB BLOOD ORDERAB LES Final Result Performing Organization Address [facility] de Phone Number [facility] [address] [place] [address] [phone] * Tissue Transglutaminase (tTG) Antibody (IgG) (01/06/2025 12:07 PM EDT) Tissue Transglutaminase Antibody IgG <1.0 U/mL [facility] Comment:Value Interpretation ----- <15.0 Antibody not detected> or = 15.0 Antibody detectedTHIS TEST WAS PERFORMED AT:[facility] [place] [id number] DOE MD 01/06/2025 12:0 7 PM EDT 01/06/2025 12:07 PM EDT Generic External Data Provider LAB BLOOD ORDERAB LES Final Result Performing Organization Address [facility] Co de Phone Number [facility] [address] [place] [address] [phone] * Tissue Transglutaminase Antibody, IgA (01/06/2025 12:07 PM EDT) Transglutaminase IgA <1.0 U/mL [facility] Comment:Value Interpretation ----- <15.0 Antibody not detected> or = 15.0 Antibody detectedTHIS TEST WAS PERFORMED AT:[facility] [place] [phone] DOE MD 01/06/2025 12:0 7 PM EDT 01/06/2025 12:07 PM EDT us Generic External Data Provider LAB BLOOD ORDERAB LES Final Result [facility] [address] [place] [phone] * Lipase (01/06/2025 12:07 PM EDT) Only the most recent of3 resultswithin the time period is included. Lipase 31 8 - 78 U/L [facility] 01/06/2025 12:0 7 PM EDT 01/06/2025 12:07 PM EDT Generic External Data Provider LAB BLOOD ORDERAB LES Final Result Performing Organization Address [facility] Co de Phone Number [facility] [address] [place] [phone] * (ABNORMAL) Hemoglobin A1c (01/06/2025 12:07 PM EDT) Hemoglobin A1c 7.6(H) <6.0 % [facility] Comment:Hemoglobin A1C Refer ence Range Adults: 4.8 - 6.0 % Non diabetic: < 6.0 % Goal: < 7.0 %Additional Action Suggested: > 8.0 %Note: Hemoglobin A1c results are invalid for patients with abnormal amounts of HbF. Blood transfusions may impact the HbA1c concentration in the patient sample. Estimated Average Glucose 171 mg/dL [facility] Comment:eAG = Estimated ave rage glucose which is %A1C expressed asaverage glucose, using the formula of the N3B-MisxsgnFobtudl Glucose study (ADAG), Diabetes Care, Vol.31,#8,2007 01/06/2025 12:0 7 PM EDT 01/06/2025 12:07 PM EDT us Generic External Data Provider LAB BLOOD ORDERAB LES Final Result [facility] [address] [place] [phone] * US Abdomen Limited (12/23/2024 8:02 PM EDT) Anatomical Region Laterality Modality Abdomen Ultrasound 12/23/2024 8:02 PM EDT Narrative 12/23/2024 8:04 PM EDT [address] [address] Ultrasound Report Signed Patient: Edgar Weston MR#: [id number] : 1965 Acct:[id number] Age/Sex: 59 / M ADM Date: 12/23/24 Loc: HO.ED Attending Dr: Ordering Physician: Gildardo Perkins Date of Service: 12/23/24 Procedure(s): US abdomen limited Accession Number(s): [id number] cc: Laury Washington MD; Gildardo Perkins CLINICAL HISTORY: RUQ pain US abdomen limited. COMPARISON: None provided. Technique: Real time sonographic imaging, including color-flow imaging, was performed by the automotive internet sales consultant. Multiple artist's representative static images were saved for review. FINDINGS: The gallbladder is contracted. No cholelithiasis or sludge identified. There is a negative sonographic Angel's sign. Gallbladder wall: 2-3 mm, normal. Common bile duct: 3 mm, normal. No free intraperitoneal fluid identified. IMPRESSION: 1. No evidence of cholecystitis. This document has been electronically signed by: Anson Cooney MD on 12/23/2024 20:02:54 Dictated By: Anson Cooney MD Signed By: <Electronically signed by Anson Cooney MD in OV> 12/23/242002 DD/ 01 TD/TT: 12/23/242001 Material Specialist: Procedure Note Donotuseinterpreter, Image - 12/23/[address] [address] Ultrasound Report Signed Patient: Edgar Weston RMR#: [id number] : 1965Acct:[id number] Age/Sex: 59 / MADM Date: 12/23/24 Loc: HO.ED Attending Dr: Ordering Physician: Gildardo Perkins Date of Service: 12/23/24 Procedure(s): US abdomen limited Accession Number(s): [id number] cc: Laury Washington MD; Gildardo Perkins CLINICAL HISTORY: RUQ pain US abdomen limited. COMPARISON: None provided. Technique: Real time sonographic imaging, including color-flow imaging, was performed by the automotive internet sales consultant. Multiple artist's representative static images were saved for review. FINDINGS: The gallbladder is contracted. No cholelithiasis or sludge identified. There is a negative sonographic Angel's sign. Gallbladder wall: 2-3 mm, normal. Common bile duct: 3 mm, normal. No free intraperitoneal fluid identified. IMPRESSION: 1. No evidence of cholecystitis. This document has been electronically signed by: Anson Cooney MD on 12/23/2024 20:02:54 Dictated By: Anson Cooney MD Signed By: <Electronically signed by Anson Cooney MD in OV> 12/23/242002 DD/ 01 TD/TT: 12/23/242001 Material Specialist: us [facility] External Provider IMG US PROCEDURES Final Result * High Sensitivity Troponin I (12/23/2024 5:55 PM EDT) TROPONIN I HIGH SENSITIVITY <2.7 <3.5 - 35.0 ng/L [facility] Comment:The Quintana high sens itivity Troponin-I results should beused in conjunction with other diagnostic information suchas ECG, clinical observations and information, and patientsymptoms to aid in the diagnosis of [place]. 12/23/2024 5:55 PM EDT 12/23/2024 5:58 PM EDT us Generic External Data Provider LAB BLOOD ORDERAB LES Final Result [facility] [address] [place] [address] [phone] * CBC auto differential (12/23/2024 5:55 PM EDT) Only the most recent of3 resultswithin the time period is included. White Blood Count 6.5 4.8 - 10.8 X10*3/uL [facility] Red Blood Count 5.17 4.60 - 5.80 X10*6/uL [facility] Hemoglobin 15.0 14.0 - 18.0 g/dl [facility] Hematocrit 44.4 42.0 - 52.0 % [facility] Mean Corpuscular Volume 85.9 80.0 - 98.0 fL [facility] Mean Corpuscular Hemoglobin 29.0 27.0 - 33.0 pg [facility] Mean Corpuscular HGB Conc 33.8 31.0 - 36.0 g/dl [facility] Red Cell Distribution Width 13.9 11.0 - 16.0 % [facility] Platelet Count 203 160 - 400 X10*3/uL [facility] Mean Platelet Volume 10.2 9.4 - 12.4 fL [facility] Neutrophils Percent Auto 58.0 45 - 73 % [facility] Imm Gran Pct Auto 0.2 0.0 - 0.4 % [facility] Lymphocytes Percent Auto 31.6 20 - 40 % [facility] Monocytes Percent Auto 7.2 2 - 11 % [facility] Eosinophils Percent Auto 2.5 0 - 4 % [facility] Basophils Percent Auto 0.5 0 - 2 % [facility] NRBC Pct Auto 0.0 0.0 - 0.2 /100WBC [facility] Neutrophils Absolute Auto 3.8 2.0 - 8.3 x10*3/uL [facility] Imm Gran Abs Auto 0.01 0.00 - 0.03 X10*3/uL [facility] Lymphocytes Absolute Auto 2.1 1.2 - 4.9 X10*3/uL [facility] Monocytes Absolute Auto 0.5 0.1 - 1.2 X10*3/uL [facility] Eosinophils Absolute Auto 0.2 0.0 - 0.4 X10*3/uL [facility] Basophils Absolute Auto 0.0 0.0 - 0.2 X10*3/uL [facility] NRBC Abs Auto 0.000 0.0 - 0.012 X10*3/uL [facility] 12/23/2024 5:55 PM EDT 12/23/2024 5:58 PM EDT Generic External Data Provider LAB BLOOD ORDERAB LES Final Result Performing Organization Address [facility] Co de Phone Number [facility] [address] [place] [phone] * Magnesium (12/23/2024 5:55 PM EDT) Magnesium 2.0 1.6 - 2.6 mg/dL [facility] 12/23/2024 5:55 PM EDT 12/23/2024 5:58 PM EDT Generic External Data Provider LAB BLOOD ORDERAB LES Final Result Performing Organization Address [facility] de Phone Number [facility] [address] [place] [phone] * Hepatic Function Panel (12/23/2024 5:55 PM EDT) Only the most recent of2 resultswithin the time period is included. Bilirubin, Total 0.6 0.0 - 1.0 mg/dL [facility] Bilirubin, Direct 0.2 0.0 - 0.5 mg/dL [facility] Aspartate Amino Transferase 28 5 - 37 U/L [facility] Alanine Aminotransferase 28 0 - 40 U/L [facility] Total Protein 7.7 6.5 - 8.0 g/dL [facility] Albumin Level 4.6 3.5 - 5.0 g/dL [facility] Alkaline Phosphatase 98 39 - 117 U/L [facility] 12/23/2024 5:55 PM EDT 12/23/2024 5:58 PM EDT us Generic External Data Provider LAB BLOOD ORDERAB LES Final Result [facility] [address] [place] [phone] * Basic Metabolic Panel (12/23/2024 5:55 PM EDT) Sodium 138 135 - 145 mmol/L [facility] Potassium 3.8 3.3 - 5.1 mmol/L [facility] Chloride 104 96 - 108 mmol/L [facility] Carbon Dioxide 26 22 - 29 mmol/L [facility] Anion Gap 12 12 - 20 [facility] Urea Nitrogen (BUN) 13 9 - 16 mg/dL [facility] Creatinine, Serum 0.95 0.5 - 1.4 mg/dL [facility] Creatinine Clr Calc Pharmacy 109.5 [facility] Comment:eGFR (calculated fro m the MDRD study equation) and eCrCl(calculated from the Cockcroft-Gault equation) are based ondifferent parameters and may not yield comparable results.If eCrCl result is absurd, please check patient'sheight/weight. Estimated Glomerular Filt Rate >60 [facility] Comment:Chronic Kidney Disea se: Estimated GFR < 60 mL/min/[id number] Kidney Disease: Estimated GFR < 15 mL/min/1.73m2 Glucose 97 60 - 115 mg/dL [facility] Calcium 9.4 8.4 - 10.2 mg/dL [facility] 12/23/2024 5:55 PM EDT 12/23/2024 5:58 PM EDT us Generic External Data Provider LAB BLOOD ORDERAB LES Final Result [facility] [address] [place] [phone] * Amylase (12/16/2024 10:31 AM EDT) Amylase 49 28 - 100 U/L [facility] Blood Venous blood specimen / Unknown 12/16/2024 10:31 AM EDT 12/16/2024 10:31 AM EDT Brandy Steiner WOOD POLISHER LAB BLOOD ORDERABLES Final Resu lt Performing Organization Address [facility]/ZIP Co de Phone Number [facility] [address] [place] [phone] * (ABNORMAL) Vitamin D, 25-Hydroxy, Total, Immunoassay (10/24/2024 3:51 PM EDT) Vitamin D 25-OH Total 20.7(L) >30 ng/mL [facility] Comment: Health Based Reference Values*< 20 ng/mL Fumjjuirc16-56 ng/mL Insufficient> 30 ng/mL Sufficient*Gabi CAMACHO. N Engl J Med. 2007;357:266-280There is no well-established upper level of normal vitamin Dlevels. Some laboratories use 50 ng/mL as an upper limit ofnormal. However, toxicity is patient-dependent and may occurat any level. Careful correlation with the patient'spresentation is necessary and, if there is concern forvitamin D toxicity, treatment should be consideredirrespective of the serum level.Care must be taken in interpreting Vitamin D results fromdifferent laboratories and methodologies. Published datademonstrated that results from patients undergoinghemodialysis may show a negative bias when tested withvarious automated 25-OH vitamin D assays when compared toLC-MS/MS.When testing samples from patients whose predominant form ofVitamin D is Vitamin D2, such as patients receiving VitaminD2 supplementation, results that are subtherapeutic shouldbe confirmed with another method such as LC-MS/MS. Blood Venous blood specimen / Unknown 10/24/2024 3:51 PM EDT 10/24/2024 5:33 PM EDT us Laury Banks MD LAB BLOOD ORDERABLES Final Result Performing Organization Address [facility] Co de Phone Number [facility] [address] [place] [phone] * TSH with Reflex to Free T4 (10/24/2024 3:51 PM EDT) TSH reflex Free T4 3.11 0.32 - 4.0 uIU/mL [facility] Blood Venous blood specimen / Unknown 10/24/2024 3:51 PM EDT 10/24/2024 5:33 PM EDT us Laury Banks MD LAB BLOOD ORDERABLES Final Result Performing Organization Address [facility] Phone Number [facility] [address] [place] [phone] * Albumin, Random Urine W/Creatinine (10/24/2024 3:51 PM EDT) Creatinine, Urine 77.90 mg/dL [facility] Microalbumin Urine <5.0 mg/L [facility] Microalbum Creatinine Ratio Ur TNP <30 ug/mg cr [facility] Comment:Unable to calculate albumin/creatinine ratio due to lowmicroalbumin or creatinine result. Urine (Urine, Random) 10/24/2024 3:51 PM EDT 10/24/2024 5:36 PM EDT Laury Banks MD LAB URINE ORDERABLES Final Result Performing Organization Address [facility] Co de Phone Number [facility] [address] [place] [phone] * Hepatitis C Antibody with Reflex to HCV, RNA, Quantitative, Real-Time PCR (10/24/2024 3:51 PM EDT) Hepatitis C Antibody Nonreactive Nonreactive [facility] Comment:Antibodies to HCV no t detected; does not exclude early acuteHCV infection. Blood Venous blood specimen / Unknown 10/24/2024 3:51 PM EDT 10/24/2024 5:33 PM EDT us Laury Banks MD LAB BLOOD ORDERABLES Final Result Performing Organization Address [facility] Co de Phone Number [facility] [address] [place] [phone] * HIV-1/2 Antigen and Antibodies, Fourth Generation, with Reflexes (10/24/2024 3:51 PM EDT) HIV AB/AG Nonreactive Nonreactive [facility] Comment:HIV-1 p24 Ag and/or HIV-1/HIV-2 Ab not detected.A test result that is nonreactive does not exclude thepossibility of exposure to or infection with HIV-1 and/orHIV-2. Nonreactive results in this assay for individualswith prior exposure to HIV-1 and/or HIV-2 may be due toantigen and antibody levels that are below the limit ofdetection of this assay.The [employer] HIV Ag/Ab Combo assay result andsupplemental assay results should be interpreted inconjunction with the patient's clinical presentation,history and other laboratory results. If the results areinconsistent with clinical evidence, additional testing issuggested to confirm the result. Blood Venous blood specimen / Unknown 10/24/2024 3:51 PM EDT 10/24/2024 5:33 PM EDT us Laury Banks MD LAB BLOOD ORDERABLES Final Result Performing Organization Address [facility]/ZIP Co de Phone Number [facility] [address] [place] [phone] * (ABNORMAL) Lipid Panel, Standard (10/24/2024 3:51 PM EDT) Triglycerides 142 <150 mg/dL [facility] Comment:Desirable Triglyceri de: less than 150 mg/dLBorderline High Triglyceride 150-199 mg/dLHigh Triglyceride: 200-499 mg/dLVery High Triglyceride: greater than or equal to 5OO mg/dL Cholesterol 205(H) <200 mg/dL [facility] Comment:Desirable Cholestero l: less than 200 mg/dLBorderline High Cholesterol: 200-239 mg/dLHigh Cholesterol: greater than 239 mg/dL LDL Cholesterol Calculated 136(H) <100 mg/dL [facility] Comment:Desirable LDL: less than 100 mg/dLNear Optimal/Above Optimal LDL: 110- 129 mg/dLBorderline High LDL: 130-159 mg/dLHigh LDL: 160-189 mg/dLVery High LDL: greater than or equal to 190 mg/dL HDL Cholesterol 41 >40 mg/dL [facility] Comment:Desirable HDL: great er than 40 mg/dL Note: This HDL assay may give artificially low results in patients with liver disease. Blood Venous blood specimen / Unknown 10/24/2024 3:51 PM EDT 10/24/2024 5:33 PM EDT us Laury Banks MD LAB BLOOD ORDERABLES Final Result [facility] [address] [place] [address] [phone] * (ABNORMAL) Comprehensive Metabolic Panel (10/24/2024 3:51 PM EDT) Sodium 139 135 - 145 mmol/L [facility] Potassium 3.6 3.3 - 5.1 mmol/L [facility] Chloride 103 96 - 108 mmol/L [facility] Carbon Dioxide 26 22 - 29 mmol/L [facility] Anion Gap 14 12 - 20 [facility] Urea Nitrogen (BUN) 13 9 - 16 mg/dL [facility] Creatinine, Serum 0.86 0.5 - 1.4 mg/dL [facility] Estimated Glomerular Filt Rate >60 [facility] Comment:Chronic Kidney Disea se: Estimated GFR < 60 mL/min/[id number] Kidney Disease: Estimated GFR < 15 mL/min/1.73m2 Glucose 154(H) 60 - 115 mg/dL [facility] Calcium 9.9 8.4 - 10.2 mg/dL [facility] Bilirubin, Total 0.5 0.0 - 1.0 mg/dL [facility] Aspartate Amino Transferase 25 5 - 37 U/L [facility] Alanine Aminotransferase 28 0 - 40 U/L [facility] Total Protein 8.0 6.5 - 8.0 g/dL [facility] Albumin Level 4.7 3.5 - 5.0 g/dL [facility] Alkaline Phosphatase 121(H) 39 - 117 U/L [facility] Blood Venous blood specimen / Unknown 10/24/2024 3:51 PM EDT 10/24/2024 5:33 PM EDT us Laury Banks MD LAB BLOOD ORDERABLES Final Result Performing Organization Address City/State/[facility] Co de Phone Number [facility] [address] [place] [phone] * (ABNORMAL) POCT HGB A1C (10/24/2024 2:57 PM EDT) Hemoglobin A1C 12.7(A) 4.0 - 6.0 % QC Media Lot # [id number] Lot# Expiration Date Blood 10/24/2024 2:57 PM EDT Laury Banks MD POINT OF CARE TEST EN TER/EDIT ORDERABLES Final Result * POCT Glucose (10/24/2024 2:57 PM EDT) Glucose Blood, POC 176 60 - 200 mg/dL QC Media Lot # [id number] Lot# Expiration Date [id number] Blood Capillary blood specimen / Unknown 10/24/2024 2:57 PM EDT Laury Bansk MD POINT OF CARE TEST EN TER/EDIT ORDERABLES Final Result * Colonoscopy (02/09/2019) Historical Provider HEALTH MAINTENANCE Final Result from Last 3 Months or Most Recently Relevant to Health Maintenance Insurance [facility] C3 Care Teams Ip/Mosaic Technician Relationship Specialty Start Date End Date Laury Washington MD [address] [place] [phone] PCP - General Family Medicine 04/07/19 Navneet Bender, PharmD [address] [place] [address] Pharmacist Pharmacy 01/05/25
--- OUTSIDE RECORDS SUMMARY | 2025-01-24 11:52 | XMS_ITS | Encounter Summary ---
Author Organization [employer] Address [address] [facility] [address] [place] [address] Care Team Providers Care Taker Off Drying Kiln Name Role Phone Laury Washington MD Primary Care Provide r Navneet Bender PharmD Unavailable [phone] Reason for Visit * Reason Onset Date Comments Med Refill 12/11/2024 Encounter Details Date Type Department Care Team (Late st Contact Info) Description 12/11/2024 Refill [facility] [address] [place], [place] [phone] Laury Washington MD [address] [place], [place] [phone] Type 2 diabetes mellitus with hyperglycemia, without long-term current use of insulin ([facility]) Social History Tobacco Use Types Packs/Day Years [...] Info) Description 02/15/2025 9:15 AM EDT Telemedicine [facility] [address] [place] [address] Laury Washington MD [address] [place] [address] 02/22/2025 2:30 PM EDT Medication Management [facility] [address] [place] [address] Navneet Bender, PharmD [address] [place] [address] 05/01/2025 3:30 PM EST Office Visit [facility] [address] [place] [address] Tereza Paredes, MARIANNE [address] [place] [address] documented as of this encounter Visit Diagnoses Diagnosis Type 2 diabetes mellitus with hyperglycemia, without long-term current use of insulin ([facility]) documented in this encounter Additional Health Concerns Assessment Noted Time PHQ-9 Depression Total Score: 0 07/24/19 24 2:08 PM EST documented as of this encounter Care Teams Taker Off Drying Kiln Relationship Specialty Start Date End Date Laury Washington MD [address] [place] [address] PCP - General Family Medicine 04/07/19 Navneet Bender, EvelinD [address] [place] [address] Pharmacist Pharmacy 01/05/25 documented as of this encounter
--- OUTSIDE RECORDS SUMMARY | 2025-01-24 11:52 | XMS_ITS | Encounter Summary ---
Author Organization [employer] Address [address] [facility] [address] [place] [address] Care Team Providers Care Grinding Room Supervisor Name Role Phone Laury Washington MD Primary Care Provide r Navneet Bender PharmD Unavailable [phone] Reason for Visit * Reason Comments Med Refill Encounter Details Date Type Department Care Team ([facility] st Contact Info) Description 09/05/2024 Refill [facility] [address] [place] [address] Yunier Rodriguez MD [address] [place] [address] Prurigo nodularis Social History Tobacco Use Types [...] Info) Description 02/15/2025 9:15 AM EDT Telemedicine [facility] [address] [place] [address] Laury Washington MD [address] [place] [address] 02/22/2025 2:30 PM EDT Medication Management [facility] [address] [place] [address] Navneet Bender, PharmD [address] [place] [address] 05/01/2025 3:30 PM EST Office Visit [facility] [address] [place] [address] Reggie, Tereza, OD [address] [place] [address] documented as of this encounter Visit Diagnoses Diagnosis Prurigo nodularis Lichenification and lichen simplex chronicus documented in this encounter Additional Health Concerns Assessment Noted Time PHQ-9 Depression Total Score: 0 07/24/19 2:08 PM EST documented as of this encounter Care Teams Grinding Room Supervisor Relationship Specialty Start Date End Date Laury Washington MD [address] [place] [address] PCP - General Family Medicine 04/07/19 Navneet Bender, PharmD [address] [place] [address] Pharmacist Pharmacy 01/05/25 documented as of this encounter
--- OUTSIDE RECORDS SUMMARY | 2025-01-24 11:52 | XMS_ITS | Encounter Summary ---
Author Organization [employer] Address [address] [facility] 7t [place] [address] Care Team Providers Care Steffen House Supervisor Name Role Phone Laury [place] MD Primary Care Provide r Navneet Bender PharmD Unavailable [phone] Reason for Visit * Reason Comments Med Change Request Encounter Details Date Type Department Care Team ([facility] Contact Info) Description 05/01/2022 Refill [facility] [address] [place] [address] Phoebe Yost, LING [address] [place] [address] Type 2 diabetes mellitus with hyperglycemia, without long-term current use of insulin ([facility]) Social History Tobacco Use Types Packs/Day Years [...] Upcoming Encounters Date Type Department Care Team ([facility] Contact Info) Description 02/15/2025 9:15 AM EDT Telemedicine [facility] [address] [place] [address] Laury [place] MD [address] [place] [address] 02/22/2025 2:30 PM EDT Medication Management [facility] [address] [place] [address] Navneet Bender, PharmD [address] [place] [address] 05/01/2025 3:30 PM EST Office Visit [facility] [address] [place], [place] [phone] Tereza Paredes, OD 230 [place] [address] documented as of this encounter Visit Diagnoses Diagnosis Type 2 diabetes mellitus with hyperglycemia, without long-term current use of insulin ([facility]) documented in this encounter Care Teams Steffen House Supervisor Relationship Specialty Start Date End Date Laury [place] MD [address] [place] [address] PCP - General Family Medicine 04/07/19 Navneet Bender, PharmNeda [address] [place] [address] Pharmacist Pharmacy 01/05/25 documented as of this encounter
--- OUTSIDE RECORDS SUMMARY | 2025-01-24 11:52 | XMS_ITS | Encounter Summary ---
Author Organization [employer] Address [address] [facility] 7t [place] [address] Care Team Providers Care Chisel Mortiser Operator Name Role Phone Laury [place] MD Primary Care Provide r Navneet Bender PharmD Unavailable [phone] Reason for Visit * Reason Comments Med Refill Encounter Details Date Type Department Care Team ([facility] st Contact Info) Description 08/18/2024 Refill [facility] [address] [place] [address] Yunier Rodriguez MD 230 [place] [address] Prurigo nodularis Social History Tobacco Use Types [...] Info) Description 02/15/2025 9:15 AM EDT Telemedicine [facility] [address] [place] [address] Laury [place] MD [address] [place] [address] 02/22/2025 2:30 PM EDT Medication Management [facility] [address] [place] [address] Navneet Bender, PharmD 230 [place] [address] 05/01/2025 3:30 PM EST Office Visit [facility] [address] [place] [address] Reggie, Tereza, OD 230 [place] [address] documented as of this encounter Visit Diagnoses Diagnosis Prurigo nodularis Lichenification and lichen simplex chronicus documented in this encounter Additional Health Concerns Assessment Noted Time PHQ-9 Depression Total Score: 0 07/24/19 2:08 PM EST documented as of this encounter Care Teams Chisel Mortiser Operator Relationship Specialty Start Date End Date Laury [place] MD [address] [place] [address] PCP - General Family Medicine 04/07/19 Navneet Bender, PharmD [address] [place] [address] Pharmacist Pharmacy 01/05/25 documented as of this encounter
--- OUTSIDE RECORDS SUMMARY | 2025-01-24 11:52 | XMS_ITS | Encounter Summary ---
Author Organization [employer] Address [address] [place] [address] 7t [place] [address] Care Team Providers Care Skein Straightener Name Role Phone Laury [place] MD Primary Care Provide r Navneet Bender PharmD Unavailable [phone] Reason for Visit * Reason Comments Med Refill Encounter Details Date Type Department Care Team (Late Contact Info) Description 08/01/2022 Refill [facility] [address] [place] [address] Caryl Strickland MD [address] [place] [address] [phone] Other chronic pain Social History Tobacco Use [...] Info) Description 02/15/2025 9:15 AM EDT Telemedicine [facility] [address] [place] [address] [phone] Laury [place] MD [address] [place] [address] 02/22/2025 2:30 PM EDT Medication Management [facility] 230 [place] [address] Navneet Bender, PharmD 230 [place] [address] 05/01/2025 3:30 PM EST Office Visit [facility] [address] [place] [address] Reggie, Tereza, OD 230 [place] [address] documented as of this encounter Visit Diagnoses Diagnosis Other chronic pain documented in this encounter Care Teams Skein Straightener Relationship Specialty Start Date End Date Laury [place] MD [address] [place] [address] [phone] PCP - General Family Medicine 04/07/19 Navneet Bender, PharmD [address] [place] [address] [phone] Pharmacist Pharmacy 01/05/25 documented as of this encounter
--- OUTSIDE RECORDS SUMMARY | 2025-01-24 11:52 | XMS_ITS | Encounter Summary ---
Author Organization [employer] Address [address] [facility] 7t [place] [address] Care Team Providers Care Oracle Database Architect Name Role Phone Laury [place] MD Primary Care Provide r Navneet Bender PharmD Unavailable [phone] Reason for Visit * Reason Comments Med Refill Encounter Details Date Type Department Care Team ([facility] st Contact Info) Description 06/02/2023 Refill [facility] 230 [place] [address] Laury [place] MD 230 [place] [address] Social History Tobacco Use Types Packs/Day Years [...] Info) Description 02/15/2025 9:15 AM EDT Telemedicine [facility] 230 [place] [address] Laury [place] MD 230 [place] [address] 02/22/2025 2:30 PM EDT Medication Management [facility] 230 [place] [address] Navneet Benedr, PharmD 230 [place] [address] 05/01/2025 3:30 PM EST Office Visit [facility] 267 [place] [address] Reggie, Tereza, OD 230 [place] [address] documented as of this encounter Visit Diagnoses Not on filedocumented in this encounter Care Teams Oracle Database Architect Relationship Specialty Start Date End Date Laury [place] MD [address] [place] [address] PCP - General Family Medicine 04/07/19 Navneet Bender, PharmD [address] [place] [address] Pharmacist Pharmacy 01/05/25 documented as of this encounter
--- OUTSIDE RECORDS SUMMARY | 2025-01-24 11:52 | XMS_ITS | Encounter Summary ---
Author Organization [employer] Address [address] [place] [address] 7t [place] [address] Care Team Providers Care Radial Router Operator Name Role Phone Laury [place] MD Primary Care Provide r Navneet Bender PharmD Unavailable [phone] Reason for Visit * Reason Comments Med Refill Encounter Details Date Type Department Care Team ([facility] st Contact Info) Description 06/21/2022 Refill [facility] [address] [place] [address] Vicki Caban DDS 230 [place] [address] Pain Social History Tobacco Use Types Packs/Day [...] 02/15/2025 9:15 AM EDT Telemedicine [facility] [address] [place] [address] Laury [place] MD 230 [place] [address] 02/22/2025 2:30 PM EDT Medication Management [facility] [address] [place] [address] Navneet Bender, Marva 230 [place] [address] 05/01/2025 3:30 PM EST Office Visit [facility] [address] [place] [address] Tereza Paredes, OD 230 [place] [address] documented as of this encounter Visit Diagnoses Diagnosis Pain Generalized pain documented in this encounter Care Teams Radial Router Operator Relationship Specialty Start Date End Date Laury [place] MD [address] [place] [address] PCP - General Family Medicine 04/07/19 Navneet Bender, PharmD [address] [place] [address] Pharmacist Pharmacy 01/05/25 documented as of this encounter
--- OUTSIDE RECORDS SUMMARY | 2025-01-24 11:52 | XMS_ITS | Encounter Summary ---
Author Organization [employer] Address [address] [facility] 7t [place] [address] Care Team Providers Care Global Implementation Manager Name Role Phone Laury [place] MD Primary Care Provide r Navneet Bender PharmD Unavailable [phone] Reason for Visit * Reason Onset Date Comments Med Refill 03/23/2024 Prior Authorization 03/23/2024 Encounter Details Date Type Department Care Team (Late st Contact Info) Description 03/23/2024 Telephone [facility] 230 [place], [place] [phone] Laury [place] MD 230 [place], [place] [phone] Med Refill; Prior Authorization Social History Tobacco [...] MG/1.5ML solution pen-injector To be sent to: [facility]/pharmacy #[id number] documented in this encounter Plan of Treatment Upcoming Encounters Date Type Department Care Team (Late st Contact Info) Description 02/15/2025 9:15 AM EDT Telemedicine [facility] [address] [place] [address] Laury [place] MD [address] [place] [address] 02/22/2025 2:30 PM EDT Medication Management [facility] [address] [place] [address] Navneet Bender, PharmD 230 [place] [address] 05/01/2025 3:30 PM EST Office Visit [facility] OPTOM[facility] [address] [place] [address], [place] [phone] Reggie, Tereza, OD 230 [place] [address] documented as of this encounter Visit Diagnoses Not on filedocumented in this encounter Additional Health Concerns Assessment Noted Time PHQ-9 Depression Total Score: 0 07/24/19 24 2:08 PM EST documented as of this encounter Care Teams Global Implementation Manager Relationship Specialty Start Date End Date Laury [place] MD [address] [place], [place] [phone] PCP - General Family Medicine 04/07/19 Navneet Bender, PharmD [address] [place] [address] [phone] Pharmacist Pharmacy 01/05/25 documented as of this encounter
== END 2025-01-24 10:33 | disposition home or self-care (01) ==
LOC: HO.HGI 10:22
PROVIDERS: PCP Internal Medicine; Visit Provider Nurse Practitioner Family
DX: K21.9 Gastro-esophageal reflux disease without esophagitis (principal); R10.9 Unspecified abdominal pain; G89.29 Other chronic pain

== ENCOUNTER → 2025-01-24 10:21 | Outpatient (BNVA) | payer MEDICAID, SELFPAY | PROVIDERS: PCP Internal Medicine; Visit Provider Nurse Practitioner Family | DX: K21.9 Gastro-esophageal reflux disease without esophagitis (principal); R10.9 Unspecified abdominal pain; G89.29 Other chronic pain | CPT/HCPCS: 99211 ==

== ENCOUNTER 2025-02-27 14:28 | Outpatient (AMB) | payer MEDICAID, SELFPAY ==
--- NOTE | 2025-02-27 14:31 | A.OFFVIS_ITS ---
Vital Signs 02/27/25 14:33 Height 5 ft 7 in Weight 277 lb BMI 43.4 Intake Visit Reasons: Left Knee Synvisc One - surgery postponed Intake Note: Edgar is a 60 year old male who presents today for a Left Knee Synvisc One Injection. At this time his surgery is postponed for him to be able to manage his Diabetes. Allergies lactose (LACTOSE) Allergy (Intermediate, Verified 01/06/25 10:45) GI UPSET From VICODIN Adverse Reaction (Intermediate, Uncoded 01/06/25 10:45) HIVES, SOB, GI UPSET HPI HPI Left Knee Synvisc One - surgery postponed: Details: Edgar is a 60 year old male who presents today for a Left Knee Synvisc One Injection. At this time his surgery is postponed for him to be able to manage his Diabetes. [facility] Medical History (Updated 02/27/25 @ 14:54 by Jono Barker MD) GERD (gastroesophageal reflux disease) DJD (degenerative joint disease) Asthma Bipolar 1 disorder Anxiety Depression Sleep apnea treated with continuous positive airway pressure (CPAP) HTN (hypertension) Diabetes Surgical History S/P hernia surgery Hx of colonoscopy Status post right knee replacement S/P arthroscopic surgery of right knee Family History Father Prostate cancer Throat cancer Mother Arthritis Dementia Hypertension Hyperlipidemia Maternal Grandmother Colon cancer Social History Household Members Other:: single-foster 3 nephews Alcohol intake: current Alcohol intake frequency: holidays/special occasions only Patient Tobacco Use Status: Current someday Tobacco user Physical Exam Exam Exam: Skin c/d/i left knee Vital Signs: BMI result Body Mass Index 43.4 Office Procedures Joint Inj/Aspir; Non-Pain Clin Joint Injection/Drain Details: Injected Synvisc One. Site was prepped using aseptic technique. Patient tolerated the procedure well. Coding Procedure code (CPT) selection complete Assessment & Plan Assessment & Plan (1) Arthritis of left knee: Code(s): M17.12 - Unilateral primary osteoarthritis, left knee Category: Medical Plan: Left knee OA. Injected Synvisc One. F/u 3 months Coding Level of Care Code Est Pt Level 2 (96070) Diagnoses Arthritis of left knee M17.12
[2025-02-27 14:33] VITALS: BMI 43.4
--- OUTSIDE RECORDS SUMMARY | 2025-02-27 16:54 | XMS_ITS | Encounter Summary ---
Author Organization [employer] Address 75 [facility] 7t [place] [address] Care Team Providers Care Senior Accounts Payable Specialist Name Role Phone Laury Washington MD Primary Care Provide r Navneet Bender PharmD Unavailable Reason for Visit * Reason Comments Med Change Request Encounter Details Date Type Department Care Team ([facility] st Contact Info) Description 06/03/2023 Refill [facility] [address] [place] [address] Laury Washington MD [address] [place], [place] [phone] Social History Tobacco Use Types Packs/Day Years [...] Care Team (Late st Contact Info) Description 03/22/2025 2:00 PM EDT Medication Management [facility] [address] [place] [address] Navneet Bender, EvelinD [address] [place] [address] 05/01/2025 3:30 PM EST Office Visit [facility] OPTOM[facility] [address] [place] [address] Reggie, Tereza, OD [address] [place] [address] documented as of this encounter Visit Diagnoses Not on filedocumented in this encounter Care Teams Senior Accounts Payable Specialist Relationship Specialty Start Date End Date Laury Washington MD [address] [place] [address] PCP - General Family Medicine 04/07/19 Navneet Bender, PharmD [address] [place] [address] Pharmacist Pharmacy 01/05/25 documented as of this encounter
--- OUTSIDE RECORDS SUMMARY | 2025-02-27 16:54 | XMS_ITS | Encounter Summary ---
Author Organization [employer] Address [address] [place] [address] 7t [place] [address] Care Team Providers Care Twisting Frame Fixer Name Role Phone Laury Washington MD Primary Care Provide r Navneet Bender PharmD Unavailable [phone] Reason for Visit * Reason Comments Med Refill Encounter Details Date Type Department Care Team ([facility] st Contact Info) Description 06/21/2022 Refill [facility] [address] [place] [address] Vicki Caban DDS [address] [place] [address] Pain Social History Tobacco Use Types Packs/Day [...] Miscellaneous Notes * Telephone Encounter - Vicki aCban DDS - 06/23/2022 11:05 AM EST Approving, but needs appt for additional refills. documented in this encounter Plan of Treatment Upcoming Encounters Date Type Department Care Team (Late st Contact Info) Description 03/22/2025 2:00 PM EDT Medication Management [facility] [address] [place] [address] Navneet Bender, EvelinD [address] [place] [address] 05/01/2025 3:30 PM EST Office Visit [facility] OPTOMETRY [address] [place] [address] Reggie, Treeza, OD [address] [place] [address] documented as of this encounter Visit Diagnoses Diagnosis Pain Generalized pain documented in this encounter Care Teams Twisting Frame Fixer Relationship Specialty Start Date End Date Laury Washington MD [address] [place] [address] PCP - General Family Medicine 04/07/19 Navneet Bender, Marva [address] [place] [address] Pharmacist Pharmacy 01/05/25 documented as of this encounter
--- OUTSIDE RECORDS SUMMARY | 2025-02-27 16:54 | XMS_ITS | Encounter Summary ---
Author Organization [employer] Address 75 [facility] 7t [place] [address] Care Team Providers Care Naphthalene Operator Helper Name Role Phone Laury Washington MD Primary Care Provide r Navneet Bender PharmD Unavailable [phone] Reason for Visit * Reason Onset Date Comments Medication Question 10/31/2024 Encounter Details Date Type Department Care Team ([facility] st Contact Info) Description 10/31/2024 Telephone [facility] [address] [place] [address] Laury Washington MD [address] [place], [place] [phone] Medication Question Social History Tobacco Use Types [...] Description 03/22/2025 2:00 PM EDT Medication Management [facility] [address] [place] [address] Navneet Bender, PharmD [address] [place] [address] 05/01/2025 3:30 PM EST Office Visit [facility] OPTOMET[facility] [address] [place] [address] Tereza Paredes, OD [address] [place] [address] documented as of this encounter Visit Diagnoses Not on filedocumented in this encounter Additional Health Concerns Assessment Noted Time PHQ-9 Depression Total Score: 0 07/24/19 24 2:08 PM EST documented as of this encounter Care Teams Naphthalene Operator Helper Relationship Specialty Start Date End Date Laury Washington MD [address] [place] [address] PCP - General Family Medicine 04/07/19 Navneet Bender, EvelinD [address] [place] [address] Pharmacist Pharmacy 01/05/25 documented as of this encounter
--- OUTSIDE RECORDS SUMMARY | 2025-02-27 16:54 | XMS_ITS | Encounter Summary ---
Author Organization [employer] Address 75 [facility] 7t [place] [address] Care Team Providers Care River Rafting Guide Name Role Phone Laury Washington MD Primary Care Provide r Navneet Bender PharmD Unavailable [phone] Encounter Details Date Type Department Care Team (Latest Contact Info) Description 02/22/2025 Travel Social History Tobacco Use Types Packs/Day Years [...] is your housing situation today? I have lucasclau martinez 02/15/[address] you li ve. Do you have problems with any of the following? None of the above 02/15/2025 Food Insecurity Answer Date Recorded Within the past 12 months, y ou worried that your food would run out before you got money to buy more: Never True 02/15/2025 Within the past 12 months,th e food you bought just didn't last and you didn't have enough money to get more: Never True Transportation Answer Date Recorded In the past 12 months, has l ack of transportation kept you from medical appts, meetings, work or from getting things needed for daily living? No 02/15/2025 Utilities Answer Date Recorded In the past 12 months, has t he electric, gas, oil or water [employer] threatened to shut off services in your home? No 02/15/2025 Depression Answer Date Recorded Patient Health Questionnaire-2 Score 0 07/24/2023 Internet Access Answer Date Recorded Internet Access Q1 Yes 02/15/2025 Internet Access Q2 Not on file 02/15/2025 Sex and Gender Information Value Date Recorded Sex Assigned at Male 03/24/2022 10:20 AM EDT Legal Sex Male 10:20 AM EDT Gender Identity Male 03/24/2022 10:20 AM EDT Sexual Orientation Straight 03/24/2022 10 :20 AM EDT documented as of this encounter Plan of Treatment Upcoming Encounters Date Type Department Care Team (Late st Contact Info) Description 03/22/2025 2:00 PM EDT Medication Management [facility] [address] [place] [address] Navneet Bender, PharmD [address] [place] [address] 05/01/2025 3:30 PM EST Office Visit [facility] OPTOMETRY [address] [place] [address] Reggie, Tereza, OD [address] [place] [address] documented as of this encounter Visit Diagnoses Not on filedocumented in this encounter Additional Health Concerns Assessment Noted Time PHQ-9 Depression Total Score: 0 07/24/19 2:08 PM EST documented as of this encounter Care Teams River Rafting Guide Relationship Specialty Start Date End Date Laury Washington MD [address] [place] [address] [phone] PCP - General Family Medicine 04/07/19 Navneet Bender, PharmD [address] [place] [address] [phone] Pharmacist Pharmacy 01/05/25 documented as of this encounter
--- OUTSIDE RECORDS SUMMARY | 2025-02-27 16:54 | XMS_ITS | Encounter Summary ---
Author Organization [employer] Address [address] [place] [address] 7 [place] [address] Care Team Providers Care Forder Operator Name Role Phone Laury Washington MD Primary Care Provide r Navneet Bender PharmD Unavailable [phone] Encounter Details Date Type Department Care Team (Latest Contact Info) Description 12/25/[address] [facility] CONVERSIONS Dental, Provider, DDS Social History Tobacco [...] Description 03/22/2025 2:00 PM EDT Medication Management [facility] MEDICINE [address] [place] [address] Navneet Bender, PharmD [address] [place] [address] 05/01/2025 3:30 PM EST Office Visit [facility] OPTOMETRY [address] [place] [address] Tereza Paredes, OD [address] [place] [address] documented as of this encounter Visit Diagnoses Not on filedocumented in this encounter Care Teams Forder Operator Relationship Specialty Start Date End Date Laury Washington MD [address] [place], [place] [phone] PCP - General Family Medicine 04/07/19 Navneet Bender, EvelinD [address] [place] [address] Pharmacist Pharmacy 01/05/25 documented as of this encounter
--- OUTSIDE RECORDS SUMMARY | 2025-02-27 16:54 | XMS_ITS | Clinical Summary ---
Author Organization [employer] Address [address] [facility] [facility] [address] [place] [address] Care Team Providers Care Insulation Blanket Maker Name Role Phone Laury Washington MD Primary Care Provide r Navneet Bender PharmD Unavailable [phone] Allergies Active Allergy Reactions Criticality Noted Date Comments Acetaminophen 01/05/2019 Hydrocodone 01/05/2019 Medications buPROPion XL (Wellbutrin XL) 150 MG 24 hr tablet Take 150 mg by mouth in the morning. 04/24/20 23 Active LORazepam (Ativan) 0.5 MG tablet Take 0.5 mg by mouth if needed in the morning and at bedtime. 04/23/20 23 Active sertraline (Zoloft) 100 MG tablet Take 100 mg by mouth Once per day. 05/19/20 23 Active albuterol (2.5 MG/3ML) 0.083% nebulizer solution USE 1 VIAL VIA NEBULIZER 3 TIMES A DAY 75 mL 07/15/19 24 Active hydroCHLOROthia zide 12.5 MG tabletIndicatio ns:Primary hypertension TAKE 1 TABLET BY MOUTH EVERY DAY IN THE MORNING (12.5 MG) 90 tablet 3 07/21/19 25 Active lisinopril 40 MG tabletIndicatio ns:Primary hypertension TAKE 1 TABLET BY MOUTH EVERY DAY IN THE MORNING 90 tablet 3 08/11/19 25 Active Continuous Glucose Geological Manager (FreeStyle Chato 3 [place]) deviceIndicatio ns:Type 2 diabetes mellitus with hyperglycemia, without long-term current use of insulin (HCC) 1 each Once per day. Use as directed for CGM 1 each 10/25/19 25 Active Continuous Glucose Sensor (FreeStyle Chato 3 Plus Sensor) miscIndications :Type 2 diabetes mellitus with hyperglycemia, without long-term current use of insulin ([facility]) 1 each every 15 days. Apply 1 every 15 days as directed for CGM 2 each 10/25/19 25 Active glucose blood (FreeStyle Precision Jeffry Test) test stripIndication s:Type 2 diabetes mellitus with hyperglycemia, without long-term current use of insulin ([facility]) Use to test blood sugar 3 times daily in case of CGM failure or extremes of BG 100 each 10/25/19 25 2025 Active insulin pen needle (BD Pen Needle Mini Ultrafine) 31G x 5 mm miscIndications :Type 2 diabetes mellitus with hyperglycemia, without long-term current use of insulin ([facility]) Use once a day 100 each 3 10/26/19 25 Active pioglitazone (Actos) 30 MG tabletIndicatio ns:Type 2 diabetes mellitus with other specified complication, unspecified whether setter induction heating equipment insulin use ([facility]) TAKE 1 TABLET BY MOUTH EVERY DAY 90 tablet 1 11/08/19 25 Active Diclofenac Sodium 1 % gelIndications: Chronic pain of left knee APPLY 1 APPLICATION TOPICALLY AT NOON AND 1 APPLICATION IN THE EVENING. 100 g 11/24/19 25 Active sennosides (Senna-Time) 8.6 MG tabletIndicatio ns:Constipation , unspecified constipation type TAKE 1 TABLET (8.6 MG) BY MOUTH IF NEEDED AT BEDTIME FOR CONSTIPATION. 90 tablet 1 12/13/19 25 Active clobetasol (Temovate) 0.05 % ointmentIndicat ions:Prurigo nodularis APPLY TO AFFECTED AREA TWICE A DAY 30 g 12/13/19 25 Active chlorhexidine (Peridex) 0.12 % solution PLEASE SEE ATTACHED FOR DETAILED DIRECTIONS 12/22/19 25 Active empagliflozin (Jardiance) 10 MGIndications:T ype 2 diabetes mellitus with hyperglycemia, without long-term current use of insulin ([facility]) Take 1 tablet (10 mg) by mouth Once per day. 30 tablet 11 01/06/20 25 Active rosuvastatin (Crestor) 20 MG tabletIndicatio ns:Type 2 diabetes mellitus with hyperglycemia, without long-term current use of insulin ([facility]) Take 1 tablet (20 mg) by mouth Once per day. 30 tablet 5 01/06/20 25 Active meloxicam (Mobic) 15 MG tabletIndicatio ns:Chronic pain of left knee TAKE 1 TABLET BY MOUTH EVERY DAY 30 tablet 01/10/20 25 Active lidocaine (Lidoderm) 5 % patchIndication s:Chronic pain of left knee APPLY 1 PATCH TOPICALLY ONCE PER DAY. REMOVE & DISCARD PATCH WITHIN 12 HOURS OR DIRECTED BY MD. 30 patch 01/10/20 25 Active cholecalciferol VITAMIN D (Vitamin D-3) 50 MCG (2000 UT) capsule Take 1 capsule by mouth Once per day. 01/11/20 25 Active esomeprazole (NexIUM) [address] capsule Take 1 capsule by mouth Once per day. 01/07/20 25 Active famotidine (Pepcid) 20 MG tablet Take 1 tablet by mouth 2 times daily. 01/17/20 25 Active Linzess 145 MCG capsule Take 1 capsule by mouth Once per day. 01/07/20 25 Active FREESTYLE LITE test stripIndication s:Type 2 diabetes mellitus with hyperglycemia, without long-term current use of insulin ([facility]) Use to test blood sugar 2 times daily 100 each 12 02/16/20 25 2025 Active Tirzepatide (Mounjaro) 7.5 MG/0.5ML solution auto-injectorIn dications:Type 2 diabetes mellitus with hyperglycemia, without long-term current use of insulin ([facility]) Inject 7.5 mg under the skin 1 (one) time per week. 2 mL 5 02/24/20 25 Active insulin glargine (Lantus SoloStar) 100 UNIT/ML penIndications: Type 2 diabetes mellitus with hyperglycemia, without long-term current use of insulin ([facility]) Inject 14 Units under the skin at bedtime. 15 mL 5 02/24/20 25 Active naloxone (Narcan) 4 mg/0.1 mL nasal sprayIndication s:Chronic knee pain after total replacement of right knee joint Administer 1 spray (4 mg) into affected nostril(s) if needed for opioid reversal. 2 each 2 08/05/19 24 2024 Discontinued glipiZIDE (Glucotrol) 10 MG tablet TAKE 1 TABLET BY MOUTH TWICE A DAY BEFORE MEALS 180 tablet 1 09/27/19 25 2024 Discontinued(A lternate therapy) insulin glargine (Lantus SoloStar) 100 UNIT/ML penIndications: Type 2 diabetes mellitus with hyperglycemia, without long-term current use of insulin ([facility]) Inject 18 Units under the skin at bedtime. 3 mL 12 10/25/19 25 2024 Discontinued(R eorder (will not trigger notification to Pharmacy)) Tirzepatide (Mounjaro) 2.5 MG/0.5ML solution auto-injectorIn dications:Type 2 diabetes mellitus with hyperglycemia, without long-term current use of insulin ([facility]) Inject 2.5 mg under the skin 1 (one) time per week. For 4 weeks 2 mL 01/06/20 25 2024 Discontinued(D ose adjustment) omeprazole (PriLOSEC) [address] capsule TAKE 1 CAPSULE BY MOUTH BEFORE BREAKFAST. DO NOT CRUSH OR CHEW. 90 capsule 01/07/20 25 2024 Discontinued(D iscontinued by another clinician) Tirzepatide (Mounjaro) 5 MG/0.5ML solution auto-injectorIn dications:Type 2 diabetes mellitus with hyperglycemia, without long-term current use of insulin ([facility]) Inject 5 mg under the skin 1 (one) time per week. 2 mL 5 02/02/20 25 2024 Discontinued Active Problems Problem Noted Date Diagnosed Date Left foot pain 02/15/2025 H. pylori infection 02/15/2025 Assessment & Plan (02/15/2025 10:00 AM EDT): Continue treatment as per GI specialist do not miss appointment with them Bipolar affective ([facility]) 06/02/2023 Assessment & Plan (10/24/2024 3:46 PM EDT): Patient reports he is stable and he has been follow-up by therapist and psychiatrist Right shoulder pain 06/02/2023 Assessment & Plan (06/02/2023 5:38 PM EST): Pt [place] fell [place] ,his left knee locked and fell put [...] 2 diabetes mellitus 04/29/2022 Assessment & Plan (02/15/2025 9:59 AM EDT): Diabetes is: not controlled but improved - Lab Results Component Value Date HGBA1C 7.6 (H) 01/06/2025 HGBA1C 12.7 (A) 10/24/2024 HGBA1C 11.5 (A) 07/24/2023 - Lab Results Component Value Date MICROALBUR <5.0 10/24/2024 CREATININE 0.95 12/23/2024 -Changes: Continue to follow-up with pharmacy CDTM - Diabetic eye exam: Up to date - Diabetic foot exam: Referral in today - Continue lifestyle modifications - Continue current medications - Follow up: 3 months Assessment & Plan (10/24/2024 3:46 PM EDT): [...] Encounters Date Type Department Care Team Description 02/22/2025 Travel 02/21/2025 Travel 02/15/2025 9:15 AM EDT Telemedicine [facility] [address] [place] [address] [phone] Laury Washington MD Left foot pain; Type 2 diabetes mellitus with hyperglycemia, without long-term current use of insulin ([facility]); H. pylori infection 02/15/2025 Travel 02/14/2025 Telephone [facility] [address] [place] [address] Laury Washington MD chart prep 02/08/2025 Travel 02/02/2025 Refill [facility] [address] [place] [address] Laury Washington MD Type 2 diabetes mellitus with hyperglycemia, without long-term current use of insulin ([facility]) 02/01/2025 9:30 AM EDT Telemedicine [facility] [address] [place] [address] Navneet Bender, EvelinD Type 2 diabetes mellitus with hyperglycemia, without long-term current use of insulin ([facility]) (Primary Dx) 01/09/2025 Refill [facility] [address] [place] [address] Laury Washington MD Chronic pain of left knee 01/06/2025 Orders Only GENERIC EXTERNAL DATA DEPARTMENT Provider, Generic External Data 01/06/2025 Refill [facility] [address] [place] [address] Laury Washington MD 01/04/2025 Travel 01/04/2025 Refill [facility] [address] [place] [address] Laury Washington MD 01/03/2025 Travel 01/02/2025 Telephone [facility] [address] [place] [address] Laury Washington MD Medication Question 01/02/2025 Refill [facility] [address] [place] [address] Laury Washington MD 12/29/2024 Telephone [facility] [address] [place] [address] Laury Washington MD No Show 12/28/2024 Telephone [facility] [address] [place] [address] Laury Washington MD chart prep 12/26/2024 Results Follow-Up [facility] [address] [place] [address] Brandy Steiner NP Amylase, Lipase, Hepatic Function Panel, CBC auto differential 12/23/2024 Orders Only GENERIC EXTERNAL DATA DEPARTMENT Provider, Generic External Data 12/14/2024 5:20 PM EDT Office Visit [facility] [address] [place] [phone] Brandy Steiner NP Right upper quadrant pain (Primary Dx); Elevated blood pressure reading in office with diagnosis of hypertension 12/14/2024 Travel 12/14/2024 Telephone [facility] [address] [place] [phone] Laury Washington MD Nurse Triage 12/11/2024 Refill [facility] [address] [place] [phone] Alejandrina Moss FNP Constipation, unspecified constipation type; Prurigo nodularis 12/11/2024 Refill [facility] [address] [place] [phone] Laury Washington MD Type 2 diabetes mellitus with hyperglycemia, without long-term current use of insulin ([facility]) 12/11/2024 Refill [facility] [address] [place] [phone] Laury Washington MD Type 2 diabetes mellitus with hyperglycemia, without long-term current use of insulin ([facility]) 12/10/2024 Refill [facility] [address] [place] [phone] Laury Washington MD Prurigo nodularis 12/04/2024 Refill [facility] [address] [place] [phone] Alejandrina Moss FNP Chronic pain of left knee from Last [...] housing situation today? I have lucas martinez 02/15/[address] you [...] Sign Reading Time Taken Comments Blood Pressure 118/68 02/22/2025 2:49 PM EDT Pulse 88 02/22/2025 2:49 PM EDT Temperature 36.8 C (98.3 F) 12/14/2024 5:07 PM EDT Respiratory Rate 18 12/14/2024 5:07 PM EDT Oxygen Saturation 98% 12/14/2024 5:07 PM EDT Inhaled Oxygen Concentration - - Weight 124 kg (273 lb 6.4 oz) 02/22/2025 2:50 PM EDT Height 170.2 cm (5' 7 ) 10/24/2024 2:51 PM EDT Body Mass Index 42.82 10/24/2024 2:51 PM EDT Plan of Treatment Upcoming Encounters Date Type Department Care Team (Late st Contact Info) Description 03/22/2025 2:00 PM EDT Medication Management [facility] [address] [place] [address] Navneet Bender, PharmD [address] [place] [address] 05/01/2025 3:30 PM EST Office Visit [facility] [address] [place] [address] Reggie, Tereza, OD [address] [place] [address] Health Maintenance Due Date Last Done Comments CT Colonography 1965 FIT DNA/Cologuard 1965 FIT 1965 FOBT 1965 Sigmoidoscopy 1965 Diabetes: Foot Exam 01/22/1976 Depression Screening 07/23/2024 07/24/2023, 07/24/19 24 Influenza Vaccine (#1) 2025 4, 02/24/2023, 04/29/2022, Additional history exists Pneumococcal Vaccine: 50+ Years (3 of 3 - PCV20 or PCV21) 04/06/2025 04/06/2020, 10/06/2013 Diabetes: Hemoglobin A1C 04/08/2025 025, 10/24/2024, 07/24/2023, Additional history exists Tobacco Screening 07/01/2025 07/01/2024 Diabetes: Urine Protein Screening 10/24/2025 10/24/2024, 01/09/2022 Lipid Panel 10/24/2025 10/24/2024, 07/23, 01/09/2022, Additional history exists Eye Exam 11/19/2025 11/20/2023, 10/24, 11/20/2023, Additional history exists Disability Screening 02/08/2026 02/08/2025 Alcohol/Substance Use Screening 02/15/2026 02/15/2025 SDOH Screening 02/15/2026 02/15/2025 Colonoscopy 02/09/2029 02/09/2019 Colorectal Cancer Screening 02/09/2029 [...] EDT) Vitamin D, 25-OH, D2 10 ng/mL [facility] Comment:This test was develo ped and its analytical performancecharacteristics have been determined by [employer] [place], [place]. It hasnot been cleared or approved by the U.S. Food and DrugAdministration. This assay has been validated pursuantto the CLIA regulations and is used for clinicalpurposes.THIS TEST WAS PERFORMED AT:[employer] [place] [id number] PHILLIPS MD,PHD Vitamin D, 25-OH, D3 11 ng/mL [facility] Comment:This test was benito calderon and its analytical performancecharacteristics have been determined by [employer] [place], [place]. It hasnot been cleared or approved by the U.S. Food and DrugAdministration. This assay has been validated pursuantto the CLIA regulations and is used for clinicalpurposes. Vitamin D, 25-OH, Total 21(A) 30 - 100 ng/mL [facility] Comment:Vitamin D, 25-Hydrox y reports concentrations [...] = 30 ng/mL.For additional information, please refer tohttp://education.Open CS/faq/[email or web address](This link is being provided for informational/educational purposes only.) 01/06/2025 12:0 7 PM EDT 01/06/2025 12:07 PM EDT us Generic External Data Provider LAB BLOOD ORDERAB LES Final Result [facility] [address] [place] [phone] * Vitamin B12 (Cobalamin) and Folate Panel, Serum (01/06/2025 12:07 PM EDT) Vitamin B12 417 200 - 900 pg/mL [facility] Comment:NORMAL 200-900 PG/ML INDETERMINATE 160-199 PG/ML DEFICIENT < 160 PG/ML Folate 10.2 > or = 4.0 ng/mL [facility] Comment:Reference Values:> o r = 4.0 ng/mL< 4.0 ng/mL suggests folate deficiency Methotrexate, aminopterin and folinic acid(leucovorin) are chemotherapeutic agents whose molecularstructures are similar to folate; therefore, the Architectfolate assay cannot be used for patients using these drugs. 01/06/2025 12:0 7 PM EDT 01/06/2025 12:07 PM EDT Generic External Data Provider LAB BLOOD ORDERAB LES Final Result Performing Organization Address [facility] Phone Number [facility] [address] [place] [phone] * Tissue Transglutaminase (tTG) Antibody (IgG) (01/06/2025 12:07 PM EDT) Tissue Transglutaminase Antibody IgG <1.0 U/mL [facility] Comment:Value Interpretation ----- <15.0 Antibody not detected> or = 15.0 Antibody detectedTHIS TEST WAS PERFORMED AT:[employer] [place] [phone] DOE MD 01/06/2025 12:0 7 PM EDT 01/06/2025 12:07 PM EDT Generic External Data Provider LAB BLOOD ORDERAB LES Final Result Performing Organization Address [facility] Phone Number [facility] [address] [place] [phone] * Tissue Transglutaminase Antibody, IgA (01/06/2025 12:07 PM EDT) Transglutaminase IgA <1.0 U/mL [facility] Comment:Value Interpretatio n----- <15.0 Antibody not detected> or = 15.0 Antibody detectedTHIS TEST WAS PERFORMED AT:[employer] [address] [phone] DOE MD 01/06/2025 12:0 7 PM EDT 01/06/2025 12:07 PM EDT Generic External Data Provider LAB BLOOD ORDERAB LES Final Result Performing Organization Address [facility]/ZIP Co de Phone Number [facility] [address] [place] [phone] * Lipase (01/06/2025 12:07 PM EDT) Only the most recent of3 resultswithin the time period is included. Lipase 31 8 - 78 U/L [facility] 01/06/2025 12:0 7 PM EDT 01/06/2025 12:07 PM EDT Generic External Data Provider LAB BLOOD ORDERAB LES Final Result Performing Organization Address [facility] de Phone Number [facility] [address] [place] [phone] * (ABNORMAL) Hemoglobin A1c (01/06/2025 12:07 PM EDT) Hemoglobin A1c 7.6(H) <6.0 % [facility] Comment:Hemoglobin A1C Refer ence Range Adults: 4.8 - 6.0 % Non diabetic: < 6.0 % Goal: < 7.0 %Additional Action Suggested: > 8.0 %Note: Hemoglobin A1c results are invalid for patients with abnormal amounts of HbF. Blood transfusions may impact the HbA1c concentration in the patient sample. Estimated Average Glucose 171 mg/dL [facility] Comment:eAG = Estimated ave rage glucose which is %A1C expressed asaverage glucose, using the formula of the R4C-BrhcsgiFvgwoeb Glucose study (ADAG), Diabetes Care, Vol.31,#8,Dec. 2007 01/06/2025 12:0 7 PM EDT 01/06/2025 12:07 PM EDT us Generic External Data Provider LAB BLOOD ORDERAB LES Final Result [facility] [address] [place] [phone] * US Abdomen Limited (12/23/2024 8:02 PM EDT) Anatomical Region Laterality Modality Abdomen Ultrasound 12/23/2024 8:02 PM EDT Narrative 12/23/2024 8:04 PM EDT [place] [address] Ultrasound Report Signed Patient: Edgar Weston MR#: [id number] : 1965 Acct:[id number] Age/Sex: 59 / M ADM Date: 12/23/24 Loc: HO.ED Attending Dr: Ordering Physician: Gildardo Perkins Date of Service: 12/23/24 Procedure(s): US abdomen limited Accession Number(s): [id number] cc: Laury Washington MD; Gildardo Perkins CLINICAL HISTORY: RUQ pain US abdomen limited. COMPARISON: None provided. Technique: Real time sonographic imaging, including color-flow imaging, was performed by the temple meat cutter. Multiple entry level marketing representative static images were saved for review. [...] in OV> 12/23/242002 DD/ 01 TD/TT: 12/23/242001 Mail Sorting Supervisor: Procedure Note Donotuseinterpreter, Image - 12/23/[address] [address] Ultrasound Report Signed Patient: Edgar Weston RMR#: [id number] : 1965Acct:[id number] Age/Sex: 59 / MADM Date: 12/23/24 Loc: HO.ED Attending Dr: Ordering Physician: Gildardo Perkins Date of Service: 12/23/24 Procedure(s): US abdomen limited Accession Number(s): [id number] cc: Laury Washington MD; Gildardo Perkins CLINICAL HISTORY: RUQ pain US abdomen limited. COMPARISON: None provided. Technique: Real time sonographic imaging, including color-flow imaging, was performed by the temple meat cutter. Multiple entry level marketing representative static images were saved for review. [...] in OV> 12/23/242002 DD/ 01 TD/TT: 12/23/242001 Mail Sorting Supervisor: [facility] External Provider IMG US PROCEDURES Final Result * High Sensitivity Troponin I (12/23/2024 5:55 PM EDT) TROPONIN I HIGH SENSITIVITY <2.7 <3.5 - 35.0 ng/L [facility] Comment:The Quintana high sens itivity Troponin-I results should beused in conjunction with other diagnostic information suchas ECG, clinical observations and information, and patientsymptoms to aid in the diagnosis of [place]. 12/23/2024 5:55 PM EDT 12/23/2024 5:58 PM EDT Generic External Data Provider LAB BLOOD ORDERAB LES Final Result [facility] [address] [place] [phone] * CBC auto differential (12/23/2024 5:55 PM EDT) Only the most recent of2 resultswithin the time period is included. White Blood Count 6.5 4.8 - 10.8 X10*3/uL [facility] Red Blood Count 5.17 4.60 - 5.80 X10*6/uL [facility] Hemoglobin 15.0 14.0 - 18.0 g/dl [facility] Hematocrit 44.4 42.0 - 52.0 % [facility] Mean Corpuscular Volume 85.9 80.0 - 98.0 fL [facility] Mean Corpuscular Hemoglobin 29.0 27.0 - 33.0 pg [facility] Mean Corpuscular HGB Conc 33.8 31.0 - 36.0 g/dl [facility] Red Cell Distribution Width 13.9 11.0 - 16.0 % [facility] Platelet Count 203 160 - 400 X10*3/uL [facility] Mean Platelet Volume 10.2 9.4 - 12.4 fL [facility] Neutrophils Percent Auto 58.0 45 - 73 % [facility] Imm Gran Pct Auto 0.2 0.0 - 0.4 % [facility] Lymphocytes Percent Auto 31.6 20 - 40 % [facility] Monocytes Percent Auto 7.2 2 - 11 % [facility] Eosinophils Percent Auto 2.5 0 - 4 % [facility] Basophils Percent Auto 0.5 0 - 2 % [facility] NRBC Pct Auto 0.0 0.0 - 0.2 /100WBC [facility] Neutrophils Absolute Auto 3.8 2.0 - 8.3 x10*3/uL [facility] Imm Gran Abs Auto 0.01 0.00 - 0.03 X10*3/uL [facility] Lymphocytes Absolute Auto 2.1 1.2 - 4.9 X10*3/uL [facility] Monocytes Absolute Auto 0.5 0.1 - 1.2 X10*3/uL [facility] Eosinophils Absolute Auto 0.2 0.0 - 0.4 X10*3/uL [facility] Basophils Absolute Auto 0.0 0.0 - 0.2 X10*3/uL [facility] NRBC Abs Auto 0.000 0.0 - 0.012 X10*3/uL [facility] 12/23/2024 5:55 PM EDT 12/23/2024 5:58 PM EDT Generic External Data Provider LAB BLOOD ORDERAB LES Final Result Performing Organization Address [facility]/ZIP Co de Phone Number [facility] [address] [place] [phone] * Magnesium (12/23/2024 5:55 PM EDT) Magnesium 2.0 1.6 - 2.6 mg/dL [facility] 12/23/2024 5:55 PM EDT 12/23/2024 5:58 PM EDT Generic External Data Provider LAB BLOOD ORDERAB LES Final Result Performing Organization Address [facility] Co de Phone Number [facility] [address] [place] [phone] * Hepatic Function Panel (12/23/2024 5:55 PM EDT) Only the most recent of2 resultswithin the time period is included. Bilirubin, Total 0.6 0.0 - 1.0 mg/dL [facility] Bilirubin, Direct 0.2 0.0 - 0.5 mg/dL [facility] Aspartate Amino Transferase 28 5 - 37 U/L [facility] Alanine Aminotransferase 28 0 - 40 U/L [facility] Total Protein 7.7 6.5 - 8.0 g/dL [facility] Albumin Level 4.6 3.5 - 5.0 g/dL [facility] Alkaline Phosphatase 98 39 - 117 U/L [facility] 12/23/2024 5:55 PM EDT 12/23/2024 5:58 PM EDT us Generic External Data Provider LAB BLOOD ORDERAB LES Final Result Performing Organization Address City/[facility]/ZIP Co de Phone Number [facility] [address] [place] [phone] * Basic Metabolic Panel (12/23/2024 5:55 PM EDT) Sodium 138 135 - 145 mmol/L [facility] Potassium 3.8 3.3 - 5.1 mmol/L [facility] Chloride 104 96 - 108 mmol/L [facility] Carbon Dioxide 26 22 - 29 mmol/L [facility] Anion Gap 12 12 - 20 [facility] Urea Nitrogen (BUN) 13 9 - 16 mg/dL [facility] Creatinine, Serum 0.95 0.5 - 1.4 mg/dL [facility] [facility] Creatinine Clr Calc Pharmacy 109.5 [facility] Comment:eGFR (calculated fro m the MDRD study equation) and eCrCl(calculated from the Cockcroft-Gault equation) are based ondifferent parameters and may not yield comparable results.If eCrCl result is absurd, please check patient'sheight/weight. Estimated Glomerular Filt Rate >60 [facility] Comment:Chronic Kidney Disea se: Estimated GFR < 60 mL/min/1.48m3Lbvrcb Kidney Disease: Estimated GFR < 15 mL/min/1.73m2 Glucose 97 60 - 115 mg/dL [facility] Calcium 9.4 8.4 - 10.2 mg/dL [facility] 12/23/2024 5:55 PM EDT 12/23/2024 5:58 PM EDT us Generic External Data Provider LAB BLOOD ORDERAB LES Final Result Performing Organization Address City/[facility]/ZIP Co de Phone Number [facility] [address] [place] [phone] [phone] * Amylase (12/16/2024 10:31 AM EDT) Amylase 49 28 - 100 U/L [facility] Blood Venous blood specimen / Unknown 12/16/2024 10:31 AM EDT 12/16/2024 10:31 AM EDT Brandy Steiner NP LAB BLOOD ORDERABLES Final Resu lt Performing Organization Address [facility] Co de Phone Number [facility] [address] [place] [phone] * Albumin, Random Urine W/Creatinine (10/24/2024 3:51 PM EDT) Creatinine, Urine 77.90 mg/dL [facility] Microalbumin Urine <5.0 mg/L [facility] Microalbum Creatinine Ratio Ur TNP <30 ug/mg cr [facility] Comment:Unable to calculate albumin/creatinine ratio due to lowmicroalbumin or creatinine result. Urine (Urine, Random) 10/24/2024 3:51 PM EDT 10/24/2024 5:36 PM EDT us Laury Banks MD LAB URINE ORDERABLES Final Result Performing Organization Address [facility] de Phone Number [facility] [address] [place] [phone] * Hepatitis C Antibody with Reflex to HCV, RNA, Quantitative, Real-Time PCR (10/24/2024 3:51 PM EDT) Hepatitis C Antibody Nonreactive Nonreactive [facility] Comment:Antibodies to HCV no t detected; does not exclude early acuteHCV infection. Blood Venous blood specimen / Unknown 10/24/2024 3:51 PM EDT 10/24/2024 5:33 PM EDT us Laury Banks MD LAB BLOOD ORDERABLES Final Result Performing Organization Address [facility]/ZIP Co de Phone Number [facility] [address] [place] [phone] * HIV-1/2 Antigen and Antibodies, Fourth [...] below the limit ofdetection of this assay.The Minimally invasive devices HIV Ag/Ab Combo assay result andsupplemental assay results should be interpreted inconjunction with the patient's clinical presentation,history and other laboratory results. If the results areinconsistent with clinical evidence, additional testing issuggested to confirm the result. Blood Venous blood specimen / Unknown 10/24/2024 3:51 PM EDT 10/24/2024 5:33 PM EDT us Laury Banks MD LAB BLOOD ORDERABLES Final Result Performing Organization Address [facility]/ZIP Co de Phone Number [facility] [address] [place] [phone] * (ABNORMAL) Lipid Panel, Standard (10/24/2024 3:51 PM EDT) Triglycerides 142 <150 mg/dL [facility] Comment:Desirable Triglyceri de: less than 150 mg/dLBorderline High Triglyceride 150-199 mg/dLHigh Triglyceride: 200-499 mg/dLVery High Triglyceride: greater than or equal to 5OO mg/dL Cholesterol 205(H) <200 mg/dL [facility] Comment:Desirable Cholestero l: less than 200 mg/dLBorderline High Cholesterol: 200-239 mg/dLHigh Cholesterol: greater than 239 mg/dL LDL Cholesterol Calculated 136(H) <100 mg/dL [facility] Comment:Desirable LDL: less than 100 mg/dLNear Optimal/Above Optimal LDL: 110- 129 mg/dLBorderline High LDL: 130-159 mg/dLHigh LDL: 160-189 mg/dLVery High LDL: greater than or equal to 190 mg/dL HDL Cholesterol 41 >40 mg/dL [facility] Comment:Desirable HDL: great er than 40 mg/dL Note: This HDL assay may give artificially low results in patients with liver disease. Blood Venous blood specimen / Unknown 10/24/2024 3:51 PM EDT 10/24/2024 5:33 PM EDT us Laury Banks MD LAB BLOOD ORDERABLES Final Result Performing Organization Address City/State/[facility] Co de Phone Number [facility] [address] [place] [phone] * Hm Colonoscopy (02/09/2019) Historical Provider HEALTH MAINTENANCE Final Result from Last 3 Months or Most Recently Relevant to Health Maintenance Insurance [facility] C3 Care Teams Insulation Blanket Maker Relationship Specialty Start Date End Date Laury Washington MD [address] [place] [address] PCP - General Family Medicine 04/07/19 Navneet Bender, PharmD [address] [place] [address] Pharmacist Pharmacy 01/05/25
--- OUTSIDE RECORDS SUMMARY | 2025-02-27 16:54 | XMS_ITS | Encounter Summary ---
Author Organization [employer] Address [address] [facility] 7t [place] [address] Care Team Providers Care Blind Lacer Name Role Phone Laury Washington MD Primary Care Provide r Navneet Bender PharmD Unavailable [phone] Reason for Visit * Reason Comments Med Refill Encounter Details Date Type Department Care Team ([facility] st Contact Info) Description 06/02/2023 Refill [facility] MEDICINE [address] [place] [address] Laury Washington MD [address] [place] [address] Social History Tobacco Use Types Packs/Day Years [...] Description 03/22/2025 2:00 PM EDT Medication Management [facility] MEDICINE [address] [place] [address] Navneet Bender, EvelinD [address] [place] [address] 05/01/2025 3:30 PM EST Office Visit [facility] OPTOMETRY [address] [place] [address] Reggie, Tereza, OD [address] [place] [address] documented as of this encounter Visit Diagnoses Not on filedocumented in this encounter Care Teams Blind Lacer Relationship Specialty Start Date End Date Laury Washington MD [address] [place] [phone] PCP - General Family Medicine 04/07/19 Navneet Bender, PharmD [address] [place] [phone] Pharmacist Pharmacy 01/05/25 documented as of this encounter
--- OUTSIDE RECORDS SUMMARY | 2025-02-27 16:54 | XMS_ITS | Encounter Summary ---
Author Organization [employer] Address [address] [place] [address] 7 [place] [address] Care Team Providers Care Project Landscape Architect Name Role Phone Laury Washington MD Primary Care Provide r Navneet Bender PharmD Unavailable [phone] Reason for Visit * Reason Comments Med Refill Encounter Details Date Type Department Care Team (Late Contact Info) Description 12/16/2022 Refill [facility] MEDICINE [address] [place] [phone] Laury Washington MD [address] [place] [address] [phone] Social History Tobacco Use Types Packs/Day Years [...] Department Care Team (Late Contact Info) Description 03/22/2025 2:00 PM EDT Medication Management [facility] MEDICINE 230 [place], [place] [phone] Navneet Bender, PharmD [address] [place], [place] [phone] 05/01/2025 3:30 PM EST Office Visit [facility] OPTOMETRY [address] [place], [place] [phone] Tereza Paredes, OD 230 [place] [address] documented as of this encounter Visit Diagnoses Not on filedocumented in this encounter Care Teams Project Landscape Architect Relationship Specialty Start Date End Date Laury Washington MD [address] [place], [place] [phone] PCP - General Family Medicine 04/07/19 Navneet Bender, PharmD [address] [place] [address] [phone] Pharmacist Pharmacy 01/05/25 documented as of this encounter
--- OUTSIDE RECORDS SUMMARY | 2025-02-27 16:54 | XMS_ITS | Encounter Summary ---
Author Organization [employer] Address [address] [facility] 7t [place] [address] Care Team Providers Care Taxi Dancer Name Role Phone Laury Washington MD Primary Care Provide r Navneet Bender PharmD Unavailable [phone] Reason for Visit * Reason Onset Date Comments Referral 10/30/2023 Encounter Details Date Type Department Care Team (Late st Contact Info) Description 10/30/2023 Telephone [facility] MEDICINE [address] [place] [address] Laury Washington MD [address] [place], [place] [phone] Referral Social History Tobacco Use Types Packs/Day [...] visit with pcp. Please contact pt at [phone]. documented in this encounter Plan of Treatment Upcoming Encounters Date Type Department Care Team (Late st Contact Info) Description 03/22/2025 2:00 PM EDT Medication Management [facility] MEDICINE [address] [place] [address] Navneet Benedr, PharmD [address] [place] [address] 05/01/2025 3:30 PM EST Office Visit [facility] OPTOMETRY [address] [place] [address] Tereza Paredes, OD 230 [place] [address] documented as of this encounter Visit Diagnoses Not on filedocumented in this encounter Additional Health Concerns Assessment Noted Time PHQ-9 Depression Total Score: 0 07/24/19 24 2:08 PM EST documented as of this encounter Care Teams Taxi Dancer Relationship Specialty Start Date End Date Laury Washington MD [address] [place] [address] PCP - General Family Medicine 04/07/19 Navneet Bender, PharmD [address] [place] [address] Pharmacist Pharmacy 01/05/25 documented as of this encounter
--- OUTSIDE RECORDS SUMMARY | 2025-02-27 16:54 | XMS_ITS | Encounter Summary ---
Author Organization [employer] Address [address] [facility] 7t [place] [address] Care Team Providers Care Car Greaser Name Role Phone Laury Washington MD Primary Care Provide r Navneet Bender PharmD Unavailable [phone] Reason for Visit * Reason Onset Date Comments Med Refill 03/23/2024 Prior Authorization 03/23/2024 Encounter Details Date Type Department Care Team (Late st Contact Info) Description 03/23/2024 Telephone [facility] MEDICINE 230 [place], [place] [phone] Laury Washington MD [address] [place], [place] [phone] Med Refill; Prior Authorization Social History Tobacco [...] MG/1.5ML solution pen-injector To be sent to: [facility]/pharmacy #[id number] documented in this encounter Plan of Treatment Upcoming Encounters Date Type Department Care Team (Late st Contact Info) Description 03/22/2025 2:00 PM EDT Medication Management [facility] MEDICINE [address] [place] [address] Navneet Bender, PharmD [address] [place] [address] 05/01/2025 3:30 PM EST Office Visit [facility] OPTOMETRY [address] [place] [address] Tereza Paredes, OD [address] [place] [address] documented as of this encounter Visit Diagnoses Not on filedocumented in this encounter Additional Health Concerns Assessment Noted Time PHQ-9 Depression Total Score: 0 07/24/19 24 2:08 PM EST documented as of this encounter Care Teams Car Greaser Relationship Specialty Start Date End Date Laury Washington MD [address] [place] [address] PCP - General Family Medicine 04/07/19 Navneet Bender, PharmD [address] [place] [address] Pharmacist Pharmacy 01/05/25 documented as of this encounter
--- OUTSIDE RECORDS SUMMARY | 2025-02-27 16:54 | XMS_ITS | Encounter Summary ---
Author Organization [employer] Address [address] [place] [address] 7 [place] [address] Care Team Providers Care Public Defender Name Role Phone Laury Washington MD Primary Care Provide r Navneet Bender PharmD Unavailable [phone] Encounter Details Date Type Department Care Team (Late Contact Info) Description 02/02/2023 Orders Only [facility] MEDICINE [address] [place] [phone] Provider, MD Cari Social History Tobacco Use [...] Description 03/22/2025 2:00 PM EDT Medication Management [facility] MEDICINE 230 [place], [place] [phone] Navneet Bender, PharmD 230 [place] [address] 05/01/2025 3:30 PM EST Office Visit [facility] OPTOMETRY [address] [place] [address] [phone] Tereza Paredes, OD 230 [place] [address] documented as of this encounter Procedures Procedure Name Priority Date/Time Associated Diagnosis Comments T4, FREE Routine 07/22/2023 11:39 AM EST COLONOSCOPY Routine 02/09/2019 documented in this encounter Results * T4, Free (07/22/2023 11:39 AM EST) Free T4 (Free Thyroxine) 1.09 0.71 - 1.85 ng/dL [facility] 07/22/2023 11:3 9 AM EST 07/22/2023 1:36 PM EST us Laury Banks MD LAB BLOOD ORDERABLES Final Result [facility] [address] [place] [address] [phone] * Colonoscopy (02/09/2019) us Historical Provider HEALTH MAINTENANCE Final Result documented in this encounter Visit Diagnoses Not on filedocumented in this encounter Care Teams Public Defender Relationship Specialty Start Date End Date Laury Washington MD 230 [place] [address] PCP - General Family Medicine 04/07/19 Navneet Bender, EvelinD [address] [place] [address] Pharmacist Pharmacy 01/05/25 documented as of this encounter
--- OUTSIDE RECORDS SUMMARY | 2025-02-27 16:54 | XMS_ITS | Encounter Summary ---
Author Organization [employer] Address [address] [place] [address] 7 [place] [address] Care Team Providers Care Nut Roaster Name Role Phone Laury Washington MD Primary Care Provide r Navneet Bender PharmD Unavailable [phone] Reason for Visit * Reason Comments Med Refill Encounter Details Date Type Department Care Team (Late Contact Info) Description 08/01/2022 Refill [facility] MEDICINE [address] [place] [phone] Caryl Strickland MD [address] [place] [phone] Other chronic pain Social History Tobacco Use [...] Description 03/22/2025 2:00 PM EDT Medication Management [facility] MEDICINE [address] [place] [address] Navneet Bender, PharmD [address] [place], [place] [phone] 05/01/2025 3:30 PM EST Office Visit [facility] OPTOMETRY [address] [place], [place] [phone] Tereza Paredes, OD 230 [place] [address] documented as of this encounter Visit Diagnoses Diagnosis Other chronic pain documented in this encounter Care Teams Nut Roaster Relationship Specialty Start Date End Date Laury Washington MD [address] [place], [place] [phone] PCP - General Family Medicine 04/07/19 Navneet Bender, PharmD [address] [place] [address] [phone] Pharmacist Pharmacy 01/05/25 documented as of this encounter
--- OUTSIDE RECORDS SUMMARY | 2025-02-27 16:54 | XMS_ITS | Encounter Summary ---
Author Organization [employer] Address [address] [facility] 7t [place] [address] Care Team Providers Care Fern Cutter Name Role Phone Laury Washington MD Primary Care Provide r Navneet Bender PharmD Unavailable [phone] Reason for Visit * Reason Comments Med Change Request Encounter Details Date Type Department Care Team ([facility] Contact Info) Description 05/01/2022 Refill [facility] MEDICINE [address] [place] [address] Phoebe Yost, LING [address] [place] [address] Type 2 diabetes mellitus with hyperglycemia, without long-term current use of insulin ([facility]) Social History Tobacco Use Types Packs/Day [...] Upcoming Encounters Date Type Department Care Team ([facility] Contact Info) Description 03/22/2025 2:00 PM EDT Medication Management [facility] MEDICINE 230 [place] [address] Navneet Bender, PharmD 230 [place] [address] 05/01/2025 3:30 PM EST Office Visit [facility] OPTOMETRY [address] [place] [address] Tereza Paredes, OD [address] [place] [address] documented as of this encounter Visit Diagnoses Diagnosis Type 2 diabetes mellitus with hyperglycemia, without long-term current use of insulin (HCC) documented in this encounter Care Teams Fern Cutter Relationship Specialty Start Date End Date Laury Washington MD [address] [place] [address] [phone] PCP - General Family Medicine 04/07/19 Navneet Bender, PharmD [address] [place] [address] [phone] Pharmacist Pharmacy 01/05/25 documented as of this encounter
--- OUTSIDE RECORDS SUMMARY | 2025-02-27 16:54 | XMS_ITS | Encounter Summary ---
Author Organization [employer] Address [address] [place] [address] 7 [place] [address] Care Team Providers Care Cardiac Rehabilitation Specialist Name Role Phone Laury Washington MD Primary Care Provide r Navneet Bender PharmD Unavailable [phone] Reason for Visit * Reason Comments Med Refill Encounter Details Date Type Department Care Team ([facility] st Contact Info) Description 06/18/2022 Refill [facility] [address] [place] [address] Vicki Caban DDS [address] [place] [address] Pain Social History Tobacco Use Types Packs/Day [...] 2:00 PM EDT Medication Management [facility] MEDICINE [address] [place] [address] Navneet Bender, EvelinD [address] [place] [address] 05/01/2025 3:30 PM EST Office Visit [facility] OPTOMETRY [address] [place] [address] Tereza Paredes, OD [address] [place] [address] documented as of this encounter Visit Diagnoses Diagnosis Pain Generalized pain documented in this encounter Care Teams Cardiac Rehabilitation Specialist Relationship Specialty Start Date End Date Laury Washington MD [address] [place] [address] [phone] PCP - General Family Medicine 04/07/19 Navneet Bender, EvelinD [address] [place] [address] [phone] Pharmacist Pharmacy 01/05/25 documented as of this encounter
--- OUTSIDE RECORDS SUMMARY | 2025-02-27 16:54 | XMS_ITS | Encounter Summary ---
Author Organization [employer] Address [address] [facility] 7t [place] [address] Care Team Providers Care Educational Psychology Teacher Name Role Phone Laury Washington MD Primary Care Provide r Navneet Bender PharmD Unavailable [phone] Reason for Visit * Reason Comments Med Refill Encounter Details Date Type Department Care Team (Late st Contact Info) Description 05/28/2022 Refill [facility] 230 [place] [address] Saman Doty, DMD [address] [place] [address] Pain (Primary Dx) Social History Tobacco Use [...] Description 03/22/2025 2:00 PM EDT Medication Management [facility] MEDICINE 230 [place] [address] Navneet Bender, EvelinD 230 [place] [address] 05/01/2025 3:30 PM EST Office Visit [facility] OPTOMETRY [address] [place] [address] Reggie, Tereza, OD [address] [place] [address] documented as of this encounter Visit Diagnoses Diagnosis Pain- Primary Generalized pain documented in this encounter Care Teams Educational Psychology Teacher Relationship Specialty Start Date End Date Laury Washington MD [address] [place] [phone] PCP - General Family Medicine 04/07/19 Navneet Bender, Marva [address] [place] [address] Pharmacist Pharmacy 01/05/25 documented as of this encounter
--- OUTSIDE RECORDS SUMMARY | 2025-02-27 16:54 | XMS_ITS | Encounter Summary ---
Author Organization [employer] Address [address] [facility] 7t [place] [address] Care Team Providers Care Hospital Unit Clerk Name Role Phone Laury Washington MD Primary Care Provide r Navneet Bender PharmD Unavailable [phone] Reason for Visit * Reason Comments Med Refill Encounter Details Date Type Department Care Team (Late st Contact Info) Description 02/02/2025 Refill [facility] MEDICINE 230 [place] [address] Laury Washington MD 230 [place] [address] Type 2 diabetes mellitus with hyperglycemia, without long-term current use of insulin ([facility]) Social History Tobacco Use Types Packs/Day [...] Description 03/22/2025 2:00 PM EDT Medication Management [facility] MEDICINE [address] [place] [address] Navneet Bender, EvelinD [address] [place] [address] 05/01/2025 3:30 PM EST Office Visit [facility] OPTOMETRY [address] [place] [address] Reggie, Tereza, OD 230 [place] [address] documented as of this encounter Visit Diagnoses Diagnosis Type 2 diabetes mellitus with hyperglycemia, without long-term current use of insulin (HCC) documented in this encounter Additional Health Concerns Assessment Noted Time PHQ-9 Depression Total Score: 0 07/24/19 24 2:08 PM EST documented as of this encounter Care Teams Hospital Unit Clerk Relationship Specialty Start Date End Date Laury Washington MD [address] [place] [address] PCP - General Family Medicine 04/07/19 Navneet Bender, PharmD [address] [place] [address] Pharmacist Pharmacy 01/05/25 documented as of this encounter
--- OUTSIDE RECORDS SUMMARY | 2025-02-27 16:54 | XMS_ITS | Encounter Summary ---
Author Organization [employer] Address [address] [place] [address] 7 [place] [address] Care Team Providers Care Funeral Planning Counselor Name Role Phone Laury Washington MD Primary Care Provide r Navneet Bender PharmD Unavailable [phone] Reason for Visit * Reason Comments Med Refill Encounter Details Date Type Department Care Team (Late Contact Info) Description 09/26/2022 Refill [facility] MEDICINE 230 [place] [address] Laury Washington MD [address] [place], [place] [phone] Other chronic pain Social History Tobacco Use [...] 2:00 PM EDT Medication Management [facility] MEDICINE [address] [place], [place] [phone] Navneet Bender, PharmD [address] [place], [place] [phone] 05/01/2025 3:30 PM EST Office Visit [facility] OPTOMETRY [address] [place], [place] [phone] Tereza Paredes, OD [address] [place] [address] documented as of this encounter Visit Diagnoses Diagnosis Other chronic pain documented in this encounter Care Teams Funeral Planning Counselor Relationship Specialty Start Date End Date Laury Washington MD 230 [place], [place] [phone] PCP - General Family Medicine 04/07/19 Navneet Bender, PharmD [address] [place] [address] [phone] Pharmacist Pharmacy 01/05/25 documented as of this encounter
--- OUTSIDE RECORDS SUMMARY | 2025-02-27 16:55 | XMS_ITS | Encounter Summary ---
Author Organization [employer] Address [address] [facility] 7t [place] [address] Care Team Providers Care Silverware Buffer Name Role Phone Laury Washington MD Primary Care Provide r Navneet Bender PharmD Unavailable [phone] Reason for Visit * Reason Comments Med Refill Encounter Details Date Type Department Care Team ([facility] st Contact Info) Description 08/18/2024 Refill [facility] MEDICINE [address] [place] [address] Yunier Rodriguez MD [address] [place] [address] Prurigo nodularis Social History Tobacco Use Types [...] Description 03/22/2025 2:00 PM EDT Medication Management [facility] MED[facility]INE [address] [place] [address] Navneet Bender, PharmD 230 [place] [address] 05/01/2025 3:30 PM EST Office Visit [facility] OPTOMETRY [address] [place], [place] [phone] Reggei, Tereza, OD 230 [place] [address] documented as of this encounter Visit Diagnoses Diagnosis Prurigo nodularis Lichenification and lichen simplex chronicus documented in this encounter Additional Health Concerns Assessment Noted Time PHQ-9 Depression Total Score: 0 07/24/19 24 2:08 PM EST documented as of this encounter Care Teams Silverware Buffer Relationship Specialty Start Date End Date Laury Washington MD [address] [place] [address] [phone] PCP - General Family Medicine 04/07/19 Navneet Bender, PharmD [address] [place] [address] [phone] Pharmacist Pharmacy 01/05/25 documented as of this encounter
--- OUTSIDE RECORDS SUMMARY | 2025-02-27 16:55 | XMS_ITS | Encounter Summary ---
Author Organization [employer] Address [address] [facility] 7 [place] [address] Care Team Providers Care Email Marketing Specialist Name Role Phone Laury Washington MD Primary Care Provide r Navneet Bender PharmD Unavailable [phone] Reason for Visit * Reason Comments Med Refill Encounter Details Date Type Department Care Team ([facility] st Contact Info) Description 07/27/2023 Refill [facility] [address] [place] [address] Laury Sanchez MD 230 [place], [place] [phone] Type 2 diabetes mellitus with hyperglycemia, without long-term current use of insulin ([facility]) Social History Tobacco Use Types Packs/Day Years [...] Description 03/22/2025 2:00 PM EDT Medication Management [facility] MEDICINE [address] [place] [address] Navneet Bender, EvelinD 230 [place] [address] 05/01/2025 3:30 PM EST Office Visit [facility] [address] [place] [address] Reggie, Tereza, OD 230 [place] [address] documented as of this encounter Visit Diagnoses Diagnosis Type 2 diabetes mellitus with hyperglycemia, without long-term current use of insulin (HCC) documented in this encounter Additional Health Concerns Assessment Noted Time PHQ-9 Depression Total Score: 0 07/24/19 24 2:08 PM EST documented as of this encounter Care Teams Email Marketing Specialist Relationship Specialty Start Date End Date Laury Washington MD 230 [place] [address] PCP - General Family Medicine 04/07/19 Navneet Bender, PharmD 230 [place] [address] Pharmacist Pharmacy 01/05/25 documented as of this encounter
--- OUTSIDE RECORDS SUMMARY | 2025-02-27 16:55 | XMS_ITS | Encounter Summary ---
Author Organization [employer] Address [address] [facility] 7t [place] [address] Care Team Providers Care Lpn Per Diem Name Role Phone Laury Washington MD Primary Care Provide r Navneet Bender PharmD Unavailable [phone] Reason for Visit * Reason Onset Date Comments Med Refill 12/11/2024 Encounter Details Date Type Department Care Team (Late st Contact Info) Description 12/11/2024 Refill [facility] [address] [place], [place] [phone] Laury Washington MD [address] [place], [place] [phone] Type 2 diabetes mellitus with hyperglycemia, without long-term current use of insulin ([facility]) Social History Tobacco Use Types Packs/Day [...] Description 03/22/2025 2:00 PM EDT Medication Management [facility] [address] [place] [address] Navneet Bender, PharmD [address] [place] [address] 05/01/2025 3:30 PM EST Office Visit [facility] OPT[facility] [address] [place] [address] Tereza Paredes, OD 230 [place] [address] documented as of this encounter Visit Diagnoses Diagnosis Type 2 diabetes mellitus with hyperglycemia, without long-term current use of insulin (HCC) documented in this encounter Additional Health Concerns Assessment Noted Time PHQ-9 Depression Total Score: 0 07/24/19 24 2:08 PM EST documented as of this encounter Care Teams Lpn Per Diem Relationship Specialty Start Date End Date Laury Washington MD [address] [place] [address] PCP - General Family Medicine 04/07/19 Navneet Bender, PharmD [address] [place] [address] Pharmacist Pharmacy 01/05/25 documented as of this encounter
--- OUTSIDE RECORDS SUMMARY | 2025-02-27 16:55 | XMS_ITS | Encounter Summary ---
Author Organization [employer] Address 75 [facility] 7t [place] [address] Care Team Providers Care Fretted String Instrument Repairer Name Role Phone Laury Washington MD Primary Care Provide r Navneet Bender PharmD Unavailable [phone] Reason for Visit * Reason Comments Med Refill Encounter Details Date Type Department Care Team ([facility] st Contact Info) Description 09/05/2024 Refill [facility] MED[facility] [address] [place] [address] Yunier Rodriguez MD 230 [place] [address] Prurigo nodularis Social History Tobacco Use Types [...] Description 03/22/2025 2:00 PM EDT Medication Management [facility] [address] [place] [address] Navneet Bender, PharmD 230 [place] [address] 05/01/2025 3:30 PM EST Office Visit [facility] [address] [place], [place] [phone] Reggie, Tereza, OD 230 [place] [address] documented as of this encounter Visit Diagnoses Diagnosis Prurigo nodularis Lichenification and lichen simplex chronicus documented in this encounter Additional Health Concerns Assessment Noted Time PHQ-9 Depression Total Score: 0 07/24/19 24 2:08 PM EST documented as of this encounter Care Teams Fretted String Instrument Repairer Relationship Specialty Start Date End Date Laury Washington MD [address] [place] [address] [phone] PCP - General Family Medicine 04/07/19 Navneet Bender, PharmD [address] [place] [address] [phone] Pharmacist Pharmacy 01/05/25 documented as of this encounter
--- OUTSIDE RECORDS SUMMARY | 2025-02-27 16:55 | XMS_ITS | Encounter Summary ---
Author Organization [employer] Address [address] [facility] 7t [place] [address] Care Team Providers Care Supply Assistant Name Role Phone Laury Washington MD Primary Care Provide r Navneet Bender PharmD Unavailable [phone] Reason for Visit * Reason Comments Med Refill Encounter Details Date Type Department Care Team ([facility] st Contact Info) Description 08/11/2024 Refill [facility] MED[facility] [address] [place] [address] Laury Washington MD [address] [place] [address] Pain Social History Tobacco Use Types Packs/Day [...] Description 03/22/2025 2:00 PM EDT Medication Management [facility] MED[facility] 230 [place] [address] Navneet Bender, PharmD [address] [place] [address] 05/01/2025 3:30 PM EST Office Visit [facility] OPTOMETRY [address] [place] [address] Reggie, Tereza, OD 230 [place] [address] documented as of this encounter Visit Diagnoses Diagnosis Pain Generalized pain documented in this encounter Additional Health Concerns Assessment Noted Time PHQ-9 Depression Total Score: 0 07/24/19 24 2:08 PM EST documented as of this encounter Care Teams Supply Assistant Relationship Specialty Start Date End Date Laury Washington MD [address] [place] [phone] PCP - General Family Medicine 04/07/19 Navneet Bender, PharmD [address] [place] [phone] Pharmacist Pharmacy 01/05/25 documented as of this encounter
--- OUTSIDE RECORDS SUMMARY | 2025-02-27 16:55 | XMS_ITS | Encounter Summary ---
Author Organization [employer] Address 75 [facility] 7t [place] [address] Care Team Providers Care Medical Typist Name Role Phone Laury Washington MD Primary Care Provide r Navneet Bender PharmD Unavailable [phone] Reason for Visit * Reason Onset Date Comments Med Refill 12/11/2024 Encounter Details Date Type Department Care Team (Late st Contact Info) Description 12/11/2024 Refill [facility] MED[facility]INE 230 [place], [place] [phone] Laury Washington MD 230 [place], [place] [phone] Type 2 diabetes mellitus with hyperglycemia, without long-term current use of insulin ([facility]) Social History Tobacco Use Types [...] Description 03/22/2025 2:00 PM EDT Medication Management [facility] MEDICINE [address] [place] [address] Navneet Bender, PharmD [address] [place] [address] 05/01/2025 3:30 PM EST Office Visit [facility] OPTOMETRY [address] [place] [address] Reggie, Tereza, OD 230 [place] [address] documented as of this encounter Visit Diagnoses Diagnosis Type 2 diabetes mellitus with hyperglycemia, without long-term current use of insulin (HCC) documented in this encounter Additional Health Concerns Assessment Noted Time PHQ-9 Depression Total Score: 0 07/24/19 24 2:08 PM EST documented as of this encounter Care Teams Medical Typist Relationship Specialty Start Date End Date Laury Washington MD [address] [place] [address] PCP - General Family Medicine 04/07/19 Navneet Bender, PharmD 230 [place] [address] Pharmacist Pharmacy 01/05/25 documented as of this encounter
--- OUTSIDE RECORDS SUMMARY | 2025-02-27 16:55 | XMS_ITS | Encounter Summary ---
Author Organization [employer] Address [address] [facility] 7t [place] [address] Care Team Providers Care Pocket Secretary Assembler Name Role Phone Laury Washington MD Primary Care Provide r Navneet Bender PharmD Unavailable [phone] Reason for Visit * Reason Comments Med Refill Encounter Details Date Type Department Care Team ([facility] st Contact Info) Description 08/02/2024 Refill [facility] MEDICINE [address] [place] [address] Yunier Rodriguez MD [address] [place] [address] Prurigo nodularis Social History Tobacco Use Types [...] Description 03/22/2025 2:00 PM EDT Medication Management [facility] MEDICINE [address] [place] [address] Navneet Bender, PharmD [address] [place] [address] 05/01/2025 3:30 PM EST Office Visit [facility] OPTOMETRY [address] [place], [place] [phone] Reggie, Tereza, OD [address] [place] [address] documented as of this encounter Visit Diagnoses Diagnosis 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
== END 2025-02-27 14:45 | disposition home or self-care (01) ==
LOC: HO.HOS 14:29
PROVIDERS: PCP Internal Medicine; Visit Provider Orthopaedic Surgery
DX: M17.12 Unilateral primary osteoarthritis, left knee (principal)
CPT/HCPCS: 20610

== ENCOUNTER → 2025-02-27 14:28 | Outpatient (BNVA) | payer MEDICAID, SELFPAY | PROVIDERS: PCP Internal Medicine; Visit Provider Orthopaedic Surgery | DX: M17.12 Unilateral primary osteoarthritis, left knee (principal) | CPT/HCPCS: 20610; J7325 ==

== ENCOUNTER 2025-03-03 10:42 | Outpatient (REF) | payer MEDICAID, SELFPAY ==
[2025-03-03 12:21] LABS: Alanine Aminotransferase 21 U/L (0-40); Albumin Level 4.5 g/dL (3.5-5.0); Alkaline Phosphatase 111 U/L (39-117); Aspartate Amino Transferase 23 U/L (5-37); Cholesterol 126 mg/dL (<200); HDL Cholesterol 39 mg/dL (>40); Total Protein 7.6 g/dL (6.5-8.0); Triglycerides 84 mg/dL (<150)
== END 2025-03-03 10:43 | disposition home or self-care (01) ==
LOC: HO.LAB 10:42
PROVIDERS: PCP Internal Medicine; Visit Provider Internal Medicine
DX: E11.65 Type 2 diabetes mellitus with hyperglycemia (principal)
CPT/HCPCS: 36415; 80061; 80076

== ENCOUNTER 2025-04-14 10:05 | Outpatient (AMB) | payer MEDICAID, SELFPAY ==
--- NOTE | 2025-04-14 10:09 | MHC.OFFVIS ---
Vital Signs 04/14/25 10:19 Height 5 ft 7 in Weight 275 lb BMI 43.1 BP 114/56 L Blood Pressure Location Rt brachial Position Sitting Pulse 90 Pulse Source Pulse Oximeter Pulse Oximetry (%) 98 Oxygen Delivery Method Room Air Intake Visit Reasons: 2m Intake Note: Est pt for mgmt of GERD w/ chronic abd pain. CC: C.O. epigastric pain persistence despite current therapies. Pt does report that his sx have been improved overall since completion of his abx course. Pt denies any additional sx or concerns at this time. On Site Property Manager Required: No Accompanied by: Self / Same As Patient Allergies lactose (LACTOSE) Allergy (Intermediate, Verified 04/14/25 10:10) GI UPSET acetaminophen (From Vicodin) Allergy (Unknown, Verified 04/14/25 10:10) Hives hydrocodone (From Vicodin) Allergy (Unknown, Verified 04/14/25 10:10) Hives HPI HPI 2m: Details: LAST VISIT Chronic constipation Diverticulosis of colon Chronic abdominal pain GERD (gastroesophageal reflux disease) Postprandial epigastric pain RUQ abdominal pain Plan Will check H pylori breath test. Patient will start taking Nexium. In the meantime he will take famotidine twice a day and will stop 24 hours before coming back for H pylori breath test. Will check transglutaminase, hemoglobin A1c, lipase, vitamin-D, B12, folate, transglutaminase. He will go for upper GI with barium swallow. Discussed with patient avoiding dietary triggers late night snacking. Staying upright for minimum 3 hours after meals discussed with patient. Long discussion with patient about diet. Low FODMAP diet discussed with him. List of food recommended as was list of food to avoid given to patient. Patient will follow-up in the office in 2 months we will discuss going for colonoscopy and upper endoscopy. Patient is agreeable to this plan and verbalizes understanding of instructions. She was given the opportunity to ask questions and all questions answered. ? Thank you for allowing me to participate in his care Orders H Pylori Breath Test Today K21.9 Hemoglobin A1c Today Z83.3 Transglutaminase Ab IgG Today R10.9 Lipase Today R10.9 Vitamin D 25-OH (D2 and D3) Today E55.9 Transglutaminase IgA Today R10.9 Vitamin B12 and Folate Today R19.7 FL upper GI w Ba Swallow Today K21.9 New esomeprazole magnesium (Nexium) 40 mg PO DAILY 90 caps 5RF K21.9 linaclotide (Linzess) 145 mcg PO DAILY 30 caps 4RF K59.04 famotidine (Pepcid) 20 mg PO BID 30 tabs 0RF K29.70 Discontinued omeprazole Discontinued Reason: Doctor's Order 20 mg PO DAILY 14 caps 0RF polyethylene glycol 3350 (Gavilax) Discontinued Reason: Doctor's Order 17 grams PO DAILY 510 grams 6RF TODAY'S VISIT Patient is here today for follow-up. Patient was seen couple months ago and was diagnosed with H pylori. Patient was treated with quadruple therapy for 2 weeks. Patient reports that he took all of his medications. Patient has stopped taking esomeprazole 2 weeks ago and will be retested today. Patient reports occasional epigastric pain postprandially, however he does admit that he is not taking any PPI at this time. He was taking famotidine twice a day and stopped it couple days ago. Patient denies dyspepsia, dysphagia or odynophagia. Reports to have occasional abdominal bloating. Currently he is taking Linzess and reports that he is moving his bowels better. However patient admits that he is not taking Linzess every day. Patient reports taking Linzess about 2 to 4 times a week. Patient had low vitamin-D level. Started him on supplement. Patient denies any issues with anesthesia in the past. History of sleep apnea. Patient denies any cardiac or respiratory symptoms. [facility] Medical History (Updated 04/14/25 @ 10:54 by ADELITA Echeverria) History of Helicobacter pylori infection GERD (gastroesophageal reflux disease) DJD (degenerative joint disease) Asthma Bipolar 1 disorder Anxiety Depression Sleep apnea treated with continuous positive airway pressure (CPAP) HTN (hypertension) Diabetes Surgical History S/P hernia surgery Hx of colonoscopy Status post right knee replacement S/P arthroscopic surgery of right knee Family History Father Prostate cancer Throat cancer Mother Arthritis Dementia Hypertension Hyperlipidemia Maternal Grandmother Colon cancer Social History Household Members Other:: single-foster 3 nephews Alcohol intake: current Alcohol intake frequency: holidays/special occasions only Patient Tobacco Use Status: Current someday Tobacco user Review of Systems Const Denies weight gain and Denies weight loss ENT Reports no additional complaints, Denies dysphagia and Denies odynophagia Card Reports no additional complaints Resp Reports no additional complaints GI Reports abdominal pain (Epigastric), Reports belching, Denies melena, Reports bloating, Denies change in bowel habits, Reports constipation, Denies dysphagia, Denies excessive flatus, Reports dyspepsia, Reports heartburn (Occasional), Denies diarrhea, Reports loose stools, Reports nausea, Denies odynophagia and Denies vomiting Reports no additional complaints Musc Reports no additional complaints Neuro Reports no additional complaints Psych Reports no additional complaints Endo Reports no additional complaints Physical Exam Vital Signs: Last Vital Signs Pulse 90 04/14/25 10:19 BP 114/56 L 04/14/25 10:19 Pulse Ox 98 04/14/25 10:19 Oxygen Delivery Method Room Air 04/14/25 10:19 BMI result Body Mass Index 43.1 Const General: healthy appearing and no acute distress Nutritional Appearance: well nourished and obese Orientation/consciousness: patient oriented x3 Resp Effort & Inspection: normal respiratory effort, able to speak in complete sentences, no tracheal deviation and symmetric chest movement Auscultation: clear to auscultation bilaterally Cardio Rate: regular rate GI Inspection: Yes normal to inspection, No distended and Yes obesity Palpation (GI): Soft to palpation, not firm, nontender and No hepatosplenomegaly present Auscultation: normal bowel sounds General: Yes no CVA tenderness Back/Spine/Pelvis Back: no CVA tenderness Skin General skin exam: elasticity normal, turgor normal and dry skin Neuro General: patient oriented x3 Psych Appearance: grossly normal Mental Status: mental status grossly normal Results Reviewed Results Reviewed: ABDOMINAL ULTRASOUND FINDINGS: The gallbladder is contracted. No cholelithiasis or sludge identified. There is a negative sonographic Angel's sign. Gallbladder wall: 2-3 mm, normal. Common bile duct: 3 mm, normal. No free intraperitoneal fluid identified. IMPRESSION: 1. No evidence of cholecystitis. Laboratory Tests 01/06/25 01/24/25 03/03/25 12:07 10:45 11:08 Hemoglobin A1c % 7.6 H Total Bilirubin 0.5 Direct Bilirubin 0.2 AST 23 ALT 21 Alkaline Phosphatase 111 Lipase 31 Vitamin B12 417 25-OH Vitamin D Total 21 L Folate 10.2 Tiss Transglutamin IgG <1.0 Tiss Transglutamin IgA <1.0 H. pylori Breath Test Positive A Assessment & Plan Assessment & Plan (1) GERD (gastroesophageal reflux disease): Code(s): K21.9 - Gastro-esophageal reflux disease without esophagitis Category: Medical Qualifiers: Esophagitis presence: esophagitis presence not specified Qualified Code(s): K21.9 - Gastro-esophageal reflux disease without esophagitis (2) Chronic constipation: Code(s): K59.09 - Other constipation Category: Medical (3) Diverticulosis of colon: Code(s): K57.30 - Diverticulosis of large intestine without perforation or abscess without bleeding Category: Medical (4) Chronic abdominal pain: Code(s): R10.9 - Unspecified abdominal pain; G89.29 - Other chronic pain Category: Medical Plan Will recheck for H pylori and will treat empirically if positive. Patient will be sent for upper endoscopy when we send her for colonoscopy. He will start taking Nexium daily. Continue with famotidine at bedtime as needed. Continue Linzess daily. Increase fluid intake and activity to promote bowel motility. Patient was encouraged to avoid dietary triggers and late night snacking. Staying upright for minimum 3 hours after meals discussed with patient. Patient will be sent for colonoscopy. What to expect before during and after procedure discussed with patient. I will see patient after the procedure, sooner on as needed basis. He is agreeable to this plan and verbalizes understanding of instructions. He was given the opportunity to ask questions and all questions answered. Thank you for allowing me to participate in his care Orders: Orders H Pylori Breath Test Today K21.9 - Gastro-esophageal reflux disease without esophagitis Referrals GI Procedure Notification K21.9 - Gastro-esophageal reflux disease without esophagitis, Z12.11 - Encounter for screening for malignant neoplasm of colon, Z86.19 - Personal history of other infectious and parasitic diseases Medications: New bisacodyl (Dulcolax (bisacodyl)) take 4 tabs at noon the day before your colonoscopy 20 mg (4 x 5 mg) PO ONCE 4 tabs 0RF constipation 1 day Z12.11 - Encounter for screening for malignant neoplasm of colon polyethylene glycol 3350 (Miralax) As directed by gastroenterology department at [facility] 238 grams PO ONCE 238 grams 0RF Z12.11 - Encounter for screening for malignant neoplasm of colon Changed From famotidine (Pepcid) 20 mg PO BID 90 days 180 tabs 0RF K29.70 - Gastritis, unspecified, without bleeding To famotidine (Pepcid) 20 mg PO DAILY 90 tabs 2RF 90 days K29.70 - Gastritis, unspecified, without bleeding Coding Level of Care Code Est Pt Level 4 (22507) Complex visit Add On G2211 Diagnoses Gastroesophageal reflux disease, unspecified whether esophagitis present K21.9 Esophagitis presence: esophagitis presence not specified Chronic constipation K59.09 Diverticulosis of colon K57.30 Chronic abdominal pain R10.9; G89.29 Time Spent (min) 35 Comment 25 minutes spent with patient and additional 10 minutes spent reviewing his records
[2025-04-14 10:19] VITALS: BP 114/56; PULSE 90; O2SAT 98; BMI 43.1
--- OUTSIDE RECORDS SUMMARY | 2025-04-14 10:43 | XMS_ITS | Encounter Summary ---
Author Organization [employer] Address [address] [place] [address] 7t [place] [address] Care Team Providers Care Net Coordinator Name Role Phone Laury Washington MD Primary Care Provide r Navneet Bender PharmD Unavailable [phone] Reason for Visit * Reason Comments Med Refill Encounter Details Date Type Department Care Team ([facility] st Contact Info) Description 06/21/2022 Refill [facility]ULT D[facility]AL [address] [place] [address] Vicki Caban DDS [address] [place] [address] Pain Social History Tobacco Use Types Packs/Day [...] Care Team (Late st Contact Info) Description 04/26/2025 3:00 PM EST Medication Management [facility] MEDICINE [address] [place] [address] Navneet Bender, EvelinD [address] [place] [address] 05/01/2025 3:30 PM EST Office Visit [facility] OPTOMETRY [address] [place] [address] Reggie, Tereza, OD [address] [place] [address] documented as of this encounter Visit Diagnoses Diagnosis Pain Generalized pain documented in this encounter Care Teams Net Coordinator Relationship Specialty Start Date End Date Laury Washington MD [address] [place] [phone] PCP - General Family Medicine 04/07/19 Navneet Bender, Marva [address] [place] [phone] Pharmacist Pharmacy 01/05/25 documented as of this encounter
--- OUTSIDE RECORDS SUMMARY | 2025-04-14 10:43 | XMS_ITS | Encounter Summary ---
Author Organization [employer] Address 75 [facility] 7t [place] [address] Care Team Providers Care Parts Processor Name Role Phone Laury Washington MD Primary Care Provide r Navneet Bender PharmD Unavailable [phone] Reason for Visit * Reason Comments Med Refill Encounter Details Date Type Department Care Team ([facility] st Contact Info) Description 06/02/2023 Refill [facility] MEDICINE [address] [place] [address] Laury Washington MD [address] [place] [address] Social History Tobacco Use Types Packs/Day Years [...] Description 04/26/2025 3:00 PM EST Medication Management [facility] MEDICINE [address] [place] [address] Navneet Bender, PharmD [address] [place] [address] 05/01/2025 3:30 PM EST Office Visit [facility] OPTOMETRY [address] [place] [address] Reggie, Tereza, OD [address] [place] [address] documented as of this encounter Visit Diagnoses Not on filedocumented in this encounter Care Teams Parts Processor Relationship Specialty Start Date End Date Laury Washington MD [address] [place] [phone] PCP - General Family Medicine 04/07/19 Navneet Bender, PharmD [address] [place] [phone] Pharmacist Pharmacy 01/05/25 documented as of this encounter
--- OUTSIDE RECORDS SUMMARY | 2025-04-14 10:43 | XMS_ITS | Encounter Summary ---
Author Organization [employer] Address [address] [place] [address] 7 [place] [address] Care Team Providers Care Equipment Tech Name Role Phone Laury Washington MD Primary Care Provide r Navneet Bender PharmD Unavailable [phone] Reason for Visit * Reason Comments Med Refill Encounter Details Date Type Department Care Team ([facility] st Contact Info) Description 06/18/2022 Refill [facility] ADULT D[facility]AL [address] [place] [address] Vicki Caban DDS [address] [place] [address] Pain Social History Tobacco Use Types Packs/Day [...] Description 04/26/2025 3:00 PM EST Medication Management [facility] MEDICINE [address] [place] [address] Navneet Bender, PharmD [address] [place] [address] 05/01/2025 3:30 PM EST Office Visit [facility] [address] [place] [address] Tereza Paredes, OD [address] [place] [address] documented as of this encounter Visit Diagnoses Diagnosis Pain Generalized pain documented in this encounter Care Teams Equipment Tech Relationship Specialty Start Date End Date Laury Washington MD [address] [place] [address] PCP - General Family Medicine 04/07/19 Navneet Bender, EvelinD [address] [place] [address] Pharmacist Pharmacy 01/05/25 documented as of this encounter
--- OUTSIDE RECORDS SUMMARY | 2025-04-14 10:43 | XMS_ITS | Encounter Summary ---
Author Organization [employer] Address [address] [facility] 7t [place] [address] Care Team Providers Care Hydraulic Controls Technician Name Role Phone Laury Washington MD Primary Care Provide r Navneet Bender PharmD Unavailable [phone] Reason for Visit * Reason Onset Date Comments Medication Question 10/31/2024 Encounter Details Date Type Department Care Team ([facility] st Contact Info) Description 10/31/2024 Telephone [facility] MEDICINE [address] [place] [address] Laury Washington MD 230 [place], [place] [phone] Medication Question Social History Tobacco Use Types [...] Description 04/26/2025 3:00 PM EST Medication Management [facility] MEDICINE [address] [place] [address] Navneet Bender, PharmD 230 [place] [address] 05/01/2025 3:30 PM EST Office Visit [facility] OPTOMETRY [address] [place] [address] Tereza Paredes, OD 230 [place] [address] documented as of this encounter Visit Diagnoses Not on filedocumented in this encounter Additional Health Concerns Assessment Noted Time PHQ-9 Depression Total Score: 0 07/24/19 24 2:08 PM EST documented as of this encounter Care Teams Hydraulic Controls Technician Relationship Specialty Start Date End Date Laury Washington MD 230 [place] [address] PCP - General Family Medicine 04/07/19 Navneet Bender, EvelinD 230 [place] [address] Pharmacist Pharmacy 01/05/25 documented as of this encounter
--- OUTSIDE RECORDS SUMMARY | 2025-04-14 10:43 | XMS_ITS | Encounter Summary ---
Author Organization [employer] Address [address] [facility] 7t [place] [address] Care Team Providers Care Tools Administrator Name Role Phone Laury Washington MD Primary Care Provide r Navneet Bender PharmD Unavailable [phone] Reason for Visit * Reason Onset Date Comments Referral 10/30/2023 Encounter Details Date Type Department Care Team (Late st Contact Info) Description 10/30/2023 Telephone [facility] MEDICINE 230 [place] [address] Laury Washington MD 230 [place], [place] [phone] Referral Social History Tobacco Use Types Packs/Day [...] visit with pcp. Please contact pt at [phone]. documented in this encounter Plan of Treatment Upcoming Encounters Date Type Department Care Team (Late st Contact Info) Description 04/26/2025 3:00 PM EST Medication Management [facility] MEDICINE [address] [place] [address] Navneet Bender, PharmD 230 [place] [address] 05/01/2025 3:30 PM EST Office Visit [facility] OPTOMETRY [address] [place] [address] Tereza Paredes, OD 230 [place] [address] documented as of this encounter Visit Diagnoses Not on filedocumented in this encounter Additional Health Concerns Assessment Noted Time PHQ-9 Depression Total Score: 0 07/24/19 24 2:08 PM EST documented as of this encounter Care Teams Tools Administrator Relationship Specialty Start Date End Date Laury Washington MD 230 [place] [address] PCP - General Family Medicine 04/07/19 Navneet Bender, PharmD 230 [place] [address] Pharmacist Pharmacy 01/05/25 documented as of this encounter
--- OUTSIDE RECORDS SUMMARY | 2025-04-14 10:43 | XMS_ITS | Encounter Summary ---
Author Organization [employer] Address [address] [facility] 7t [place] [address] Care Team Providers Care Business Owner/Engineer Name Role Phone Laury Washington MD Primary Care Provide r Navneet Bender PharmD Unavailable [phone] Reason for Visit * Reason Comments Med Refill Encounter Details Date Type Department Care Team ([facility] st Contact Info) Description 04/09/2025 Refill [facility] MEDICINE 230 [place] [address] Laury Washington MD 230 [place] [address] Type 2 diabetes mellitus with hyperglycemia, without long-term current use of insulin (HCC) Social History Tobacco Use Types Packs/Day Years [...] Description 04/26/2025 3:00 PM EST Medication Management [facility] MEDICINE [address] [place] [address] Navneet Bender, PharmD [address] [place] [address] 05/01/2025 3:30 PM EST Office Visit [facility] OPTOMETRY [address] [place] [address] Tereza Paredes, OD 230 [place] [address] documented as of this encounter Visit Diagnoses Diagnosis Type 2 diabetes mellitus with hyperglycemia, without long-term current use of insulin (HCC) documented in this encounter Additional Health Concerns Assessment Noted Time PHQ-9 Depression Total Score: 0 07/24/19 2:08 PM EST documented as of this encounter Care Teams Business Owner/Engineer Relationship Specialty Start Date End Date Laury Washington MD 230 [place] [address] PCP - General Family Medicine 04/07/19 Navneet Bender, PharmD [address] [place] [phone] Pharmacist Pharmacy 01/05/25 documented as of this encounter
--- OUTSIDE RECORDS SUMMARY | 2025-04-14 10:43 | XMS_ITS | Clinical Summary ---
Author Organization [employer] Address [address] [facility] 7t [place] [address] Care Team Providers Care Deputy Brand Inspector Name Role Phone Laury Washington MD Primary Care Provide r Navneet Bender PharmD Unavailable [phone] Allergies Active Allergy Reactions Criticality Noted Date [...] tablet 3 08/11/19 25 Active Continuous Glucose Sensor (FreeStyle Chato 3 Plus Sensor) miscIndications :Type 2 diabetes mellitus with hyperglycemia, without long-term current use of insulin (HCC) 1 each every 15 days. Apply 1 every 15 days as directed for CGM 2 each 10/25/19 25 Active glucose blood (FreeStyle Precision Jeffry Test) test stripIndication s:Type 2 diabetes mellitus with hyperglycemia, without long-term current use of insulin (HCC) Use to test blood sugar 3 times daily in case of CGM failure or extremes of BG 100 each 11 10/25/19 25 026 Active insulin pen needle (BD Pen Needle Mini Ultrafine) 31G x 5 mm miscIndications :Type 2 diabetes mellitus with hyperglycemia, without long-term current use of insulin (HCC) Use once a day 100 each 3 10/26/19 25 Active pioglitazone (Actos) 30 MG tabletIndicatio ns:Type 2 diabetes mellitus with other specified complication, unspecified whether extermination supervisor insulin use (HCC) TAKE 1 TABLET BY MOUTH EVERY DAY 90 tablet 1 11/08/19 25 Active Diclofenac Sodium 1 % gelIndications: Chronic pain of left knee APPLY 1 APPLICATION TOPICALLY AT NOON AND 1 APPLICATION IN THE EVENING. 100 g 1 11/24/19 25 Active sennosides (Senna-Time) 8.6 MG tabletIndicatio ns:Constipation , unspecified constipation type TAKE 1 TABLET (8.6 MG) BY MOUTH IF NEEDED AT BEDTIME FOR CONSTIPATION. 90 tablet 1 12/13/19 25 Active chlorhexidine (Peridex) 0.12 % solution PLEASE SEE ATTACHED FOR DETAILED DIRECTIONS 12/22/19 25 Active empagliflozin (Jardiance) 10 MGIndications:T ype 2 diabetes mellitus with hyperglycemia, without long-term current use of insulin ([facility]) Take 1 tablet (10 mg) by mouth Once per day. 30 tablet 11 01/06/20 25 Active rosuvastatin (Crestor) 20 MG tabletIndicatio ns:Type 2 diabetes mellitus with hyperglycemia, without long-term current use of insulin (HCC) Take 1 tablet (20 mg) by mouth Once per day. 30 tablet 5 01/06/20 25 Active meloxicam (Mobic) 15 MG tabletIndicatio ns:Chronic pain of left knee TAKE 1 TABLET BY MOUTH EVERY DAY 30 tablet 01/10/20 25 Active cholecalciferol VITAMIN D (Vitamin D-3) 50 MCG (2000 UT) capsule Take 1 capsule by mouth Once per day. 01/11/20 25 Active esomeprazole (NexIUM) [address] capsule Take 1 capsule by mouth Once per day. 01/07/20 Active famotidine (Pepcid) 20 MG tablet Take 1 tablet by mouth 2 times daily. 01/17/20 Active Linzess 145 MCG capsule Take 1 capsule by mouth Once per day. 01/07/20 25 Active FREESTYLE LITE test stripIndication s:Type 2 diabetes mellitus with hyperglycemia, without long-term current use of insulin ([facility]) Use to test blood sugar 2 times daily 100 each 12 02/16/20 25 026 Active Tirzepatide (Mounjaro) 7.5 MG/0.5ML solution auto-injectorIn dications:Type 2 diabetes mellitus with hyperglycemia, without long-term current use of insulin ([facility]) Inject 7.5 mg under the skin 1 (one) time per week. 2 mL 5 02/24/20 25 Active insulin glargine (Lantus SoloStar) 100 UNIT/ML penIndications: Type 2 diabetes mellitus with hyperglycemia, without long-term current use of insulin ([facility]) Inject 14 Units under the skin at bedtime. 15 mL 5 02/24/20 25 Active clobetasol (Temovate) 0.05 % ointmentIndicat ions:Prurigo nodularis APPLY TO AFFECTED AREA TWICE A DAY 30 g 03/17/20 25 Active lidocaine (Lidoderm) 5 % patchIndication s:Chronic pain of left knee APPLY 1 PATCH TOPICALLY ONCE PER DAY. REMOVE & DISCARD PATCH WITHIN 12 HOURS OR DIRECTED BY . 30 patch 03/17/20 25 Active Continuous Glucose Shipping Clerk Crating (FreeStyle Chato 3 Protem) deviceIndicatio ns:Type 2 diabetes mellitus with hyperglycemia, without long-term current use of insulin ([facility]) 1 each Once per day. USE DIRECTED FOR CGM ONCE PER DAY 1 each 04/10/20 25 Active Continuous Glucose Shipping Clerk Crating (FreeStyle Chato 3 Protem) deviceIndicatio ns:Type 2 diabetes mellitus with hyperglycemia, without long-term current use of insulin ([facility]) 1 each Once per day. Use as directed for CGM 1 each 10/25/19 25 025 Discontinued clobetasol (Temovate) 0.05 % ointmentIndicat ions:Prurigo nodularis APPLY TO AFFECTED AREA TWICE A DAY 30 g 07/21 025 Discontinued lidocaine (Lidoderm) 5 % patchIndication s:Chronic pain of left knee APPLY 1 PATCH TOPICALLY ONCE PER DAY. REMOVE & DISCARD PATCH WITHIN 12 HOURS OR DIRECTED BY . 30 patch 01/10/20 025 Discontinued Active Problems Problem Noted Date Diagnosed Date Left foot pain 02/15/2025 H. pylori infection 02/15/2025 Assessment & Plan (02/15/2025 10:00 AM EDT): Continue treatment as per GI specialist do not miss appointment with them Bipolar affective ([facility]) 06/02/2023 Assessment & Plan (10/24/2024 3:46 PM EDT): Patient reports he is stable and he has been follow-up by therapist and psychiatrist Right shoulder pain 06/02/2023 Assessment & Plan (06/02/2023 5:38 PM EST): Pt states fell while in [place] ,his left knee locked and fell put [...] Encounters Date Type Department Care Team Description 04/09/2025 Refill [facility] MEDICINE [address] [place] [address] Laury Washington MD Type 2 diabetes mellitus with hyperglycemia, without long-term current use of insulin ([facility]) 03/16/2025 Refill [facility] MEDICINE [address] [place] [address] Laury Washington MD Prurigo nodularis; Chronic pain of left knee 03/03/2025 Telephone [facility] MEDICINE [address] [place] [address] Navneet Bender, PharmD 03/03/2025 Orders Only [facility] MEDICINE [address] [place] [address] Laury Washington MD 02/22/2025 Travel 02/21/2025 Travel 02/15/2025 9:15 AM EDT Telemedicine [facility] MEDICINE [address] [place] [address] Laury Washington MD Left foot pain; Type 2 diabetes mellitus with hyperglycemia, without long-term current use of insulin ([facility]); H. pylori infection 02/15/2025 Travel 02/14/2025 Telephone [facility] MEDICINE [address] [place] [address] Laury Washington MD chart prep 02/08/2025 Travel 02/02/2025 Refill [facility] MEDICINE [address] [place] [address] Laury Washington MD Type 2 diabetes mellitus with hyperglycemia, without long-term current use of insulin ([facility]/HCC) 02/01/2025 9:30 AM EDT Telemedicine [facility] MEDICINE [address] [place] [address] Navneet Bender, PharmD Type 2 diabetes mellitus with hyperglycemia, without long-term current use of insulin ([facility]) (Primary Dx) from Last 3 Months Immunizations Immunization Administration [...] Description 04/26/2025 3:00 PM EST Medication Management [facility] MEDICINE [address] [place] [address] Navneet Bender, PharmD [address] [place] [address] 05/01/2025 3:30 PM EST Office Visit [facility] OPTOMETRY [address] [place] [address] Tereza Paredes, OD [address] [place] [address] Health Maintenance Due Date Last Done Comments CT Colonography 1966 FIT DNA/Cologuard 1966 FIT 1966 FOBT 1966 Sigmoidoscopy 1966 Diabetes: Foot Exam 01/22/1976 Depression Screening 07/23/2024 07/24/2023, 07/24/19 24 COVID-19 Vaccine ( season) 2025 01/26/2024, 03/25/2023, 10/03/2022, Additional history exists Influenza Vaccine (#1) 2025 , 02/24/2023, 04/29/2022, Additional history exists Pneumococcal Vaccine: 50+ Years (3 of 3 - PCV20 or PCV21) 04/06/2025 04/06/2020, 10/06/2013 Diabetes: Hemoglobin A1C 04/08/2025 025, 10/24/2024, 07/24/2023, Additional history exists Tobacco Screening 07/01/2025 07/01/2024 Diabetes: Urine Protein Screening 10/24/2025 10/24/2024, 01/09/2022, 01/09/2022 Eye Exam 11/19/2025 11/20/2023, 10/24, 11/20/2023, Additional history exists Disability Screening 02/08/2026 02/08/2025 Alcohol/Substance Use Screening 02/15/2026 02/15/2025 SDOH Screening 02/15/2026 02/15/2025 Lipid Panel 03/03/2026 03/03/2025, 06/0 06/2024, 08/05/2023, Additional history exists Colonoscopy 02/09/2029 02/09/2019 Colorectal Cancer Screening 02/09/2029 DTaP/Tdap/Td Vaccines (2 - Td or Tdap) 04/06/2030 04/06/2020, 09/19/2013 Zoster Vaccines Completed 04/06/2020, 02/06/2020 HIV Screening Completed 10/24/2024 Hepatitis C Screening [...] Associated Diagnosis Comments LIPID PANEL, STANDARD Routine 03/03/2025 11:08 AM EDT HEPATIC FUNCTION PANEL Routine 03/03/2025 11:08 AM EDT HEMOGLOBIN A1C Routine 01/06/2025 12:07 PM EDT HEPATITIS C AB W/REFL TO HCV RNA, [...] Recently Relevant to Health Maintenance Results * Hepatic Function Panel (03/03/2025 11:08 AM EDT) Bilirubin, Total 0.5 0.0 - 1.0 mg/dL [facility] Bilirubin, Direct 0.2 0.0 - 0.5 mg/dL [facility] Aspartate Amino Transferase 23 5 - 37 U/L [facility] Alanine Aminotransferase 21 0 - 40 U/L [facility] Total Protein 7.6 6.5 - 8.0 g/dL [facility] Albumin Level 4.5 3.5 - 5.0 g/dL [facility] Alkaline Phosphatase 111 39 - 117 U/L [facility] 03/03/2025 11:0 8 AM EDT 03/03/2025 11:08 AM EDT Laury Banks MD LAB BLOOD ORDERABLES Final Result [facility] [address] [place], [place] [phone] * (ABNORMAL) Lipid Panel, Standard (03/03/2025 11:08 AM EDT) Triglycerides 84 <150 mg/dL [facility] Comment:Desirable Triglyceri de: less than 150 mg/dLBorderline High Triglyceride 150-199 mg/dLHigh Triglyceride: 200-499 mg/dLVery High Triglyceride: greater than or equal to 5OO mg/dL Cholesterol 126 <200 mg/dL [facility] Comment:Desirable Cholestero l: less than 200 mg/dLBorderline High Cholesterol: 200-239 mg/dLHigh Cholesterol: greater than 239 mg/dL LDL Cholesterol Calculated 71 <100 mg/dL [facility] Comment:Desirable LDL: less than 100 mg/dLNear Optimal/Above Optimal LDL: 110- 129 mg/dLBorderline High LDL: 130-159 mg/dLHigh LDL: 160-189 mg/dLVery High LDL: greater than or equal to 190 mg/dL HDL Cholesterol 39(L) >40 mg/dL [facility] Comment:Desirable HDL: great er than 40 mg/dL Note: This HDL assay may give artificially low results in patients with liver disease. 03/03/2025 11:0 8 AM EDT 03/03/2025 11:08 AM EDT us Laury Banks MD LAB BLOOD ORDERABLES Final Result Performing Organization Address [facility]/ZIP Co de Phone Number [facility] [address] [place] [phone] * (ABNORMAL) Hemoglobin A1c (01/06/2025 12:07 PM EDT) Hemoglobin A1c 7.6(H) <6.0 % [facility] Comment:Hemoglobin A1C Refer ence Range Adults: 4.8 - 6.0 % Non diabetic: < 6.0 % Goal: < 7.0 %Additional Action Suggested: > 8.0 %Note: Hemoglobin A1c results are invalid for patients with abnormal amounts of HbF. Blood transfusions may impact the HbA1c concentration in the patient sample. Estimated Average Glucose 171 mg/dL [facility] Comment:eAG = Estimated ave rage glucose which is %A1C expressed asaverage glucose, using the formula of the H8C-NuwrevhArstypk Glucose study (ADAG), Diabetes Care, Vol.31,#8,Dec. 2007 01/06/2025 12:0 7 PM EDT 01/06/2025 12:07 PM EDT us Generic External Data Provider LAB BLOOD ORDERAB LES Final Result Performing Organization Address [facility]/ZIP Co de Phone Number [facility] [address] [place] [phone] * Albumin, Random Urine W/Creatinine (10/24/2024 3:51 PM EDT) Creatinine, Urine 77.90 mg/dL [facility] Microalbumin Urine <5.0 mg/L [facility] Microalbum Creatinine Ratio Ur TNP <30 ug/mg cr [facility] Comment:Unable to calculate albumin/creatinine ratio due to lowmicroalbumin or creatinine result. Urine (Urine, Random) 10/24/2024 3:51 PM EDT 10/24/2024 5:36 PM EDT us Laury Banks MD LAB URINE ORDERABLES Final Result Performing Organization Address [facility] de Phone Number [facility] [address] [place] [phone] * Hepatitis C Antibody with Reflex to HCV, RNA, Quantitative, Real-Time PCR (10/24/2024 3:51 PM EDT) Pathologist [facility] Hepatitis C Antibody Nonreactive Nonreactive [facility] Comment:Antibodies to HCV no t detected; does not exclude early acuteHCV infection. Blood Venous blood specimen / Unknown 10/24/2024 3:51 PM EDT 10/24/2024 5:33 PM EDT us Laury Banks MD LAB BLOOD ORDERABLES Final Result Performing Organization Address [facility] Co de Phone Number [facility] [address] [place] [address] [phone] * HIV-1/2 Antigen and Antibodies, Fourth Generation, with Reflexes (10/24/2024 3:51 PM EDT) Pathologist [facility] HIV AB/AG Nonreactive Nonreactive [facility] Comment:HIV-1 p24 Ag and/or HIV-1/HIV-2 Ab not detected.A test result that is nonreactive does not exclude thepossibility of exposure to or infection with HIV-1 and/orHIV-2. Nonreactive results in this assay for individualswith prior exposure to HIV-1 and/or HIV-2 may be due toantigen and antibody levels that are below the limit ofdetection of this assay.The AdTotum Alinity HIV Ag/Ab Combo assay result andsupplemental assay results should be interpreted inconjunction with the patient's clinical presentation,history and other laboratory results. If the results areinconsistent with clinical evidence, additional testing issuggested to confirm the result. Blood Venous blood specimen / Unknown 10/24/2024 3:51 PM EDT 10/24/2024 5:33 PM EDT us Laury Banks MD LAB BLOOD ORDERABLES Final Result [facility] [address] [place] [phone] [phone] * Hm Colonoscopy (02/09/2019) us Historical Provider HEALTH MAINTENANCE Final Result from Last 3 Months or Most Recently Relevant to Health Maintenance Insurance [facility] C3 Care Teams Deputy Brand Inspector Relationship Specialty Start Date End Date Laury Washington MD [address] [place] [address] PCP - General Family Medicine 04/07/19 Navneet Bender, PharmD [address] [place] [address] Pharmacist Pharmacy 01/05/25
--- OUTSIDE RECORDS SUMMARY | 2025-04-14 10:43 | XMS_ITS | Encounter Summary ---
Author Organization [employer] Address [address] [facility] [address]t [place] [address] Care Team Providers Care Early Childhood Director Name Role Phone Laury Washington MD Primary Care Provide r Navneet Bender PharmD Unavailable [phone] Reason for Visit * Reason Onset Date Comments Med Refill 03/23/2024 Prior Authorization 03/23/2024 Encounter Details Date Type Department Care Team (Late st Contact Info) Description 03/23/2024 Telephone [facility] MEDICINE [address] [place], [place] [phone] Laury Washington MD [address] [place], [place] [phone] Med Refill; Prior Authorization Social History Tobacco [...] MG/1.5ML solution pen-injector To be sent to: [facility]/pharmacy #[id number] documented in this encounter Plan of Treatment Upcoming Encounters Date Type Department Care Team (Late st Contact Info) Description 04/26/2025 3:00 PM EST Medication Management [facility] MEDICINE [address] [place] [address] Navneet Bender, PharmD [address] [place] [address] 05/01/2025 3:30 PM EST Office Visit [facility] OPTOMETRY [address] [place] [address] Tereza Paredes, OD [address] [place] [address] documented as of this encounter Visit Diagnoses Not on filedocumented in this encounter Additional Health Concerns Assessment Noted Time PHQ-9 Depression Total Score: 0 07/24/19 24 2:08 PM EST documented as of this encounter Care Teams Early Childhood Director Relationship Specialty Start Date End Date Laury Washington MD [address] [place] [address] PCP - General Family Medicine 04/07/19 Navneet Bender, EvelinD [address] [place] [address] Pharmacist Pharmacy 01/05/25 documented as of this encounter
--- OUTSIDE RECORDS SUMMARY | 2025-04-14 10:43 | XMS_ITS | Encounter Summary ---
Author Organization [employer] Address [address] [place] [address] [address] [place] [address] Care Team Providers Care Theatre Professor Name Role Phone Laury Washington MD Primary Care Provide r Navneet Bender PharmD Unavailable [phone] Reason for Visit * Reason Comments Med Refill Encounter Details Date Type Department Care Team (Late Contact Info) Description 08/01/2022 Refill [facility] MEDICINE [address] [place] [phone] Caryl Strickland MD [address] [place] [phone] Other chronic pain Social History Tobacco Use [...] Department Care Team (Late Contact Info) Description 04/26/2025 3:00 PM EST Medication Management [facility] MEDICINE [address] [place] [address] [phone] Navneet Bender, PharmD [address] [place] [address] 05/01/2025 3:30 PM EST Office Visit [facility] OPTOMETRY [address] [place], [place] [phone] Tereza Paredes, OD [address] [place] [address] documented as of this encounter Visit Diagnoses Diagnosis Other chronic pain documented in this encounter Care Teams Theatre Professor Relationship Specialty Start Date End Date Laury Washington MD [address] [place], [place] [phone] PCP - General Family Medicine 04/07/19 Navneet Bender, PharmD [address] [place] [address] [phone] Pharmacist Pharmacy 01/05/25 documented as of this encounter
--- OUTSIDE RECORDS SUMMARY | 2025-04-14 10:43 | XMS_ITS | Encounter Summary ---
Author Organization [employer] Address 75 [facility] 7t [place] [address] Care Team Providers Care Substation Wireman Name Role Phone Laury Washington MD Primary Care Provide r Navneet Bender PharmD Unavailable [phone] Reason for Visit * Reason Comments Med Refill Encounter Details Date Type Department Care Team (Late st Contact Info) Description 05/28/2022 Refill [facility] [address] [place] [address] Saman Doty, DMD [address] [place] [address] Pain (Primary Dx) Social History Tobacco Use [...] Description 04/26/2025 3:00 PM EST Medication Management [facility] [address] [place] [address] Navneet Bender, EvelinD [address] [place] [address] 05/01/2025 3:30 PM EST Office Visit [facility] [address] [place] [address] Reggie, Tereza, OD [address] [place] [address] documented as of this encounter Visit Diagnoses Diagnosis Pain- Primary Generalized pain documented in this encounter Care Teams Substation Wireman Relationship Specialty Start Date End Date Laury Washington MD [address] [place] [address] PCP - General Family Medicine 04/07/19 Navneet Bender, Marva [address] [place] [phone] Pharmacist Pharmacy 01/05/25 documented as of this encounter
--- OUTSIDE RECORDS SUMMARY | 2025-04-14 10:43 | XMS_ITS | Encounter Summary ---
Author Organization [employer] Address 75 [facility] 7t [place] [address] Care Team Providers Care Hospital Intern Name Role Phone Laury Washington MD Primary Care Provide r Navneet Bender PharmD Unavailable [phone] Reason for Visit * Reason Comments Med Refill Encounter Details Date Type Department Care Team (Late st Contact Info) Description 02/02/2025 Refill [facility] 230 [place] [address] Laury Washington MD 230 [place] [address] Type 2 diabetes mellitus with hyperglycemia, without long-term current use of insulin ([facility]) Social History Tobacco Use Types Packs/Day [...] Description 04/26/2025 3:00 PM EST Medication Management [facility] [address] [place] [address] Navneet Bender PharmD [address] [place] [address] 05/01/2025 3:30 PM EST Office Visit [facility] [address] [place] [address] Reggie, Tereza, OD 230 [place] [address] documented as of this encounter Visit Diagnoses Diagnosis Type 2 diabetes mellitus with hyperglycemia, without long-term current use of insulin (HCC) documented in this encounter Additional Health Concerns Assessment Noted Time PHQ-9 Depression Total Score: 0 07/24/19 24 2:08 PM EST documented as of this encounter Care Teams Hospital Intern Relationship Specialty Start Date End Date Laury Washington MD 230 [place] [address] PCP - General Family Medicine 04/07/19 Navneet Bender, PharmD [address] [place] [address] Pharmacist Pharmacy 01/05/25 documented as of this encounter
--- OUTSIDE RECORDS SUMMARY | 2025-04-14 10:43 | XMS_ITS | Encounter Summary ---
Author Organization [employer] Address [address] [place] [address] 7 [place] [address] Care Team Providers Care Health Officer Name Role Phone Laury Washington MD Primary Care Provide r Navneet Bender PharmD Unavailable [phone] Reason for Visit * Reason Comments Med Refill Encounter Details Date Type Department Care Team (Late Contact Info) Description 09/26/2022 Refill [facility] [address] [place] [address] Laury Washington MD [address] [place] [address] [phone] Other chronic pain Social History Tobacco Use [...] Description 04/26/2025 3:00 PM EST Medication Management [facility] [address] [place], [place] [phone] Navneet Bender, PharmD 230 [place], [place] [phone] 05/01/2025 3:30 PM EST Office Visit [facility] [address] [place], [place] [phone] Tereza Paredes, OD 230 [place] [address] documented as of this encounter Visit Diagnoses Diagnosis Other chronic pain documented in this encounter Care Teams Health Officer Relationship Specialty Start Date End Date Laury Washington MD 230 [place], [place] [phone] PCP - General Family Medicine 04/07/19 Navneet Bender, PharmD [address] [place] [address] [phone] Pharmacist Pharmacy 01/05/25 documented as of this encounter
--- OUTSIDE RECORDS SUMMARY | 2025-04-14 10:43 | XMS_ITS | Encounter Summary ---
Author Organization [employer] Address [address] [place] [address] 7 [place] [address] Care Team Providers Care Laundry Superintendent Name Role Phone Laury Washington MD Primary Care Provide r Navneet Bender PharmD Unavailable [phone] Encounter Details Date Type Department Care Team (Latest Contact Info) Description 12/25/2021 Abstract [facility] CONVERSIONS Dental, Provider, DDS Social History [...] Description 04/26/2025 3:00 PM EST Medication Management [facility] 230 [place] [address] Navneet Bender, PharmD 230 [place] [address] 05/01/2025 3:30 PM EST Office Visit [facility] [address] [place] [address] Tereza Paredes, OD 230 [place] [address] documented as of this encounter Visit Diagnoses Not on filedocumented in this encounter Care Teams Laundry Superintendent Relationship Specialty Start Date End Date Laury Washington MD 230 [place] [address] PCP - General Family Medicine 04/07/19 Navneet Bender, EvelinD 230 [place] [address] Pharmacist Pharmacy 01/05/25 documented as of this encounter
--- OUTSIDE RECORDS SUMMARY | 2025-04-14 10:43 | XMS_ITS | Encounter Summary ---
Author Organization [employer] Address 75 [facility] 7t [place] [address] Care Team Providers Care Home Sales Service Professional Name Role Phone Laury Washington MD Primary Care Provide r Navneet Bender PharmD Unavailable [phone] Reason for Visit * Reason Comments Med Change Request Encounter Details Date Type Department Care Team ([facility] Contact Info) Description 05/01/2022 Refill [facility] 230 [place] [address] Phoebe Yost, LING [address] [place] [address] Type 2 diabetes mellitus with hyperglycemia, without long-term current use of insulin ([facility]) Social History Tobacco Use Types Packs/Day Years [...] Upcoming Encounters Date Type Department Care Team ([facility] Contact Info) Description 04/26/2025 3:00 PM EST Medication Management [facility] 230 [place] [address] Navneet Bender, PharmD [address] [place] [address] 05/01/2025 3:30 PM EST Office Visit [facility] [address] [place] [address] Tereza Paredes, OD 230 [place] [address] documented as of this encounter Visit Diagnoses Diagnosis Type 2 diabetes mellitus with hyperglycemia, without long-term current use of insulin (HCC) documented in this encounter Care Teams Home Sales Service Professional Relationship Specialty Start Date End Date Laury Washington MD [address] [place] [address] [phone] PCP - General Family Medicine 04/07/19 Navneet Bender, PharmD [address] [place] [address] [phone] Pharmacist Pharmacy 01/05/25 documented as of this encounter
--- OUTSIDE RECORDS SUMMARY | 2025-04-14 10:43 | XMS_ITS | Encounter Summary ---
Author Organization [employer] Address [address] [place] [address] 7 [place] [address] Care Team Providers Care Glue Spreading Machine Operator Name Role Phone Laury Washington MD Primary Care Provide r Navneet Bender PharmD Unavailable [phone] Reason for Visit * Reason Comments Med Refill Encounter Details Date Type Department Care Team (Late Contact Info) Description 12/16/2022 Refill [facility] [address] [place] [address] Laury Washington MD [address] [place] [address] Social History Tobacco Use Types Packs/Day Years [...] Description 04/26/2025 3:00 PM EST Medication Management [facility] 230 [place] [address] Navneet Bender, PharmD 230 [place], [place] [phone] 05/01/2025 3:30 PM EST Office Visit [facility] [address] [place], [place] [phone] Tereza Paredes, OD 230 [place] [address] documented as of this encounter Visit Diagnoses Not on filedocumented in this encounter Care Teams Glue Spreading Machine Operator Relationship Specialty Start Date End Date Laury Washington MD 230 [place], [place] [phone] PCP - General Family Medicine 04/07/19 Navneet Bender, PharmD [address] [place] [address] [phone] Pharmacist Pharmacy 01/05/25 documented as of this encounter
--- OUTSIDE RECORDS SUMMARY | 2025-04-14 10:44 | XMS_ITS | Encounter Summary ---
Author Organization [employer] Address 75 [facility] 7t [place] [address] Care Team Providers Care Associate Professor Of Sociology Name Role Phone Laury Washington MD Primary Care Provide r Navneet Bender PharmD Unavailable [phone] Reason for Visit * Reason Onset Date Comments Med Refill 12/11/2024 Encounter Details Date Type Department Care Team (Late st Contact Info) Description 12/11/2024 Refill [facility] 230 [place] [address] Laury Washington MD [address] [place], [place] [phone] Type 2 diabetes mellitus with hyperglycemia, without long-term current use of insulin ([facility]) Social History Tobacco Use Types Packs/Day [...] Description 04/26/2025 3:00 PM EST Medication Management [facility] [address] [place] [address] Navneet Bender, PharmD [address] [place] [address] 05/01/2025 3:30 PM EST Office Visit [facility] [address] [place] [address] Reggie, Tereza, OD 230 [place] [address] documented as of this encounter Visit Diagnoses Diagnosis Type 2 diabetes mellitus with hyperglycemia, without long-term current use of insulin (HCC) documented in this encounter Additional Health Concerns Assessment Noted Time PHQ-9 Depression Total Score: 0 07/24/19 24 2:08 PM EST documented as of this encounter Care Teams Associate Professor Of Sociology Relationship Specialty Start Date End Date Laury Washington MD [address] [place] [address] PCP - General Family Medicine 04/07/19 Navneet Bender, PharmD [address] [place] [address] Pharmacist Pharmacy 01/05/25 documented as of this encounter
--- OUTSIDE RECORDS SUMMARY | 2025-04-14 10:44 | XMS_ITS | Encounter Summary ---
Author Organization [employer] Address 75 [facility] 7t [place] [address] Care Team Providers Care Yarn Worker Name Role Phone Laury Washington MD Primary Care Provide r Navneet Bender PharmD Unavailable [phone] Reason for Visit * Reason Comments Med Refill Encounter Details Date Type Department Care Team ([facility] st Contact Info) Description 09/05/2024 Refill [facility] [address] [place] [address] Yunier Rodriguez MD 230 [place] [address] Prurigo nodularis Social History Tobacco Use Types [...] Description 04/26/2025 3:00 PM EST Medication Management [facility] [address] [place] [address] Navneet Bender, PharmD [address] [place] [address] 05/01/2025 3:30 PM EST Office Visit [facility] [address] [place], [place] [phone] Reggie, Tereza, OD 230 [place] [address] documented as of this encounter Visit Diagnoses Diagnosis 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
--- OUTSIDE RECORDS SUMMARY | 2025-04-14 10:44 | XMS_ITS | Encounter Summary ---
Author Organization [employer] Address 75 [facility] 7t [place] [address] Care Team Providers Care Shrimp Boat Captain Name Role Phone Laury Washington MD Primary Care Provide r Navneet Bender PharmD Unavailable [phone] Reason for Visit * Reason Onset Date Comments Med Refill 12/11/2024 Encounter Details Date Type Department Care Team (Late st Contact Info) Description 12/11/2024 Refill [facility] [address] [place], [place] [phone] Laury Washington MD 230 [place], [place] [phone] Type 2 diabetes mellitus with hyperglycemia, without long-term current use of insulin ([facility]) Social History Tobacco Use Types Packs/Day Years [...] Description 04/26/2025 3:00 PM EST Medication Management [facility] [address] [place] [address] Navneet Bender, PharmD 230 [place] [address] 05/01/2025 3:30 PM EST Office Visit [facility] [address] [place] [address] Reggie, Tereza, OD 230 [place] [address] documented as of this encounter Visit Diagnoses Diagnosis Type 2 diabetes mellitus with hyperglycemia, without long-term current use of insulin (HCC) documented in this encounter Additional Health Concerns Assessment Noted Time PHQ-9 Depression Total Score: 0 07/24/19 24 2:08 PM EST documented as of this encounter Care Teams Shrimp Boat Captain Relationship Specialty Start Date End Date Laury Washington MD 230 [place] [address] PCP - General Family Medicine 04/07/19 Navneet Bender, PharmD 230 [place] [address] Pharmacist Pharmacy 01/05/25 documented as of this encounter
--- OUTSIDE RECORDS SUMMARY | 2025-04-14 10:44 | XMS_ITS | Encounter Summary ---
Author Organization [employer] Address 75 [facility] 7 [place] [address] Care Team Providers Care Specialist Employee Labor Relations Name Role Phone Laury Washington MD Primary Care Provide r Navneet Bender PharmD Unavailable [phone] Reason for Visit * Reason Comments Med Refill Encounter Details Date Type Department Care Team ([facility] st Contact Info) Description 07/27/2023 Refill [facility] 230 [place] [address] Laury Sanchez MD 230 [place], [place] [phone] Type 2 diabetes mellitus with hyperglycemia, without long-term current use of insulin ([facility]) Social History Tobacco Use Types [...] Description 04/26/2025 3:00 PM EST Medication Management [facility] [address] [place] [address] Navneet Bender, EvelinD 230 [place] [address] 05/01/2025 3:30 PM EST Office Visit [facility] [address] [place] [address] Reggie, Tereza, OD 230 [place] [address] documented as of this encounter Visit Diagnoses Diagnosis Type 2 diabetes mellitus with hyperglycemia, without long-term current use of insulin (HCC) documented in this encounter Additional Health Concerns Assessment Noted Time PHQ-9 Depression Total Score: 0 07/24/19 24 2:08 PM EST documented as of this encounter Care Teams Specialist Employee Labor Relations Relationship Specialty Start Date End Date Laury Washington MD 230 [place] [address] PCP - General Family Medicine 04/07/19 Navneet Bender, PharmD [address] [place] [phone] Pharmacist Pharmacy 01/05/25 documented as of this encounter
--- OUTSIDE RECORDS SUMMARY | 2025-04-14 10:44 | XMS_ITS | Encounter Summary ---
Author Organization [employer] Address 75 [facility] 7t [place] [address] Care Team Providers Care Press Operator Apprentice Name Role Phone Laury Washington MD Primary Care Provide r Navneet Bender PharmD Unavailable [phone] Reason for Visit * Reason Comments Med Refill Encounter Details Date Type Department Care Team ([facility] st Contact Info) Description 08/11/2024 Refill [facility] 230 [place] [address] Laury Washington MD [address] [place] [address] Pain Social History Tobacco Use Types Packs/Day [...] is your housing situation today? I have ulcas juan 06/02/[address] you [...] 3:00 PM EST Medication Management [facility] [address] [place] [address] Navneet Bender, PharmD [address] [place] [address] 05/01/2025 3:30 PM EST Office Visit [facility] [address] [place] [address] Reggie, Tereza, OD 230 [place] [address] documented as of this encounter Visit Diagnoses Diagnosis Pain Generalized pain documented in this encounter Additional Health Concerns Assessment Noted Time PHQ-9 Depression Total Score: 0 07/24/19 24 2:08 PM EST documented as of this encounter Care Teams Press Operator Apprentice Relationship Specialty Start Date End Date Laury Washington MD [address] [place] [phone] PCP - General Family Medicine 04/07/19 Navneet Bender, PharmD [address] [place] [phone] Pharmacist Pharmacy 01/05/25 documented as of this encounter
--- OUTSIDE RECORDS SUMMARY | 2025-04-14 10:44 | XMS_ITS | Encounter Summary ---
Author Organization [employer] Address [address] [place] [address] 7 [place] [address] Care Team Providers Care Check Writer Salesperson Name Role Phone Laury Washington MD Primary Care Provide r Navneet Bender PharmD Unavailable [phone] Encounter Details Date Type Department Care Team (Late Contact Info) Description 02/02/2023 Orders Only [facility] [address] [place] [address] Provider, MD Cari Social History Tobacco Use [...] PM EST Medication Management [facility] [address] [place] [address] [phone] Navneet Bender, PharmD 230 [place] [address] 05/01/2025 3:30 PM EST Office Visit [facility] [address] [place] [address] Tereza Paredes, OD 230 [place] [address] documented as of this encounter Procedures Procedure Name Priority Date/Time Associated Diagnosis Comments T4, FREE Routine 07/22/2023 11:39 AM EST COLONOSCOPY Routine 02/09/2019 documented in this encounter Results * T4, Free (07/22/2023 11:39 AM EST) Free T4 (Free Thyroxine) 1.09 0.71 - 1.85 ng/dL [facility] 07/22/2023 11:3 9 AM EST 07/22/2023 1:36 PM EST us Laury Banks MD LAB BLOOD ORDERABLES Final Result [facility] [address] [place] [address] [phone] * Colonoscopy (02/09/2019) us Historical Provider HEALTH MAINTENANCE Final Result documented in this encounter Visit Diagnoses Not on filedocumented in this encounter Care Teams Check Writer Salesperson Relationship Specialty Start Date End Date Laury Washington MD 230 [place] [address] PCP - General Family Medicine 04/07/19 Navneet Bender, EvelinD [address] [place] [address] Pharmacist Pharmacy 01/05/25 documented as of this encounter
--- OUTSIDE RECORDS SUMMARY | 2025-04-14 10:44 | XMS_ITS | Encounter Summary ---
Author Organization [employer] Address 75 [facility] 7t [place] [address] Care Team Providers Care Account Collector Name Role Phone Laury Washington MD Primary Care Provide r Navneet Bender PharmD Unavailable [phone] Reason for Visit * Reason Comments Med Refill Encounter Details Date Type Department Care Team ([facility] st Contact Info) Description 08/18/2024 Refill [facility] 230 [place] [address] Yunier Rodriguez MD [address] [place] [address] Prurigo nodularis Social History Tobacco Use Types [...] Description 04/26/2025 3:00 PM EST Medication Management [facility] [address] [place] [address] Navneet Bender, PharmD [address] [place] [address] 05/01/2025 3:30 PM EST Office Visit [facility] [address] [place], [place] [phone] Reggie, Tereza, OD 230 [place] [address] documented as of this encounter Visit Diagnoses Diagnosis 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
--- OUTSIDE RECORDS SUMMARY | 2025-04-14 10:44 | XMS_ITS | Encounter Summary ---
Author Organization [employer] Address 75 [facility] 7t [place] [address] Care Team Providers Care Catering Staff Member Name Role Phone Laury Washington MD Primary Care Provide r Navneet Bender PharmD Unavailable [phone] Reason for Visit * Reason Comments Med Refill Encounter Details Date Type Department Care Team ([facility] st Contact Info) Description 08/02/2024 Refill [facility] [address] [place] [address] Yunier Rodriguez MD [address] [place] [address] Prurigo nodularis Social History Tobacco Use Types [...] Description 04/26/2025 3:00 PM EST Medication Management [facility] [address] [place] [address] Navneet Bender, PharmD [address] [place] [address] 05/01/2025 3:30 PM EST Office Visit [facility] OPT[facility] [address] [place], [place] [phone] Reggie, Tereza, OD 230 [place] [address] documented as of this encounter Visit Diagnoses Diagnosis 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
--- OUTSIDE RECORDS SUMMARY | 2025-04-14 10:44 | XMS_ITS | Encounter Summary ---
Author Organization [employer] Address 75 [facility] 7t [place] [address] Care Team Providers Care Concept Artist Name Role Phone Laury Washington MD Primary Care Provide r Navneet Bender PharmD Unavailable [phone] Reason for Visit * Reason Comments Med Change Request Encounter Details Date Type Department Care Team ([facility] st Contact Info) Description 06/03/2023 Refill [facility] 230 [place] [address] Laury Washington MD [address] [place] [address] Social History Tobacco Use Types Packs/Day Years [...] Description 04/26/2025 3:00 PM EST Medication Management [facility] [address] [place] [address] Navneet Bender, PharmD [address] [place] [address] 05/01/2025 3:30 PM EST Office Visit [facility] [address] [place] [address] Reggie, Tereza, OD 230 [place] [address] documented as of this encounter Visit Diagnoses Not on filedocumented in this encounter Care Teams Concept Artist Relationship Specialty Start Date End Date Laury Washington MD [address] [place] [address] PCP - General Family Medicine 04/07/19 Navneet Bender, PharmD [address] [place] [phone] Pharmacist Pharmacy 01/05/25 documented as of this encounter
== END 2025-04-14 11:19 | disposition home or self-care (01) ==
LOC: HO.HGI 10:05
PROVIDERS: PCP Internal Medicine; Visit Provider Nurse Practitioner Family
DX: K21.9 Gastro-esophageal reflux disease without esophagitis (principal); K59.09 Other constipation; K57.30 Diverticulosis of large intestine without perforation or abscess without bleeding; R10.9 Unspecified abdominal pain; G89.29 Other chronic pain
CPT/HCPCS: 99214

== ENCOUNTER → 2025-04-14 10:05 | Outpatient (BNVA) | payer MEDICAID, SELFPAY | PROVIDERS: PCP Internal Medicine; Visit Provider Nurse Practitioner Family | DX: K21.9 Gastro-esophageal reflux disease without esophagitis (principal); K59.09 Other constipation; K57.30 Diverticulosis of large intestine without perforation or abscess without bleeding; R10.9 Unspecified abdominal pain; G89.29 Other chronic pain | CPT/HCPCS: 99212 ==

== ENCOUNTER 2025-04-14 16:55 | Outpatient (REF) | payer MEDICAID, SELFPAY ==
--- OUTSIDE RECORDS SUMMARY | 2025-04-17 20:29 | XMS_ITS | Encounter Summary ---
Author Organization [employer] Address [address] [place] [address] 7t [place] [address] Care Team Providers Care Advertising Analyst Name Role Phone Laury Washington MD Primary Care Provide r Navneet Bender PharmD Unavailable [phone] Reason for Visit * Reason Comments Med Refill Encounter Details Date Type Department Care Team ([facility] st Contact Info) Description 06/18/2022 Refill [facility] ADULT DENTAL [address] [place] [address] Vicki Caban DDS [address] [place] [address] Pain Social History Tobacco Use Types Packs/Day [...] Description 04/26/2025 3:00 PM EST Medication Management [facility] MEDICINE [address] [place] [address] Navneet Bender, PharmD 230 [place] [address] 05/01/2025 3:30 PM EST Office Visit [facility] OPTOMETRY [address] [place] [address] Tereza Paredes, OD 230 [place] [address] documented as of this encounter Visit Diagnoses Diagnosis Pain Generalized pain documented in this encounter Care Teams Advertising Analyst Relationship Specialty Start Date End Date Laury Washington MD [address] [place] [address] PCP - General Family Medicine 04/07/19 Navneet Bender, EvelinD [address] [place] [address] Pharmacist Pharmacy 01/05/25 documented as of this encounter
--- OUTSIDE RECORDS SUMMARY | 2025-04-17 20:29 | XMS_ITS | Encounter Summary ---
Author Organization [employer] Address [address] [facility] 7t [place] [address] Care Team Providers Care Cork Insulator Helper Name Role Phone Laury Washington MD Primary Care Provide r Navneet Bender PharmD Unavailable [phone] Reason for Visit * Reason Onset Date Comments Referral 10/30/2023 Encounter Details Date Type Department Care Team (Late st Contact Info) Description 10/30/2023 Telephone [facility] MEDICINE [address] [place] [address] Laury Washington MD 230 [place], [place] [phone] Referral Social History Tobacco Use Types Packs/Day [...] visit with pcp. Please contact pt at [phone]. documented in this encounter Plan of Treatment Upcoming Encounters Date Type Department Care Team (Late st Contact Info) Description 04/26/2025 3:00 PM EST Medication Management [facility] MEDICINE [address] [place] [address] Navneet Bender, PharmD 230 [place] [address] 05/01/2025 3:30 PM EST Office Visit [facility] OPTOMETRY [address] [place] [address] Tereza Paredes, OD 230 [place] [address] documented as of this encounter Visit Diagnoses Not on filedocumented in this encounter Additional Health Concerns Assessment Noted Time PHQ-9 Depression Total Score: 0 07/24/19 24 2:08 PM EST documented as of this encounter Care Teams Cork Insulator Helper Relationship Specialty Start Date End Date Laury Washington MD 230 [place] [address] PCP - General Family Medicine 04/07/19 Navneet Bender, PharmD 230 [place] [address] Pharmacist Pharmacy 01/05/25 documented as of this encounter
--- OUTSIDE RECORDS SUMMARY | 2025-04-17 20:29 | XMS_ITS | Encounter Summary ---
Author Organization [employer] Address [address] [place] [address] 7t [place] [address] Care Team Providers Care Audiology Assistant Name Role Phone Laury Washington MD Primary Care Provide r Navneet Bender PharmD Unavailable [phone] Reason for Visit * Reason Comments Med Refill Encounter Details Date Type Department Care Team ([facility] st Contact Info) Description 06/21/2022 Refill [facility] ADULT DENTAL [address] [place] [address] Vicki Caban DDS [address] [place] [address] Pain Social History Tobacco Use Types Packs/Day [...] Description 04/26/2025 3:00 PM EST Medication Management [facility] MEDICINE [address] [place] [address] Navneet Bender, EvelinD 230 [place] [address] 05/01/2025 3:30 PM EST Office Visit [facility] OPTOMETRY [address] [place] [address] Reggie, Tereza, OD 230 [place] [address] documented as of this encounter Visit Diagnoses Diagnosis Pain Generalized pain documented in this encounter Care Teams Audiology Assistant Relationship Specialty Start Date End Date Laury Washington MD [address] [place] [address] PCP - General Family Medicine 04/07/19 Navneet Bender, aMrva [address] [place] [address] Pharmacist Pharmacy 01/05/25 documented as of this encounter
--- OUTSIDE RECORDS SUMMARY | 2025-04-17 20:29 | XMS_ITS | Encounter Summary ---
Author Organization [employer] Address [address] [facility] 7t [place] [address] Care Team Providers Care Net Developer Consultant Name Role Phone Laury Washington MD Primary Care Provide r Navneet Bender PharmD Unavailable [phone] Reason for Visit * Reason Comments Med Refill Encounter Details Date Type Department Care Team (Late st Contact Info) Description 02/02/2025 Refill [facility] MEDICINE 230 [place] [address] Laury Washington MD 230 [place] [address] Type 2 diabetes mellitus with hyperglycemia, without long-term current use of insulin ([facility]) Social History Tobacco Use Types Packs/Day Years [...] 3:00 PM EST Medication Management [facility] MEDICINE 230 [place] [address] Navneet Bender PharmD 230 [place] [address] 05/01/2025 3:30 PM EST Office Visit [facility] OPTOMETRY [address] [place] [address] Reggie, Tereza, OD 230 [place] [address] documented as of this encounter Visit Diagnoses Diagnosis Type 2 diabetes mellitus with hyperglycemia, without long-term current use of insulin (HCC) documented in this encounter Additional Health Concerns Assessment Noted Time PHQ-9 Depression Total Score: 0 07/24/19 24 2:08 PM EST documented as of this encounter Care Teams Net Developer Consultant Relationship Specialty Start Date End Date Laury Washington MD 230 [place] [address] PCP - General Family Medicine 04/07/19 Navneet Bender, PharmD 230 [place] [address] Pharmacist Pharmacy 01/05/25 documented as of this encounter
--- OUTSIDE RECORDS SUMMARY | 2025-04-17 20:29 | XMS_ITS | Encounter Summary ---
Author Organization [employer] Address [address] [place] [address] 7 [place] [address] Care Team Providers Care Gold Nib Grinder Name Role Phone Laury Washington MD Primary Care Provide r Navneet Bender PharmD Unavailable [phone] Reason for Visit * Reason Comments Med Refill Encounter Details Date Type Department Care Team (Late Contact Info) Description 08/01/2022 Refill [facility] MEDICINE [address] [place] [address] Caryl Strickland MD [address] [place] [address] Other chronic pain Social History Tobacco Use [...] 3:00 PM EST Medication Management [facility] MEDICINE [address] [place] [address] [phone] Navneet Bender, PharmD 230 [place] [address] 05/01/2025 3:30 PM EST Office Visit [facility] OPTOMETRY [address] [place], [place] [phone] Tereza Paredes, OD 230 [place] [address] documented as of this encounter Visit Diagnoses Diagnosis Other chronic pain documented in this encounter Care Teams Gold Nib Grinder Relationship Specialty Start Date End Date Laury Washington MD 230 [place], [place] [phone] PCP - General Family Medicine 04/07/19 Navneet Bender, PharmD [address] [place] [address] [phone] Pharmacist Pharmacy 01/05/25 documented as of this encounter
--- OUTSIDE RECORDS SUMMARY | 2025-04-17 20:29 | XMS_ITS | Encounter Summary ---
Author Organization [employer] Address 75 [facility] 7t [place] [address] Care Team Providers Care Field Spec Name Role Phone Laury Washington MD Primary Care Provide r Navneet Bender PharmD Unavailable [phone] Reason for Visit * Reason Comments Med Change Request Encounter Details Date Type Department Care Team ([facility] Contact Info) Description 05/01/2022 Refill [facility] MEDICINE 230 [place] [address] Phoebe Yost, LING [address] [place] [address] Type 2 diabetes mellitus with hyperglycemia, without long-term current use of insulin ([facility]) Social History Tobacco Use Types [...] Upcoming Encounters Date Type Department Care Team ([facility] Contact Info) Description 04/26/2025 3:00 PM EST Medication Management [facility] MEDICINE 230 [place] [address] Navneet Bender, PharmD 230 [place] [address] 05/01/2025 3:30 PM EST Office Visit [facility] OPTOMETRY [address] [place] [address] Tereza Paredes, OD 230 [place] [address] documented as of this encounter Visit Diagnoses Diagnosis Type 2 diabetes mellitus with hyperglycemia, without long-term current use of insulin (HCC) documented in this encounter Care Teams Field Spec Relationship Specialty Start Date End Date Laury Washington MD [address] [place] [address] [phone] PCP - General Family Medicine 04/07/19 Navneet Bender, PharmD [address] [place] [phone] Pharmacist Pharmacy 01/05/25 documented as of this encounter
--- OUTSIDE RECORDS SUMMARY | 2025-04-17 20:29 | XMS_ITS | Encounter Summary ---
Author Organization [employer] Address 75 [facility] 7t [place] [address] Care Team Providers Care County Extension Agent Name Role Phone Laury Washington MD Primary Care Provide r Navneet Bender PharmD Unavailable [phone] Reason for Visit * Reason Comments Med Refill Encounter Details Date Type Department Care Team (Late st Contact Info) Description 05/28/2022 Refill [facility] ADULT DENTAL 230 [place] [address] Saman Doty, DMD [address] [place] [address] Pain (Primary Dx) Social History Tobacco Use [...] 04/26/2025 3:00 PM EST Medication Management [facility] MEDICINE 230 [place] [address] Navneet Bender, EvelinD 230 [place] [address] 05/01/2025 3:30 PM EST Office Visit [facility] OPTOMETRY [address] [place] [address] Reggie, Tereza, OD [address] [place] [address] documented as of this encounter Visit Diagnoses Diagnosis Pain- Primary Generalized pain documented in this encounter Care Teams County Extension Agent Relationship Specialty Start Date End Date Laury Washington MD 230 [place] [address] PCP - General Family Medicine 04/07/19 Navneet Bender, Marva [address] [place] [address] Pharmacist Pharmacy 01/05/25 documented as of this encounter
--- OUTSIDE RECORDS SUMMARY | 2025-04-17 20:29 | XMS_ITS | Encounter Summary ---
Author Organization [employer] Address [address] [place] [address] 7 [place] [address] Care Team Providers Care Escrow Manager Name Role Phone Laury Washington MD Primary Care Provide r Navneet Bender PharmD Unavailable [phone] Encounter Details Date Type Department Care Team (Latest Contact Info) Description 12/25/2021 Abstract [facility] CONVERSIONS Dental, Provider, DDS Social History Tobacco [...] 3:00 PM EST Medication Management [facility] MEDICINE 230 [place] [address] Navneet Bender, PharmD [address] [place] [address] 05/01/2025 3:30 PM EST Office Visit [facility] OPTOMETRY [address] [place] [address] Tereza Paredes, OD 230 [place] [address] documented as of this encounter Visit Diagnoses Not on filedocumented in this encounter Care Teams Escrow Manager Relationship Specialty Start Date End Date Laury Washington MD 230 [place] [address] PCP - General Family Medicine 04/07/19 Navneet Bender, EvelinD [address] [place] [address] Pharmacist Pharmacy 01/05/25 documented as of this encounter
--- OUTSIDE RECORDS SUMMARY | 2025-04-17 20:29 | XMS_ITS | Encounter Summary ---
Author Organization [employer] Address [address] [facility] 7t [place] [address] Care Team Providers Care Hand Counter Name Role Phone Laury Washington MD Primary Care Provide r Navneet Bender PharmD Unavailable [phone] Reason for Visit * Reason Onset Date Comments Med Refill 03/23/2024 Prior Authorization 03/23/2024 Encounter Details Date Type Department Care Team (Late st Contact Info) Description 03/23/2024 Telephone [facility] MEDICINE [address] [place], [place] [phone] Laury Washington MD 230 [place], [place] [phone] Med Refill; Prior Authorization Social History Tobacco [...] your housing situation today? I have lucas martniez 06/02/[address] you li [...] MG/1.5ML solution pen-injector To be sent to: [facility]/pharmacy #[id number] documented in this encounter Plan of Treatment Upcoming Encounters Date Type Department Care Team (Late st Contact Info) Description 04/26/2025 3:00 PM EST Medication Management [facility] MEDICINE [address] [place] [address] Navneet Bender, PharmD 230 [place] [address] 05/01/2025 3:30 PM EST Office Visit [facility] OPTOMETRY [address] [place] [address] Tereza Paredes, OD 230 [place] [address] documented as of this encounter Visit Diagnoses Not on filedocumented in this encounter Additional Health Concerns Assessment Noted Time PHQ-9 Depression Total Score: 0 07/24/19 24 2:08 PM EST documented as of this encounter Care Teams Hand Counter Relationship Specialty Start Date End Date Laury Washington MD 230 [place] [address] PCP - General Family Medicine 04/07/19 Navneet Bender, EvelinD 230 [place] [address] Pharmacist Pharmacy 01/05/25 documented as of this encounter
--- OUTSIDE RECORDS SUMMARY | 2025-04-17 20:30 | XMS_ITS | Encounter Summary ---
Author Organization [employer] Address 75 [facility] 7 [place] [address] Care Team Providers Care Painting Supervisor Name Role Phone Laury Washington MD Primary Care Provide r Navneet Bender PharmD Unavailable [phone] Reason for Visit * Reason Comments Med Refill Encounter Details Date Type Department Care Team ([facility] st Contact Info) Description 07/27/2023 Refill [facility] MEDICINE 230 [place] [address] Laury Sanchez MD 230 [place], [place] [phone] Type 2 diabetes mellitus with hyperglycemia, without long-term current use of insulin ([facility]) Social History Tobacco Use Types Packs/Day [...] 3:00 PM EST Medication Management [facility] MEDICINE [address] [place] [address] Navneet Bender, EvelinD 230 [place] [address] 05/01/2025 3:30 PM EST Office Visit [facility] OPTOMETRY [address] [place] [address] Reggie, Tereza, OD 230 [place] [address] documented as of this encounter Visit Diagnoses Diagnosis Type 2 diabetes mellitus with hyperglycemia, without long-term current use of insulin (HCC) documented in this encounter Additional Health Concerns Assessment Noted Time PHQ-9 Depression Total Score: 0 07/24/19 24 2:08 PM EST documented as of this encounter Care Teams Painting Supervisor Relationship Specialty Start Date End Date Laury Washington MD 230 [place] [address] PCP - General Family Medicine 04/07/19 Navneet Bender, PharmD [address] [place] [phone] Pharmacist Pharmacy 01/05/25 documented as of this encounter
--- OUTSIDE RECORDS SUMMARY | 2025-04-17 20:30 | XMS_ITS | Encounter Summary ---
Author Organization [employer] Address 75 [facility] 7t [place] [address] Care Team Providers Care Code And Test Clerk Name Role Phone Laury Washington MD Primary Care Provide r Navneet Bender PharmD Unavailable [phone] Reason for Visit * Reason Comments Med Refill Encounter Details Date Type Department Care Team ([facility] st Contact Info) Description 09/05/2024 Refill [facility] MEDICINE 230 [place] [address] Yunier Rodriguez MD 230 [place] [address] Prurigo nodularis Social History Tobacco Use Types [...] 04/26/2025 3:00 PM EST Medication Management [facility] MEDICINE [address] [place] [address] Navneet Bender, PharmD 230 [place] [address] 05/01/2025 3:30 PM EST Office Visit [facility] OPTOMETRY [address] [place], [place] [phone] Reggie, Tereza, OD 230 [place] [address] documented as of this encounter Visit Diagnoses Diagnosis Prurigo nodularis Lichenification and lichen simplex chronicus documented in this encounter Additional Health Concerns Assessment Noted Time PHQ-9 Depression Total Score: 0 07/24/19 24 2:08 PM EST documented as of this encounter Care Teams Code And Test Clerk Relationship Specialty Start Date End Date Laury Washington MD [address] [place] [address] [phone] PCP - General Family Medicine 04/07/19 Navneet Bender, PharmD [address] [place] [address] [phone] Pharmacist Pharmacy 01/05/25 documented as of this encounter
--- OUTSIDE RECORDS SUMMARY | 2025-04-17 20:30 | XMS_ITS | Encounter Summary ---
Author Organization [employer] Address [address] [place] [address] 7 [place] [address] Care Team Providers Care Dry Cleaning Teacher Name Role Phone Laury Washington MD Primary Care Provide r Navneet Bender PharmD Unavailable [phone] Reason for Visit * Reason Comments Med Refill Encounter Details Date Type Department Care Team (Late Contact Info) Description 12/16/2022 Refill [facility] MEDICINE [address] [place] [address] Laury Washington MD [address] [place] [address] Social History Tobacco Use Types Packs/Day Years [...] 04/26/2025 3:00 PM EST Medication Management [facility] MEDICINE [address] [place] [address] Navneet Bender, PharmD 230 [place], [place] [phone] 05/01/2025 3:30 PM EST Office Visit [facility] OPTOMETRY [address] [place], [place] [phone] Tereza Paredes, OD 230 [place] [address] documented as of this encounter Visit Diagnoses Not on filedocumented in this encounter Care Teams Dry Cleaning Teacher Relationship Specialty Start Date End Date Laury Washington MD 230 [place], [place] [phone] PCP - General Family Medicine 04/07/19 Navneet Bender, PharmD [address] [place] [address] [phone] Pharmacist Pharmacy 01/05/25 documented as of this encounter
--- OUTSIDE RECORDS SUMMARY | 2025-04-17 20:30 | XMS_ITS | Encounter Summary ---
Author Organization [employer] Address 75 [facility] 7t [place] [address] Care Team Providers Care Drier And Grinder Tender Name Role Phone Laury Washington MD Primary Care Provide r Navneet Bender PharmD Unavailable [phone] Reason for Visit * Reason Comments Med Refill Encounter Details Date Type Department Care Team ([facility] st Contact Info) Description 08/18/[address] [facility] MEDICINE 230 [place] [address] Yunier Rodriguez MD [address] [place] [address] Prurigo nodularis Social History Tobacco Use Types [...] 3:00 PM EST Medication Management [facility] MEDICINE 230 [place] [address] Navneet Bender, PharmD 230 [place] [address] 05/01/2025 3:30 PM EST Office Visit [facility] OPTOMETRY [address] [place], [place] [phone] Reggie, Tereza, OD 230 [place] [address] documented as of this encounter Visit Diagnoses Diagnosis Prurigo nodularis Lichenification and lichen simplex chronicus documented in this encounter Additional Health Concerns Assessment Noted Time PHQ-9 Depression Total Score: 0 07/24/19 24 2:08 PM EST documented as of this encounter Care Teams Drier And Grinder Tender Relationship Specialty Start Date End Date Laury Washington MD [address] [place] [address] [phone] PCP - General Family Medicine 04/07/19 Navneet Bender, PharmD [address] [place] [address] [phone] Pharmacist Pharmacy 01/05/25 documented as of this encounter
--- OUTSIDE RECORDS SUMMARY | 2025-04-17 20:30 | XMS_ITS | Encounter Summary ---
Author Organization [employer] Address [address] [place] [address] 7 [place] [address] Care Team Providers Care Railroad Signal Operator Name Role Phone Laury Washington MD Primary Care Provide r Navneet Bender PharmD Unavailable [phone] Encounter Details Date Type Department Care Team (Late Contact Info) Description 02/02/2023 Orders Only [facility] MEDICINE [address] [place] [address] Provider, MD Cari Social History Tobacco Use [...] Description 04/26/2025 3:00 PM EST Medication Management [facility] MEDICINE [address] [place] [address] [phone] Navneet Bender, PharmD 230 [place] [address] 05/01/2025 3:30 PM EST Office Visit [facility] OPTOMETRY [address] [place] [address] Tereza Paredes, OD 230 [place] [address] documented as of this encounter Procedures Procedure Name Priority Date/Time Associated Diagnosis Comments T4, FREE Routine 07/22/2023 11:39 AM EST COLONOSCOPY Routine 02/09/2019 documented in this encounter Results * T4, Free (07/22/2023 11:39 AM EST) Free T4 (Free Thyroxine) 1.09 0.71 - 1.85 ng/dL [facility] 07/22/2023 11:3 9 AM EST 07/22/2023 1:36 PM EST us Laury Banks MD LAB BLOOD ORDERABLES Final Result [facility] [address] [place] [address] [phone] * Colonoscopy (02/09/2019) us Historical Provider HEALTH MAINTENANCE Final Result documented in this encounter Visit Diagnoses Not on filedocumented in this encounter Care Teams Railroad Signal Operator Relationship Specialty Start Date End Date Laury Washington MD [address] [place] [address] PCP - General Family Medicine 04/07/19 Navneet Bender, EvelinD [address] [place] [address] Pharmacist Pharmacy 01/05/25 documented as of this encounter
--- OUTSIDE RECORDS SUMMARY | 2025-04-17 20:30 | XMS_ITS | Encounter Summary ---
Author Organization [employer] Address 75 [facility] 7t [place] [address] Care Team Providers Care Licensed Tax Consultant Name Role Phone Laury Washington MD Primary Care Provide r Navneet Bender PharmD Unavailable [phone] Reason for Visit * Reason Onset Date Comments Med Refill 12/11/2024 Encounter Details Date Type Department Care Team (Late st Contact Info) Description 12/11/2024 Refill [facility] MEDICINE [address] [place], [place] [phone] Laury Washington MD 230 [place], [place] [phone] Type 2 diabetes mellitus with hyperglycemia, without long-term current use of insulin ([facility]) Social History Tobacco Use Types Packs/Day [...] Management [facility] MEDICINE [address] [place] [address] Navneet Bender, PharmD [address] [place] [address] 05/01/2025 3:30 PM EST Office Visit [facility] OPTOMETRY [address] [place] [address] Reggie, Tereza, OD 230 [place] [address] documented as of this encounter Visit Diagnoses Diagnosis Type 2 diabetes mellitus with hyperglycemia, without long-term current use of insulin (HCC) documented in this encounter Additional Health Concerns Assessment Noted Time PHQ-9 Depression Total Score: 0 07/24/19 24 2:08 PM EST documented as of this encounter Care Teams Licensed Tax Consultant Relationship Specialty Start Date End Date Laury Washington MD [address] [place] [address] PCP - General Family Medicine 04/07/19 Navneet Bender, PharmD [address] [place] [address] Pharmacist Pharmacy 01/05/25 documented as of this encounter
--- OUTSIDE RECORDS SUMMARY | 2025-04-17 20:30 | XMS_ITS | Encounter Summary ---
Author Organization [employer] Address [address] [place] [address] 7 [place] [address] Care Team Providers Care Mine Safety Director Name Role Phone Laury Washington MD Primary Care Provide r Navneet Bender PharmD Unavailable [phone] Reason for Visit * Reason Comments Med Refill Encounter Details Date Type Department Care Team (Late Contact Info) Description 09/26/2022 Refill [facility] [address] [place] [address] Laury Washington MD [address] [place] [address] [phone] Other chronic pain Social History Tobacco Use [...] 3:00 PM EST Medication Management [facility] [address] [place], [place] [phone] Navneet Bender, PharmD 230 [place], [place] [phone] 05/01/2025 3:30 PM EST Office Visit [facility] [address] [place], [place] [phone] Tereza Paredes, OD 230 [place] [address] documented as of this encounter Visit Diagnoses Diagnosis Other chronic pain documented in this encounter Care Teams Mine Safety Director Relationship Specialty Start Date End Date Laury Washington MD [address] [place], [place] [phone] PCP - General Family Medicine 04/07/19 Navneet Bender, PharmD [address] [place] [address] [phone] Pharmacist Pharmacy 01/05/25 documented as of this encounter
--- OUTSIDE RECORDS SUMMARY | 2025-04-17 20:30 | XMS_ITS | Clinical Summary ---
Author Organization [employer] Address [address] [facility] 7t [place] [address] Care Team Providers Care Prototype Engineer Name Role Phone Laury Washington MD Primary Care Provide r Navneet Bender PharmD Unavailable [phone] Allergies Active Allergy Reactions Criticality Noted Date [...] mellitus with other specified complication, unspecified whether exterminator helper insulin use (HCC) TAKE 1 TABLET BY [...] hyperglycemia, without long-term current use of insulin ([facility]) Take 1 tablet (10 mg) by mouth [...] hyperglycemia, without long-term current use of insulin ([facility]) Use to test blood sugar 2 times daily 100 each 12 02/16/20 25 026 Active Tirzepatide (Mounjaro) 7.5 MG/0.5ML solution auto-injectorIn dications:Type 2 diabetes mellitus with hyperglycemia, without long-term current use of insulin ([facility]) Inject 7.5 mg under the skin 1 (one) time per week. 2 mL 5 02/24/20 25 Active insulin glargine (Lantus SoloStar) 100 UNIT/ML penIndications: Type 2 diabetes mellitus with hyperglycemia, without long-term current use of insulin ([facility]) Inject 14 Units under the skin at bedtime. 15 mL 5 02/24/20 25 Active clobetasol (Temovate) 0.05 % ointmentIndicat ions:Prurigo nodularis APPLY TO AFFECTED AREA TWICE A DAY 30 g 03/17/20 25 Active lidocaine (Lidoderm) 5 % patchIndication s:Chronic pain of left knee APPLY 1 PATCH TOPICALLY ONCE PER DAY. REMOVE & DISCARD PATCH WITHIN 12 HOURS OR DIRECTED BY MD. 30 patch 03/17/20 25 Active Continuous Glucose Compressed Air Pile Driver Operator (FreeStyle Chato [address] [place]) deviceIndicatio ns:Type 2 diabetes mellitus with hyperglycemia, without long-term current use of insulin ([facility]) 1 each Once per day. USE DIRECTED FOR CGM ONCE PER DAY 1 each 04/10/20 25 Active Continuous Glucose Compressed Air Pile Driver Operator (FreeStyle Chato 3 [place]) deviceIndicatio ns:Type 2 diabetes mellitus with hyperglycemia, without long-term current use of insulin ([facility]) 1 each Once per day. Use as directed for CGM 1 each 10/25/19 25 025 Discontinued Active Problems Problem Noted Date Diagnosed Date Left foot pain 02/15/2025 H. pylori infection 02/15/2025 Assessment & Plan (02/15/2025 10:00 AM EDT): Continue treatment as per GI specialist do not miss appointment with them Bipolar affective ([facility]) 06/02/2023 Assessment & Plan (10/24/2024 3:46 PM EDT): Patient reports he is stable and he has been follow-up by therapist and psychiatrist Right shoulder pain 06/02/2023 Assessment & Plan (06/02/2023 5:38 PM EST): Pt states fell while in [place] ,his left knee locked and fell put [...] Type Department Care Team Description 04/09/2025 Refill [facility] [address] [place] [address] Laury Washintgon MD Type 2 diabetes mellitus with hyperglycemia, without long-term current use of insulin ([facility]) 03/16/2025 Refill [facility] [address] [place] [address] Laury Washington MD Prurigo nodularis; Chronic pain of left knee 03/03/2025 Telephone [facility] [address] [place] [address] Navneet Bender, PharmD 03/03/2025 Orders Only [facility] [address] [place] [address] Laury Washington MD 02/22/2025 Travel 02/21/2025 Travel 02/15/2025 9:15 AM EDT Telemedicine [facility] [address] [place] [address] Laury Washington MD Left foot pain; Type 2 diabetes mellitus with hyperglycemia, without long-term current use of insulin ([facility]); H. pylori infection 02/15/2025 Travel 02/14/2025 Telephone [facility] [address] [place] [address] Laury Washington MD chart prep 02/08/2025 Travel 02/02/2025 Refill [facility] [address] [place] [address] Laury Washington MD Type 2 diabetes mellitus with hyperglycemia, without long-term current use of insulin ([facility]) 02/01/2025 9:30 AM EDT Telemedicine [facility] [address] [place] [address] Navneet Bender, PharmD Type 2 diabetes mellitus with hyperglycemia, without long-term current use of insulin ([facility]) (Primary Dx) from Last 3 Months Immunizations [...] Description 04/26/2025 3:00 PM EST Medication Management [facility] [address] [place] [address] Navneet Bender, PharmD [address] [place] [address] 05/01/2025 3:30 PM EST Office Visit [facility]ET[facility] [address] [place] [address] Tereza Paredes, OD 230 [place] [address] Health Maintenance Due Date Last Done Comments CT Colonography 1966 FIT DNA/Cologuard 1966 FIT 1966 FOBT 1966 Sigmoidoscopy 1966 Diabetes: Foot Exam 01/22/1976 Depression Screening 07/23/2024 07/24/2023, 07/24/19 COVID-19 Vaccine ( season) 2025 01/26/2024, 03/25/2023, [...] Bilirubin, Total 0.5 0.0 - 1.0 mg/dL [facility] Bilirubin, Direct 0.2 0.0 - 0.5 mg/dL [facility] Aspartate Amino Transferase 23 5 - 37 U/L [facility] Alanine Aminotransferase 21 0 - 40 U/L [facility] Total Protein 7.6 6.5 - 8.0 g/dL [facility] Albumin Level 4.5 3.5 - 5.0 g/dL [facility] Alkaline Phosphatase 111 39 - 117 U/L [facility] 03/03/2025 11:0 8 AM EDT 03/03/2025 11:08 AM EDT us Laury Banks MD LAB BLOOD ORDERABLES Final Result [facility] [address] [place] [phone] * (ABNORMAL) Lipid Panel, Standard (03/03/2025 11:08 AM EDT) Triglycerides 84 <150 mg/dL [facility] Comment:Desirable Triglyceri de: less than 150 mg/dLBorderline High Triglyceride 150-199 mg/dLHigh Triglyceride: 200-499 mg/dLVery High Triglyceride: greater than or equal to 5OO mg/dL Cholesterol 126 <200 mg/dL [facility] Comment:Desirable Cholestero l: less than 200 mg/dLBorderline High Cholesterol: 200-239 mg/dLHigh Cholesterol: greater than 239 mg/dL LDL Cholesterol Calculated 71 <100 mg/dL [facility] Comment:Desirable LDL: less than 100 mg/dLNear Optimal/Above Optimal LDL: 110- 129 mg/dLBorderline High LDL: 130-159 mg/dLHigh LDL: 160-189 mg/dLVery High LDL: greater than or equal to 190 mg/dL HDL Cholesterol 39(L) >40 mg/dL [facility] Comment:Desirable HDL: great er than 40 mg/dL Note: This HDL assay may give artificially low results in patients with liver disease. 03/03/2025 11:0 8 AM EDT 03/03/2025 11:08 AM EDT us Laury Banks MD LAB BLOOD ORDERABLES Final Result Performing Organization Address [facility] Co de Phone Number [facility] [address] [place] [phone] * (ABNORMAL) Hemoglobin A1c (01/06/2025 12:07 PM EDT) Hemoglobin A1c 7.6(H) <6.0 % [facility] Comment:Hemoglobin A1C Refer ence Range Adults: 4.8 - 6.0 % Non diabetic: < 6.0 % Goal: < 7.0 %Additional Action Suggested: > 8.0 %Note: Hemoglobin A1c results are invalid for patients with abnormal amounts of HbF. Blood transfusions may impact the HbA1c concentration in the patient sample. Estimated Average Glucose 171 mg/dL [facility] Comment:eAG = Estimated ave rage glucose which is %A1C expressed asaverage glucose, using the formula of the O1J-VminnskAvowqfu Glucose study (ADAG), Diabetes Care, Vol.31,#8,Dec. 2007 01/06/2025 12:0 7 PM EDT 01/06/2025 12:07 PM EDT us Generic External Data Provider LAB BLOOD ORDERAB LES Final Result Performing Organization Address [facility] Co de Phone Number [facility] [address] [place] [phone] * Albumin, Random Urine W/Creatinine (10/24/2024 3:51 PM EDT) Creatinine, Urine 77.90 mg/dL [facility] Microalbumin Urine <5.0 mg/L [facility] Microalbum Creatinine Ratio Ur TNP <30 ug/mg cr [facility] Comment:Unable to calculate albumin/creatinine ratio due to lowmicroalbumin or creatinine result. Urine (Urine, Random) 10/24/2024 3:51 PM EDT 10/24/2024 5:36 PM EDT Laury Banks MD LAB URINE ORDERABLES Final Result Performing Organization Address [facility] Co de Phone Number [facility] [address] [place] [phone] * Hepatitis C Antibody with Reflex to HCV, RNA, Quantitative, Real-Time PCR (10/24/2024 3:51 PM EDT) Hepatitis C Antibody Nonreactive Nonreactive [facility] Comment:Antibodies to HCV no t detected; does not exclude early acuteHCV infection. Blood Venous blood specimen / Unknown 10/24/2024 3:51 PM EDT 10/24/2024 5:33 PM EDT Laury Banks MD LAB BLOOD ORDERABLES Final Result Performing Organization Address [facility] de Phone Number [facility] [address] [place] [phone] * HIV-1/2 Antigen and Antibodies, Fourth Generation, with Reflexes (10/24/2024 3:51 PM EDT) HIV AB/AG Nonreactive Nonreactive [facility] Comment:HIV-1 p24 Ag and/or HIV-1/HIV-2 Ab not detected.A test result that is nonreactive does not exclude thepossibility of exposure to or infection with HIV-1 and/orHIV-2. Nonreactive results in this assay for individualswith prior exposure to HIV-1 and/or HIV-2 may be due toantigen and antibody levels that are below the limit ofdetection of this assay.The [employer] HIV Ag/Ab Combo assay result andsupplemental assay results should be interpreted inconjunction with the patient's clinical presentation,history and other laboratory results. If the results areinconsistent with clinical evidence, additional testing issuggested to confirm the result. Blood Venous blood specimen / Unknown 10/24/2024 3:51 PM EDT 10/24/2024 5:33 PM EDT us Laury Banks MD LAB BLOOD ORDERABLES Final Result [facility] [address] [place] [phone] [phone] * Hm Colonoscopy (02/09/2019) us Historical Provider HEALTH MAINTENANCE Final Result from Last 3 Months or Most Recently Relevant to Health Maintenance Insurance [facility] C3 Care Teams Prototype Engineer Relationship Specialty Start Date End Date Laury Washington MD [address] [place] [address] PCP - General Family Medicine 04/07/19 Navneet Bender, PharmD [address] [place] [address] Pharmacist Pharmacy 01/05/25
--- OUTSIDE RECORDS SUMMARY | 2025-04-17 20:30 | XMS_ITS | Encounter Summary ---
Author Organization [employer] Address [address] [facility] 7t [place] [address] Care Team Providers Care Popcorn Candy Maker Name Role Phone Laury Washington MD Primary Care Provide r Navneet Bender PharmD Unavailable [phone] Reason for Visit * Reason Comments Med Refill Encounter Details Date Type Department Care Team ([facility] st Contact Info) Description 06/02/2023 Refill [facility] [address] [place] [address] Laury Washington MD [address] [place] [address] Social History Tobacco Use Types Packs/Day Years [...] Description 04/26/2025 3:00 PM EST Medication Management [facility] [address] [place] [address] Navneet Bender, PharmD 230 [place] [address] 05/01/2025 3:30 PM EST Office Visit [facility] [address] [place] [address] Reggie, Tereza, OD 230 [place] [address] documented as of this encounter Visit Diagnoses Not on filedocumented in this encounter Care Teams Popcorn Candy Maker Relationship Specialty Start Date End Date Laury Washington MD [address] [place] [phone] PCP - General Family Medicine 04/07/19 Navneet Bender, PharmD [address] [place] [phone] Pharmacist Pharmacy 01/05/25 documented as of this encounter
--- OUTSIDE RECORDS SUMMARY | 2025-04-17 20:30 | XMS_ITS | Encounter Summary ---
Author Organization [employer] Address [address] [facility] 7t [place] [address] Care Team Providers Care Beater Tender Name Role Phone Laury Washington MD Primary Care Provide r Navneet Bender PharmD Unavailable [phone] Reason for Visit * Reason Comments Med Refill Encounter Details Date Type Department Care Team ([facility] st Contact Info) Description 08/02/2024 Refill [facility] [address] [place] [address] Yunier Rodriguez MD [address] [place] [address] Prurigo nodularis Social History Tobacco Use Types [...] Medication Management [facility] [address] [place] [address] Navneet Bender, PharmD [address] [place] [address] 05/01/2025 3:30 PM EST Office Visit [facility] OPTOMET[facility] [address] [place], [place] [phone] Reggie, Tereza, OD [address] [place] [address] documented as of this encounter Visit Diagnoses Diagnosis 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
--- OUTSIDE RECORDS SUMMARY | 2025-04-17 20:30 | XMS_ITS | Encounter Summary ---
Author Organization [employer] Address [address] [facility] 7t [place] [address] Care Team Providers Care Cosmetics Presser Name Role Phone Laury Washington MD Primary Care Provide r Navneet Bender PharmD Unavailable [phone] Reason for Visit * Reason Comments Med Change Request Encounter Details Date Type Department Care Team ([facility] st Contact Info) Description 06/03/2023 Refill [facility] [address] [place] [address] Laury Washington MD [address] [place] [address] Social History Tobacco Use Types Packs/Day Years [...] 04/26/2025 3:00 PM EST Medication Management [facility] [address] [place] [address] Navneet Bender, PharmD [address] [place] [address] 05/01/2025 3:30 PM EST Office Visit [facility] OPTOMET[facility] [address] [place] [address] Reggie, Tereza, OD 230 [place] [address] documented as of this encounter Visit Diagnoses Not on filedocumented in this encounter Care Teams Cosmetics Presser Relationship Specialty Start Date End Date Laury Washington MD [address] [place] [phone] PCP - General Family Medicine 04/07/19 Navneet Bender, PharmD [address] [place] [phone] Pharmacist Pharmacy 01/05/25 documented as of this encounter
--- OUTSIDE RECORDS SUMMARY | 2025-04-17 20:30 | XMS_ITS | Encounter Summary ---
Author Organization [employer] Address [address] [facility] 7t [place] [address] Care Team Providers Care Outreach Liaison Name Role Phone Laury Washington MD Primary Care Provide r Navneet Bender PharmD Unavailable [phone] Reason for Visit * Reason Onset Date Comments Med Refill 12/11/2024 Encounter Details Date Type Department Care Team (Late st Contact Info) Description 12/11/2024 Refill [facility] 230 [place] [address] Laury Washington MD [address] [place], [place] [phone] Type 2 diabetes mellitus with hyperglycemia, without long-term current use of insulin ([facility]) Social History Tobacco Use Types [...] EST Medication Management [facility] 230 [place] [address] Navneet Bender, PharmD [address] [place] [address] 05/01/2025 3:30 PM EST Office Visit [facility] [address] [place] [address] Reggie, Tereza, OD 230 [place] [address] documented as of this encounter Visit Diagnoses Diagnosis Type 2 diabetes mellitus with hyperglycemia, without long-term current use of insulin (HCC) documented in this encounter Additional Health Concerns Assessment Noted Time PHQ-9 Depression Total Score: 0 07/24/19 24 2:08 PM EST documented as of this encounter Care Teams Outreach Liaison Relationship Specialty Start Date End Date Laury Washington MD [address] [place] [address] PCP - General Family Medicine 04/07/19 Navneet Bender, PharmD [address] [place] [address] Pharmacist Pharmacy 01/05/25 documented as of this encounter
--- OUTSIDE RECORDS SUMMARY | 2025-04-17 20:30 | XMS_ITS | Encounter Summary ---
Author Organization [employer] Address [address] [facility] 7t [place] [address] Care Team Providers Care Revenue Inspector Name Role Phone Laury Washington MD Primary Care Provide r Navneet Bender PharmD Unavailable [phone] Reason for Visit * Reason Onset Date Comments Medication Question 10/31/2024 Encounter Details Date Type Department Care Team ([facility] st Contact Info) Description 10/31/2024 Telephone [facility] 230 [place] [address] Laury Washington MD [address] [place], [place] [phone] Medication Question Social History Tobacco Use Types [...] Description 04/26/2025 3:00 PM EST Medication Management [facility] [address] [place] [address] Navneet Bender, PharmD [address] [place] [address] 05/01/2025 3:30 PM EST Office Visit [facility] OPTOMETRY [address] [place] [address] Tereza Paredes, OD 230 [place] [address] documented as of this encounter Visit Diagnoses Not on filedocumented in this encounter Additional Health Concerns Assessment Noted Time PHQ-9 Depression Total Score: 0 07/24/19 24 2:08 PM EST documented as of this encounter Care Teams Revenue Inspector Relationship Specialty Start Date End Date Laury Washington MD [address] [place] [address] PCP - General Family Medicine 04/07/19 Navneet Bender, EvelinD [address] [place] [address] Pharmacist Pharmacy 01/05/25 documented as of this encounter
--- OUTSIDE RECORDS SUMMARY | 2025-04-17 20:30 | XMS_ITS | Encounter Summary ---
Author Organization [employer] Address [address] [facility] 7t [place] [address] Care Team Providers Care Electrical Subcontractor Name Role Phone Laury Washington MD Primary Care Provide r Navneet Bender PharmD Unavailable [phone] Reason for Visit * Reason Comments Med Refill Encounter Details Date Type Department Care Team ([facility] st Contact Info) Description 08/11/2024 Refill [facility] 230 [place] [address] Laury Washington MD 230 [place] [address] Pain Social History Tobacco Use Types Packs/Day [...] Description 04/26/2025 3:00 PM EST Medication Management [facility] [address] [place] [address] Navneet Bender, PharmD [address] [place] [address] 05/01/2025 3:30 PM EST Office Visit [facility] OPTOMETRY [address] [place] [address] Reggie, Tereza, OD 230 [place] [address] documented as of this encounter Visit Diagnoses Diagnosis Pain Generalized pain documented in this encounter Additional Health Concerns Assessment Noted Time PHQ-9 Depression Total Score: 0 07/24/19 24 2:08 PM EST documented as of this encounter Care Teams Electrical Subcontractor Relationship Specialty Start Date End Date Laury Washington MD [address] [place] [phone] PCP - General Family Medicine 04/07/19 Navneet Bender, PharmD [address] [place] [phone] Pharmacist Pharmacy 01/05/25 documented as of this encounter
== END 2025-04-14 16:56 | disposition home or self-care (01) ==
LOC: HO.LNP 16:55
PROVIDERS: Visit Provider Nurse Practitioner Family
DX: K21.9 Gastro-esophageal reflux disease without esophagitis (principal)
CPT/HCPCS: 83013

== ENCOUNTER 2025-05-10 08:23 | Outpatient (REF) | payer MEDICAID, SELFPAY ==
--- NOTE | ~2025-05-10 | FL_ITS ---
EXAMINATION: XR FLUOROSCOPY UPPER GI SERIES CLINICAL INFORMATION: Reflux type symptoms. Episodic epigastric pain. COMPARISON: No prior. Correlation made with CT abdomen and pelvis 05/09/2022. TECHNIQUE: Fluoroscopic air contrast upper GI examination was performed utilizing standard techniques with thin and thick barium and effervescent granules. Numerous spot images were obtained. Several fluoroscopic image hold cine sequences were also obtained. FINDINGS: UPPER GI SERIES: Lateral cine images of the oropharynx and hypopharynx demonstrate normal swallow mechanism with normal epiglottic inversion and soft palate elevation. No laryngeal penetration, glottic or subglottic aspiration identified. Hypopharyngeal structures appear normal without evidence of mass or diverticulum. There was no significant cricopharyngeal achalasia. Dual and single contrast images of the esophagus demonstrate normal caliber, contour, and mucosal pattern. No evidence of stricture, mass, or ulcerations identified. Esophageal peristalsis is mildly disordered. Very small type I hiatus hernia. No significant gastroesophageal reflux was seen during the course of the examination. Dual contrast and single contrast images of the stomach demonstrated normal contour and mucosal pattern without evidence of mass, ulceration, or other abnormality. Contrast freely passed into the gastric antrum and duodenal bulb without delay. Single and air-contrast images of the duodenal bulb demonstrate no abnormality. The duodenal sweep has a normal appearance, course, and mucosal fold appearance. FLUOROSCOPY TIME: 3 minutes, 2 seconds Number of Spot Images:11 Number of cines obtained: 11 DOSE AREA PRODUCT: [id number] uGy-m2 (microgray-meter squared) FL/FL upper GI w air w Ba Swallow IMPRESSION: 1. Mildly disordered esophageal peristalsis. Esophagus otherwise normal. 2. Small type I hiatus hernia. 3. No definite gastroesophageal reflux identified during the course of the exam. 4. Grossly normal-appearing stomach and duodenum. Electronically signed by: Wilfrido Carrillo MD 05/10/2025 09:33 AM EST
--- OUTSIDE RECORDS SUMMARY | 2025-05-10 08:34 | XMS_ITS | Encounter Summary ---
Author Organization [employer] Address [address] [place] [address] 7 [place] [address] Care Team Providers Care Assistant Store Manager Sales Name Role Phone Laury Washington MD Primary Care Provide r Navneet Bender PharmD Unavailable [phone] Reason for Visit * Reason Comments Med Refill Encounter Details Date Type Department Care Team (Late Contact Info) Description 08/01/2022 Refill [facility] [address] [place] [phone] Caryl Strickland MD [address] [place] [address] [phone] Other chronic pain Social History Tobacco Use [...] Department Care Team (Late Contact Info) Description 06/22/2025 3:30 PM EST Office Visit [facility] [address] [place] [address] [phone] Laury Washington MD [address] [place] [address] [phone] 06/23/2025 2:00 PM EST Medication Management [facility] [address] [place] [address] [phone] Navneet Bender, PharmD [address] [place] [address] [phone] documented as of this encounter Visit Diagnoses Diagnosis Other chronic pain documented in this encounter Care Teams Assistant Store Manager Sales Relationship Specialty Start Date End Date Laury Washington MD [address] [place] [address] [phone] PCP - General Family Medicine 04/07/19 Navneet Bender, PharmD [address] [place] [address] [phone] Pharmacist Pharmacy 01/05/25 documented as of this encounter
--- OUTSIDE RECORDS SUMMARY | 2025-05-10 08:34 | XMS_ITS | Encounter Summary ---
Author Organization [employer] Address [address] [facility] 7t [place] [address] Care Team Providers Care Smudger Name Role Phone Laury Washington MD Primary Care Provide r Navneet Bender PharmD Unavailable [phone] Reason for Visit * Reason Onset Date Comments Med Refill 03/23/2024 Prior Authorization 03/23/2024 Encounter Details Date Type Department Care Team (Late st Contact Info) Description 03/23/2024 Telephone [facility] MEDICINE 230 [place], [place] [phone] Laury Washington MD 230 [place], [place] [phone] Med Refill; Prior Authorization Social History Tobacco [...] MG/1.5ML solution pen-injector To be sent to: [facility]/pharmacy #[id number] documented in this encounter Plan of Treatment Upcoming Encounters Date Type Department Care Team (Late st Contact Info) Description 06/22/2025 3:30 PM EST Office Visit [facility] MEDICINE [address] [place] [address] Laury Washington MD [address] [place] [address] 06/23/2025 2:00 PM EST Medication Management [facility] MED[facility]INE [address] [place] [address] Navneet Bender, PharmD [address] [place] [address] documented as of this encounter Visit Diagnoses Not on filedocumented in this encounter Additional Health Concerns Assessment Noted Time PHQ-9 Depression Total Score: 0 07/24/19 24 2:08 PM EST documented as of this encounter Care Teams Smudger Relationship Specialty Start Date End Date Laury Washington MD 230 [place] [address] PCP - General Family Medicine 04/07/19 Navneet Bender, EvelinD 230 [place] [address] Pharmacist Pharmacy 01/05/25 documented as of this encounter
--- OUTSIDE RECORDS SUMMARY | 2025-05-10 08:34 | XMS_ITS | Encounter Summary ---
Author Organization [employer] Address [address] [place] [address] 7t [place] [address] Care Team Providers Care Commercial Escrow Assistant Name Role Phone Laury Washington MD Primary Care Provide r Navneet Bender PharmD Unavailable [phone] Encounter Details Date Type Department Care Team (Latest Contact Info) Description 12/25/2021 Abstract [facility] CONVERSIONS Dental, Provider, DDS Social History [...] Care Team ( st Contact Info) Description 06/22/2025 3:30 PM EST Office Visit [facility] MEDICINE [address] [place] [address] Laury Washington MD [address] [place] [address] 160[address] 06/23/2025 2:00 PM EST Medication Management [facility] MEDICINE [address] [place] [address] Navneet Bender, PharmD [address] [place] [address] documented as of this encounter Visit Diagnoses Not on filedocumented in this encounter Care Teams Commercial Escrow Assistant Relationship Specialty Start Date End Date Laury Washington MD 230 [place], [place] [phone] PCP - General Family Medicine 04/07/19 Navneet Bender, EvelinD 230 [place], [place] [phone] Pharmacist Pharmacy 01/05/25 documented as of this encounter
--- OUTSIDE RECORDS SUMMARY | 2025-05-10 08:34 | XMS_ITS | Encounter Summary ---
Author Organization [employer] Address 75 [facility] 7t [place] [address] Care Team Providers Care Rn Cvicu Name Role Phone Laury Washington MD Primary Care Provide r Navneet Bender PharmD Unavailable [phone] Reason for Visit * Reason Comments Med Refill Encounter Details Date Type Department Care Team (Late st Contact Info) Description 05/28/2022 Refill [facility] ADULT DENTAL 230 [place] [address] Saman Doty, DMD [address] [place] [address] Pain (Primary Dx) Social History Tobacco Use [...] Description 06/22/2025 3:30 PM EST Office Visit [facility] MEDICINE [address] [place] [address] Laury Washington MD [address] [place] [address] 06/23/2025 2:00 PM EST Medication Management [address] [address] Navneet Bender, PharmD [address] [place] [address] documented as of this encounter Visit Diagnoses Diagnosis Pain- Primary Generalized pain documented in this encounter Care Teams Rn Cvicu Relationship Specialty Start Date End Date Laury Washington MD [address] [place] [address] PCP - General Family Medicine 04/07/19 Navneet Bender, PharmD [address] [place] [address] Pharmacist Pharmacy 01/05/25 documented as of this encounter
--- OUTSIDE RECORDS SUMMARY | 2025-05-10 08:34 | XMS_ITS | Encounter Summary ---
Author Organization [employer] Address [address] [place] [address] 7t [place] [address] Care Team Providers Care Cutting And Printing Machine Operator Name Role Phone Laury Washington MD Primary Care Provide r Navneet Bender PharmD Unavailable [phone] Reason for Visit * Reason Comments Med Change Request Encounter Details Date Type Department Care Team ([facility] Contact Info) Description 05/01/2022 Refill [facility] MEDICINE 230 [place] [address] Phoebe Yost, LING 505 [place] [address] Type 2 diabetes mellitus with hyperglycemia, without long-term current use of insulin ([facility]) Social History Tobacco Use Types Packs/Day [...] Upcoming Encounters Date Type Department Care Team ([facility] Contact Info) Description 06/22/2025 3:30 PM EST Office Visit [facility] MEDICINE [address] [place] [address] Laury Washington MD [address] [place] [address] 90[address] 06/23/2025 2:00 PM EST Medication Management [facility] MEDICINE [address] [place] [address] [phone] Navneet Bender, PharmD [address] [place] [address] documented as of this encounter Visit Diagnoses Diagnosis Type 2 diabetes mellitus with hyperglycemia, without long-term current use of insulin (HCC) documented in this encounter Care Teams Cutting And Printing Machine Operator Relationship Specialty Start Date End Date Laury Washington MD [address] [place] [address] [phone] PCP - General Family Medicine 04/07/19 Navneet Bender, PharmD [address] [place] [address] [phone] Pharmacist Pharmacy 01/05/25 documented as of this encounter
--- OUTSIDE RECORDS SUMMARY | 2025-05-10 08:34 | XMS_ITS | Encounter Summary ---
Author Organization [employer] Address [address] [place] [address] 7t [place] [address] Care Team Providers Care Admissions Rn Name Role Phone Laury Washington MD Primary Care Provide r Navneet Bender PharmD Unavailable [phone] Reason for Visit * Reason Comments Med Refill Encounter Details Date Type Department Care Team ([facility] st Contact Info) Description 06/18/2022 Refill [facility] ADULT DENTAL 230 [place] [address] Vicki Caban DDS 230 [place] [address] Pain Social History Tobacco Use Types Packs/Day [...] Description 06/22/2025 3:30 PM EST Office Visit [address] [address] Laury Washington MD [address] [place] [address] [phone] 06/23/2025 2:00 PM EST Medication Management [address] [phone] Navneet Bender, Marva [address] [place] [address] [phone] documented as of this encounter Visit Diagnoses Diagnosis Pain Generalized pain documented in this encounter Care Teams Admissions Rn Relationship Specialty Start Date End Date Laury Washington MD [address] [place] [address] [phone] PCP - General Family Medicine 04/07/19 Navneet Bender, PharmD [address] [place] [address] [phone] Pharmacist Pharmacy 01/05/25 documented as of this encounter
--- OUTSIDE RECORDS SUMMARY | 2025-05-10 08:34 | XMS_ITS | Encounter Summary ---
Author Organization [employer] Address [address] [place] [address] 7t [place] [address] Care Team Providers Care Electric Powerline Examiner Name Role Phone Laury Washington MD Primary Care Provide r Navneet Bender PharmD Unavailable [phone] Reason for Visit * Reason Comments Med Refill Encounter Details Date Type Department Care Team ([facility] st Contact Info) Description 06/21/2022 Refill [facility] ADULT DENTAL 230 [place] [address] Vicki Caban DDS 230 [place] [address] Pain Social History Tobacco Use Types Packs/Day [...] Description 06/22/2025 3:30 PM EST Office Visit [facility] MEDICINE [address] [place] [phone] Laury Washington MD [address] [place] [address] 06/23/2025 2:00 PM EST Medication Management [address] [address] Navneet Bender, PharmD [address] [place] [phone] documented as of this encounter Visit Diagnoses Diagnosis Pain Generalized pain documented in this encounter Care Teams Electric Powerline Examiner Relationship Specialty Start Date End Date Laury Washington MD [address] [place] [address] PCP - General Family Medicine 04/07/19 Navneet Bender, PharmD [address] [place] [phone] Pharmacist Pharmacy 01/05/25 documented as of this encounter
--- OUTSIDE RECORDS SUMMARY | 2025-05-10 08:34 | XMS_ITS | Clinical Summary ---
Author Organization [facility] Address [address] [place] [address] Phone Care Team Providers Care Choker Setter Name Role Phone Laury Washington MD Primary Care Provide r Social History Tobacco Use Types Packs/Day Years Used Date Smoking Tobacco: Never Assessed Sex and Gender Information Value Date Recorded Sex Assigned at Not on file Legal Sex Male 1:36 PM EDT Gender Identity Not on file Sexual Orientation Not on file Plan of Treatment Upcoming Encounters Date Type Department Care Team (Late st Contact Info) Description 06/19/2025 9:45 AM EST Office Visit Orthopedic Surgery - [place] [address] [phone] Lawson Covington, DPSebastián [address] [address] Health Maintenance Due Date Last Done Comments Colorectal Cancer Screening: Colonoscopy 1966 Diabetes: Annual GFR (Glomer ular Filtration Rate) 1966 Diabetes: Annual Foot Exam 01/22/1976 Diabetes: Annual Retina Eye Exam 01/22/1976 DTaP,Tdap,and Td Vaccines (1 - Tdap) 1985 Hepatitis B Vaccines (1 of 3 - 19+ 3-dose series) 1985 Pneumococcal Vaccine: 50+ Ye ars (1 of 2 - PCV) 1985 Zoster Vaccines (1 of 2) 01/22/2016 Cholesterol Screening (Lipid Panel) 12/25/2023 HIV Screening 12/25/2023 Hepatitis C Screening 12/25/2023 Social Influencers of Health Screening 12/25/2023 Depression Screening 05/25/2024 COVID-19 Vaccine (1 - 2024-2 6 season) 2025 Influenza Vaccine (#1) 2025 Diabetes: Annual Urine Albumin-Creatinine Ratio (uACR) 04/04/2025 Diabetes: Blood Sugar Contro l Test (HGBA1C) 04/04/2025 RSV Immunization Adult Patie nts (1 - 1-dose 75+ series) 2041 HIB Vaccines Aged Out No longer eligi ble based on patient's age to complete this topic HPV Vaccines Aged Out No longer eligi ble based on patient's age to complete this topic Hepatitis A Vaccines Aged Out No long er eligible based on patient's age to complete this topic IPV Vaccines Aged Out No longer eligi ble based on patient's age to complete this topic MMR Vaccines Aged Out No longer eligi ble based on patient's age to complete this topic Meningococcal ACWY Vaccine Aged Out N o longer eligible based on patient's age to complete this topic Meningococcal B Vaccine Aged Out No l onger eligible based on patient's age to complete this topic RSV Immunization Patients Un roz 20 months Aged Out No longer eligible b ased on patient's age to complete this topic Varicella Vaccines Aged Out No longer eligible based on patient's age to complete this topic Insurance [facility] MEDICAID Care Teams Choker Setter Relationship Specialty Start Date End Date Laury Washington MD [address] [phone] PCP - General Internal Medicine 04/05/25
--- OUTSIDE RECORDS SUMMARY | 2025-05-10 08:34 | XMS_ITS | Encounter Summary ---
Author Organization [employer] Address [address] [facility] 7t [place] [address] Care Team Providers Care Paddle Dyeing Machine Operator Name Role Phone Laury Washington MD Primary Care Provide r Navneet Bender PharmD Unavailable [phone] Reason for Visit * Reason Onset Date Comments Referral 10/30/2023 Encounter Details Date Type Department Care Team (Late st Contact Info) Description 10/30/2023 Telephone [facility] MEDICINE 230 [place] [address] Laury Washington MD 230 [place], [place] [phone] Referral Social History Tobacco Use Types Packs/Day [...] visit with pcp. Please contact pt at [phone]. documented in this encounter Plan of Treatment Upcoming Encounters Date Type Department Care Team (Late st Contact Info) Description 06/22/2025 3:30 PM EST Office Visit [facility] MEDICINE [address] [place] [address] Laury Washington MD [address] [place] [address] 06/23/2025 2:00 PM EST Medication Management [facility] MEDICINE [address] [place] [address] Navneet Bender, PharmD [address] [place] [phone] documented as of this encounter Visit Diagnoses Not on filedocumented in this encounter Additional Health Concerns Assessment Noted Time PHQ-9 Depression Total Score: 0 07/24/19 2:08 PM EST documented as of this encounter Care Teams Paddle Dyeing Machine Operator Relationship Specialty Start Date End Date Laury Washington MD 230 [place] [address] PCP - General Family Medicine 04/07/19 Navneet Bender, PharmD 230 [place] [address] Pharmacist Pharmacy 01/05/25 documented as of this encounter
--- OUTSIDE RECORDS SUMMARY | 2025-05-10 08:34 | XMS_ITS | Encounter Summary ---
Author Organization [employer] Address [address] [facility] 7t [place] [address] Care Team Providers Care Scrum Master Name Role Phone Laury Washington MD Primary Care Provide r Navneet Bender PharmD Unavailable [phone] Reason for Visit * Reason Comments Med Refill Encounter Details Date Type Department Care Team (Late st Contact Info) Description 02/02/2025 Refill [facility] MEDICINE 230 [place] [address] Laury Washington MD 230 [place] [address] Type 2 diabetes mellitus with hyperglycemia, without long-term current use of insulin ([facility]) Social History Tobacco Use Types Packs/Day Years [...] Description 06/22/2025 3:30 PM EST Office Visit [facility] MEDICINE [address] [place] [address] Laury Washington MD [address] [place] [address] 06/23/2025 2:00 PM EST Medication Management [facility] MED[facility]INE [address] [place] [address] [phone] Navneet Bender, PharmD [address] [place] [address] documented as of this encounter Visit Diagnoses Diagnosis Type 2 diabetes mellitus with hyperglycemia, without long-term current use of insulin (HCC) documented in this encounter Additional Health Concerns Assessment Noted Time PHQ-9 Depression Total Score: 0 07/24/19 24 2:08 PM EST documented as of this encounter Care Teams Scrum Master Relationship Specialty Start Date End Date Laury Washington MD [address] [place] [address] [phone] PCP - General Family Medicine 04/07/19 Navneet Bender PharmD [address] [place] [address] Pharmacist Pharmacy 01/05/25 documented as of this encounter
--- OUTSIDE RECORDS SUMMARY | 2025-05-10 08:35 | XMS_ITS | Encounter Summary ---
Author Organization [employer] Address [address] [facility] 7 [place] [address] Care Team Providers Care Clinical Nursing Professor Name Role Phone Laury Washington MD Primary Care Provide r Navneet Bender PharmD Unavailable [phone] Reason for Visit * Reason Comments Med Refill Encounter Details Date Type Department Care Team ([facility] st Contact Info) Description 07/27/2023 Refill [facility] 230 [place] [address] Laury Sanchez MD 230 [place], [place] [phone] Type 2 diabetes mellitus with hyperglycemia, without long-term current use of insulin ([facility]) Social History Tobacco [...] Description 06/22/2025 3:30 PM EST Office Visit [facility] [address] [place] [address] Laury Washington MD [address] [place] [address] 06/23/2025 2:00 PM EST Medication Management [facility] [address] [place] [address] [phone] Navneet Bender, PharmD [address] [place] [address] documented as of this encounter Visit Diagnoses Diagnosis Type 2 diabetes mellitus with hyperglycemia, without long-term current use of insulin (HCC) documented in this encounter Additional Health Concerns Assessment Noted Time PHQ-9 Depression Total Score: 0 07/24/19 24 2:08 PM EST documented as of this encounter Care Teams Clinical Nursing Professor Relationship Specialty Start Date End Date Laury Washington MD [address] [place] [phone] PCP - General Family Medicine 04/07/19 Navneet Bender, PharmD 230 [place] [address] Pharmacist Pharmacy 01/05/25 documented as of this encounter
--- OUTSIDE RECORDS SUMMARY | 2025-05-10 08:35 | XMS_ITS | Encounter Summary ---
Author Organization [employer] Address [address] [facility] 7t [place] [address] Care Team Providers Care Wood Mill Supervisor Name Role Phone Laury Washington MD Primary Care Provide r Navneet Bender PharmD Unavailable [phone] Reason for Visit * Reason Comments Med Change Request Encounter Details Date Type Department Care Team ([facility] st Contact Info) Description 06/03/2023 Refill [facility] MEDICINE 230 [place] [address] Laury Washington MD 230 [place], [place] [phone] Social History Tobacco Use Types Packs/Day Years [...] 3:30 PM EST Office Visit [facility] MEDICINE [address] [place] [address] Laury Washington MD [address] [place] [address] 06/23/2025 2:00 PM EST Medication Management [address] [address] Navneet Bender, PharmD [address] [place] [address] documented as of this encounter Visit Diagnoses Not on filedocumented in this encounter Care Teams Wood Mill Supervisor Relationship Specialty Start Date End Date Laury Washington MD [address] [place] [address] PCP - General Family Medicine 04/07/19 Navneet Bender, PharmD [address] [place] [address] [phone] Pharmacist Pharmacy 01/05/25 documented as of this encounter
--- OUTSIDE RECORDS SUMMARY | 2025-05-10 08:35 | XMS_ITS | Encounter Summary ---
Author Organization [employer] Address [address] [facility] 7t [place] [address] Care Team Providers Care Auto Service Station Attendant Name Role Phone Laury Washington MD Primary Care Provide r Navneet Bender PharmD Unavailable [phone] Reason for Visit * Reason Comments Med Refill Encounter Details Date Type Department Care Team ([facility] st Contact Info) Description 09/05/2024 Refill [facility] MEDICINE 230 [place] [address] Yunier Rodriguez MD 230 [place] [address] Prurigo nodularis Social History Tobacco Use Types [...] Description 06/22/2025 3:30 PM EST Office Visit [facility] MEDICINE [address] [place] [phone] Laury Washington MD [address] [place] [phone] 06/23/2025 2:00 PM EST Medication Management [address] [address] Navneet Bender, Marva [address] [place] [address] documented as of this encounter Visit Diagnoses Diagnosis Prurigo nodularis Lichenification and lichen simplex chronicus documented in this encounter Additional Health Concerns Assessment Noted Time PHQ-9 Depression Total Score: 0 07/24/19 24 2:08 PM EST documented as of this encounter Care Teams Auto Service Station Attendant Relationship Specialty Start Date End Date Laury Washington MD [address] [place] [phone] PCP - General Family Medicine 04/07/19 Navneet Bender, Marva [address] [place] [phone] Pharmacist Pharmacy 01/05/25 documented as of this encounter
--- OUTSIDE RECORDS SUMMARY | 2025-05-10 08:35 | XMS_ITS | Encounter Summary ---
Author Organization [employer] Address [address] [place] [address] 7 [place] [address] Care Team Providers Care Grants Administrator Name Role Phone Laury Washington MD Primary Care Provide r Navneet Bender PharmD Unavailable [phone] Reason for Visit * Reason Comments Med Refill Encounter Details Date Type Department Care Team (Late Contact Info) Description 12/16/2022 Refill [facility] MEDICINE [address] [place] [address] [phone] Laury Washington MD [address] [place] [address] [phone] Social History Tobacco Use Types Packs/Day Years [...] Description 06/22/2025 3:30 PM EST Office Visit [facility] MEDICINE [address] [place] [address] [phone] Laury Washington MD [address] [place] [address] [phone] 06/23/2025 2:00 PM EST Medication Management [facility] MEDICINE [address] [place] [address] [phone] Navneet Bender, PharmD [address] [place] [address] [phone] documented as of this encounter Visit Diagnoses Not on filedocumented in this encounter Care Teams Grants Administrator Relationship Specialty Start Date End Date Laury Washington MD [address] [place] [address] [phone] PCP - General Family Medicine 04/07/19 Navneet Bender, PharmD [address] [place] [address] [phone] Pharmacist Pharmacy 01/05/25 documented as of this encounter
--- OUTSIDE RECORDS SUMMARY | 2025-05-10 08:35 | XMS_ITS | Clinical Summary ---
Author Organization [email or web address] Address [address] [facility] 7t [place] [address] Care Team Providers Care Contract Modeler Name Role Phone Laury Washington MD Primary Care Provide r Navneet Bender PharmD Unavailable [phone] Allergies Active Allergy Reactions Criticality Noted Date [...] of BG 100 each 11 10/25/19 25 2025 Active insulin pen needle (BD Pen Needle Mini Ultrafine) 31G x 5 mm miscIndications :Type 2 diabetes mellitus with hyperglycemia, without long-term current use of insulin (HCC) Use once a day 100 each 3 10/26/19 25 Active sennosides (Senna-Time) 8.6 MG tabletIndicatio ns:Constipation , unspecified constipation type TAKE 1 TABLET (8.6 MG) BY MOUTH IF NEEDED AT BEDTIME FOR CONSTIPATION. 90 tablet 1 12/13/19 25 Active chlorhexidine (Peridex) 0.12 % solution PLEASE SEE ATTACHED FOR DETAILED DIRECTIONS 12/22/19 25 Active empagliflozin (Jardiance) 10 MGIndications:T ype 2 diabetes mellitus with hyperglycemia, without long-term current use of insulin ([facility]) Take 1 tablet (10 mg) by mouth Once per day. 30 tablet 11 01/06/20 25 Active rosuvastatin (Crestor) 20 MG tabletIndicatio ns:Type 2 diabetes mellitus with hyperglycemia, without long-term current use of insulin ([facility]) Take 1 tablet (20 mg) by mouth Once per day. 30 tablet 5 01/06/20 25 Active meloxicam (Mobic) 15 MG tabletIndicatio ns:Chronic pain of left knee TAKE 1 TABLET BY MOUTH EVERY DAY 30 tablet 01/10/20 25 Active cholecalciferol VITAMIN D (Vitamin D-3) 50 MCG (1999 UT) capsule Take 1 capsule by mouth [...] hyperglycemia, without long-term current use of insulin ([facility]) Use to test blood sugar 2 times daily 100 each 12 02/16/20 25 2025 Active clobetasol (Temovate) 0.05 % ointmentIndicat ions:Prurigo nodularis APPLY TO AFFECTED AREA TWICE A DAY 30 g 03/17/20 25 Active lidocaine (Lidoderm) 5 % patchIndication s:Chronic pain of left knee APPLY 1 PATCH TOPICALLY ONCE PER DAY. REMOVE & DISCARD PATCH WITHIN 12 HOURS OR DIRECTED BY MD. 30 patch 03/17/20 25 Active Continuous Glucose Credit Clerk (ADAPTIXStyle [place]) deviceIndicatio ns:Type 2 diabetes mellitus with hyperglycemia, without long-term current use of insulin ([facility]) 1 each Once per day. USE DIRECTED FOR CGM ONCE PER DAY 1 each 04/10/20 25 Active insulin glargine (Lantus SoloStar) 100 UNIT/ML penIndications: Type 2 diabetes mellitus with hyperglycemia, without long-term current use of insulin ([facility]) Inject 12 Units under the skin at bedtime. 15 mL 5 04/27/20 25 Active Tirzepatide (Mounjaro) 10 MG/0.5ML solution auto-injectorIn dications:Type 2 diabetes mellitus with hyperglycemia, without long-term current use of insulin ([facility]) Inject 10 mg under the skin 1 (one) time per week. 2 mL 5 04/27/20 25 Active pioglitazone (Actos) 30 MG tabletIndicatio ns:Type 2 diabetes mellitus with other specified complication, unspecified whether snf insulin use ([facility]) TAKE 1 TABLET BY MOUTH EVERY DAY 90 tablet 1 05/01/20 25 Active Diclofenac Sodium 1 % gelIndications: Chronic pain of left knee APPLY 1 APPLICATION TOPICALLY AT NOON AND 1 APPLICATION IN THE EVENING. 100 g 1 05/01/20 25 Active pioglitazone (Actos) 30 MG tabletIndicatio ns:Type 2 diabetes mellitus with other specified complication, unspecified whether snf insulin use ([facility]) TAKE 1 TABLET BY MOUTH EVERY DAY 90 tablet 1 11/08/19 25 2024 Discontinued Diclofenac Sodium 1 % gelIndications: Chronic pain of left knee APPLY 1 APPLICATION TOPICALLY AT NOON AND 1 APPLICATION IN THE EVENING. 100 g 1 11/24/19 25 2024 Discontinued(R eorder (will not trigger notification to Pharmacy)) Tirzepatide (Mounjaro) 7.5 MG/0.5ML solution auto-injectorIn dications:Type 2 diabetes mellitus with hyperglycemia, without long-term current use of insulin ([facility]) Inject 7.5 mg under the skin 1 (one) time per week. 2 mL 5 02/24/20 25 2024 Discontinued(D ose adjustment) insulin glargine (Lantus SoloStar) 100 UNIT/ML penIndications: Type 2 diabetes mellitus with hyperglycemia, without long-term current use of insulin ([facility]) Inject 14 Units under the skin at bedtime. 15 mL 5 02/24/20 25 2024 Discontinued(R eorder (will not trigger notification to Pharmacy)) Active Problems Problem Noted Date Diagnosed Date Left foot pain 02/15/2025 H. pylori infection 02/15/2025 Assessment & Plan (02/15/2025 10:00 AM EDT): Continue treatment as per GI specialist do not miss appointment with them Bipolar affective ([facility]) 06/02/2023 Assessment & Plan (10/24/2024 3:46 PM [...] Encounters Date Type Department Care Team Description 05/01/2025 3:30 PM EST Office Visit [facility] [address] [place], [place] [phone] Reggie, Tereza, OD Diabetes type 2, no ocular involvement (HCC) (Primary Dx); White without pressure of peripheral retina of left eye; Age-related nuclear cataract of both eyes; Hyperopia of right eye with astigmatism and presbyopia; Myopia with presbyopia of left eye; Dry eye syndrome of both eyes 05/01/2025 Travel 05/01/2025 Refill [facility] [address] [place] [address] Laury Washington MD Chronic pain of left knee 04/30/2025 Refill [facility] [address] [place], [place] [phone] Laury Washington MD Type 2 diabetes mellitus with other specified complication, unspecified whether exterminator helper termite insulin use (HCC); Chronic pain of left knee 04/26/2025 Travel 04/19/2025 Travel 04/14/2025 Orders Only GENERIC EXTERNAL DATA DEPARTMENT Provider, Generic External Data 04/09/2025 Refill [facility] [address] [place] [address] Laury Washington MD Type 2 diabetes mellitus with hyperglycemia, without long-term current use of insulin ([facility]) 03/16/2025 Refill [facility] [address] [place] [address] Laury Washington MD Prurigo nodularis; Chronic pain of left knee 03/03/2025 Telephone [facility] [address] [place] [address] Navneet Bender, PharmD 03/03/2025 Orders Only [facility] [address] [place] [phone] Laury Washington MD 02/22/2025 Travel 02/21/2025 Travel 02/15/2025 9:15 AM EDT Telemedicine [facility] [address] [place] [address] Laury Washington MD Left foot pain; Type 2 diabetes mellitus with hyperglycemia, without long-term current use of insulin ([facility]/H[facility]); H. pylori infection 02/15/2025 Travel 02/14/2025 Telephone [facility] [address] [place] [phone] Laury Washington MD chart prep 02/08/2025 Travel from Last 3 Months Immunizations Immunization Administration Dates Next Due Hep A / Hep B 12/13/2024,04/04/2024,02/19/2024 Influenza Injectable Quadriv alant Preservative Free IIV4 MDCK 02/24/2023,05/02/2021,03/08/2018 Influenza injectable quadriv alent preservative free 02/06/2020,01/11/2019 Influenza, Injectable, MDCK, preservative free 04/18/2025,01/26/2024 Influenza, seasonal, injecta ble, preservative free 04/29/2022 [...] Sign Reading Time Taken Comments Blood Pressure 112/70 04/26/2025 2:55 PM EST Pulse 78 04/26/2025 2:55 PM EST Temperature 36.8 C (98.3 F) 12/14/2024 5:07 PM EDT Respiratory Rate 18 12/14/2024 5:07 PM EDT Oxygen Saturation 98% 12/14/2024 5:07 PM EDT Inhaled Oxygen Concentration - - Weight 127 kg (280 lb 6.4 oz) 04/26/2025 2:52 PM EST Height 170.2 cm (5' 7 ) 10/24/2024 2:51 PM EDT Body Mass Index 43.92 10/24/2024 2:51 PM EDT Plan of Treatment Upcoming Encounters Date Type Department Care Team (Late st Contact Info) Description 06/22/2025 3:30 PM EST Office Visit [facility] [address] [place] [phone] Laury Washington MD [address] [place] [phone] 06/23/2025 2:00 PM EST Medication Management [facility] [address] [place] [phone] Navneet Bender, PharmD [address] [place] [phone] Health Maintenance Due Date Last Done Comments CT Colonography 1966 FIT DNA/Cologuard 1966 FIT 1966 FOBT 1966 Sigmoidoscopy 1966 Diabetes: Foot Exam 01/22/1976 Depression Screening 07/23/2024 07/24/2023, 07/24/19 24 COVID-19 Vaccine ( season) 2025 01/26/2024, 03/25/2023, 10/03/2022, Additional history exists Pneumococcal Vaccine: 50+ Years (3 of 3 - PCV20 or PCV21) 04/06/2025 04/06/2020, 10/06/2013 Tobacco Screening 07/01/2025 07/01/2024 Diabetes: Hemoglobin A1C 07/25/2025 025, 01/06/2025, 10/24/2024, Additional history exists Diabetes: Urine Protein Screening 10/24/2025 10/24/2024, 01/09/2022, 01/09/2022 Disability Screening 02/08/2026 02/08/2025 Alcohol/Substance Use Screening 02/15/2026 02/15/2025 SDOH Screening 02/15/2026 02/15/2025 Lipid Panel 03/03/2026 03/03/2025, 06/2024, 08/05/2023, Additional history exists Eye Exam 05/01/2027 05/01/2025, 12/2024, 05/01/2025, Additional history exists Colonoscopy 02/09/2029 02/09/2019 Colorectal [...] Aged 60 years or older Completed 12/13/2024 Influenza Vaccine Completed 04/18/2025, , 02/24/2023, Additional history exists HIB Vaccines Aged Out No longer eligi [...] on patient's age to complete this topic Goals Goal Patient Goal Type Associated Problems Recent Progress Patient-Stated? Author Help patients manage their type 2 diabetes Care Plan Help patients manage their type 2 diabetes No Navneet Bender, PharmNeda Weekly blood pressure task Care Plan Weekly blood pressure task No Navneet Bender, PharmD Help patients manage their type 2 diabetes Care Plan Help patients manage their type 2 diabetes No Navneet Bender, PharmD Patient has chronic kidney disease Care Plan Patient has chronic kidney disease No Navneet Bender, PharmD Weekly blood pressure task Care Plan Weekly blood pressure task No Navneet Bender, PharmD Patient has chronic kidney disease Care Plan Patient has chronic kidney disease No Navneet Bender, PharmD Weekly blood pressure task Care Plan Weekly blood pressure task No Reggie, Tereza, OD Weekly blood pressure task Care Plan Weekly blood pressure task No Regige, Tereza, OD Patient has chronic kidney disease Care Plan Patient has chronic kidney disease No Reggie, Tereza, OD Patient has chronic kidney disease Care Plan Patient has chronic kidney disease No Reggie, Tereza, OD Weekly blood pressure task Care Plan Weekly blood pressure task No Martin Monique, COMMERCIAL SUBCONTRACTOR Weekly blood pressure task Care Plan Weekly blood pressure task No MartinRositaMonique, COMMERCIAL SUBCONTRACTOR Patient has chronic kidney disease Care Plan Patient has chronic kidney disease No MartinSharita arriagafer, COMMERCIAL SUBCONTRACTOR Patient has chronic kidney disease Care Plan Patient has chronic kidney disease No MartinRositaMonique, COMMERCIAL SUBCONTRACTOR Procedures Procedure Name Priority Date/Time Associated Diagnosis Comments POCT GLYCATED HEMOGLOBIN, TOTAL Routine 04/26/2025 3:23 PM EST Type 2 diabetes mellitus with hyperglycemia, without long-term current use of insulin (HCC) HELICOBACTER PYLORI, UREA BREATH TEST Routine 04/14/2025 10:50 AM EST LIPID PANEL, STANDARD Routine 03/03/2025 11:08 AM EDT HEPATIC FUNCTION PANEL Routine 03/03/2025 11:08 AM EDT HEPATITIS C AB W/REFL TO HCV RNA, QN, PCR Routine 10/24/2024 3:51 PM EDT Type 2 diabetes mellitus with hyperglycemia, without long-term current use of insulin ([facility]) HIV 1/2 ANTIGEN/ANTIBODY, FOURTH GENERATION W/RFL Routine 10/24/2024 3:51 PM EDT Type 2 diabetes mellitus with hyperglycemia, without long-term current use of insulin ([facility]) ALBUMIN, RANDOM URINE W/CREATININE Routine 10/24/2024 3:51 PM EDT Type 2 diabetes mellitus with hyperglycemia, without long-term current use of insulin ([facility]) HM COLONOSCOPY Routine 02/09/2019 from Last 3 Months or Most Recently Relevant to Health Maintenance Results * (ABNORMAL) POCT Hgb A1c (04/26/2025 3:23 PM EST) Hemoglobin A1C 7.6(A) 4.0 - 5.7 % QC Media Lot # [id number] Lot# Expiration Date [id number] Blood 04/26/2025 3:23 PM EST us Laury Banks MD POINT OF CARE TEST EN TER/EDIT ORDERABLES Final Result * Helicobacter pylori, Urea Breath Test (04/14/2025 10:50 AM EST) H. pylori Breath Test Negative Negative [facility] Comment:Antimicrobials, prot on pump inhibitors and bismuthpreparations are known to suppress H. pylori. Ingestingthese medications within two weeks prior to performing thebreath test may produce negative test results. A positiveresult is still clinically valid. 04/14/2025 10:5 0 AM EST 04/17/2025 4:48 PM EST us Generic External Data Provider LAB BODY FLUIDS A ND STOOLS ORDERABLES Final Result [facility] [address] [place] [phone] * Hepatic Function Panel (03/03/2025 11:08 AM EDT) Bilirubin, Total 0.5 0.0 - 1.0 mg/dL [facility] Bilirubin, Direct 0.2 0.0 - 0.5 mg/dL [facility] Aspartate Amino Transferase 23 5 - 37 U/L [facility] Alanine Aminotransferase 21 0 - 40 U/L [facility] Total Protein 7.6 6.5 - 8.0 g/dL [facility] Albumin Level 4.5 3.5 - 5.0 g/dL [facility] Alkaline Phosphatase 111 39 - 117 U/L [facility] 03/03/2025 11:0 8 AM EDT 03/03/2025 11:08 AM EDT us Laury Banks MD LAB BLOOD ORDERABLES Final Result [facility] [address] [place] [phone] * (ABNORMAL) Lipid Panel, Standard (03/03/2025 11:08 AM EDT) Pathologist [facility] Triglycerides 84 <150 mg/dL [facility] Comment:Desirable Triglyceri de: less than 150 mg/dLBorderline High Triglyceride 150-199 mg/dLHigh Triglyceride: 200-499 mg/dLVery High Triglyceride: greater than or equal to 5OO mg/dL Cholesterol 126 <200 mg/dL [facility] Comment:Desirable Cholestero l: less than 200 mg/dLBorderline High Cholesterol: 200-239 mg/dLHigh Cholesterol: greater than 239 mg/dL LDL Cholesterol Calculated 71 <100 mg/dL [facility] Comment:Desirable LDL: less than 100 mg/dLNear Optimal/Above Optimal LDL: 110- 129 mg/dLBorderline High LDL: 130-159 mg/dLHigh LDL: 160-189 mg/dLVery High LDL: greater than or equal to 190 mg/dL HDL Cholesterol 39(L) >40 mg/dL [facility] Comment:Desirable HDL: great er than 40 mg/dL Note: This HDL assay may give artificially low results in patients with liver disease. 03/03/2025 11:0 8 AM EDT 03/03/2025 11:08 AM EDT Laury Banks MD LAB BLOOD ORDERABLES Final Result Performing Organization Address [facility] Co de Phone Number [facility] [address] [place] [phone] * Albumin, Random Urine W/Creatinine (10/24/2024 3:51 PM EDT) Creatinine, Urine 77.90 mg/dL [facility] Microalbumin Urine <5.0 mg/L [facility] Microalbum Creatinine Ratio Ur TNP <30 ug/mg cr [facility] Comment:Unable to calculate albumin/creatinine ratio due to lowmicroalbumin or creatinine result. Urine (Urine, Random) 10/24/2024 3:51 PM EDT 10/24/2024 5:36 PM EDT Laury Banks MD LAB URINE ORDERABLES Final Result Performing Organization Address [facility] de Phone Number [facility] [address] [place] [phone] * Hepatitis C Antibody with Reflex to HCV, RNA, Quantitative, Real-Time PCR (10/24/2024 3:51 PM EDT) Hepatitis C Antibody Nonreactive Nonreactive [facility] Comment:Antibodies to HCV no t detected; does not exclude early acuteHCV infection. Blood Venous blood specimen / Unknown 10/24/2024 3:51 PM EDT 10/24/2024 5:33 PM EDT Laury Banks MD LAB BLOOD ORDERABLES Final Result Performing Organization Address [facility] Co de Phone Number [facility] [address] [place] [phone] [phone] * HIV-1/2 Antigen and Antibodies, Fourth Generation, with Reflexes (10/24/2024 3:51 PM EDT) [facility] Signature HIV AB/AG Nonreactive Nonreactive [facility] Comment:HIV-1 p24 Ag and/or HIV-1/HIV-2 Ab not detected.A test result that is nonreactive does not exclude thepossibility of exposure to or infection with HIV-1 and/orHIV-2. Nonreactive results in this assay for individualswith prior exposure to HIV-1 and/or HIV-2 may be due toantigen and antibody levels that are below the limit ofdetection of this assay.The Kasumi-sou HIV Ag/Ab Combo assay result andsupplemental assay results should be interpreted inconjunction with the patient's clinical presentation,history and other laboratory results. If the results areinconsistent with clinical evidence, additional testing issuggested to confirm the result. Blood Venous blood specimen / Unknown 10/24/2024 3:51 PM EDT 10/24/2024 5:33 PM EDT us Laury Banks MD LAB BLOOD ORDERABLES Final Result Performing Organization Address [facility] Co de Phone Number [facility] [address] [place] [address] [phone] * Hm Colonoscopy (02/09/2019) us Historical Provider HEALTH MAINTENANCE Final Result from Last 3 Months or Most Recently Relevant to Health Maintenance Additional Health Concerns Active Problems Noted Date Diagnosed Date Help patients manage their type 2 diabetes 04/25 Weekly blood pressure task 04/25/2025 Help patients manage their type 2 diabetes 04/25 Patient has chronic kidney disease 04/25/2025 Weekly blood pressure task 04/25/2025 Patient has chronic kidney disease 04/25/2025 Weekly blood pressure task 05/01/2025 Weekly blood pressure task 05/01/2025 Patient has chronic kidney disease 05/01/2025 Patient has chronic kidney disease 05/01/2025 Weekly blood pressure task 05/01/2025 Weekly blood pressure task 05/01/2025 Patient has chronic kidney disease 05/01/2025 Patient has chronic kidney disease 05/01/2025 Insurance [facility] C3 Care Teams Contract Modeler Relationship Specialty Start Date End Date Laury Washington MD [address] [place] [address] PCP - General Family Medicine 04/07/19 Navneet Bender, EvelinD [address] [place] [address] Pharmacist Pharmacy 01/05/25
--- OUTSIDE RECORDS SUMMARY | 2025-05-10 08:35 | XMS_ITS | Encounter Summary ---
Author Organization [employer] Address [address] [facility] 7t [place] [address] Care Team Providers Care Foundation Drill Operator Helper Name Role Phone Laury Washington MD Primary Care Provide r Navneet Bender PharmD Unavailable [phone] Reason for Visit * Reason Comments Med Refill Encounter Details Date Type Department Care Team ([facility] st Contact Info) Description 08/02/2024 Refill [facility] [address] [place] [address] Yunier Rodriguez MD [address] [place] [address] Prurigo nodularis Social History Tobacco Use Types [...] PM EST Office Visit [facility] [address] [place] [phone] Laury Washington MD [address] [place] [phone] 06/23/2025 2:00 PM EST Medication Management [address] [phone] Navneet Bender, Marva [address] [place] [phone] documented as of this encounter Visit Diagnoses Diagnosis Prurigo nodularis Lichenification and lichen simplex chronicus documented in this encounter Additional Health Concerns Assessment Noted Time PHQ-9 Depression Total Score: 0 07/24/19 24 2:08 PM EST documented as of this encounter Care Teams Foundation Drill Operator Helper Relationship Specialty Start Date End Date Laury Washington MD [address] [place] [phone] PCP - General Family Medicine 04/07/19 Navneet Bender, Marva [address] [place] [phone] Pharmacist Pharmacy 01/05/25 documented as of this encounter
--- OUTSIDE RECORDS SUMMARY | 2025-05-10 08:35 | XMS_ITS | Encounter Summary ---
Author Organization [employer] Address [address] [facility] 7t [place] [address] Care Team Providers Care Electronic Systems Technician Name Role Phone Laury Washington MD Primary Care Provide r Navneet Bender PharmD Unavailable [phone] Reason for Visit * Reason Onset Date Comments Med Refill 12/11/2024 Encounter Details Date Type Department Care Team (Late st Contact Info) Description 12/11/2024 Refill [facility] [address] [place] [address] Laury Washington MD [address] [place], [place] [phone] Type 2 diabetes mellitus with hyperglycemia, without long-term current use of insulin ([facility]) Social [...] 06/22/2025 3:30 PM EST Office Visit [facility] [address] [place] [phone] Laury Washington MD [address] [place] [phone] 06/23/2025 2:00 PM EST Medication Management [facility] [address] [place] [phone] Navneet Bender, PharmD [address] [place] [phone] documented as of this encounter Visit Diagnoses Diagnosis Type 2 diabetes mellitus with hyperglycemia, without long-term current use of insulin (HCC) documented in this encounter Additional Health Concerns Assessment Noted Time PHQ-9 Depression Total Score: 0 07/24/19 24 2:08 PM EST documented as of this encounter Care Teams Electronic Systems Technician Relationship Specialty Start Date End Date Laury Washington MD [address] [place] [phone] PCP - General Family Medicine 04/07/19 Navneet Bender, PharmD [address] [place] [address] Pharmacist Pharmacy 01/05/25 documented as of this encounter
--- OUTSIDE RECORDS SUMMARY | 2025-05-10 08:35 | XMS_ITS | Encounter Summary ---
Author Organization [employer] Address [address] [facility] [address] [place] [address] Care Team Providers Care Edger Machine Operator Name Role Phone Laury Washington MD Primary Care Provide r Navneet Bender PharmD Unavailable Reason for Visit * Reason Onset Date Comments Medication Question 10/31/2024 Encounter Details Date Type Department Care Team ([facility] st Contact Info) Description 10/31/2024 Telephone [facility] [address] [place] [address] Laury Washington MD [address] [place], [place] [phone] Medication Question Social History Tobacco Use Types [...] Description 06/22/2025 3:30 PM EST Office Visit [facility] [address] [place] [phone] Laury Washington MD [address] [place] [phone] 06/23/2025 2:00 PM EST Medication Management [facility] [address] [place] [phone] Navneet Bender, PharmD [address] [place] [phone] documented as of this encounter Visit Diagnoses Not on filedocumented in this encounter Additional Health Concerns Assessment Noted Time PHQ-9 Depression Total Score: 0 07/24/19 24 2:08 PM EST documented as of this encounter Care Teams Edger Machine Operator Relationship Specialty Start Date End Date Laury Washington MD [address] [place] [address] PCP - General Family Medicine 04/07/19 Navneet Bender, EvelinD [address] [place] [address] Pharmacist Pharmacy 01/05/25 documented as of this encounter
--- OUTSIDE RECORDS SUMMARY | 2025-05-10 08:35 | XMS_ITS | Encounter Summary ---
Author Organization [employer] Address [address] [facility] 7t [place] [address] Care Team Providers Care Services Program Manager Name Role Phone Laury aWshington MD Primary Care Provide r Navneet Bedner PharmD Unavailable [phone] Reason for Visit * Reason Comments Med Refill Encounter Details Date Type Department Care Team ([facility] st Contact Info) Description 06/02/2023 Refill [facility] [address] [place] [address] Laury Washington MD [address] [place] [address] Social History Tobacco Use Types Packs/Day Years [...] Description 06/22/2025 3:30 PM EST Office Visit [facility] [address] [place] [phone] Laury Washington MD [address] [place] [phone] 06/23/2025 2:00 PM EST Medication Management [address] [address] Navneet Bender, PharmD [address] [place] [phone] documented as of this encounter Visit Diagnoses Not on filedocumented in this encounter Care Teams Services Program Manager Relationship Specialty Start Date End Date Laury Washington MD [address] [place] [phone] PCP - General Family Medicine 04/07/19 Navneet Bender, PharmD [address] [place] [address] [phone] Pharmacist Pharmacy 01/05/25 documented as of this encounter
--- OUTSIDE RECORDS SUMMARY | 2025-05-10 08:35 | XMS_ITS | Encounter Summary ---
Author Organization [employer] Address [address] [place] [address] 7 [place] [address] Care Team Providers Care Selector Packer Name Role Phone Laury Washington MD Primary Care Provide r Navneet Bender PharmD Unavailable [phone] Reason for Visit * Reason Comments Med Refill Encounter Details Date Type Department Care Team (Late Contact Info) Description 09/26/2022 Refill [facility] [address] [place] [address] Laury Washington MD [address] [place] [address] [phone] Other chronic pain Social History Tobacco Use [...] Description 06/22/2025 3:30 PM EST Office Visit [facility] [address] [place], [place] [phone] Laury Washington MD [address] [place] [address] [phone] 06/23/2025 2:00 PM EST Medication Management [facility] [address] [place], [place] [phone] Navneet Bender, PharmD 230 [place], [place] [phone] documented as of this encounter Visit Diagnoses Diagnosis Other chronic pain documented in this encounter Care Teams Selector Packer Relationship Specialty Start Date End Date Laury Washington MD [address] [place] [address] [phone] PCP - General Family Medicine 04/07/19 Navneet Bender, PharmD [address] [place] [address] [phone] Pharmacist Pharmacy 01/05/25 documented as of this encounter
--- OUTSIDE RECORDS SUMMARY | 2025-05-10 08:35 | XMS_ITS | Encounter Summary ---
Author Organization [employer] Address [address] [facility] 7t [place] [address] Care Team Providers Care Machining Associate Name Role Phone Laury Washington MD Primary Care Provide r Navneet Bender PharmD Unavailable [phone] Reason for Visit * Reason Comments Med Refill Encounter Details Date Type Department Care Team ([facility] st Contact Info) Description 08/18/2024 Refill [facility] 230 [place] [address] Yunier Rodriguez MD [address] [place] [address] Prurigo nodularis Social History Tobacco Use Types [...] Description 06/22/2025 3:30 PM EST Office Visit [facility] [address] [place] [phone] Laury Washington MD [address] [place] [phone] 06/23/2025 2:00 PM EST Medication Management [address] [address] Navneet Bender, Marva [address] [place] [phone] documented as of this encounter Visit Diagnoses Diagnosis 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
--- OUTSIDE RECORDS SUMMARY | 2025-05-10 08:35 | XMS_ITS | Encounter Summary ---
Author Organization [employer] Address [address] [facility] 7t [place] [address] Care Team Providers Care Supervisor Riveting Name Role Phone Laury Washington MD Primary Care Provide r Navneet Bender PharmD Unavailable [phone] Reason for Visit * Reason Comments Med Refill Encounter Details Date Type Department Care Team ([facility] st Contact Info) Description 08/11/2024 Refill [facility] 230 [place] [address] Laury Washington MD 230 [place] [address] Pain Social History Tobacco Use Types Packs/Day [...] Description 06/22/2025 3:30 PM EST Office Visit [address] [address] Laury Washington MD [address] [place] [phone] 06/23/2025 2:00 PM EST Medication Management [address] [address] Navneet Bender, Marva [address] [place] [address] documented as of this encounter Visit Diagnoses Diagnosis Pain Generalized pain documented in this encounter Additional Health Concerns Assessment Noted Time PHQ-9 Depression Total Score: 0 07/24/19 24 2:08 PM EST documented as of this encounter Care Teams Supervisor Riveting Relationship Specialty Start Date End Date Laury Washington MD [address] [place] [address] [phone] PCP - General Family Medicine 04/07/19 Navneet Bender, PharmD [address] [place] [address] [phone] Pharmacist Pharmacy 01/05/25 documented as of this encounter
--- OUTSIDE RECORDS SUMMARY | 2025-05-10 08:35 | XMS_ITS | Encounter Summary ---
Author Organization [employer] Address [address] [place] [address] 7 [place] [address] Care Team Providers Care Bow Repairer Custom Name Role Phone Laury Washington MD Primary Care Provide r Navneet Bender PharmD Unavailable [phone] Encounter Details Date Type Department Care Team (Late Contact Info) Description 02/02/2023 Orders Only [facility] MEDICINE [address] [place] [phone] Provider, MD Cari Social History Tobacco Use [...] 06/22/2025 3:30 PM EST Office Visit [address] [phone] Laury Washington MD [address] [place] [phone] 06/23/2025 2:00 PM EST Medication Management [address] [address] Navneet Bender, PharmD 230 [place] [address] documented as of this encounter Procedures Procedure Name Priority Date/Time Associated Diagnosis Comments T4, FREE Routine 07/22/2023 11:39 AM EST COLONOSCOPY Routine 02/09/2019 documented in this encounter Results * T4, Free (07/22/2023 11:39 AM EST) Free T4 (Free Thyroxine) 1.09 0.71 - 1.85 ng/dL [facility] 07/22/2023 11:3 9 AM EST 07/22/2023 1:36 PM EST us Laury Banks MD LAB BLOOD ORDERABLES Final Result [facility] [address] [place] [phone] * Colonoscopy (02/09/2019) us Historical Provider HEALTH MAINTENANCE Final Result documented in this encounter Visit Diagnoses Not on filedocumented in this encounter Care Teams Bow Repairer Custom Relationship Specialty Start Date End Date Laury Washington MD [address] [place] [address] PCP - General Family Medicine 04/07/19 Navneet Bender, PharmD [address] [place] [address] Pharmacist Pharmacy 01/05/25 documented as of this encounter
--- OUTSIDE RECORDS SUMMARY | 2025-05-10 08:35 | XMS_ITS | Encounter Summary ---
Author Organization [employer] Address [address] [facility] 7t [place] [address] Care Team Providers Care Residential Life Director Name Role Phone Laury Washington MD Primary Care Provide r Navneet Bender PharmD Unavailable [phone] Reason for Visit * Reason Onset Date Comments Med Refill 12/11/2024 Encounter Details Date Type Department Care Team (Late st Contact Info) Description 12/11/2024 Refill [facility] 230 [place], [place] [phone] Laury Washington MD 230 [place], [place] [phone] Type 2 diabetes mellitus with hyperglycemia, without long-term current use of insulin ([facility]) Social History Tobacco [...] Description 06/22/2025 3:30 PM EST Office Visit [facility] [address] [place] [phone] Laury Washington MD [address] [place] [phone] 06/23/2025 2:00 PM EST Medication Management [facility] [address] [place] [address] [phone] Navneet Bender, PharmD [address] [place] [phone] documented as of this encounter Visit Diagnoses Diagnosis Type 2 diabetes mellitus with hyperglycemia, without long-term current use of insulin (HCC) documented in this encounter Additional Health Concerns Assessment Noted Time PHQ-9 Depression Total Score: 0 07/24/19 24 2:08 PM EST documented as of this encounter Care Teams Residential Life Director Relationship Specialty Start Date End Date Laury Washington MD [address] [place] [address] [phone] PCP - General Family Medicine 04/07/19 Navneet Bender, PharmD [address] [place] [phone] Pharmacist Pharmacy 01/05/25 documented as of this encounter
== END 2025-05-10 08:24 | disposition home or self-care (01) ==
LOC: HO.XRAY 08:23
PROVIDERS: PCP Internal Medicine; Visit Provider Nurse Practitioner Family
DX: K21.9 Gastro-esophageal reflux disease without esophagitis (principal)
CPT/HCPCS: 74246

== ENCOUNTER → 2025-05-10 08:26 | Outpatient (BNV) | payer MEDICAID, SELFPAY | PROVIDERS: PCP Internal Medicine; Visit Provider Radiology Diagnostic Radiology | DX: R10.13 Epigastric pain (principal); K44.9 Diaphragmatic hernia without obstruction or gangrene | CPT/HCPCS: 74246 ==